=== PATIENT | female | born 1970 | race Caucasian/White ===

== ENCOUNTER 2022-08-22 08:54 | Observation (INO) ==
[2022-08-22] MEDS ORDERED: SODIUM CHLORIDE 0.9% 1000ML 500 ML IV ONE (09:06)
[2022-08-22] MEDS ORDERED: LORazepam 1 MG TAB SL STA (09:08)
[2022-08-22] MEDS ORDERED: ONDANSETRON INJ 2 MG/ML 2 ML VIAL IV STA (09:11)
--- NOTE | 2022-08-22 09:11 | Emergency Department Note ---
Impression & Plan Dizziness, Arm paresthesia, left, Nystagmus ED Provider Note NAME: ANSELMO HIGGINS AGE: 51 SEX: F : 1970 ARRIVES VIA: Ambulance INFORMANT: Patient ED PROVIDER(S): Miguel Vega DO CHIEF COMPLAINT: dizzy HPI: Patient is a 51-year-old female with a past medical history of tendinitis who presents to the ER for dizziness. This started while she was at [employer]. She was working. Start about 20 minutes prior to arrival. She notes she feels like she cannot stand. She had a little bit of a headache last night but nothing today. She has trouble focusing on anything. She admits to numbness on her left arm which started late last night. Denies any chest pain or shortness of breath. Has nausea but no vomiting. No dysuria, urgency, or frequency. No f ocal weakness of the arms or legs. No other exacerbating or remitting factors. ROS: See above HPI for pertinent positives & negatives. A total of 10 systems reviewed and were otherwise negative. PAST MEDICAL HISTORY:See Below PAST SURGICAL HISTORY:See Below FAMILY HISTORY:See Below SOCIAL HISTORY:See Below HOME MEDICATIONS:See Below ALLERGIES:See Below VITALS:See Below PHYSICAL EXAMINATION: GENERAL: Sitting up in bed, alert, well appearing, well nourished, no distress, non-toxic EYE EXAM: normal conjunctiva. PERRL and EOM's intact but a rotatory nystagmus present OROPHARYNX: mucous membranes are dry NECK: supple, no nuchal rigidity, no adenopathy, non-tender LUNGS: Clear to auscultation. Normal chest wall mechanics HEART: no murmurs, S1 normal and S2 normal ABDOMEN: abdomen soft, non-tender, normo-active bowel sounds, no masses, no rebound or guarding. UPPER EXTREMITIES: upper extremities are grossly normal. LOWER EXTREMITIES: No pitting edema. NEURO EXAM: Normal sensorium, cranial nerves II-XII intact, normal speech, no weakness of arms, no weakness of legs. No drift. Finger to nose intact. Gross sensation intact. + drift. [id number] with finger past MEDICAL DECISION MAKING: Patient is a 51-year-old female who presents the ER for dizziness. Upon presentation she has a rotatory nystagmus in combination with a drift of the left upper extremity and left arm paresthesias. IV was established blood work obtained. Labs show no significant leukocytosis or anemia. BMP with LFTs bilirubin was unremarkable. Mag was slightly low at 1.6. Troponin was negative. UA was clean. COVID was negative. CT of the head as well as angios of the head and neck were negative. She was given Ativan and Zofran. She was updated bedside. She was discussed with the hospitalist for further evaluation. Triage Nursing notes reviewed. Limited review of prior medical records performed Vital Signs: reviewed and remarkable for no significant abnormalities Differential diagnosis: Differential diagnosis includes etiologies such as benign positional vertigo, dehydration, hypovolemia, anemia, tumor, infection, hypoglycemia, electrolyte abnormalities, cardiac sources, intracerebral event, toxicologic, neurological, as well as others were entertained. ER treatment provided: See below Diagnostics interpreted by me: ECG: Sinus rhythm rate of 78 Normal axis No PVCs QTC 465 Cardiac Monitoring: An order was placed for continuous cardiac monitoring. The monitor shows a rate of 80 with sinus rhythm. Laboratory studies: As stated above and show below. Imaging studies: CT angio of the head and neck was negative Consultation(s): Discussed with Darlene from [facility] hospitalist service for further evaluation Procedures: none Critical Care: None Past Med/Surg History Medical History (Updated 08/22/22 @ 12:30 by Luzmaria Pelayo PA-C) CAD (coronary artery disease) Depression Diabetes HLD (hyperlipidemia) Hypertension Surgical History S/P repair of patent ductus arteriosus "age 7" S/P tubal ligation Social History Smoking Status: Former smoker Hx Alcohol Use: No Hx Substance Use: No Preferred Language: Bruneian Communication Ability: Effective 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 Beliefs That Will Affect Care: None Current Living Situation: Alone Other Information That Helps Us Care for You: No Feels Safe at Home: Yes Safety Concerns: Feels Safe At This Time Assistive Devices: Cane Assistive Devices Comment: cane prn at home per pt Allergies Allergies Allergy/AdvReac Type Severity Reaction Status Date / Time No Known Allergies Allergy Unverified 07/11/15 12:32 Home Meds Home Medications Medication Instructions Recorded Confirmed CITALOPRAM HYDROBROMIDE 10 mg PO DAILY 90 days #90 tabs 07/11/15 LORATADINE (LORATADINE ALLERGY 10 mg PO DAILY ##0 07/11/15 RELIEF) Trazodone Hcl (Trazodone) 50 mg PO HS #0 tabs 07/11/15 DEXAMETHASONE SODIUM PHOSPHATE 1.5 ml topical UD PRN foot pain ##0 07/12/15 (DEXAMETHASONE SODIUM PHOS) DICLOFENAC SOD (VOLTAREN) 50 mg PO BID #0 tabs 07/12/15 Fluticasone Propionate (Nasal) 2 spry KIRTI DAILY ##0 07/12/15 (Flonase Allergy Relief) Previous Rx's Medication Instructions Recorded Baclofen 10 mg PO BID 7 days ##0 07/19/15 Lisinopril 10 mg PO QAM 7 days #0 tabs 07/19/15 MAGNESIUM OXIDE (MG SUPPLEMENT 250 mg PO DAILY 7 days ##0 07/19/15 (MAGNESIUM OXIDE) Results & Data (ED) Vital Signs Vital Signs - 24 hr 08/22/22 09:01 08/22/22 09:01 08/22/22 09:30 Pulse Rate 79 Pulse Rate [Finger] Pulse Rate from SpO2 Sensor Respiratory Rate 20 Respiratory Effort / Characteristics Respiratory Depth Blood Pressure 126/76 123/78 Blood Pressure [Right Arm] Blood Pressure Mean 92 93 Blood Pressure Mean [Right Arm] Pulse Oximetry 96 96 Oxygen Delivery Method Room Air Room Air Sepsis Recent Fever Within 48 Hours No Sepsis New/Unexplained Change in Mental Status No Sepsis Action Taken by Nursing No Action Required 08/22/22 09:30 08/22/22 10:30 08/22/22 10:30 Pulse Rate 78 75 Pulse Rate [Finger] Pulse Rate from SpO2 Sensor 73 Respiratory Rate 13 18 Respiratory Effort / Characteristics Respiratory Depth Blood Pressure 108/77 Blood Pressure [Right Arm] Blood Pressure Mean 87 Blood Pressure Mean [Right Arm] Pulse Oximetry 95 Oxygen Delivery Method Sepsis Recent Fever Within 48 Hours Sepsis New/Unexplained Change in Mental Status Sepsis Action Taken by Nursing 08/22/22 11:00 Pulse Rate Pulse Rate [Finger] 75 Pulse Rate from SpO2 Sensor Respiratory Rate 20 Respiratory Effort / Characteristics Non-Labored Respiratory Depth Normal Blood Pressure Blood Pressure [Right Arm] 110/71 Blood Pressure Mean Blood Pressure Mean [Right Arm] 84 Pulse Oximetry 96 Oxygen Delivery Method Room Air Sepsis Recent Fever Within 48 Hours Sepsis New/Unexplained Change in Mental Status Sepsis Action Taken by Nursing Laboratory Data Result diagrams: 08/22/22 09:05 08/22/22 09:05 Lab Results 08/22/22 08/22/22 08/22/22 Range/Units 09:05 09:05 09:05 WBC 7.03 (4.8-10.8) K/ul RBC 4.55 (3.93-5.22) M/uL Hgb 13.3 (12.0-16.0) g/dl Hct 40.4 (34.1-44.9) % MCV 88.8 (80.0-100.0) fL MCH 29.2 (25.0-34.0) pg MCHC 32.9 (32.0-36.0) g/dL RDW Std Deviation 43.0 (36.4-46.3) fL RDW Coeff of [place] 13.1 (11.5-14.5) % Plt Count 281 (130-400) K/uL MPV 10.8 (9.4-12.3) fL Immature Gran % (Auto) 0.7 % Neut % (Auto) 59.6 % Lymph % (Auto) 26.9 % [place] % (Auto) 8.4 % Eos % (Auto) 3.7 % Baso % (Auto) 0.7 % Neut # (Auto) 4.19 (1.4-6.5) K/uL Lymph # (Auto) 1.89 (1.2-3.4) K/uL [place] # (Auto) 0.59 (0.24-0.82) K/uL Eos # (Auto) 0.26 (0-0.50) K/uL Baso # (Auto) 0.05 (0-0.2) K/uL Immature Gran # (Auto) 0.05 H (0.00-0.02) K/uL PT Cancelled INR Cancelled APTT Cancelled PTT Ratio Cancelled Sodium 139 (136-145) mmol/L Potassium 4.0 (3.5-5.1) mmol/L Chloride 104 (98-107) mmol/L Carbon Dioxide 28 (21-32) mmol/L Anion Gap 7 (3-11) BUN 13 (6-23) mg/dl Creatinine 0.54 L (0.6-1.2) mg/dl Est Cr Clr Drug Dosing 135.5 ml/min Est GFR ( Amer) 126.6 ml/min Est GFR (Non-Af Amer) 109.3 ml/min BUN/Creatinine Ratio 24.1 H (10-20) Glucose 112 H (70-99(Fasting)) mg/dl POC Glucose (70-99) mg/dl Calcium 9.2 (8.5-10.1) mg/dl Magnesium 1.6 L (1.7-2.4) mg/dl Total Bilirubin 0.8 (0.2-1.0) mg/dl AST 12 L (13-39) U/L ALT 6 L (7-52) U/L Alkaline Phosphatase 100 (34-104) U/L Troponin I High Sens 4.0 (0-14) pg/ml Total Protein 7.4 (6.0-8.3) gm/dl Albumin 4.0 (3.4-5.0) gm/dl Globulin 3.4 (2.5-4.0) gm/dl Albumin/Globulin Ratio 1.2 (0.9-2) Urine Color Urine Appearance (Clear) Urine pH (4.5-7.5) Ur Specific [place] (1.000-1.030) Urine Protein (Negative) Urine Glucose (UA) (Negative) Urine Ketones (Negative) Urine Blood (Negative) Urine Nitrite (Negative) Urine Bilirubin (Negative) Urine Urobilinogen (Negative) Ur Leukocyte Esterase (Negative) SARS-CoV-2, RNA, NAAT (NEGATIVE) 08/22/22 08/22/22 08/22/22 Range/Units 09:05 09:14 10:20 WBC (4.8-10.8) K/ul RBC (3.93-5.22) M/uL Hgb (12.0-16.0) g/dl Hct (34.1-44.9) % MCV (80.0-100.0) fL MCH (25.0-34.0) pg MCHC (32.0-36.0) g/dL RDW Std Deviation (36.4-46.3) fL RDW Coeff of [place] (11.5-14.5) % Plt Count (130-400) K/uL MPV (9.4-12.3) fL Immature Gran % (Auto) % Neut % (Auto) % Lymph % (Auto) % [place] % (Auto) % Eos % (Auto) % Baso % (Auto) % Neut # (Auto) (1.4-6.5) K/uL Lymph # (Auto) (1.2-3.4) K/uL [place] # (Auto) (0.24-0.82) K/uL Eos # (Auto) (0-0.50) K/uL Baso # (Auto) (0-0.2) K/uL Immature Gran # (Auto) (0.00-0.02) K/uL PT INR APTT PTT Ratio Sodium (136-145) mmol/L Potassium (3.5-5.1) mmol/L Chloride (98-107) mmol/L Carbon Dioxide (21-32) mmol/L Anion Gap (3-11) BUN (6-23) mg/dl Creatinine (0.6-1.2) mg/dl Est Cr Clr Drug Dosing ml/min Est GFR ( Amer) ml/min Est GFR (Non-Af Amer) ml/min BUN/Creatinine Ratio (10-20) Glucose (70-99(Fasting)) mg/dl POC Glucose 112 H (70-99) mg/dl Calcium (8.5-10.1) mg/dl Magnesium (1.7-2.4) mg/dl Total Bilirubin (0.2-1.0) mg/dl AST (13-39) U/L ALT (7-52) U/L Alkaline Phosphatase (34-104) U/L Troponin I High Sens (0-14) pg/ml Total Protein (6.0-8.3) gm/dl Albumin (3.4-5.0) gm/dl Globulin (2.5-4.0) gm/dl Albumin/Globulin Ratio (0.9-2) Urine Color Yellow Urine Appearance Clear (Clear) Urine pH 5.0 (4.5-7.5) Ur Specific [place] 1.008 (1.000-1.030) Urine Protein Negative (Negative) Urine Glucose (UA) Negative (Negative) Urine Ketones Negative (Negative) Urine Blood Negative (Negative) Urine Nitrite Negative (Negative) Urine Bilirubin Negative (Negative) Urine Urobilinogen Negative (Negative) Ur Leukocyte Esterase Negative (Negative) SARS-CoV-2, RNA, NAAT NEGATIVE (NEGATIVE) 08/22/22 Range/Units 11:34 WBC (4.8-10.8) K/ul RBC (3.93-5.22) M/uL Hgb (12.0-16.0) g/dl Hct (34.1-44.9) % MCV (80.0-100.0) fL MCH (25.0-34.0) pg MCHC (32.0-36.0) g/dL RDW Std Deviation (36.4-46.3) fL RDW Coeff of [place] (11.5-14.5) % Plt Count (130-400) K/uL MPV (9.4-12.3) fL Immature Gran % (Auto) % Neut % (Auto) % Lymph % (Auto) % [place] % (Auto) % Eos % (Auto) % Baso % (Auto) % Neut # (Auto) (1.4-6.5) K/uL Lymph # (Auto) (1.2-3.4) K/uL [place] # (Auto) (0.24-0.82) K/uL Eos # (Auto) (0-0.50) K/uL Baso # (Auto) (0-0.2) K/uL Immature Gran # (Auto) (0.00-0.02) K/uL PT 10.6 INR 1.0 APTT 26.2 PTT Ratio 1.0 Sodium (136-145) mmol/L Potassium (3.5-5.1) mmol/L Chloride (98-107) mmol/L Carbon Dioxide (21-32) mmol/L Anion Gap (3-11) BUN (6-23) mg/dl Creatinine (0.6-1.2) mg/dl Est Cr Clr Drug Dosing ml/min Est GFR ( Amer) ml/min Est GFR (Non-Af Amer) ml/min BUN/Creatinine Ratio (10-20) Glucose (70-99(Fasting)) mg/dl POC Glucose (70-99) mg/dl Calcium (8.5-10.1) mg/dl Magnesium (1.7-2.4) mg/dl Total Bilirubin (0.2-1.0) mg/dl AST (13-39) U/L ALT (7-52) U/L Alkaline Phosphatase (34-104) U/L Troponin I High Sens (0-14) pg/ml Total Protein (6.0-8.3) gm/dl Albumin (3.4-5.0) gm/dl Globulin (2.5-4.0) gm/dl Albumin/Globulin Ratio (0.9-2) Urine Color Urine Appearance (Clear) Urine pH (4.5-7.5) Ur Specific [place] (1.000-1.030) Urine Protein (Negative) Urine Glucose (UA) (Negative) Urine Ketones (Negative) Urine Blood (Negative) Urine Nitrite (Negative) Urine Bilirubin (Negative) Urine Urobilinogen (Negative) Ur Leukocyte Esterase (Negative) SARS-CoV-2, RNA, NAAT (NEGATIVE) Administered Medications Discontinued Medications Sodium Chloride (Nss 1000ml) 500 mls @ 999 mls/hr IV .Q31M ONE Stop: 08/22/22 09:36 Last Infusion: 08/22/22 10:05 Dose: 0 mls/hr Documented By: Admin: 08/22/22 09:34 Dose: 999 mls/hr Documented By: KIRTI Ioversol (Optiray 320 500ml) 112 ml IV ONCE ONE Stop: 08/22/22 10:45 Last Admin: 08/22/22 10:44 Dose: 112 ml Documented By: EVELIA Lorazepam (Lorazepam 1 Mg Tab) 1 mg SL NOW STA Stop: 08/22/22 09:09 Last Admin: 08/22/22 09:28 Dose: 1 mg Documented By: KIRTI Ondansetron HCl (Ondansetron Inj 2 Mg/Ml 2 Ml Vial) 4 mg IV NOW STA Stop: 08/22/22 09:12 Last Admin: 08/22/22 09:28 Dose: 4 mg Documented By: KIRTI Imaging Data Radiologist's Impression: Chest X-Ray 08/22/22 09:06 XR chest 1V portable CLINICAL HISTORY: Stroke Like Symptoms TECHNIQUE: Single frontal radiograph of the chest was obtained. Comparison: Comparison is made to chest radiograph 06/29/2022 FINDINGS: No lines and tubes are seen. The cardiomediastinal silhouette is stable. Numerous nodular densities compatible with calcified granulomata. Interstitial thickening is seen. No pleural effusion or pneumothorax. Anterior cervical fixation hardware is noted. IMPRESSION: No acute chest disease. ACT 112: Negative or not required by law. Electronically signed by: Murtaza Lancaster M.D. 08/22/2022 10:[address] 08/22/22 09:06 CT head/brain wo con CLINICAL HISTORY: 51 years-old Female with Stroke Like Symptoms. Acute strokelike symptoms TECHNIQUE: Multiple axial CT images of the head were obtained without contrast. A dose lowering technique was utilized adhering to the principles of ALARA. COMPARISON: CTA head and neck of same day FINDINGS: No acute intracranial hemorrhage, midline shift, intracranial mass, hydrocephalus, territorial ischemia or abnormal extra-axial collection. Cerebral vascular calcifications. The calvarium is intact. Cervical spinal fusion hardware. The paranasal sinuses, mastoid air cells, and middle ear cavities are clear. IMPRESSION: No acute intracranial abnormality. ACT 112: Negative or not required by law. The above report was generated using voice recognition software. It may contain grammatical, syntax or spelling errors. Electronically signed by: Elvis Guerrero M.D. 08/22/2022 10:53 AM Head CTA 08/22/22 09:06 CT angio head w con CLINICAL HISTORY: Stroke Like Symptoms TECHNIQUE: Contiguous axial CT images of the head were acquired from the base of the skull to the vertex without intravenous contrast administration. CT angiography of the head and neck was performed following intravenous administration of iodinated contrast. Coronal and sagittal MIPS were obtained from the axial data set and were submitted for review. Automated dose lowering techniques and/or adjustment according to patient size were utilized for this examination. All measurements were calculated based on NASCET criteria. CT DOSE: 1130.13 mGy.cm Comparison: Comparison is made to CT head 08/22/2022 FINDINGS: CTA Head: The anterior and posterior cerebral circulations are patent. No hemodynamically significant stenosis, aneurysm, dissection, or arteriovenous malformation is shown. Atherosclerotic disease is noted. IMPRESSION: No occlusion, hemodynamically significant stenosis, aneurysm, dissection, or arteriovenous malformation in the major intracranial arteries. Assessment of stenosis of the internal carotid arteries is based on NASCET criteria. ACT 112: Negative or not required by law. Electronically signed by: Murtaza Lancaster M.D. 08/22/2022 11:15 AM Neck CTA 08/22/22 09:06 NECK CTA HISTORY: Stroke Like Symptoms TECHNIQUE: Multiaxial CT images of the neck were performed following the intravenous administration of contrast to evaluate the major cervical vessels. Maximum intensity projection images were also obtained. All measurements were calculated based on NASCET criteria. A dose lowering technique was utilized adhering to the principles of ALARA. COMPARISON STUDY: None. FINDINGS: The aortic arch and proximal great vessels are widely patent. There is no significant stenosis, occlusion, or dissection identified within the bilateral common carotid, internal carotid, or right vertebral artery. C3-C6 ACDF is noted. Mild mass effect along the left vertebral artery due to the adjacent cervical spine osteophytes. However, no significant stenosis, occlusion, or dissection. Mild calcified plaque within the bilateral carotid bifurcations. IMPRESSION: No significant stenosis, occlusion, or dissection identified within the carotid or vertebral arteries. ACT 112: Negative or not required by law. Electronically signed by: Elier Conner M.D. 08/22/2022 11:00 AM Discharge Plan Visit Data Chief Complaint: Dizziness Stated Complaint: DIZZINESS, NAUSEA ED Provider: Miguel Vega Discharge Problem: Dizziness, Arm paresthesia, left, Nystagmus Patient Disposition: Admitted As Inpatient Discharge Instructions Interventions: ED Discharge Assessment Last Done: 08/22/22 12:46
[2022-08-22 09:43] LABS: Basophils # (auto) 0.05 K/uL (0-0.2); Basophils % (auto) 0.7 %; Eosinophils # (auto) 0.26 K/uL (0-0.50); Eosinophils % (auto) 3.7 %; Hematocrit (blood only) 40.4 % (34.1-44.9); Hemoglobin 13.3 g/dl (12.0-16.0); Immature Granulocytes # (auto) 0.05 K/uL (0.00-0.02); Immature Granulocytes % (auto) 0.7 %; Lymphocytes # (auto) 1.89 K/uL (1.2-3.4); Lymphocytes % (auto) 26.9 %; Mean Corpuscular Hemoglobin 29.2 pg (25.0-34.0); Mean Corpuscular Hgb Conc 32.9 g/dL (32.0-36.0); Mean Corpuscular Volume 88.8 fL (80.0-100.0); Mean Platelet Volume 10.8 fL (9.4-12.3); Monocytes # (auto) 0.59 K/uL (0.24-0.82); Monocytes % (auto) 8.4 %; Neutrophils # (auto) 4.19 K/uL (1.4-6.5); Neutrophils % (auto) 59.6 %; Platelet Count 281 K/uL (130-400); RDW Coefficient of Variation 13.1 % (11.5-14.5); Red Blood Count 4.55 M/uL (3.93-5.22); White Blood Count 7.03 K/ul (4.8-10.8)
[2022-08-22 10:18] LABS: Albumin Globulin Ratio 1.2 (0.9-2); BUN Creatinine Ratio 24.1 (10-20); Bilirubin,Total 0.8 mg/dl (0.2-1.0); Calcium 9.2 mg/dl (8.5-10.1); Creatinine Clr Calc Pharmacy 135.5 ml/min; Est GFR (African American) 126.6 ml/min; Est GFR (Non-African American) 109.3 ml/min; Globulin 3.4 gm/dl (2.5-4.0); Magnesium 1.6 mg/dl (1.7-2.4); Total Protein 7.4 gm/dl (6.0-8.3)
--- NOTE | 2022-08-22 10:35 | XRay Report ---
XR chest 1V portable CLINICAL HISTORY: Stroke Like Symptoms TECHNIQUE: Single frontal radiograph of the chest was obtained. Comparison: Comparison is made to chest radiograph 06/29/2022 FINDINGS: No lines and tubes are seen. The cardiomediastinal silhouette is stable. Numerous nodular densities c ompatible with calcified granulomata. Interstitial thickening is seen. No pleural effusion or pneumot horax. Anterior cervical fixation hardware is noted. IMPRESSION: No acute chest disease. ACT 112: Negative or not required by law. Electronically signed by: Murtaza Lancaster M.D. 08/22/2022 10:34 AM
[2022-08-22] MEDS ORDERED: OPTIRAY 320 500ml IV ONE (10:44)
--- NOTE | 2022-08-22 10:55 | CT Scan Report ---
CT head/brain wo con CLINICAL HISTORY: 51 years-old Female with Stroke Like Symptoms. Acute strokelike symptoms TECHNIQUE: Multiple axial CT images of the head were obtained without contrast. A dose lowering tech nique was utilized adhering to the principles of ALARA. COMPARISON: CTA head and neck of same day FINDINGS: No acute intracranial hemorrhage, midline shift, intracranial mass, hydrocephalus, territorial ischem ia or abnormal extra-axial collection. Cerebral vascular calcifications. The calvarium is intact. Cervical spinal fusion hardware. The paranasal sinuses, mastoid air cells, a nd middle ear cavities are clear. IMPRESSION: No acute intracranial abnormality. ACT 112: Negative or not required by law. The above report was generated using voice recognition software. It may contain grammatical, syntax o r spelling errors. Electronically signed by: Elvis Guerrero M.D. 08/22/2022 10:53 AM
[2022-08-22 10:57] LABS: Appearance Urine Clear (Clear); Bilirubin Urine Negative (Negative); Blood Urine Negative (Negative); Color Urine Yellow; Glucose Urine UA Negative (Negative); Ketones Urine Negative (Negative); Leukocyte Esterase Urine Negative (Negative); Nitrite Urine Negative (Negative); Protein Urine Negative (Negative); Specific Gravity Urine 1.008 (1.000-1.030); Urobilinogen Urine Negative (Negative)
--- NOTE | 2022-08-22 11:02 | CT Scan Report ---
NECK CTA HISTORY: Stroke Like Symptoms TECHNIQUE: Multiaxial CT images of the neck were performed following the intravenous administration o f contrast to evaluate the major cervical vessels. Maximum intensity projection images were also obta ined. All measurements were calculated based on NASCET criteria. A dose lowering technique was utili zed adhering to the principles of ALARA. COMPARISON STUDY: None. FINDINGS: The aortic arch and proximal great vessels are widely patent. There is no significant sten osis, occlusion, or dissection identified within the bilateral common carotid, internal carotid, or r ight vertebral artery. C3-C6 ACDF is noted. Mild mass effect along the left vertebral artery due to t he adjacent cervical spine osteophytes. However, no significant stenosis, occlusion, or dissection. M ild calcified plaque within the bilateral carotid bifurcations. IMPRESSION: No significant stenosis, occlusion, or dissection identified within the carotid or vertebral arteries . ACT 112: Negative or not required by law. Electronically signed by: Elier Conner M.D. 08/22/2022 11:00 AM
--- NOTE | 2022-08-22 11:16 | CT Scan Report ---
CT angio head w con CLINICAL HISTORY: Stroke Like Symptoms TECHNIQUE: Contiguous axial CT images of the head were acquired from the base of the skull to the rubina ezekiel without intravenous contrast administration. CT angiography of the head and neck was performed f ollowing intravenous administration of iodinated contrast. Coronal and sagittal MIPS were obtained fr om the axial data set and were submitted for review. Automated dose lowering techniques and/or adjus tment according to patient size were utilized for this examination. All measurements were calculated based on NASCET criteria. CT DOSE: 1130.13 mGy.cm Comparison: Comparison is made to CT head 08/22/2022 FINDINGS: CTA Head: The anterior and posterior cerebral circulations are patent. No hemodynamically significan t stenosis, aneurysm, dissection, or arteriovenous malformation is shown. Atherosclerotic disease is noted. IMPRESSION: No occlusion, hemodynamically significant stenosis, aneurysm, dissection, or arteriovenous malformati on in the major intracranial arteries. Assessment of stenosis of the internal carotid arteries is based on NASCET criteria. ACT 112: Negative or not required by law. Electronically signed by: Murtaza Lancaster M.D. 08/22/2022 11:15 AM
--- NOTE | 2022-08-22 11:50 | History & Physical Report ---
Date of Service August 22, 2022 Assessment & Plan (1) Encephalopathy: (2) Dizziness: Plan: - Pt reports onset of acute dizziness, difficulty walking around 9:30 am, EMS was called and brought her to the hospital from work. - CTAs of the head and neck are negative - Check MRI brain for concern for cerebellar stroke - hx of claustrophobia but is still lethargic from the ativan already given in the ER. - Ativan possibly playing a part in her encephalopathy, will have to continue to evaluate to see if improves once it wears off - ABG ordered: pH is 7.42, PCO2 is 50, bicarb 32. - Check urine drug screen from toxicology causes, possibility that the patient took extra trazodone or gabapentin? - Consult neuro - stoke order set completed - Already on plavix and aspirin, atorvastatin 40 mg daily - Will hold HS trazodone for now with lethargy, if improves may resume this - Cont NPO for now (3) Diabetes: Plan: - Last A1C was 6.4 on 06/05/22 - Not on medication for such, continue diet control (4) HLD (hyperlipidemia): Plan: - Continue atorvastatin 40 mg daily (5) CAD (coronary artery disease): Plan: -Continue on baby aspirin, Plavix, statin, beta-abel, KASI (6) Hypertension: Plan: -Lisinopril 2.5 mg, metoprolol succinate 12.5 mg twice daily DVT ppx: - teds, scds CODE: Full code Dispo: From home, likely to remain in the hospital x 1-2 days (7) Vertigo: (8) S/P cervical spinal fusion: History of Present Illness Chief Complaint: Dizziness Primary Care Provider: Patrizia Lazo MD This is a 51-year-old female with PMHx of HTN, DM type II, TRINIDAD, HLD, anxiety, depression who presents with acute onset of dizziness. 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 She felt some numbness of the left arm which is slightly there at present. Denies slurring words, word finding, cardiac complaints, or issues with breathing. Pt took her normally scheduled medications today including gabapentin 800 mg TID, and last evening took Trazodone 150 mg HS. Neither of these medications are new or recently increased per her knowledge. She does not think she took different medications on accident. Denies drug use or other new medication. She is very drowsy throughout our visit and at times has difficulty keeping her eyes open - she was given Ativan 1 mg PO in the ER however. Pt has difficulty following commands with neuro testing today including left vs right hand and leg use to start tests, finger to nose testing, rapid alternating movements. Allergies Allergy/AdvReac Type Severity Reaction Status Date / Time No Known Allergies Allergy Unverified 07/11/15 12:32 Home Medications Medication Instructions Recorded Confirmed Type amlodipine 2.5 mg tablet 2.5 mg PO DAILY 08/22/22 08/22/22 History aspirin 81 mg chewable tablet 81 mg PO DAILY 08/22/22 08/22/22 History atorvastatin 40 mg tablet 40 mg PO QAM 08/22/22 08/22/22 History citalopram 40 mg tablet 40 mg PO QAM 08/22/22 08/22/22 History clopidogrel 75 mg tablet 75 mg PO QAM 08/22/22 08/22/22 History cyclobenzaprine 5 mg tablet 10 mg PO QID PRN Muscle Spasm 08/22/22 08/22/22 History dicyclomine 10 mg capsule 10 mg PO DAILY PRN Abdominal Pain 08/22/22 08/22/22 History gabapentin 800 mg tablet 800 mg PO TID 08/22/22 08/22/22 History lisinopril 2.5 mg tablet 2.5 mg PO DAILY 08/22/22 08/22/22 History metformin 500 mg tablet,extended 500 mg PO BID 08/22/22 08/22/22 History release 24 hr metoprolol succinate 25 mg 12.5 mg PO BID 08/22/22 08/22/22 History tablet,extended release 24 hr trazodone 150 mg tablet 150 mg PO DAILY 08/22/22 08/22/22 History Past Med/Surg History Medical History (Updated 08/22/22 @ 21:26 by Soumya Mora DO) CAD (coronary artery disease) Depression Diabetes HLD (hyperlipidemia) Hypertension Surgical History (Updated 08/22/22 @ 21:28 by Soumya Mora DO) S/P repair of patent ductus arteriosus "age 7" S/P tubal ligation Family History (Updated 08/22/22 @ 15:00 by Luzmaria Pelayo PA-C) Mother Cancer Diabetes Grandmother (Maternal) Stroke Aunt Cancer Aunt Cancer Stroke Social History Smoking Status: Former smoker Hx Alcohol Use: No Hx Substance Use: No Preferred Language: Yakut Communication Ability: Effective Hardware Installer Required: No Beliefs That Will Affect Care: None Current Living Situation: Alone Other Information That Helps Us Care for You: No Feels Safe at Home: Yes Safety Concerns: Feels Safe At This Time Assistive Devices: Cane Assistive Devices Comment: cane prn at home per pt Review of Systems Review of Systems: Constitutional: No fever, sweats or chills, + dizziness, imbalance Eyes: No diplopia, no worsening or blurred vision, no tunnel vision ENT: normal hearing, no trouble swallowing Respiratory: No cough, sputum, dyspnea at rest or on exertion Cardiovascular: No chest pain, tightness or palpitations Abdomen: No pain, + slight nausea earlier, none presently, no vomiting, diarrhea or constipation Musculoskeletal: No joint pain, calf pain, swelling Neurologic: No weakness, numbness/tingling, + balance problems with ambulation today Psychiatric: No anxiety or depression Skin: No rash or itch Physical Exam Physical Exam: General: awake, alert, no apparent distress, + lethargic, + obese with BMI of 42.1 Head: Normocephalic, atraumatic ENT: PERRL, EOMI, no pharyngeal exudate, mucous membranes moist Chest: Clear to auscultation, on room air, no adventitious breath sounds Cardiac: Regular rate and rhythm, no murmur, no JVD, normal peripheral pulses, good capillary refill Abdominal: NABS x 4 quadrants, soft, nondistended, nontender to palpation, no rebound or guarding Extremities: Normal inspection, no peripheral edema or erythema, calfs nontender to palpation Psych: Normal mood and affect Neuro: AAO x 3, strength intact bilaterally and rated 4/5,unable to perform rapid alternating movements, significant difficulty with [id number]-sa-[id number] testing, + rotational nystagmus, pupils are equal and reactive to light, unable to tilt right from left with following instructions able to perform facv-bf-aadj testing, no motor deficits, speech is clear, no peripheral sensory deficits Results & Data Results & Data ([facility]) Vital Signs (Past 12 Hours) Vital Signs Pulse Pulse Resp BP BP Pulse Ox O2 Del Method 08/22/22 11:00 75 20 110/71 96 Room Air 08/22/22 10:30 75 18 95 08/22/22 10:30 108/77 08/22/22 09:30 78 13 08/22/22 09:30 123/78 08/22/22 09:01 96 Room Air 08/22/22 09:01 79 20 126/76 96 Room Air Laboratory Results 08/22/22 08/22/22 08/22/22 11:34 10:20 09:14 WBC RBC Hgb Hct MCV MCH MCHC RDW Std Deviation RDW Coeff of [place] Plt Count MPV Immature Gran % (Auto) Neut % (Auto) Lymph % (Auto) [place] % (Auto) Eos % (Auto) Baso % (Auto) Neut # (Auto) Lymph # (Auto) [place] # (Auto) Eos # (Auto) Baso # (Auto) Immature Gran # (Auto) PT 10.6 INR 1.0 APTT 26.2 PTT Ratio 1.0 Sodium Potassium Chloride Carbon Dioxide Anion Gap BUN Creatinine Est Cr Clr Drug Dosing Est GFR ( Amer) Est GFR (Non-Af Amer) BUN/Creatinine Ratio Glucose POC Glucose 112 H Calcium Magnesium Total Bilirubin AST ALT Alkaline Phosphatase Troponin I High Sens Total Protein Albumin Globulin Albumin/Globulin Ratio Urine Color Yellow Urine Appearance Clear Urine pH 5.0 Ur Specific [place] 1.008 Urine Protein Negative Urine Glucose (UA) Negative Urine Ketones Negative Urine Blood Negative Urine Nitrite Negative Urine Bilirubin Negative Urine Urobilinogen Negative Ur Leukocyte Esterase Negative SARS-CoV-2, RNA, NAAT 08/22/22 08/22/22 08/22/22 09:05 09:05 09:05 WBC RBC Hgb Hct MCV MCH MCHC RDW Std Deviation RDW Coeff of [place] Plt Count MPV Immature Gran % (Auto) Neut % (Auto) Lymph % (Auto) [place] % (Auto) Eos % (Auto) Baso % (Auto) Neut # (Auto) Lymph # (Auto) [place] # (Auto) Eos # (Auto) Baso # (Auto) Immature Gran # (Auto) PT Cancelled INR Cancelled APTT Cancelled PTT Ratio Cancelled Sodium 139 Potassium 4.0 Chloride 104 Carbon Dioxide 28 Anion Gap 7 BUN 13 Creatinine 0.54 L Est Cr Clr Drug Dosing 135.5 Est GFR ( Amer) 126.6 Est GFR (Non-Af Amer) 109.3 BUN/Creatinine Ratio 24.1 H Glucose 112 H POC Glucose Calcium 9.2 Magnesium 1.6 L Total Bilirubin 0.8 AST 12 L ALT 6 L Alkaline Phosphatase 100 Troponin I High Sens 4.0 Total Protein 7.4 Albumin 4.0 Globulin 3.4 Albumin/Globulin Ratio 1.2 Urine Color Urine Appearance Urine pH Ur Specific [place] Urine Protein Urine Glucose (UA) Urine Ketones Urine Blood Urine Nitrite Urine Bilirubin Urine Urobilinogen Ur Leukocyte Esterase SARS-CoV-2, RNA, NAAT NEGATIVE 08/22/22 09:05 WBC 7.03 RBC 4.55 Hgb 13.3 Hct 40.4 MCV 88.8 MCH 29.2 MCHC 32.9 RDW Std Deviation 43.0 RDW Coeff of [place] 13.1 Plt Count 281 MPV 10.8 Immature Gran % (Auto) 0.7 Neut % (Auto) 59.6 Lymph % (Auto) 26.9 [place] % (Auto) 8.4 Eos % (Auto) 3.7 Baso % (Auto) 0.7 Neut # (Auto) 4.19 Lymph # (Auto) 1.89 [place] # (Auto) 0.59 Eos # (Auto) 0.26 Baso # (Auto) 0.05 Immature Gran # (Auto) 0.05 H PT INR APTT PTT Ratio Sodium Potassium Chloride Carbon Dioxide Anion Gap BUN Creatinine Est Cr Clr Drug Dosing Est GFR ( Amer) Est GFR (Non-Af Amer) BUN/Creatinine Ratio Glucose POC Glucose Calcium Magnesium Total Bilirubin AST ALT Alkaline Phosphatase Troponin I High Sens Total Protein Albumin Globulin Albumin/Globulin Ratio Urine Color Urine Appearance Urine pH Ur Specific [place] Urine Protein Urine Glucose (UA) Urine Ketones Urine Blood Urine Nitrite Urine Bilirubin Urine Urobilinogen Ur Leukocyte Esterase SARS-CoV-2, RNA, NAAT Diagnostic Findings Chest X-Ray 08/22/22 09:06 XR chest 1V portable CLINICAL HISTORY: Stroke Like Symptoms TECHNIQUE: Single frontal radiograph of the chest was obtained. Comparison: Comparison is made to chest radiograph 06/29/2022 FINDINGS: No lines and tubes are seen. The cardiomediastinal silhouette is stable. Numerous nodular densities compatible with calcified granulomata. Interstitial thickening is seen. No pleural effusion or pneumothorax. Anterior cervical fixation hardware is noted. IMPRESSION: No acute chest disease. ACT 112: Negative or not required by law. Electronically signed by: Murtaza Lancaster M.D. 08/22/2022 10:[address] 08/22/22 09:06 CT head/brain wo con CLINICAL HISTORY: 51 years-old Female with Stroke Like Symptoms. Acute strokelike symptoms TECHNIQUE: Multiple axial CT images of the head were obtained without contrast. A dose lowering technique was utilized adhering to the principles of ALARA. COMPARISON: CTA head and neck of same day FINDINGS: No acute intracranial hemorrhage, midline shift, intracranial mass, hydrocephalus, territorial ischemia or abnormal extra-axial collection. Cerebral vascular calcifications. The calvarium is intact. Cervical spinal fusion hardware. The paranasal sinuses, mastoid air cells, and middle ear cavities are clear. IMPRESSION: No acute intracranial abnormality. ACT 112: Negative or not required by law. The above report was generated using voice recognition software. It may contain grammatical, syntax or spelling errors. Electronically signed by: Elvis Guerrero M.D. 08/22/2022 10:53 AM Head CTA 08/22/22 09:06 CT angio head w con CLINICAL HISTORY: Stroke Like Symptoms TECHNIQUE: Contiguous axial CT images of the head were acquired from the base of the skull to the vertex without intravenous contrast administration. CT angiography of the head and neck was performed following intravenous administration of iodinated contrast. Coronal and sagittal MIPS were obtained from the axial data set and were submitted for review. Automated dose lowering techniques and/or adjustment according to patient size were utilized for this examination. All measurements were calculated based on NASCET criteria. CT DOSE: 1130.13 mGy.cm Comparison: Comparison is made to CT head 08/22/2022 FINDINGS: CTA Head: The anterior and posterior cerebral circulations are patent. No hemodynamically significant stenosis, aneurysm, dissection, or arteriovenous malformation is shown. Atherosclerotic disease is noted. IMPRESSION: No occlusion, hemodynamically significant stenosis, aneurysm, dissection, or arteriovenous malformation in the major intracranial arteries. Assessment of stenosis of the internal carotid arteries is based on NASCET criteria. ACT 112: Negative or not required by law. Electronically signed by: Murtaza Lancaster M.D. 08/22/2022 11:15 AM Neck CTA 08/22/22 09:06 NECK CTA HISTORY: Stroke Like Symptoms TECHNIQUE: Multiaxial CT images of the neck were performed following the intravenous administration of contrast to evaluate the major cervical vessels. Maximum intensity projection images were also obtained. All measurements were calculated based on NASCET criteria. A dose lowering technique was utilized adhering to the principles of ALARA. COMPARISON STUDY: None. FINDINGS: The aortic arch and proximal great vessels are widely patent. There is no significant stenosis, occlusion, or dissection identified within the bilateral common carotid, internal carotid, or right vertebral artery. C3-C6 ACDF is noted. Mild mass effect along the left vertebral artery due to the adjacent cervical spine osteophytes. However, no significant stenosis, occlusion, or dissection. Mild calcified plaque within the bilateral carotid bifurcations. IMPRESSION: No significant stenosis, occlusion, or dissection identified within the carotid or vertebral arteries. ACT 112: Negative or not required by law. Electronically signed by: Elier Conner M.D. 08/22/2022 11:00 AM ECG Additional Comments: 64 22-AUG-2022 10:23:03 [facility]-EDSTAT ROUTINE RETRIEVAL Poor data quality, interpretation may be adversely affected Normal sinus rhythm Normal ECG When compared with ECG of 06-NOV-2015 15:02, No significant change was found Confirmed by Claus Flower ([id number]) on 08/22/2022 12:22:28 PM 25mm/s10mm/[id number] 241CID: 3Referred by: Danielle Jones Confirmed By: Claus Flower Vent. rate 87 BPM WI interval 144 ms QRS duration 100 ms QT/QTc 352/423 ms Code Status & VTE Plan Code Status Full code Supervising Physician Co-Signing Physician Notes I have seen and examined the patient and have discussed the case with the provider above. I agree with the assessment and plan as stated with the following exceptions. 51-year-old female presents with acute onset vertigo when she was at work this morning. She reports waking up and feeling normal. 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 She became dizzy with the room spinning and was not able to walk around or function. EMS was called to bring her to the hospital. Upon arrival to the ER she received 1 mg of IV Ativan at this time she is very lethargic and sleepy. She is oriented and able to give a history. She denies feeling ill in the past few days. She has well-controlled diabetes and a history of coronary artery disease and hypertension. She still is feeling very dizzy and having to lay on her right side and close her eyes for comfort. She received 500 cc of normal saline and 4 mg IV of Zofran in the ER. She denies any respiratory symptoms. Physical exam reveals an ill-appearing morbidly obese female in mild distress when she tries to move around. She reports significant dizziness initially is lethargic. She is oriented and following instructions. Lungs are clear to auscultation. Cardiac exam is normal with no evidence of edema. She examines as euvolemic. Abdomen is soft nontender nondistended. Lab work reveals a normal CBC, INR of 1.0, ABG with a normal pH and a slightly elevated CO2 likely reflective of her lethargic state after Ativan. She is oxygenating 93% on room air. Comprehensive metabolic panel was normal aside from a slightly low magnesium at 1.6. Urinalysis is clear and her COVID swab is negative. Imaging performed in the ER including CT of the head and CTA of the head and neck revealed no acute intracranial abnormalities. Chest x-ray reveals no acute disease. EKG reveals normal sinus rhythm with no evidence of acute ischemia. Vertigo with acute onset concerning for acute cerebellar stroke. She has claustrophobia and is reluctant to enter the MRI but is willing to try. Agree with plan to perform PT and OT consultation, keep n.p.o. until she is more alert and oriented with a speech consult. Neuro consult. DO Morgan ADDENDUM: She was reassessed this evening and was more alert. She was asking for her gabapentin to be adjusted to her home dose 1600mg HS and 800mg qaM. She also takes flexeril 20mg qHS and Trazodone, both of which we are holding in case of polypharmacy contributing to new symptoms today. She reports that turning her head to the left causes numbness in her left hand and tingling in her left shoulder. This is a known post-operative complication from her previous cervical spine surgery. She has a similar issue in her left leg that is chronic and is the reason she takes gabapentin and flexeril. Her TM is normal on the left side but there is cerumen blocking the canal on the right with some possible irritation to the right TM. Debox otic drops were ordered. The MRI results were disclosed to her. Vertigo likely from benign source. Again confirmed no recent illnesses in the past 3 months. Possible BPPV? Appreciate neuro thoughts and requested PT to perform Rishabh maneuver in am. Morgan, DO
--- NOTE | 2022-08-22 12:17 | Electrocardiogram Report ---
Test Reason : Blood Pressure : / mmHG Vent. Rate : 078 BPM Atrial Rate : 078 BPM P-R Int : 146 ms QRS Dur : 096 ms QT Int : 408 ms P-R-T Axes : 076 001 066 degrees QTc Int : 465 ms Normal sinus rhythm Old Inferior infarct (cited on or before 29-JUN-2022) Abnormal ECG When compared with ECG of 29-JUN-2022 14:48, No significant change Confirmed by Claus Flower ([id number]) on 08/22/2022 12:17:07 PM Referred By: Confirmed By:Claus Flower
[2022-08-22 12:23] LABS: Partial Thromboplastin Time 26.2 Seconds (21.0-31.0); Prothrombin Time 10.6 Seconds (9.0-12.0)
[2022-08-22] MEDS ORDERED: ONDANSETRON INJ 2 MG/ML 2 ML VIAL IV PRN (13:30)
[2022-08-22] MEDS ORDERED: MAGNESIUM SULFATE / D5W 1 GM/100 ML BAG IV ONE (13:43)
[2022-08-22] MEDS ORDERED: FLUARIX QUADRIVALENT 0.5 ML SYR IM ONE (14:01)
[2022-08-22 14:47] LABS: Base Excess ABG 6.6 mEq/L (-9-1.8); HCO3 ABG 32 mmol/L (19-24); Oxygen Saturation ABG 97.8 % (90-95); PCO2 ABG 50 mmHg (35-46); PO2 ABG 79 mmHg (80-95); pH ABG 7.42 (7.35-7.45)
[2022-08-22 14:48] LABS: Allen Test POS (Pos)
[2022-08-22] MEDS ORDERED: DICYCLOMINE HCL 10 MG CAP PO PRN (15:25)
--- NOTE | 2022-08-22 15:25 | Communication Note ---
Date of Service: August 22, 2022 ATTENDING ADDENDUM: 51-year-old female presents with acute onset vertigo when she was at work this morning. She reports waking up and feeling normal. 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 She became dizzy with the room spinning and was not able to walk around or function. EMS was called to bring her to the hospital. Upon arrival to the ER she received 1 mg of IV Ativan at this time she is very lethargic and sleepy. She is oriented and able to give a history. She denies feeling ill in the past few days. She has well-controlled diabetes and a history of coronary artery disease and hypertension. She still is feeling very dizzy and having to lay on her right side and close her eyes for comfort. She received 500 cc of normal saline and 4 mg IV of Zofran in the ER. She denies any respiratory symptoms. Physical exam reveals an ill-appearing morbidly obese female in mild distress when she tries to move around. She reports significant dizziness initially is lethargic. She is oriented and following instructions. Lungs are clear to auscultation. Cardiac exam is normal with no evidence of edema. She examines as euvolemic. Abdomen is soft nontender nondistended. Lab work reveals a normal CBC, INR of 1.0, ABG with a normal pH and a slightly elevated CO2 likely reflective of her lethargic state after Ativan. She is oxygenating 93% on room air. Comprehensive metabolic panel was normal aside from a slightly low magnesium at 1.6. Urinalysis is clear and her COVID swab is negative. Imaging performed in the ER including CT of the head and CTA of the head and neck revealed no acute intracranial abnormalities. Chest x-ray reveals no acute disease. EKG reveals normal sinus rhythm with no evidence of acute ischemia. Vertigo with acute onset concerning for acute cerebellar stroke. She has claustrophobia and is reluctant to enter the MRI but is willing to try. Agree with plan to perform PT and OT consultation, keep n.p.o. until she is more alert and oriented with a speech consult. Neuro consult. DO Morgan
[2022-08-22] MEDS ORDERED: PHARMACIST DISCHARGE MED REC CONSULT PRN (15:27)
--- NOTE | 2022-08-22 16:12 | Magnetic Resonance Report ---
MR brain wo con CLINICAL HISTORY: dizziness, confusion, r/o stroke, encephalopathy TECHNIQUE: Multiplanar and multisequence MR images of the brain were obtained without intravenous con trast. Comparison: None available at the time of this dictation. FINDINGS: No abnormal restricted diffusion is identified. Foci of T2 and FLAIR hyperintensity are noted in the paraventricular areas consistent with chronic small vessel ischemic disease. The ventricular system i s normal in appearance. No mass is seen. There is no mass effect or midline shift. There is no eviden ce of acute intraparenchymal hemorrhage. No extra axial fluid collections are seen. The corpus callos um, pituitary gland, and cerebellar tonsils appear grossly unremarkable. Flow voids of the major intracranial arterial vessels are identified. The imaged portions of the para nasal sinuses, mastoid air cells, and orbits are unremarkable. IMPRESSION: No acute abnormality and in particular no evidence of acute infarct. ACT 112: Negative or not required by law. Electronically signed by: Murtaza Lancaster M.D. 08/22/2022 4:11 PM
[2022-08-22] MEDS: CYCLOBENZAPRINE HCL 10 MG TAB PO PRN (18:14)
[2022-08-22] MEDS: ACETAMINOPHEN 325 MG TAB PO PRN (19:37)
[2022-08-22] MEDS: METOPROLOL SUCC 25MG EXT REL TAB PO SCH (19:38)
[2022-08-22] MEDS ORDERED: GABAPENTIN 800 MG TAB PO SCH (21:00)
[2022-08-22] MEDS ORDERED: GABAPENTIN 800 MG TAB PO ONE (21:00)
[2022-08-22 21:24] LABS: Amphetamines+Metham, Urine Neg (Neg); Barbiturates, Urine Neg (Neg); Benzodiazepine, Urine Neg (Neg); Cocaine, Urine Neg (Neg); MDMA (Ecstacy), Urine Pos (Neg); Methadone, Urine Neg (Neg); Opiate, Urine Neg (Neg); Phencyclidine, Urine Neg (Neg)
[2022-08-22] MEDS: CARBAMIDE PEROXIDE 6.5% 15 ML BTL OTB SCH (21:56)
[2022-08-23] MEDS: CYCLOBENZAPRINE HCL 10 MG TAB PO PRN ×4 (02:15→22:11)
[2022-08-23 07:51] LABS: Albumin Globulin Ratio 1.3 (0.9-2); Albumin Level 3.9 gm/dl (3.4-5.0); BUN Creatinine Ratio 23.3 (10-20); Bilirubin,Total 0.7 mg/dl (0.2-1.0); Calcium 8.8 mg/dl (8.5-10.1); Chol HDL Ratio 3.1 (0-5); Creatinine Clr Calc Pharmacy 119.8 ml/min; Est GFR (African American) 122.3 ml/min; Est GFR (Non-African American) 105.5 ml/min; Magnesium 1.9 mg/dl (1.7-2.4); Potassium 4.2 mmol/L (3.5-5.1); Total Protein 6.9 gm/dl (6.0-8.3)
[2022-08-23] MEDS: ASPIRIN 81 MG CHEW PO SCH (08:10)
[2022-08-23] MEDS: ATORVASTATIN 40 MG TAB PO SCH (08:10)
[2022-08-23] MEDS: CLOPIDOGREL BISULFATE 75 MG TAB PO SCH (08:10)
[2022-08-23] MEDS: METOPROLOL SUCC 25MG EXT REL TAB PO SCH ×2 (08:10→21:02)
[2022-08-23] MEDS: CITALOPRAM 40 MG TAB PO SCH (08:10)
[2022-08-23] MEDS: CARBAMIDE PEROXIDE 6.5% 15 ML BTL OTB SCH ×2 (08:11→21:03)
[2022-08-23 08:26] LABS: Hematocrit (blood only) 38.1 % (34.1-44.9); Hemoglobin 12.3 g/dl (12.0-16.0); Mean Corpuscular Hemoglobin 29.4 pg (25.0-34.0); Mean Corpuscular Hgb Conc 32.3 g/dL (32.0-36.0); Mean Corpuscular Volume 90.9 fL (80.0-100.0); Platelet Count 288 K/uL (130-400); RDW Coefficient of Variation 13.1 % (11.5-14.5); RDW Standard Deviation 43.1 fL (36.4-46.3); Red Blood Count 4.19 M/uL (3.93-5.22); White Blood Count 6.81 K/ul (4.8-10.8)
[2022-08-23] MEDS ORDERED: amLODIPine BESYLATE 5 MG TAB PO SCH (09:00)
[2022-08-23] MEDS ORDERED: lisinopril 2.5 MG TAB PO SCH (09:00)
[2022-08-23] MEDS ORDERED: GABAPENTIN 800 MG TAB PO SCH ×2 (09:00→21:00)
[2022-08-23 09:21] LABS: Estimated Average Glucose 148 mg/dl; Hemoglobin A1C 6.8 % (4.5-5.6)
[2022-08-23] MEDS: ACETAMINOPHEN 325 MG TAB PO PRN (10:26)
--- NOTE | 2022-08-23 15:19 | Hospitalist Progress Note ---
Date of Service August 23, 2022 Assessment & Plan (1) Encephalopathy: (2) Dizziness: Plan: Stroke Like symptoms Dizziness ? Related to chronic limitation of Neck movement from prior surgery Metabolic Encephalopathy Reports chronic dizziness since after having neck surgery for many months --MRI Brain:No acute abnormality and in particular no evidence of acute infarct. --Neck CTA:No significant stenosis, occlusion, or dissection identified within the carotid or vertebral arteries --Head CTA:No occlusion, hemodynamically significant stenosis, aneurysm, dissection, or arteriovenous malformation in the major intracranial arteries. Continue aspirin, Plavix, Lipitor On gabapentin for neuropathy PT OT, fall precautions Neurology consulted Monitor on telemetry (3) Diabetes: Plan: -Hb A1C 6.8 Not on medications Diet controlled (4) HLD (hyperlipidemia): Plan: - Continue atorvastatin 40 mg daily (5) CAD (coronary artery disease): Plan: -Continue aspirin, Plavix, statin, Metoprolol (6) Hypertension: Plan: Continue lisinopril, metoprolol DVT Px: Teds, scds for now CODE STATUS: Full code (7) Vertigo: (8) S/P cervical spinal fusion: Admission and Anticipated Discharge Date Admission Date: August 22, 2022 Subjective Patient is seen and examined at bedside States having dizziness, bilateral numbness and tingling in fingers Also reports headache Reports chronic dizziness secondary to prior neck surgery, limited range of movement Denies chest pain, dyspnea, abdominal pain Offers no other complaints Review of Systems Review of Systems: All systems reviewed & are unremarkable except as noted in Subjective Physical Exam Physical Exam: Physical Exam: Vitals signs as noted above General Appearance:Morbidly obese, no apparent distress Head: normocephalic, Atraumatic Eyes: normal inspection, EOMI Neck: supple, Trachea midline, + healed surgical scar, limited ROM to left Respiratory/Chest: Normal breath sounds, CTA, No accessory muscle use Cardiovascular: S1, S2, No murmur Abdomen/GI:Soft, Non tender, Bowel sounds present Extremities/Musculoskeletal:normal inspection, no edema Neurologic/Psych:AAOX3, Left sided minmal weakness Skin: normal color, warm Results & Data Results & Data ([facility]) Vital Signs (Past 12 Hours) Vital Signs Temp Pulse Pulse Resp BP Pulse Ox O2 Del Method 08/23/22 11:47 36.6 C 75 16 107/71 92 Room Air 08/23/22 08:08 89 121/78 08/23/22 07:00 85 08/23/22 07:30 36.6 C 78 16 102/70 94 Room Air 08/23/22 04:14 36.7 C 89 16 109/74 94 Room Air Laboratory Results Short CBC 08/23/22 Range/Units 07:01 WBC 6.81 (4.8-10.8) K/ul Hgb 12.3 (12.0-16.0) g/dl Hct 38.1 (34.1-44.9) % Plt Count 288 (130-400) K/uL BMP 08/23/22 07:01 Sodium 139 Potassium 4.2 Chloride 103 Carbon Dioxide 31 BUN 14 Creatinine 0.60 Glucose 158 H Calcium 8.8 Liver Function 08/23/22 Range/Units 07:01 Total Bilirubin 0.7 (0.2-1.0) mg/dl AST 11 L (13-39) U/L ALT 7 (7-52) U/L Alkaline Phosphatase 98 (34-104) U/L Albumin 3.9 (3.4-5.0) gm/dl
--- NOTE | 2022-08-23 16:54 | Neurology Consultation ---
Date of Consultation August 23, 2022 Assessment & Plan (1) Dizziness: Impression: The patient presented to emergency department with worsening dizziness, and some vertiginous episode yesterday. She also reported some disorientation then. She has been having intermittent dizziness, for last several months, mostly after having cervical spine surgery. She has no real vertigo today. Certain neck movements can induce paresthesia but also dizzy feeling. She has history of cervical spinal fusion surgery a year ago. Based on history and negative An-Hallpike maneuver, peripheral vertigo is unlikely. Plan/recommendations: Cervical spine MRI with and without contrast to investigate for cord compressi on, and neuroforaminal narrowings. If cervical spine MRI does not show significant pathology or interval worsening, then the patient can be discharged home. Outpatient EMG nerve conduction study to investigate for cervical radiculopathy. Follow-up with neurology clinic. I will inform [facility] neurology clinic, to set up a follow-up appointment. (2) S/P cervical spinal fusion: Impression: The patient reports having cervical spine fusion surgery a year ago, and state [facility]. Since then, she has been having some neck discomfort, neck movement induced paresthesia mostly in left upper extremity, and bilateral hand and feet paresthesias, which comes and goes. Plan/recommendations: Cervical spine MRI with and without contrast. (3) Arm paresthesia, left: Impression: The patient has been having left arm paresthesia, mostly neck rotation towards the left, which comes and goes for last several months, mostly after cervical spine surgery. This is suggestive of cervical radiculopathy. However, because of bilateral symptoms affecting upper and lower extremities, we need to rule out cord compression and myelopathy. Plan/recommendations: As seen above. (4) Encephalopathy: Impression: When the patient presented emergency department, she was complaining of concentration difficulty and some disorientation. She reported no overdosing old prescription medication or using any other sedative medications. After receiving Ativan, she became more encephalopathic. Her mental status has been improved and she is back to her baseline currently. The cause of initial confusion is not clear at this time. Plan Thank you for the consultation. History of Present Illness Reason for Consultation: Dizziness, numbness and tingly sensation of hands, feet and left arm. Requesting Physician: Luzmaria Pelayo PA-C Attending Physician: Zain Hardy MD History of Present Illness The patient is a 51-year-old female, who presented emergency department with dizziness, some spinning sensation, unsteadiness, left arm numbness, as well as bilateral hand and feet tingling sensation. In emergency department, the patient received a dose of Ativan, which made her very somnolent. Head CT, CT angiography of head and neck were unremarkable. The patient was admitted to hospital because of altered mental status and due to vertiginous symptoms. Apparently, the patient had cervical spine surgery a year ago. For last several months, she has been experiencing bilateral hand and feet intermittent tingling sensation, and neck movement induced left arm paresthesia and numbness, comes and goes, which was worse yesterday. The patient reports mild headache but denies any throbbing headache or typical migraine attack. Since this morning, her mental status has been improved back to her baseline. She has been on high- dose gabapentin because of paresthesia symptoms and neck pain. She also takes a trazodone 150 mg at bedtime. She denies any recent change of medications or dosages. She denies taking extra dose of her medications. 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 She was somewhat confused and disoriented as she reports with additional left hand paresthesia, and decided to present to emergency department. Following brain MRI did not show acute intracranial pathology. The patient is close to her baseline at this time, but reported having 2 short lasting episodes of left arm paresthesia with certain neck rotation. She has history of myocardial infarction on Plavix, aspirin and Lipitor. She also has a diabetes mellitus, obstructive sleep apnea, hyperlipidemia, anxiety with depression, and hypertension. She denies worsening symptoms of depression and anxiety. She does not think that she has been hyperventilating. I have reviewed the patient's chart including imaging studies and visualized them personally. I have discussed the case with the patient and answer her questions in detail. Allergies Allergy/AdvReac Type Severity Reaction Status Date / Time No Known Allergies Allergy Unverified 07/11/15 12:32 Home Medications Medication Instructions Recorded Confirmed Type amlodipine 2.5 mg tablet 2.5 mg PO DAILY 08/22/22 08/22/22 History aspirin 81 mg chewable tablet 81 mg PO DAILY 08/22/22 08/22/22 History atorvastatin 40 mg tablet 40 mg PO QAM 08/22/22 08/22/22 History citalopram 40 mg tablet 40 mg PO QAM 08/22/22 08/22/22 History clopidogrel 75 mg tablet 75 mg PO QAM 08/22/22 08/22/22 History cyclobenzaprine 5 mg tablet 10 mg PO QID PRN Muscle Spasm 08/22/22 08/22/22 History dicyclomine 10 mg capsule 10 mg PO DAILY PRN Abdominal Pain 08/22/22 08/22/22 History gabapentin 800 mg tablet 800 mg PO TID 08/22/22 08/22/22 History lisinopril 2.5 mg tablet 2.5 mg PO DAILY 08/22/22 08/22/22 History metformin 500 mg tablet,extended 500 mg PO BID 08/22/22 08/22/22 History release 24 hr metoprolol succinate 25 mg 12.5 mg PO BID 08/22/22 08/22/22 History tablet,extended release 24 hr trazodone 150 mg tablet 150 mg PO DAILY 08/22/22 08/22/22 History Patient History Medical History CAD (coronary artery disease) Depression Diabetes HLD (hyperlipidemia) Hypertension Surgical History S/P repair of patent ductus arteriosus "age 7" S/P tubal ligation Family History Mother Cancer Diabetes Grandmother (Maternal) Stroke Aunt Cancer Aunt Cancer Stroke Social History Smoking Status: Former smoker Hx Alcohol Use: No Hx Substance Use: No Preferred Language: Greenlandic Communication Ability: Effective 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 HEENT: Normal exam with inspection. Some strabismus is noticed which is chronic. CV: Hearth rhythm is regular. Neck: Supple, no carotid bruits. Lungs: Non-labored and comfortable breathing. Abdomen: Soft, non-tender, non-distended. Skin: No rash or ecchymosis. Extremities: No edema or cyanosis NEUROLOGICAL EXAMINATION: Mental Status: Alert and oriented to place, person and time. Cranial Nerves: II-XII are intact. No nystagmus. Funduscopy: Normal looking optic discs. Motor: 5/5 in all extremities without asymmetry. Tone: Normal without spasticity or rigidity. DTRs: 2+ all. No Babinski Sensory: Intact to all sensory modalities other than subjective bilateral hand fingertip paresthesia Coordination: No dysmetria with FTN testing. Speech: Fluent. Comprehension is intact. Gait: She is able to walk independently. No ataxia or abnormal walking pattern. Musculoskeletal: Normal muscle bulk, no atrophy. An Hallpike: Negative bilaterally. However neck rotation to left induced temporary left arm paresthesia and dizziness without nystagmus. Results & Data ([facility]) Vital Signs (Past 12 Hours) Vital Signs Temp Pulse Pulse Resp BP Pulse Ox O2 Del Method 08/23/22 15:40 36.8 C 77 16 97/67 L 95 Room Air 08/23/22 11:47 36.6 C 75 16 107/71 92 Room Air 08/23/22 08:08 89 121/78 08/23/22 07:00 85 08/23/22 07:30 36.6 C 78 16 102/70 94 Room Air Laboratory Results Laboratory Results - last 24 hr 08/22/22 08/22/22 08/23/22 10:20 10:20 07:01 WBC RBC Hgb Hct MCV MCH MCHC RDW Std Deviation RDW Coeff of [place] Plt Count MPV Sodium Potassium Chloride Carbon Dioxide Anion Gap BUN Creatinine Est Cr Clr Drug Dosing Est GFR ( Amer) Est GFR (Non-Af Amer) BUN/Creatinine Ratio Glucose Estimat Average Glucose 148 Hemoglobin A1c 6.8 H Calcium Magnesium Total Bilirubin AST ALT Alkaline Phosphatase Total Protein Albumin Globulin Albumin/Globulin Ratio Triglycerides Cholesterol LDL Cholesterol, Calc VLDL Cholesterol, Calc HDL Cholesterol Cholesterol/HDL Ratio Urine Opiates Screen Neg Ur Methadone, Qual Neg Urine Barbiturates Neg Ur Phencyclidine (PCP) Neg U Amphetamin/Meth Scrn Neg Urine MDEA Pending MDMA (Ecstasy) Screen Pos H MDMA Pending Urine MDMA Pending U Benzodiazepines Scrn Neg Ur Cocaine Metabolite Neg U Marijuana (THC) Screen Neg 08/23/22 08/23/22 07:01 07:01 WBC 6.81 RBC 4.19 Hgb 12.3 Hct 38.1 MCV 90.9 MCH 29.4 MCHC 32.3 RDW Std Deviation 43.1 RDW Coeff of [place] 13.1 Plt Count 288 MPV 11.0 Sodium 139 Potassium 4.2 Chloride 103 Carbon Dioxide 31 Anion Gap 5 BUN 14 Creatinine 0.60 Est Cr Clr Drug Dosing 119.8 Est GFR ( Amer) 122.3 Est GFR (Non-Af Amer) 105.5 BUN/Creatinine Ratio 23.3 H Glucose 158 H Estimat Average Glucose Hemoglobin A1c Calcium 8.8 Magnesium 1.9 Total Bilirubin 0.7 AST 11 L ALT 7 Alkaline Phosphatase 98 Total Protein 6.9 Albumin 3.9 Globulin 3.0 Albumin/Globulin Ratio 1.3 Triglycerides 85 Cholesterol 101 LDL Cholesterol, Calc 51 VLDL Cholesterol, Calc 17 HDL Cholesterol 33 Cholesterol/HDL Ratio 3.1 Urine Opiates Screen Ur Methadone, Qual Urine Barbiturates Ur Phencyclidine (PCP) U Amphetamin/Meth Scrn Urine MDEA MDMA (Ecstasy) Screen MDMA Urine MDMA U Benzodiazepines Scrn Ur Cocaine Metabolite U Marijuana (THC) Screen Diagnostic Findings Chest X-Ray 08/22/22 09:06 XR chest 1V portable CLINICAL HISTORY: Stroke Like Symptoms TECHNIQUE: Single frontal radiograph of the chest was obtained. Comparison: Comparison is made to chest radiograph 06/29/2022 FINDINGS: No lines and tubes are seen. The cardiomediastinal silhouette is stable. Numerous nodular densities compatible with calcified granulomata. Interstitial thickening is seen. No pleural effusion or pneumothorax. Anterior cervical fix ation hardware is noted. IMPRESSION: No acute chest disease. ACT 112: Negative or not required by law. Electronically signed by: Murtaza Lancaster M.D. 08/22/2022 10:[address] 08/22/22 09:06 CT head/brain wo con CLINICAL HISTORY: 51 years-old Female with Stroke Like Symptoms. Acute strokelike symptoms TECHNIQUE: Multiple axial CT images of the head were obtained without contrast. A dose lowering technique was utilized adhering to the principles of ALARA. COMPARISON: CTA head and neck of same day FINDINGS: No acute intracranial hemorrhage, midline shift, intracranial mass, hydrocephalus, territorial ischemia or abnormal extra-axial collection. Cerebral vascular calcifications. The calvarium is intact. Cervical spinal fusion hardware. The paranasal sinuses, mastoid air cells, and middle ear cavities are clear. IMPRESSION: No acute intracranial abnormality. ACT 112: Negative or not required by law. The above report was generated using voice recognition software. It may contain grammatical, syntax or spelling errors. Electronically signed by: Elvis Guerrero M.D. 08/22/2022 10:53 AM Head CTA 08/22/22 09:06 CT angio head w con CLINICAL HISTORY: Stroke Like Symptoms TECHNIQUE: Contiguous axial CT images of the head were acquired from the base of the skull to the vertex without intravenous contrast administration. CT angiography of the head and neck was performed following intravenous administration of iodinated contrast. Coronal and sagittal MIPS were obtained from the axial data set and were submitted for review. Automated dose lowering techniques and/or adjustment according to patient size were utilized for this examination. All measurements were calculated based on NASCET criteria. CT DOSE: 1130.13 mGy.cm Comparison: Comparison is made to CT head 08/22/2022 FINDINGS: CTA Head: The anterior and posterior cerebral circulations are patent. No hem odynamically significant stenosis, aneurysm, dissection, or arteriovenous malformation is shown. Atherosclerotic disease is noted. IMPRESSION: No occlusion, hemodynamically significant stenosis, aneurysm, dissection, or arteriovenous malformation in the major intracranial arteries. Assessment of stenosis of the internal carotid arteries is based on NASCET criteria. ACT 112: Negative or not required by law. Electronically signed by: Murtaza Lancaster M.D. 08/22/2022 11:15 AM Neck CTA 08/22/22 09:06 NECK CTA HISTORY: Stroke Like Symptoms TECHNIQUE: Multiaxial CT images of the neck were performed following the intravenous administration of contrast to evaluate the major cervical vessels. Maximum intensity projection images were also obtained. All measurements were calculated based on NASCET criteria. A dose lowering technique was utilized adhering to the principles of ALARA. COMPARISON STUDY: None. FINDINGS: The aortic arch and proximal great vessels are widely patent. There is no significant stenosis, occlusion, or dissection identified within the bilateral common carotid, internal carotid, or right vertebral artery. C3-C6 ACDF is noted. Mild mass effect along the left vertebral artery due to the adjacent cervical spine osteophytes. However, no significant stenosis, occlusion, or dissection. Mild calcified plaque within the bilateral carotid bifurcations. IMPRESSION: No significant stenosis, occlusion, or dissection identified within the carotid or vertebral arteries. ACT 112: Negative or not required by law. Electronically signed by: Elier Conner M.D. 08/22/2022 11:00 AM Brain MRI 08/22/22 12:36 MR brain wo con CLINICAL HISTORY: dizziness, confusion, r/o stroke, encephalopathy TECHNIQUE: Multiplanar and multisequence MR images of the brain were obtained without intravenous contrast. Comparison: None available at the time of this dictation. FINDINGS: No abnormal restricted diffusion is identified. Foci of T2 and FLAIR hyperintensity are noted in the paraventricular areas consistent with chronic small vessel ischemic disease. The ventricular system is normal in appearance. No mass is seen. There is no mass effect or midline shift. There is no evidence of acute intraparenchymal hemorrhage. No extra axial fluid collections are seen. The corpus callosum, pituitary gland, and cerebellar tonsils appear grossly unremarkable. Flow voids of the major intracranial arterial vessels are identified. The imaged portions of the paranasal sinuses, mastoid air cells, and orbits are unremarkable. IMPRESSION: No acute abnormality and in particular no evidence of acute infarct. ACT 112: Negative or not required by law. Electronically signed by: Murtaza Lancaster M.D. 08/22/2022 4:11 PM
[2022-08-23] MEDS: GABAPENTIN 800 MG TAB PO SCH ×2 (17:50→21:00)
[2022-08-23] MEDS: traZODone HCL 50 MG TAB PO SCH (23:24)
[2022-08-24 07:48] LABS: BUN Creatinine Ratio 27.8 (10-20); Calcium 9.2 mg/dl (8.5-10.1); Creatinine Clr Calc Pharmacy 132.6 ml/min; Est GFR (African American) 126.6 ml/min; Est GFR (Non-African American) 109.3 ml/min; Magnesium 1.9 mg/dl (1.7-2.4); Potassium 4.4 mmol/L (3.5-5.1)
[2022-08-24] MEDS: ATORVASTATIN 40 MG TAB PO SCH (08:21)
[2022-08-24] MEDS: CITALOPRAM 40 MG TAB PO SCH (08:21)
[2022-08-24] MEDS: ASPIRIN 81 MG CHEW PO SCH (08:21)
[2022-08-24] MEDS: CLOPIDOGREL BISULFATE 75 MG TAB PO SCH (08:21)
[2022-08-24] MEDS: CYCLOBENZAPRINE HCL 10 MG TAB PO PRN ×2 (08:21→20:22)
[2022-08-24] MEDS: GABAPENTIN 800 MG TAB PO SCH ×3 (08:21→20:18)
[2022-08-24] MEDS: METOPROLOL SUCC 25MG EXT REL TAB PO SCH ×2 (08:57→20:19)
[2022-08-24] MEDS: CARBAMIDE PEROXIDE 6.5% 15 ML BTL OTB SCH ×2 (09:00→20:18)
[2022-08-24] MEDS: ACETAMINOPHEN 325 MG TAB PO PRN ×2 (09:21→21:34)
[2022-08-24] MEDS ORDERED: LORazepam 0.5 MG TAB PO ONE (09:24)
[2022-08-24] MEDS ORDERED: NITROGLYCERIN SL 0.4 MG/TAB TAB SL PRN (09:28)
[2022-08-24] MEDS ORDERED: GADOBUTROL 10ML VIAL IV ONE (10:50)
--- NOTE | 2022-08-24 11:41 | Cardiology Consultation ---
Date of Consultation August 24, 2022 Assessment & Plan (1) Atypical chest pain: (2) CAD (coronary artery disease): (3) Dizziness: (4) Diabetes: (5) Arm paresthesia, left: Plan 51-year-old female admitted with dizziness and possible encephalopathy. Episode of atypical chest discomfort earlier today without ischemic ECG changes. Initial cardiac enzyme within normal limits. Recommend repeat cardiac enzymes x3 sets. 2D echocardiogram pending at this time. She is chronically treated with dual antiplatelet therapy. Recommend continuing aspirin, Plavix, statin,and beta-abel. Amlodipine and lisinopril currently on hold due to borderline resting hypotension. Continue telemetry monitoring. Supplement electrolytes as needed. History of Present Illness Reason for Consultation: Chest pain, dizziness Requesting Physician: Dr. Hardy Attending Physician: Zain Hardy MD History of Present Illness 51-year-old female admitted with dizziness and suspected vertigo. Evaluated by neurology. MRI pending at this time. Today she developed an episode of chest discomfort and heaviness rating to her left shoulder and down her left leg. Discomfort was short-lived, lasting less than 5 minutes. No associated shortness of breath. In general, denies any exertional chest pain or unusual shortness of breath. Cardiac history noted below. Currently resting comfortably and pain-free. Telemetry reveals sinus rhythm. Stat ECG performed at time of chest discomfort demonstrates no ischemic changes. There is evidence of an age-indeterminate inferior infarct which is chronic. Cardiac enzymes within normal limits today. Denies orthopnea, PND, or lower extremity edema. No syncope or near syncope. Denies palpitations. No recent weight changes, fever, chills, or sick contacts. Denies abdominal discomfort, nausea, vomiting, or diarrhea. Short, 6 beat denis of nonsustained ventricular tachycardia recorded 08/22/2022 AM in setting of hypomagnesemia, without associated symptoms. Cardiac [facility]: 1. Coronary artery disease Non ST elevation myocardial infarctionstatus post drug-eluting stent circumflex obtuse marginal in 2016, single-vessel disease 2. Repeat diagnostic cardiac catheterization May 2021, patent stent without obstruction, normal LV systolic function [facility] 3. Hypertension 4. Type 2 diabetes mellitus 5. Hyperlipidemia 6. Chronic myofascial pain status post anterior cervical diskectomy 7. Obstructive sleep apnea 8. Repair patent ductus arteriosus age 7 Allergies Allergy/AdvReac Type Severity Reaction Status Date / Time No Known Allergies Allergy Unverified 07/11/15 12:32 Home Medications Medication Instructions Recorded Confirmed Type amlodipine 2.5 mg tablet 2.5 mg PO DAILY 08/22/22 08/22/22 History aspirin 81 mg chewable tablet 81 mg PO DAILY 08/22/22 08/22/22 History atorvastatin 40 mg tablet 40 mg PO QAM 08/22/22 08/22/22 History citalopram 40 mg tablet 40 mg PO QAM 08/22/22 08/22/22 History clopidogrel 75 mg tablet 75 mg PO QAM 08/22/22 08/22/22 History cyclobenzaprine 5 mg tablet 10 mg PO QID PRN Muscle Spasm 08/22/22 08/22/22 History dicyclomine 10 mg capsule 10 mg PO DAILY PRN Abdominal Pain 08/22/22 08/22/22 History gabapentin 800 mg tablet 800 mg PO TID 08/22/22 08/22/22 History lisinopril 2.5 mg tablet 2.5 mg PO DAILY 08/22/22 08/22/22 History metformin 500 mg tablet,extended 500 mg PO BID 08/22/22 08/22/22 History release 24 hr metoprolol succinate 25 mg 12.5 mg PO BID 08/22/22 08/22/22 History tablet,extended release 24 hr trazodone 150 mg tablet 150 mg PO DAILY 08/22/22 08/22/22 History Patient History Medical History CAD (coronary artery disease) Depression Diabetes HLD (hyperlipidemia) Hypertension Surgical History S/P repair of patent ductus arteriosus "age 7" S/P tubal ligation Family History Mother Cancer Diabetes Grandmother (Maternal) Stroke Aunt Cancer Aunt Cancer Stroke Social History Smoking Status: Former smoker Hx Alcohol Use: No Hx Substance Use: No Preferred Language: Panamanian Communication Ability: Effective Licensed Occupational Therapist Required: No Beliefs That Will Affect Care: None Current Living Situation: Alone Other Information That Helps Us Care for You: No Feels Safe at Home: Yes Safety Concerns: Feels Safe At This Time Assistive Devices: Cane Assistive Devices Comment: cane prn at home per pt Review of Systems Review of Systems: All systems reviewed & are unremarkable except as noted in Subjective Physical Exam Constitutional: well nourished; no acute distress Respiratory: normal respiratory effort; no respiratory distress, no labored breathing and no retractions Auscultation: lungs clear to auscultation bilaterally; no crackles, no rales, no rhonchi and no wheezes Cardiovascular: Rate/Rhythm: regular rate and regular rhythm Heart Sounds: normal S1 and normal S2; no murmur Palpation: normal PMI Vessels: radial pulses present; no JVD and no carotid bruit Extremities: no edema Gastrointestinal (Abdomen): Inspection/Auscultation: abdomen normal to inspection and normal bowel sounds; abdomen not distended Percussion/Palpation: abdomen soft; abdomen nontender, no guarding and abdomen not rigid Neurologic: CN's II-XI intact bilaterally and moves all extremities; no focal motor deficits Motor/Sensory: no tremor Psychiatric: A+Ox3, euthymic affect Results & Data ([facility]) Vital Signs (Past 12 Hours) Vital Signs Temp Pulse Pulse Resp BP Pulse Ox O2 Del Method 08/24/22 09:11 80 116/74 98 Room Air 08/24/22 08:19 76 98/63 L 08/24/22 07:31 36.7 C 79 18 127/80 96 Room Air 08/24/22 07:00 73 08/24/22 03:23 36.7 C 69 18 102/66 94 Room Air 08/24/22 01:26 85
--- NOTE | 2022-08-24 13:56 | Hospitalist Progress Note ---
Date of Service August 24, 2022 Assessment & Plan (1) Encephalopathy: (2) Dizziness: Plan: Stroke Like symptoms Dizziness ? Related to chronic limitation of Neck movement from prior surgery Cervical Radiculopathy Metabolic Encephalopathy Reports chronic dizziness since after having neck surgery for many months --MRI Brain:No acute abnormality and in particular no evidence of acute infarct. --Neck CTA:No significant stenosis, occlusion, or dissection identified within the carotid or vertebral arteries --Head CTA:No occlusion, hemodynamically significant stenosis, aneurysm, dissection, or arteriovenous malformation in the major intracranial arteries. Continue aspirin, Plavix, Lipitor On gabapentin for neuropathy PT OT, fall precautions Appreciate Neurology Input Encephalopathy resolved Atypical Chest Pain H/O CAD S/P Stent Initial troponin:Negative EKG: No acute changes CXR: No acute chest disease. ECHO: pending Trend serial cardiac enzymes, fasting lipid panel in AM Continue Aspirin, Plavix, statin Appreciate Cardiology Input Hypertension Relatively low BP Hold Amlodipine, Lisinopril Monitor BP (3) Diabetes: Plan: -Hb A1C 6.8 Not on medications Diet controlled (4) HLD (hyperlipidemia): Plan: - Continue atorvastatin 40 mg daily (5) CAD (coronary artery disease): Plan: -Continue aspirin, Plavix, statin, Metoprolol (6) Hypertension: Plan: Continue lisinopril, metoprolol DVT Px: Heparin SQ CODE STATUS: Full code (7) Vertigo: (8) S/P cervical spinal fusion: Admission and Anticipated Discharge Date Admission Date: August 24, 2022 Subjective Patient is seen and examined at bedside States having left sided chest heaviness, associated with dizziness Also reports Left sided tingling, heaviness Feels anxious No other complaints Review of Systems Review of Systems: All systems reviewed & are unremarkable except as noted in Subjective Physical Exam Physical Exam: Physical Exam: Vitals signs as noted above General Appearance:Morbidly obese, no apparent distress Head: normocephalic, Atraumatic Eyes: normal inspection, EOMI Neck: supple, Trachea midline, + healed surgical scar, limited ROM to left Respiratory/Chest: Normal breath sounds, CTA, No accessory muscle use Cardiovascular: S1, S2, No murmur Abdomen/GI:Soft, Non tender, Bowel sounds present Extremities/Musculoskeletal:normal inspection, no edema Neurologic/Psych:AAOX3, Left sided minmal weakness Skin: normal color, warm Results & Data Results & Data ([place]) Vital Signs (Past 12 Hours) Vital Signs Temp Pulse Pulse Resp BP Pulse Ox O2 Del Method 08/24/22 12:13 36.6 C 72 19 108/73 96 Room Air 08/24/22 09:11 80 116/74 98 Room Air 08/24/22 08:19 76 98/63 L 08/24/22 07:31 36.7 C 79 18 127/80 96 Room Air 08/24/22 07:00 73 08/24/22 03:23 36.7 C 69 18 102/66 94 Room Air Laboratory Results [facility] 08/24/22 06:24 Sodium 139 Potassium 4.4 Chloride 104 Carbon Dioxide 32 BUN 15 Creatinine 0.54 L Glucose 164 H Calcium 9.2
--- NOTE | 2022-08-24 14:02 | Neurology Progress Note ---
Date of Service August 24, 2022 Assessment & Plan (1) Dizziness: Plan: Impression: The patient presented to emergency department with worsening dizziness, and some vertiginous episode yesterday. She also reported some disorientation then. She has been having intermittent dizziness, for last several months, mostly after having cervical spine surgery. She has no real vertigo today. Certain neck movements can induce paresthesia but also dizzy feeling. She has history of cervical spinal fusion surgery a year ago. Based on history and negative Erskine-Hallpike maneuver, peripheral vertigo is unlikely. She reported chest pain today with dizziness before MRI. Cardiology is on board. Plan/recommendations: Cardiology is on board with pending Echo. Outpatient EMG nerve conduction study to investigate for cervical radiculopathy. Follow-up with neurology clinic. I will inform [facility] neurology clinic, to set up a follow-up appointment. (2) S/P cervical spinal fusion: Plan: Impression: The patient reports having cervical spine fusion surgery a year ago, and state [facility]. Since then, she has been having some neck discomfort, neck movement induced paresthesia mostly in left upper extremity, and bilateral hand and feet paresthesias, which comes and goes. Cervical spine MRI today showed spinal stenosis significant at C3 level with some cord indentation from degenerative complex. Plan/recommendations: Consult with ortho. (3) Arm paresthesia, left: Plan: Impression: The patient has been having left arm paresthesia, mostly neck rotation towards the left, which comes and goes for last several months, mostly after cervical spine surgery. This is suggestive of cervical radiculopathy. C- spine MRI is suggestive of spinal stenosis, severe at C3 level with cord indentation and multiple neuroforaminal narrowings. Plan/recommendations: As seen above. (4) Encephalopathy: Plan: Impression: When the patient presented emergency department, she was complaining of concentration difficulty and some disorientation. She reported no overdosing old prescription medication or using any other sedative medications. After receiving Ativan, she became more encephalopathic. Her mental status has been improved and she is back to her baseline currently. The cause of initial confusion is not clear at this time. Admission and Anticipated Discharge Date Admission Date: August 24, 2022 Subjective The patient is comfortable and resting today. She denies any left arm, hand or feet numbness/paresthesia at this time. Just before cervical spine MRI, the patient experienced some dizziness with chest pain. Patient has been followed by cardiology. Cervical spine MRI showed spinal stenosis, with some cord compr ession at C3 level without myelopathy. Official report is pending. Review of Systems Review of Systems: All systems reviewed & are unremarkable except as noted in Subjective Physical Exam Physical Exam: General Examination: Constitutional: Well developed overweight person in no acute distress. HEENT: Normal exam with inspection. Some strabismus is noticed which is chronic. CV: Hearth rhythm is regular. Neck: Supple, no carotid bruits. Lungs: Non-labored and comfortable breathing. Abdomen: Soft, non-tender, non-distended. Skin: No rash or ecchymosis. Extremities: No edema or cyanosis NEUROLOGICAL EXAMINATION: Mental Status: Alert and oriented to place, person and time. Cranial Nerves: II-XII are intact. No nystagmus. Funduscopy: Normal looking optic discs. Motor: 5/5 in all extremities without asymmetry. Tone: Normal without spasticity or rigidity. DTRs: 2+ all. No Babinski Sensory: Intact to all sensory modalities other than subjective intermittent bilateral hand fingertip paresthesia Coordination: No dysmetria with FTN testing. Speech: Fluent. Comprehension is intact. Gait: She is able to walk independently. No ataxia or abnormal walking pattern. Musculoskeletal: Normal muscle bulk, no atrophy. An Hallpike: Negative bilaterally. However neck rotation to left induced temporary left arm paresthesia and dizziness without nystagmus. Results & Data ([facility]) Vital Signs (Past 12 Hours) Vital Signs Temp Pulse Pulse Resp BP Pulse Ox O2 Del Method 08/24/22 12:13 36.6 C 72 19 108/73 96 Room Air 08/24/22 09:11 80 116/74 98 Room Air 08/24/22 08:19 76 98/63 L 08/24/22 07:31 36.7 C 79 18 127/80 96 Room Air 08/24/22 07:00 73 08/24/22 03:23 36.7 C 69 18 102/66 94 Room Air Laboratory Results Laboratory Results - last 24 hr 08/24/22 08/24/22 06:24 09:35 Sodium 139 Potassium 4.4 Chloride 104 Carbon Dioxide 32 Anion Gap 3 BUN 15 Creatinine 0.54 L Est Cr Clr Drug Dosing 132.6 Est GFR ( Amer) 126.6 Est GFR (Non-Af Amer) 109.3 BUN/Creatinine Ratio 27.8 H Glucose 164 H Calcium 9.2 Magnesium 1.9 Troponin I High Sens 4.6 Diagnostic Findings Brain MRI 08/22/22 12:36 MR brain wo con CLINICAL HISTORY: dizziness, confusion, r/o stroke, encephalopathy TECHNIQUE: Multiplanar and multisequence MR images of the brain were obtained without intravenous contrast. Comparison: None available at the time of this dictation. FINDINGS: No abnormal restricted diffusion is identified. Foci of T2 and FLAIR hyperintensity are noted in the paraventricular areas consistent with chronic small vessel ischemic disease. The ventricular system is normal in appearance. No mass is seen. There is no mass effect or midline shift. There is no evidence of acute intraparenchymal hemorrhage. No extra axial fluid collections are seen. The corpus callosum, pituitary gland, and cerebellar tonsils appear grossly unremarkable. Flow voids of the major intracranial arterial vessels are identified. The imaged portions of the paranasal sinuses, mastoid air cells, and orbits are unremarkable. IMPRESSION: No acute abnormality and in particular no evidence of acute infarct. ACT 112: Negative or not required by law. Electronically signed by: Murtaza Lancaster M.D. 08/22/2022 4:11 PM C-spine MRI report is pending.
[2022-08-24] MEDS: HEPARIN SOD 5,000 UNIT/0.5 ML VIAL SQ SCH ×2 (15:21→21:35)
--- NOTE | 2022-08-24 19:13 | Magnetic Resonance Report ---
MRI OF THE LUMBAR SPINE COMBO CLINICAL HISTORY: Bilateral upper extremity paresthesias. Dizziness. COMPARISON STUDY: CT urogram of the neck dated 08/22/2022. TECHNIQUE: MRI of the lumbar spine was performed utilizing various T1 and T2-weighted sequences in th e axial and sagittal planes. Contrast enhanced sequences are acquired following the IV administration 9.5 cc of Gadavist. There is susceptibility artifact from metallic spinal hardware. FINDINGS: Cervical spine: Vertebral body height and alignment are maintained throughout the cervical spine. The re is straightening of the cervical lordosis. There is postoperative change from anterior spinal fusi on seen from C3-C6. The atlantodental articulation is maintained. The spinous processes appear intact . A hemangioma is incidentally noted in the body of T2. No destructive bony lesion is seen. Degenerat kosta endplate changes noted in the mid cervical region. Intervertebral discs: There has been discectomy at C3-C4, C4-C5, and C5-C6. Disc desiccation and loss of height is seen at the remaining cervical levels. Spinal cord: The cervical cord is normal in morphology and signal intensity. No abnormal postcontrast enhancement is identified. C2-C3: Unremarkable. C3-C4: A posterior disc osteophyte complex eccentric to the right effaces the ventral cord. Uncoverte bral and facet arthropathy contribute to severe left and mild right neural foraminal stenosis. C4-C5: A posterior disc osteophyte complex eccentric to the right minimally effaces the ventral cord. Uncovertebral and facet arthropathy contribute to severe left and mild right neural foraminal stenos is. C5-C6: A posterior disc osteophyte complex abuts the ventral cord. Uncovertebral and facet arthropath y contribute to severe left and mild right neural foraminal stenosis. C6-C7: A posterior disc osteophyte complex effaces the ventral subarachnoid space. Uncovertebral and facet arthropathy contribute to moderate left neural foraminal stenosis. The right neural foramen is patent. C7-T1: Unremarkable. T1-T2: Unremarkable. Soft tissues: The prevertebral and paraspinous soft tissues are normal as visualized. Brain parenchyma: The imaged brain parenchyma at the skull base is within normal limits. IMPRESSION: 1. Postoperative change and cervical spondylosis as above. See discussion for detailed level by level analysis. 2. The cervical cord is normal in morphology and signal intensity. No abnormal postcontrast enhanceme nt is identified. 3. No destructive bony process is seen. Dictated: 08/24/2022 11:05 AM Transcribed: 08/24/2022 11:18 AM Alina [id number] [email or web address] Electronically signed by: Theron Miguel M.D. 08/24/2022 7:12 PM
[2022-08-24] MEDS: traZODone HCL 50 MG TAB PO SCH (20:19)
[2022-08-25] MEDS: HEPARIN SOD 5,000 UNIT/0.5 ML VIAL SQ SCH ×2 (06:23→14:30)
[2022-08-25] MEDS ORDERED: LORazepam 0.5 MG TAB PO PRN ×2 (08:09→08:11)
[2022-08-25] MEDS: GABAPENTIN 800 MG TAB PO SCH ×2 (08:35→14:30)
[2022-08-25] MEDS: CYCLOBENZAPRINE HCL 10 MG TAB PO PRN (08:35)
[2022-08-25] MEDS: ASPIRIN 81 MG CHEW PO SCH (08:36)
[2022-08-25] MEDS: METOPROLOL SUCC 25MG EXT REL TAB PO SCH (08:36)
[2022-08-25] MEDS: ATORVASTATIN 40 MG TAB PO SCH (08:36)
[2022-08-25] MEDS: CITALOPRAM 40 MG TAB PO SCH (08:36)
[2022-08-25] MEDS: CLOPIDOGREL BISULFATE 75 MG TAB PO SCH (08:36)
[2022-08-25] MEDS: CARBAMIDE PEROXIDE 6.5% 15 ML BTL OTB SCH (08:37)
[2022-08-25] MEDS: ACETAMINOPHEN 325 MG TAB PO PRN (08:41)
[2022-08-25] MEDS ORDERED: busPIRone 5 MG TAB PO SCH (09:00)
--- NOTE | 2022-08-25 10:17 | XRay Report ---
XR cervical [id number] routine CLINICAL HISTORY: neck pain TECHNIQUE: AP, lateral, bilateral oblique, and open-jaw images of the cervical spine were obtained. COMPARISON: None available at the time of this dictation. FINDINGS: No fractures or subluxations are identified. Anterior cervical fixation hardware is seen. The alignme nt is anatomic. Prevertebral soft tissues are within normal limits. IMPRESSION: No evidence for acute fracture or subluxation. ACT 112: Negative or not required by law. Electronically signed by: Murtaza Lancaster M.D. 08/25/2022 10:15 AM
[2022-08-25] MEDS ORDERED: oxyCODONE/ACETAMINOPHEN 5mg/325mg TAB PO PRN (10:42)
--- NOTE | 2022-08-25 11:28 | Cardiology Progress Note ---
Date of Service August 25, 2022 Assessment & Plan (1) Atypical chest pain: (2) CAD (coronary artery disease): (3) Dizziness: (4) Diabetes: (5) Arm paresthesia, left: Plan 51-year-old female admitted with dizziness and possible encephalopathy. Episode of atypical chest discomfort. Cardiac enzymes within normal limits. No ischemic ECG changes. Pain appears to be noncardiac and likely musculoskeletal. Continue current cardiovascular medications including dual antiplatelet therapy, statin, and beta-abel. Amlodipine and lisinopril on hold due to borderline hypotension. Continue telemetry monitoring. Supplement electrolytes as indicated. Admission and Anticipated Discharge Date Admission Date: August 24, 2022 Subjective Patient seen examined the bedside. Notes left axillary pain today. Denies chest discomfort or shortness of breath. Cardiac enzymes are negative. ECG without ischemic changes. Bedside 2D transthoracic echo reviewed demonstrating a posterior wall motion abnormality consistent with history of prior myocardial infarction. Denies orthopnea or PND. No palpitations. Telemetry reveals sinus rhythm in the 70s. Review of Systems Review of Systems: All systems reviewed & are unremarkable except as noted in Subjective Physical Exam Constitutional: well nourished; no acute distress Respiratory: normal respiratory effort; no respiratory distress, no labored breathing and no retractions Auscultation: lungs clear to auscultation bilaterally; no crackles, no rales, no rhonchi and no wheezes Cardiovascular: Rate/Rhythm: regular rate and regular rhythm Heart Sounds: normal S1 and normal S2; no murmur Palpation: normal PMI Vessels: radial pulses present; no JVD and no carotid bruit Extremities: no edema Gastrointestinal (Abdomen): Inspection/Auscultation: abdomen normal to inspection and normal bowel sounds; abdomen not distended Percussion/Palpation: abdomen soft; abdomen nontender, no guarding and abdomen not rigid Neurologic: CN's II-XI intact bilaterally and moves all extremities; no focal motor deficits Motor/Sensory: no tremor Psychiatric: A+Ox3, euthymic affect Results & Data ([facility]) Vital Signs (Past 12 Hours) Vital Signs Temp Pulse Pulse Resp BP BP Pulse Ox 08/25/22 10:57 37.1 C 72 16 101/61 95 08/25/22 07:54 36.6 C 74 18 130/85 94 08/25/22 07:50 36.7 C 75 18 109/76 96 08/25/22 02:55 36.8 C 75 18 116/76 96 08/25/22 00:55 88 O2 Del Method 08/25/22 10:57 Room Air 08/25/22 07:54 Room Air 08/25/22 07:50 Room Air 08/25/22 02:55 Room Air 08/25/22 00:55
--- NOTE | 2022-08-25 14:19 | Hospitalist Progress Note ---
Date of Service August 25, 2022 Assessment & Plan (1) Encephalopathy: (2) Dizziness: Plan: Stroke Like symptoms Dizziness ? Related to chronic limitation of Neck movement from prior surgery Cervical Radiculopathy Metabolic Encephalopathy Reports chronic dizziness since after having neck surgery for many months --MRI Brain:No acute abnormality and in particular no evidence of acute infarct. --Neck CTA:No significant stenosis, occlusion, or dissection identified within the carotid or vertebral arteries --Head CTA:No occlusion, hemodynamically significant stenosis, aneurysm, dissection, or arteriovenous malformation in the major intracranial arteries. --Cervical X ray:No evidence for acute fracture or subluxation. Continue aspirin, Plavix, Lipitor On gabapentin for neuropathy PT OT, fall precautions Appreciate Neurology Input Encephalopathy resolved Needs Outpatient EMG nerve conduction study to assess cervical radiculopathy. Atypical Chest Pain H/O CAD S/P Stent Initial troponin:Negative EKG: No acute changes CXR: No acute chest disease. ECHO: Left ventricle systolic function is normal. EF 55 to 60%. Small sized posterior wall motion abnormality with hypokinesis of the segments. No significant valvular pathology. Troponin negative Lipid Panel wnl Continue Aspirin, Plavix, statin Appreciate Cardiology Input (3) Diabetes: Plan: -Hb A1C 6.8 Not on medications Diet controlled (4) HLD (hyperlipidemia): Plan: - Continue atorvastatin 40 mg daily (5) CAD (coronary artery disease): Plan: -Continue aspirin, Plavix, statin, Metoprolol (6) Hypertension: Plan: Hypertension Relatively low BP Hold Amlodipine, Lisinopril Monitor BP Likely discontinue antihypertensives upon discharge DVT Px: Heparin SQ CODE STATUS: Full code Disposition Home as able (7) Vertigo: (8) S/P cervical spinal fusion: Admission and Anticipated Discharge Date Admission Date: August 24, 2022 Subjective Patient is seen and examined at bedside States having left axillary pain with movement Denies dizziness, numbness and tingling today Discussed with patient's family at bedside Offers no other complaints Review of Systems Review of Systems: All systems reviewed & are unremarkable except as noted in Subjective Physical Exam Physical Exam: Physical Exam: Vitals signs as noted above General Appearance:Morbidly obese, no apparent distress Head: normocephalic, Atraumatic Eyes: normal inspection, EOMI Neck: supple, Trachea midline, + healed surgical scar, limited ROM to left Respiratory/Chest: Normal breath sounds, CTA, No accessory muscle use Cardiovascular: S1, S2, No murmur Abdomen/GI:Soft, Non tender, Bowel sounds present Extremities/Musculoskeletal:normal inspection, no edema Neurologic/Psych:AAOX3, Left sided minmal weakness Skin: normal color, warm Results & Data Results & Data ([facility]) Vital Signs (Past 12 Hours) Vital Signs Temp Pulse Resp BP BP Pulse Ox O2 Del Method 08/25/22 10:57 37.1 C 72 16 101/61 95 Room Air 08/25/22 07:54 36.6 C 74 18 130/85 94 Room Air 08/25/22 07:50 36.7 C 75 18 109/76 96 Room Air 08/25/22 02:55 36.8 C 75 18 116/76 96 Room Air
--- NOTE | 2022-08-25 14:59 | Orthopedic Consultation ---
Date of Consultation August 25, 2022 Assessment & Plan (1) S/P cervical spinal fusion: Assessment status post cervical spinal fusion C3-C6. Plan at this time postop imaging including a CAT scan and MRI of the cervical spine continue to demonstrate significant stenosis. I have emphasized to the patient that any revision procedure would best be done at a tertiary care center. The outcome in her case would be of concern. She is at risk for further complication. History of Present Illness Reason for Consultation: Neck pain with left arm symptoms Attending Physician: Zain Hardy MD History of Present Illness This is a 51-year-old female that presents to the emergency room with dizziness and headaches. She also has a history of undergoing a multilevel anterior cervical decompression fusion approximately a year ago in [facility]. She states she had a surgery for mostly neck pain but afterwards began experiencing limited cervical range of motion with left arm numbness and tingling. This time she denies any significant weakness affecting upper extremities. She does describe balance disturbances. She has inability to walk for prolonged periods of time secondary to neck and back pain. She struggles with significant headaches. Allergies Allergy/AdvReac Type Severity Reaction Status Date / Time No Known Allergies Allergy Unverified 07/11/15 12:32 Home Medications Medication Instructions Recorded Confirmed Type amlodipine 2.5 mg tablet 2.5 mg PO DAILY 08/22/22 08/22/22 History aspirin 81 mg chewable tablet 81 mg PO DAILY 08/22/22 08/22/22 History atorvastatin 40 mg tablet 40 mg PO QAM 08/22/22 08/22/22 History citalopram 40 mg tablet 40 mg PO QAM 08/22/22 08/22/22 History clopidogrel 75 mg tablet 75 mg PO QAM 08/22/22 08/22/22 History cyclobenzaprine 5 mg tablet 10 mg PO QID PRN Muscle Spasm 08/22/22 08/22/22 History dicyclomine 10 mg capsule 10 mg PO DAILY PRN Abdominal Pain 08/22/22 08/22/22 History gabapentin 800 mg tablet 800 mg PO TID 08/22/22 08/22/22 History lisinopril 2.5 mg tablet 2.5 mg PO DAILY 08/22/22 08/22/22 History metformin 500 mg tablet,extended 500 mg PO BID 08/22/22 08/22/22 History release 24 hr metoprolol succinate 25 mg 12.5 mg PO BID 08/22/22 08/22/22 History tablet,extended release 24 hr trazodone 150 mg tablet 150 mg PO DAILY 08/22/22 08/22/22 History Patient History Medical History CAD (coronary artery disease) Depression Diabetes HLD (hyperlipidemia) Hypertension Surgical History S/P repair of patent ductus arteriosus "age 7" S/P tubal ligation Family History Mother Cancer Diabetes Grandmother (Maternal) Stroke Aunt Cancer Aunt Cancer Stroke Social History Smoking Status: Former smoker Hx Alcohol Use: No Hx Substance Use: No Preferred Language: [place] Communication Ability: Effective Rn Peritoneal Dialysis Required: No Beliefs That Will Affect Care: None Current Living Situation: Alone Other Information That Helps Us Care for You: No Feels Safe at Home: Yes Safety Concerns: Feels Safe At This Time Assistive Devices: Cane Assistive Devices Comment: cane prn at home per pt Physical Exam Physical Exam: On exam she does demonstrate difficulty with cervical rotation to the left. Reasonable range of motion to the right. Anterior flexion extension within normal limits. Sensation appears to be intact to the upper and lower extremities. She is a positive Arnie sign bilaterally. She has reasonable strength detailed testing the upper and lower extremities. Results & Data ([facility]) Vital Signs (Past 12 Hours) Vital Signs Temp Pulse Resp BP BP Pulse Ox O2 Del Method 08/25/22 10:57 37.1 C 72 16 101/61 95 Room Air 08/25/22 07:54 36.6 C 74 18 130/85 94 Room Air 08/25/22 07:50 36.7 C 75 18 109/76 96 Room Air
--- NOTE | 2022-08-25 15:38 | Discharge Summary ---
Date of Service August 25, 2022 Admission HPI Per Admitting Provider This is a 51-year-old female with PMHx of HTN, DM type II, TRINIDAD, HLD, anxiety, depression who presents with acute onset of dizziness. 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 She felt some numbness of the left arm which is slightly there at present. Denies slurring words, word finding, cardiac complaints, or issues with breathing. Pt took her normally scheduled medications today including gabapentin 800 mg TID, and last evening took Trazodone 150 mg HS. Neither of these medications are new or recently increased per her knowledge. She does not think she took different medications on accident. Denies drug use or other new medication. She is very drowsy throughout our visit and at times has difficulty keeping her eyes open - she was given Ativan 1 mg PO in the ER however. Pt has difficulty following commands with neuro testing today including left vs right hand and leg use to start tests, finger to nose testing, rapid alternating movements. Admission Exam Per Admitting Provider Physical Exam Physical Exam: General: awake, alert, no apparent distress, + lethargic, + obese with BMI of 42.1 Head: Normocephalic, atraumatic ENT: PERRL, EOMI, no pharyngeal exudate, mucous membranes moist Chest: Clear to auscultation, on room air, no adventitious breath sounds Cardiac: Regular rate and rhythm, no murmur, no JVD, normal peripheral pulses, good capillary refill Abdominal: NABS x 4 quadrants, soft, nondistended, nontender to palpation, no rebound or guarding Extremities: Normal inspection, no peripheral edema or erythema, calfs nontender to palpation Psych: Normal mood and affect Neuro: AAO x 3, strength intact bilaterally and rated 4/5,unable to perform rapid alternating movements, significant difficulty with [id number] testing, + rotational nystagmus, pupils are equal and reactive to light, unable to tilt right from left with following instructions able to perform [id number] testing, no motor deficits, speech is clear, no peripheral sensory deficits Principal Diagnosis Persistent cervical stenosis post revision Dizziness Atypical Chest Pain Discharge Data Allergies Allergy/AdvReac Type Severity Reaction Status Date / Time No Known Allergies Allergy Unverified 07/11/15 12:32 Consultations 08/22/22 11:41 ED Decision to Admit Stat 08/22/22 15:29 Consult Neurology Routine 08/24/22 09:26 Consult Cardiology Routine 08/24/22 17:22 Consult Orthopedic Surgery Routine Procedures Performed Laboratory Results WBC 6.81 K/ul (4.8-10.8) 08/23/22 07:01 RBC 4.19 M/uL (3.93-5.22) 08/23/22 07:01 Hgb 12.3 g/dl (12.0-16.0) 08/23/22 07:01 Hct 38.1 % (34.1-44.9) 08/23/22 07:01 MCV 90.9 fL (80.0-100.0) 08/23/22 07:01 MCH 29.4 pg (25.0-34.0) 08/23/22 07:01 MCHC 32.3 g/dL (32.0-36.0) 08/23/22 07:01 RDW Std Deviation 43.1 fL (36.4-46.3) 08/23/22 07:01 RDW Coeff of [place] 13.1 % (11.5-14.5) 08/23/22 07:01 Plt Count 288 K/uL (130-400) 08/23/22 07:01 MPV 11.0 fL (9.4-12.3) 08/23/22 07:01 Immature Gran % (Auto) 0.7 % 08/22/22 09:05 Neut % (Auto) 59.6 % 08/22/22 09:05 Lymph % (Auto) 26.9 % 08/22/22 09:05 Coleman % (Auto) 8.4 % 08/22/22 09:05 Eos % (Auto) 3.7 % 08/22/22 09:05 Baso % (Auto) 0.7 % 08/22/22 09:05 Neut # (Auto) 4.19 K/uL (1.4-6.5) 08/22/22 09:05 Lymph # (Auto) 1.89 K/uL (1.2-3.4) 08/22/22 09:05 Coleman # (Auto) 0.59 K/uL (0.24-0.82) 08/22/22 09:05 Eos # (Auto) 0.26 K/uL (0-0.50) 08/22/22 09:05 Baso # (Auto) 0.05 K/uL (0-0.2) 08/22/22 09:05 Immature Gran # (Auto) 0.05 K/uL (0.00-0.02) H 08/22/22 09:05 PT 10.6 Seconds (9.0-12.0) 08/22/22 11:34 INR 1.0 (0.9-1.1) 08/22/22 11:34 APTT 26.2 Seconds (21.0-31.0) 08/22/22 11:34 PTT Ratio 1.0 08/22/22 11:34 ABG pH 7.42 (7.35-7.45) 08/22/22 14:30 ABG pCO2 50 mmHg (35-46) H 08/22/22 14:30 ABG pO2 79 mmHg (80-95) L 08/22/22 14:30 ABG HCO3 32 mmol/L (19-24) H 08/22/22 14:30 ABG O2 Saturation 97.8 % (90-95) H 08/22/22 14:30 ABG Base Excess 6.6 mEq/L (-9-1.8) H 08/22/22 14:30 Rajiv Test POS (Pos) 08/22/22 14:30 Oxygen Given ROOM AIR 08/22/22 14:30 Sodium 139 mmol/L (136-145) 08/24/22 06:24 Potassium 4.4 mmol/L (3.5-5.1) 08/24/22 06:24 Chloride 104 mmol/L (98-107) 08/24/22 06:24 Carbon Dioxide 32 mmol/L (21-32) 08/24/22 06:24 Anion Gap 3 (3-11) 08/24/22 06:24 BUN 15 mg/dl (6-23) 08/24/22 06:24 Creatinine 0.54 mg/dl (0.6-1.2) L 08/24/22 06:24 Est Cr Clr Drug Dosing 132.6 ml/min 08/24/22 06:24 Est GFR ( Amer) 126.6 ml/min 08/24/22 06:24 Est GFR (Non-Af Amer) 109.3 ml/min 08/24/22 06:24 BUN/Creatinine Ratio 27.8 (10-20) H 08/24/22 06:24 Glucose 164 mg/dl (70-99(Fasting)) H 08/24/22 06:24 POC Glucose 79 mg/dl (70-99) 08/22/22 16:23 Estimat Average Glucose 148 mg/dl 08/23/22 07:01 Hemoglobin A1c 6.8 % (4.5-5.6) H 08/23/22 07:01 Calcium 9.2 mg/dl (8.5-10.1) 08/24/22 06:24 Magnesium 1.9 mg/dl (1.7-2.4) 08/24/22 06:24 Total Bilirubin 0.7 mg/dl (0.2-1.0) 08/23/22 07:01 AST 11 U/L (13-39) L 08/23/22 07:01 ALT 7 U/L (7-52) 08/23/22 07:01 Alkaline Phosphatase 98 U/L (34-104) 08/23/22 07:01 Troponin I High Sens 5.0 pg/ml (0-14) 08/24/22 20:58 Total Protein 6.9 gm/dl (6.0-8.3) 08/23/22 07:01 Albumin 3.9 gm/dl (3.4-5.0) 08/23/22 07:01 Globulin 3.0 gm/dl (2.5-4.0) 08/23/22 07:01 Albumin/Globulin Ratio 1.3 (0.9-2) 08/23/22 07:01 Triglycerides 85 mg/dl (0-150) 08/23/22 07:01 Cholesterol 101 mg/dl (0-200) 08/23/22 07:01 LDL Cholesterol, Calc 51 mg/dl 08/23/22 07:01 VLDL Cholesterol, Calc 17 mg/dl (0-30) 08/23/22 07:01 HDL Cholesterol 33 mg/dl 08/23/22 07:01 Cholesterol/HDL Ratio 3.1 (0-5) 08/23/22 07:01 Urine Color Yellow 08/22/22 10:20 Urine Appearance Clear (Clear) 08/22/22 10:20 Urine pH 5.0 (4.5-7.5) 08/22/22 10:20 Ur Specific [place] 1.008 (1.000-1.030) 08/22/22 10:20 Urine Protein Negative (Negative) 08/22/22 10:20 Urine Glucose (UA) Negative (Negative) 08/22/22 10:20 Urine Ketones Negative (Negative) 08/22/22 10:20 Urine Blood Negative (Negative) 08/22/22 10:20 Urine Nitrite Negative (Negative) 08/22/22 10:20 Urine Bilirubin Negative (Negative) 08/22/22 10:20 Urine Urobilinogen Negative (Negative) 08/22/22 10:20 Ur Leukocyte Esterase Negative (Negative) 08/22/22 10:20 Urine Opiates Screen Neg (Neg) 08/22/22 10:20 Ur Methadone, Qual Neg (Neg) 08/22/22 10:20 Urine Barbiturates Neg (Neg) 08/22/22 10:20 Ur Phencyclidine (PCP) Neg (Neg) 08/22/22 10:20 U Amphetamin/Meth Scrn Neg (Neg) 08/22/22 10:20 MDMA (Ecstasy) Screen Pos (Neg) H 08/22/22 10:20 U Benzodiazepines Scrn Neg (Neg) 08/22/22 10:20 Ur Cocaine Metabolite Neg (Neg) 08/22/22 10:20 U Marijuana (THC) Screen Neg (Neg) 08/22/22 10:20 SARS-CoV-2, RNA, NAAT NEGATIVE (NEGATIVE) 08/22/22 09:05 Impressions Chest X-Ray 08/22/22 09:06 XR chest 1V portable CLINICAL HISTORY: Stroke Like Symptoms TECHNIQUE: Single frontal radiograph of the chest was obtained. Comparison: Comparison is made to chest radiograph 06/29/2022 FINDINGS: No lines and tubes are seen. The cardiomediastinal silhouette is stable. Numerous nodular densities compatible with calcified granulomata. Interstitial thickening is seen. No pleural effusion or pneumothorax. Anterior cervical fixation hardware is noted. IMPRESSION: No acute chest disease. ACT 112: Negative or not required by law. Electronically signed by: Murtaza Lancaster M.D. 08/22/2022 10:[address] 08/22/22 09:06 CT head/brain wo con CLINICAL HISTORY: 51 years-old Female with Stroke Like Symptoms. Acute strokelike symptoms TECHNIQUE: Multiple axial CT images of the head were obtained without contrast. A dose lowering technique was utilized adhering to the principles of ALARA. COMPARISON: CTA head and neck of same day FINDINGS: No acute intracranial hemorrhage, midline shift, intracranial mass, hydrocephalus, territorial ischemia or abnormal extra-axial collection. Cerebral vascular calcifications. The calvarium is intact. Cervical spinal fusion hardware. The paranasal sinuses, mastoid air cells, and middle ear cavities are clear. IMPRESSION: No acute intracranial abnormality. ACT 112: Negative or not required by law. The above report was generated using voice recognition software. It may contain grammatical, syntax or spelling errors. Electronically signed by: Elvis Guerrero M.D. 08/22/2022 10:53 AM Head CTA 08/22/22 09:06 CT angio head w con CLINICAL HISTORY: Stroke Like Symptoms TECHNIQUE: Contiguous axial CT images of the head were acquired from the base of the skull to the vertex without intravenous contrast administration. CT angiography of the head and neck was performed following intravenous administration of iodinated contrast. Coronal and sagittal MIPS were obtained f rom the axial data set and were submitted for review. Automated dose lowering techniques and/or adjustment according to patient size were utilized for this examination. All measurements were calculated based on NASCET criteria. CT DOSE: 1130.13 mGy.cm Comparison: Comparison is made to CT head 08/22/2022 FINDINGS: CTA Head: The anterior and posterior cerebral circulations are patent. No hemodynamically significant stenosis, aneurysm, dissection, or arteriovenous malformation is shown. Atherosclerotic disease is noted. IMPRESSION: No occlusion, hemodynamically significant stenosis, aneurysm, dissection, or arteriovenous malformation in the major intracranial arteries. Assessment of stenosis of the internal carotid arteries is based on NASCET criteria. ACT 112: Negative or not required by law. Electronically signed by: Murtaza Lancaster M.D. 08/22/2022 11:15 AM Neck CTA 08/22/22 09:06 NECK CTA HISTORY: Stroke Like Symptoms TECHNIQUE: Multiaxial CT images of the neck were performed following the intravenous administration of contrast to evaluate the major cervical vessels. Maximum intensity projection images were also obtained. All measurements were calculated based on NASCET criteria. A dose lowering technique was utilized adhering to the principles of ALARA. COMPARISON STUDY: None. FINDINGS: The aortic arch and proximal great vessels are widely patent. There is no significant stenosis, occlusion, or dissection identified within the bilateral common carotid, internal carotid, or right vertebral artery. C3-C6 ACDF is noted. Mild mass effect along the left vertebral artery due to the adjacent cervical spine osteophytes. However, no significant stenosis, occlusion, or dissection. Mild calcified plaque within the bilateral carotid bifurcations. IMPRESSION: No significant stenosis, occlusion, or dissection identified within the carotid or vertebral arteries. ACT 112: Negative or not required by law. Electronically signed by: Elier Conner M.D. 08/22/2022 11:00 AM Brain MRI 08/22/22 12:36 MR brain wo con CLINICAL HISTORY: dizziness, confusion, r/o stroke, encephalopathy TECHNIQUE: Multiplanar and multisequence MR images of the brain were obtained without intravenous contrast. Comparison: None available at the time of this dictation. FINDINGS: No abnormal restricted diffusion is identified. Foci of T2 and FLAIR hyperintensity are noted in the paraventricular areas consistent with chronic small vessel ischemic disease. The ventricular system is normal in appearance. No mass is seen. There is no mass effect or midline shift. There is no evidence of acute intraparenchymal hemorrhage. No extra axial fluid collections are seen. The corpus callosum, pituitary gland, and cerebellar tonsils appear grossly unremarkable. Flow voids of the major intracranial arterial vessels are identified. The imaged portions of the paranasal sinuses, mastoid air cells, and orbits are unremarkable. IMPRESSION: No acute abnormality and in particular no evidence of acute infarct. ACT 112: Negative or not required by law. Electronically signed by: Murtaza Lancaster M.D. 08/22/2022 4:11 PM Cervical Spine MRI 08/24/22 08:58 MRI OF THE LUMBAR SPINE COMBO CLINICAL HISTORY: Bilateral upper extremity paresthesias. Dizziness. COMPARISON STUDY: CT urogram of the neck dated 08/22/2022. TECHNIQUE: MRI of the lumbar spine was performed utilizing various T1 and T2- weighted sequences in the axial and sagittal planes. Contrast enhanced sequences are acquired following the IV administration 9.5 cc of Gadavist. There is susceptibility artifact from metallic spinal hardware. FINDINGS: Cervical spine: Vertebral body height and alignment are maintained throughout the cervical spine. There is straightening of the cervical lordosis. There is postoperative change from anterior spinal fusion seen from C3-C6. The atla ntodental articulation is maintained. The spinous processes appear intact. A hemangioma is incidentally noted in the body of T2. No destructive bony lesion is seen. Degenerative endplate changes noted in the mid cervical region. Intervertebral discs: There has been discectomy at C3-C4, C4-C5, and C5-C6. Disc desiccation and loss of height is seen at the remaining cervical levels. Spinal cord: The cervical cord is normal in morphology and signal intensity. No abnormal postcontrast enhancement is identified. C2-C3: Unremarkable. C3-C4: A posterior disc osteophyte complex eccentric to the right effaces the ventral cord. Uncovertebral and facet arthropathy contribute to severe left and mild right neural foraminal stenosis. C4-C5: A posterior disc osteophyte complex eccentric to the right minimally effaces the ventral cord. Uncovertebral and facet arthropathy contribute to severe left and mild right neural foraminal stenosis. C5-C6: A posterior disc osteophyte complex abuts the ventral cord. Uncovertebral and facet arthropathy contribute to severe left and mild right neural foraminal stenosis. C6-C7: A posterior disc osteophyte complex effaces the ventral subarachnoid spac e. Uncovertebral and facet arthropathy contribute to moderate left neural foraminal stenosis. The right neural foramen is patent. C7-T1: Unremarkable. T1-T2: Unremarkable. Soft tissues: The prevertebral and paraspinous soft tissues are normal as visualized. Brain parenchyma: The imaged brain parenchyma at the skull base is within normal limits. IMPRESSION: 1. Postoperative change and cervical spondylosis as above. See discussion for detailed level by level analysis. 2. The cervical cord is normal in morphology and signal intensity. No abnormal postcontrast enhancement is identified. 3. No destructive bony process is seen. Dictated: 08/24/2022 11:05 AM Transcribed: 08/24/2022 11:18 AM Alina [id number] [email or web address] Electronically signed by: Theron Miguel M.D. 08/24/2022 7:12 PM Cervical Spine X-Ray 08/25/22 07:40 XR cervical [id number] routine CLINICAL HISTORY: neck pain TECHNIQUE: AP, lateral, bilateral oblique, and open-jaw images of the cervical spine were obtained. COMPARISON: None available at the time of this dictation. FINDINGS: No fractures or subluxations are identified. Anterior cervical fixation hardware is seen. The alignment is anatomic. Prevertebral soft tissues are within normal limits. IMPRESSION: No evidence for acute fracture or subluxation. ACT 112: Negative or not required by law. Electronically signed by: Murtaza Lancaster M.D. 08/25/2022 10:15 AM Ordered Studies 08/22/22 09:06 CT angio head w con Stat CT angio neck with con Stat CT head/brain wo con Stat 08/22/22 12:36 MRI Brain [MR brain wo con] Stat 08/24/22 08:58 MRI Cervical [MR cervical spine wo/w con] Urgent Hospital Course (1) Encephalopathy: (2) Dizziness: Stroke Like symptoms Persistent cervical stenosis post revision Dizziness due to above Cervical Radiculopathy Metabolic Encephalopathy Reports chronic dizziness since after having neck surgery for many months --MRI Brain:No acute abnormality and in particular no evidence of acute infarct. --Neck CTA:No significant stenosis, occlusion, or dissection identified within the carotid or vertebral arteries --Head CTA:No occlusion, hemodynamically significant stenosis, aneurysm, dissection, or arteriovenous malformation in the major intracranial arteries. --Cervical X ray:No evidence for acute fracture or subluxation. Continue aspirin, Plavix, Lipitor On gabapentin for neuropathy PT OT, fall precautions Appreciate Neurology, Orthopedics Input Encephalopathy resolved Needs Outpatient EMG nerve conduction study to assess cervical radiculopathy. Needs outpatient cervical spine surgery evaluation for possible revision of cervical spinal stenosis. Atypical Chest Pain H/O CAD S/P Stent Initial troponin:Negative EKG: No acute changes CXR: No acute chest disease. ECHO: Left ventricle systolic function is normal. EF 55 to 60%. Small sized posterior wall motion abnormality with hypokinesis of the segments. No significant valvular pathology. Troponin negative Lipid Panel wnl Continue Aspirin, Plavix, statin Appreciate Cardiology Input (3) Diabetes: -Hb A1C 6.8 Not on medications Diet controlled (4) HLD (hyperlipidemia): - Continue atorvastatin 40 mg daily (5) CAD (coronary artery disease): -Continue aspirin, Plavix, statin, Metoprolol (6) Hypertension: Hypertension Relatively low BP Hold Amlodipine, Lisinopril Monitor BP Likely discontinue antihypertensives upon discharge DVT Px: Heparin SQ CODE STATUS: Full code Disposition Home as able (7) Vertigo: (8) S/P cervical spinal fusion: Total Time Total Time Spent Total Time Spent (In Minutes): 45 minutes Discharge Plan Discharge Items Patient Disposition: Home - Self-Care Reason For Visit: DIZZINESS Discharge Diagnosis: Persistent cervical stenosis post revision Dizziness Atypical Chest Pain Activity: Per Instructions section Sexual Activity: Wait until after follow-up appointment Non-emergency contact: Primary Care Provider and Neurologist Call non-emergency contact if: you have any medication questions, your symptoms worsen, your pain is concerning for you and you have a fever Follow-up/Referrals: Vanessa Hobson MD [Primary Care Provider] - (Date & Time 09/01/2022 11:20 AM Provider Vanessa Hobson MD Department Family [facility] ) Diet: Heart Healthy Addtl Attending Provider Instructions: Follow-up with your primary care physician Dr. Hobson in 1 week Follow-up with orthopedics spine surgeon for further evaluation and management of Persistent cervical stenosis post revision as advised. Follow-up with your neurologist at [facility] neurology clinic in 4 weeks as advised --Get Outpatient EMG nerve conduction study to investigate for cervical radiculopathy as advised by your Neurologist ---Your amlodipine and lisinopril were discontinued due to low blood pressure while hospitalization. Monitor your blood pressure regularly and discuss with your physician for further adjustment of medications as needed. Seek immediate medical attention if your symptoms reoccur or worsen Please take all medications as instructed on discharge list below. Please call if you have any questions or problems. You can reach a [facility] hospitalist on duty at [facility] 24 hours a day by calling [phone] Pending Studies at Discharge: No Stand-Alone Forms: My [facility], Smoking Cessation Medications and DC Order Prescriptions: Continued atorvastatin 40 mg tablet 40 mg PO QAM citalopram 40 mg tablet 40 mg PO QAM clopidogrel 75 mg tablet 75 mg PO QAM gabapentin 800 mg tablet 800 mg PO TID trazodone 150 mg tablet 150 mg PO DAILY metoprolol succinate 25 mg tablet extended release 24 hr 12.5 mg PO BID metformin 500 mg tablet extended release 24 hr 500 mg PO BID dicyclomine 10 mg capsule 10 mg PO DAILY PRN (Reason: Abdominal Pain) cyclobenzaprine 5 mg tablet 10 mg PO QID PRN (Reason: Muscle Spasm) aspirin 81 mg Tablet,Chewable 81 mg PO DAILY Discontinued amlodipine 2.5 mg tablet 2.5 mg PO DAILY lisinopril 2.5 mg tablet 2.5 mg PO DAILY Discharge Orders: Discharge Order (Routine); Ordered 08/25/22 Ordered By: Zain Hardy Admission Data Admit Date/Time: 08/24/22 12:21 Attending Provider: Zain Hardy Admit Provider: Soumya Mora Primary Care Provider: Vanessa Hobson Other Providers: Soumya Mora ; Dallas Duong ; Stalin Guevara ; Frank Noe
--- NOTE | 2022-08-25 21:46 | Electrocardiogram Report ---
Test Reason : Blood Pressure : / mmHG Vent. Rate : 079 BPM Atrial Rate : 079 BPM P-R Int : 140 ms QRS Dur : 096 ms QT Int : 390 ms P-R-T Axes : 073 -05 054 degrees QTc Int : 447 ms Normal sinus rhythm Inferior infarct (cited on or before 29-JUN-2022) Cannot rule out Anterolateral infarct , age undetermined Abnormal ECG When compared with ECG of 22-AUG-2022 08:59, No significant change Confirmed by Yazan No ([id number]) on 08/25/2022 9:45:38 PM Referred By: REFERRED SELF Confirmed By:Yazan No
[2022-08-28 11:09] LABS: MDA negative; MDEA negative; MDMA (Ecstasy) Urine, Confirm negative
== END 2022-08-25 18:33 | disposition home or self-care (01) ==
LOC: ED 08:54 → 2S 08:54 → SUATTDRO 12:01 → 2S 12:46

== ENCOUNTER 2024-07-27 08:07 | Observation (INO) ==
--- NOTE | 2024-07-27 08:18 | Emergency Department Note ---
Impression & Plan Chest pain, Hypertension, PVCs (premature ventricular contractions) ED Provider Note NAME: ANSELMO HIGGINS AGE: 53 SEX: F : 1970 ARRIVES VIA: Ambulance INFORMANT: Patient ED PROVIDER(S): Nishant Raymundo MD CHIEF COMPLAINT: Ches pain, referred. PLAN: Disposition: Admit MEDICAL DECISION MAKING: The patient is a pleasant 53-year-old woman with a past medical history of hypertension, hyperlipidemia, CAD with history of HI remotely, vertigo, IBS who presents to the emergency department via EMS for evaluation of constant chest pain since last night which she localizes in her central left upper chest. She reports associated shortness of breath. She denies nausea or vomiting. She reports her symptoms have been ongoing for the past week or so and correlates them with having a heart monitor placed which she reports she is unsure of why this was done. She reports she had a single episode of chest pain at rest couple of days before the heart monitor but is certain that this is not why it was ordered. She has a log which she has been using for the monitor and has had several episodes of either palpitations, chest pain, shortness of breath which last around 10 minutes and largely occur at rest when sitting on the couch or laying down to sleep. There is a single episode which occurred when she was cutting vegetables at work. She denies any pattern of exertional chest pain. She reports she is short of breath on a chronic basis with exertion however. She denies a history of acid reflux but does have a history of IBS. Patient did receive 325mg ASA by EMS as well as 2 sprays of nitroglycerin. Reportedly pain had reduced from a 10 to an 8/10. On evaluation the patient is in no acute distress, afebrile with blood pressure 130/100s and heart rate in the 90s and vital signs otherwise stable. She appears clinically dry. Exam is otherwise unremarkable. EKG without overt acute ischemia. Occasional PVCs are noted. CXR negative for acute cardiopulmonary process per my personal preliminary review/interpretation. WBC, H/H and platelets within normal limits. Chemistry without metabolic acidosis. Magnesium 1.4 with IV repletion initiated. Total bilirubin 1.1, nonspecific and LFTs otherwise unremarkable. HS troponin to 0.5, within normal limits. Lipase is normal. UA without evidence of infection. Patient was treated with IV famotidine and IV APAP however reported pain was returning. She had reportedly felt improvement with nitroglycerin by EMS from a 08/11 to a 8 and so sublingual nitroglycerin was ordered. Given her history of CAD patient was for to hospital service for further evaluation and management. \\ Case was discussed with Esme Burgess PAC with Dr. Hardy, [facility] hospitalist, who will evaluate the patient for admission. Further management per admitting team. Triage Nursing notes reviewed and agree them. Prior/external medical records reviewed Vital Signs: reviewed Differential diagnosis: Cardiac ischemia, aortic dissection, pulmonary embolism, pneumothorax, pneumonia, pericarditis, myocarditis, esophageal rupture, GERD, cholecystitis, pancreatitis, musculoskeletal, as well as other pathologies. ER treatment provided: See below. Diagnostics interpreted by me: ECG: Sinus rhythm with occasional PVCs, 99 bpm, no overt ST elevation or depression, QTc 477, QRS 96. Cardiac Monitoring: An order for continuous cardiac monitoring was placed and demonstrated Sinus rhythm with occasional PVCs, 99 bpm Laboratory studies: See below Imaging studies: See below Consultation(s): Case was discussed with Esme Burgess PAC with Dr. Hardy, [facility] hospitalist, who will evaluate the patient for admission. HPI: The patient is a pleasant 53-year-old woman with a past medical history of hypertension, hyperlipidemia, CAD with history of HI remotely, vertigo, IBS who presents to the emergency department via EMS for evaluation of constant chest pain since last night which she localizes in her central left upper chest. She reports associated shortness of breath. She denies nausea or vomiting. She reports her symptoms have been ongoing for the past week or so and correlates them with having a heart monitor placed which she reports she is unsure of why this was done. She reports she had a single episode of chest pain at rest couple of days before the heart monitor but is certain that this is not why it was ordered. She has a log which she has been using for the monitor and has had several episodes of either palpitations, chest pain, shortness of breath which last around 10 minutes and largely occur at rest when sitting on the couch or laying down to sleep. There is a single episode which occurred when she was cutting vegetables at work. She denies any pattern of exertional chest pain. She reports she is short of breath on a chronic basis with exertion however. She denies a history of acid reflux but does have a history of IBS. Patient did receive 325mg ASA by EMS as well as 2 sprays of nitroglycerin. Reportedly pain had reduced from a 10 to an 8/10. ROS: See above HPI for pertinent positives & negatives. A total of 10 systems reviewed and were otherwise negative. VITALS:See Below PHYSICAL EXAMINATION: GENERAL: Awake, alert, fatigued-appearing, in no distress HENT: Normocephalic, atraumatic. Oropharynx with dry mucous membranes and otherwise unremarkable. EYES: Normal conjunctiva. Sclera non-icteric. NECK: Supple. No nuchal rigidity. FROM. No JVD. RESPIRATORY: Clear to auscultation. CARDIAC: Regular rate, normal rhythm. Extremities warm and well perfused. Pulses equal. ABDOMEN: Soft, non-distended. No tenderness to palpation. No rebound or guarding. No masses. MUSCULOSKELETAL: Chest examination reveals no tenderness. The back is symmetrical on inspection without obvious abnormality. There is no CVA tenderness to palpation. No joint edema. LOWER EXTREMITIES: Calves are equal size bilaterally and non-tender. No edema. No discoloration. NEURO: Normal sensorium. No sensory or motor deficits noted. SKIN: No rash or jaundice noted. Nishant Raymundo MD Past Med/Surg History Problem List Chest pain (Acute) SOB (shortness of breath) History of repair of patent ductus arteriosus Dyslipidemia, goal LDL below 70 ASCVD (arteriosclerotic cardiovascular disease) PVCs (premature ventricular contractions) (Acute) Morbid obesity Atypical chest pain S/P cervical spinal fusion Vertigo Encephalopathy Hypertension (Acute) CAD (coronary artery disease) HLD (hyperlipidemia) Diabetes Dizziness (Acute) Arm paresthesia, left (Acute) Nystagmus (Acute) Vomiting and diarrhea (Acute) Tendonitis (Chronic) Abdominal pain (Acute) Environmental allergies (Chronic) History of hysterectomy (Chronic) "with bilateral oophorectomy" Medical History Depression Surgical History S/P repair of patent ductus arteriosus "age 7" S/P tubal ligation Family History Mother Cancer Diabetes Grandmother (Maternal) Stroke Aunt Cancer Aunt Cancer Stroke Social History Smoking Status: Never smoker Hx Alcohol Use: Yes Alcohol type: beer Hx Substance Use: No Preferred Language: Yi Communication Ability: Effective Light Oil Operator Required: No Beliefs That Will Affect Care: None Current Living Situation: Alone Other Information That Helps Us Care for You: No Feels Safe at Home: Yes Safety Concerns: Feels Safe At This Time Assistive Devices: Denture - Upper, Denture - Lower and Glasses Allergies Allergies Allergy/AdvReac Type Severity Reaction Status Date / Time No Known Allergies Allergy Unverified 07/11/15 12:32 Home Meds Home Medications Medication Instructions Recorded Confirmed aspirin 81 mg chewable tablet 81 mg PO DAILY 08/22/22 07/27/24 atorvastatin 40 mg tablet 40 mg PO QAM 08/22/22 07/27/24 cyclobenzaprine 5 mg tablet 10 mg PO QID PRN Muscle Spasm 08/22/22 07/27/24 gabapentin 800 mg tablet 800 mg PO TID PRN Pain (Scale 08/22/22 07/27/24 Score 7-10) metformin 500 mg tablet,extended 1,000 mg PO DAILY 08/22/22 07/27/24 release 24 hr metoprolol succinate 25 mg 25 mg PO DAILY 08/22/22 07/27/24 tablet,extended release 24 hr trazodone 150 mg tablet 150 mg PO DAILY 08/22/22 07/27/24 ibuprofen 800 mg tablet 800 mg PO BID PRN Pain (Scale 07/27/24 07/27/24 Score 1-3) meloxicam 15 mg tablet 15 mg PO DAILY 07/27/24 07/27/24 Results & Data (ED) Vital Signs Vital Signs - 24 hr 07/27/24 08:16 07/27/24 08:16 07/27/24 08:21 Temperature 36.4 C L Temperature Source Oral Pulse Rate 98 H Pulse Rate from SpO2 Sensor Respiratory Rate 24 Respiratory Effort / Characteristics Spontaneous Short of Breath Non-Labored Spontaneous Respiratory Depth Normal Normal Blood Pressure 139/104 H Blood Pressure Mean 115 Pulse Oximetry 98 97 Oxygen Delivery Method Room Air Room Air Room Air Sepsis Recent Fever Within 48 Hours No Sepsis New/Unexplained Change in Mental Status No Sepsis Action Taken by Nursing No Action Required 07/27/24 09:00 07/27/24 09:00 07/27/24 09:03 Temperature Temperature Source Pulse Rate 92 H Pulse Rate from SpO2 Sensor 92 H Respiratory Rate 19 Respiratory Effort / Characteristics Respiratory Depth Blood Pressure 135/85 135/85 Blood Pressure Mean 99 99 Pulse Oximetry 94 Oxygen Delivery Method Sepsis Recent Fever Within 48 Hours Sepsis New/Unexplained Change in Mental Status Sepsis Action Taken by Nursing 07/27/24 09:12 07/27/24 09:15 07/27/24 09:29 Temperature Temperature Source Pulse Rate 89 90 Pulse Rate from SpO2 Sensor 90 Respiratory Rate 18 Respiratory Effort / Characteristics Respiratory Depth Blood Pressure 123/85 Blood Pressure Mean 91 Pulse Oximetry 96 Oxygen Delivery Method Sepsis Recent Fever Within 48 Hours Sepsis New/Unexplained Change in Mental Status Sepsis Action Taken by Nursing 07/27/24 09:30 07/27/24 09:30 07/27/24 09:30 Temperature Temperature Source Pulse Rate 91 H Pulse Rate from SpO2 Sensor 91 H Respiratory Rate 15 Respiratory Effort / Characteristics Respiratory Depth Blood Pressure 144/91 H 144/91 H Blood Pressure Mean 104 104 Pulse Oximetry 94 Oxygen Delivery Method Sepsis Recent Fever Within 48 Hours Sepsis New/Unexplained Change in Mental Status Sepsis Action Taken by Nursing 07/27/24 09:42 07/27/24 09:45 07/27/24 10:00 Temperature Temperature Source Pulse Rate 90 Pulse Rate from SpO2 Sensor 90 Respiratory Rate 14 Respiratory Effort / Characteristics Respiratory Depth Blood Pressure 142/97 H 136/86 Blood Pressure Mean 110 98 Pulse Oximetry 96 Oxygen Delivery Method Sepsis Recent Fever Within 48 Hours Sepsis New/Unexplained Change in Mental Status Sepsis Action Taken by Nursing 07/27/24 10:03 07/27/24 10:09 07/27/24 10:15 Temperature Temperature Source Pulse Rate 87 86 Pulse Rate from SpO2 Sensor 88 85 Respiratory Rate 15 13 Respiratory Effort / Characteristics Respiratory Depth Blood Pressure 128/82 Blood Pressure Mean 102 Pulse Oximetry 96 95 Oxygen Delivery Method Sepsis Recent Fever Within 48 Hours Sepsis New/Unexplained Change in Mental Status Sepsis Action Taken by Nursing 07/27/24 10:15 Temperature Temperature Source Pulse Rate Pulse Rate from SpO2 Sensor Respiratory Rate Respiratory Effort / Characteristics Respiratory Depth Blood Pressure 128/82 Blood Pressure Mean 102 Pulse Oximetry 95 Oxygen Delivery Method Sepsis Recent Fever Within 48 Hours Sepsis New/Unexplained Change in Mental Status Sepsis Action Taken by Nursing Laboratory Data Attestation: I reviewed the patient's lab results. 07/27/24 08:15 07/27/24 09:20 Lab Results 07/27/24 07/27/24 07/27/24 Range/Units 08:15 09:01 09:20 WBC 9.25 (4.8-10.8) K/ul RBC 4.92 (4.20-5.40) M/uL Hgb 13.9 (12.0-16.0) g/dl Hct 42.7 (37.0-47.0) % MCV 86.8 (80.0-100.0) fL MCH 28.3 (25.0-34.0) pg MCHC 32.6 (32.0-36.0) g/dL RDW Std Deviation 41.2 (36.4-46.3) fL RDW Coeff of Mariana 13.2 (11.5-14.5) % Plt Count 301 (130-400) K/uL MPV 11.0 (9.4-12.4) fL Immature Gran % (Auto) 0.5 % Neut % (Auto) 67.6 % Lymph % (Auto) 22.2 % Wayne % (Auto) 5.5 % Eos % (Auto) 3.6 % Baso % (Auto) 0.6 % Neut # (Auto) 6.25 (1.40-6.50) K/uL Lymph # (Auto) 2.05 (1.20-3.40) K/uL Wayne # (Auto) 0.51 (0.11-0.59) K/uL Eos # (Auto) 0.33 (0.00-0.50) K/uL Baso # (Auto) 0.06 (0.00-0.20) K/uL Immature Gran # (Auto) 0.05 (0.01-0.20) K/uL PT 10.2 (9.0-12.0) Seconds INR 0.9 (0.9-1.1) Sodium 137 (136-145) mmol/L Potassium TNP 3.6 Chloride 101 (98-107) mmol/L Carbon Dioxide 27 (21-32) mmol/L Anion Gap 9 (3-11) BUN 14 (6-23) mg/dl Creatinine 0.55 L (0.6-1.2) mg/dl Est Cr Clr Drug Dosing 129.5 ml/min Est GFR ( Amer) 124.1 ml/min Est GFR (Non-Af Amer) 107.1 ml/min BUN/Creatinine Ratio 25.5 H (10-20) Glucose 201 H (70-99(Fasting)) mg/dl Calcium 9.2 (8.6-10.3) mg/dl Magnesium 1.4 L (1.7-2.4) mg/dl Total Bilirubin 1.1 H (0.2-1.0) mg/dl Direct Bilirubin 0.1 (0-0.2) mg/dl AST TNP 12 L ALT 10 (7-52) U/L Alkaline Phosphatase 120 H (34-104) U/L Troponin I High Sens 10.5 13.2 (0-14) pg/ml Total Protein 7.3 (6.0-8.3) gm/dl Albumin 4.3 (3.4-5.0) gm/dl Globulin 3.0 (2.5-4.0) gm/dl Albumin/Globulin Ratio 1.4 (0.9-2) Lipase 61 (11-82) U/L Urine Color Yellow Urine Appearance Clear (Clear) Urine pH 6.5 (4.5-7.5) Ur Specific Jean 1.008 (1.000-1.030) Urine Protein Negative (Negative) Urine Glucose (UA) Negative (Negative) Urine Ketones Negative (Negative) Urine Blood Negative (Negative) Urine Nitrite Negative (Negative) Urine Bilirubin Negative (Negative) Urine Urobilinogen Negative (Negative) Ur Leukocyte Esterase Negative (Negative) Administered Medications Amlodipine Besylate (Amlodipine Besylate 5 Mg Tab) 5 mg PO QAM LIBBY Stop: 08/26/24 15:59 Last Admin: 07/27/24 16:23 Dose: 5 mg Documented By: OO Heparin Sodium (Porcine) (Heparin Sod 5,000 Unit/0.5 Ml Vial) 5,000 units SQ Q8 LIBBY Stop: 08/26/24 15:00 Last Admin: 07/27/24 16:22 Dose: 5,000 units Documented By: OO Insulin Aspart (Insulin Aspart Per Unit Charge) 0 units SC ACHS LIBBY Stop: 08/26/24 15:00 Last Admin: 07/27/24 17:34 Dose: Not Given Documented By: Admin: 07/27/24 15:52 Dose: Not Given Documented By: OO Morphine Sulfate (Morphine Sulfate 2 Mg/Ml Carp) 2 mg IV Q4H PRN PRN Reason: Severe Pain (Scale 7, 8, 9,10) Stop: 08/10/24 10:54 Last Admin: 07/27/24 17:47 Dose: 2 mg Documented By: OO Nitroglycerin (Nitroglycerin Sl 0.4 Mg/Tab Tab) 0.4 mg SL Q5M PRN PRN Reason: Chest Pain Stop: 08/26/24 10:04 Last Admin: 07/27/24 10:10 Dose: 0.4 mg Documented By: HS Discontinued Medications Aspirin (Aspirin 81 Mg Ectab) 162 mg PO NOW STA Stop: 07/27/24 11:22 Last Admin: 07/27/24 12:32 Dose: Not Given Documented By: NH Aspirin (Aspirin 81 Mg Chew) Confirm Administered Dose 81 mg .ROUTE .STK-MED ONE Stop: 07/27/24 12:26 Last Admin: 07/27/24 12:31 Dose: Not Given Documented By: NH Famotidine (Pepcid 20mg Iv Push) 20 mg in 5 mls @ 2.5 mls/min IV NOW STA Stop: 07/27/24 08:51 Last Admin: 07/27/24 09:04 Dose: 2.5 mls/min Documented By: HS Acetaminophen (Ofirmev) 1,000 mg in 100 mls @ 400 mls/hr IV NOW STA Stop: 07/27/24 09:59 Last Infusion: 07/27/24 10:43 Dose: Infused Documented By: Admin: 07/27/24 09:50 Dose: 400 mls/hr Documented By: HS Magnesium Sulfate/Dextrose (Magnesium Sulfate / D5w) 1 gm in 100 mls @ 100 mls/hr IV Q1H [facility] Stop: 07/27/24 11:49 Last Infusion: 07/27/24 15:52 Dose: Infused Documented By: Admin: 07/27/24 11:45 Dose: 100 mls/hr Documented By: Infusion: 07/27/24 11:10 Dose: Infused Documented By: Admin: 07/27/24 10:10 Dose: 100 mls/hr Documented By: HS Ioversol (Optiray 320 125ml) 116 ml IV ONCE ONE Stop: 07/27/24 17:06 Last Admin: 07/27/24 17:06 Dose: 116 ml Documented By: JENA Metoprolol Succinate (Metoprolol Succ 25mg Ext Rel Tab) 25 mg PO ONE ONE Stop: 07/27/24 15:46 Last Admin: 07/27/24 16:22 Dose: 25 mg Documented By: MACY Nitroglycerin (Nitroglycerin 2% Ointment 30gm Tube) 0.5 inch EXT NOW STA Stop: 07/27/24 10:56 Last Admin: 07/27/24 11:45 Dose: 0.5 inch Documented By: BARRON Potassium Chloride (Potassium Chloride Crtab 20 Meq Tabcr) 40 meq PO NOW STA Stop: 07/27/24 10:51 Last Admin: 07/27/24 11:45 Dose: 40 meq Documented By: BARRON Imaging Data Radiologist's Impression: Chest X-Ray 07/27/24 08:16 SINGLE VIEW CHEST CLINICAL HISTORY: Atypical chest pain. FINDINGS: An AP, portable, upright chest radiograph is compared to study dated 08/22/2022. The examination is degraded by portable technique and patient rotation. An electronic device projects over the left lower chest. The cardiomediastinal silhouette is top normal for projection. Chronic intimal thickening is unchanged. There is bibasilar scarring/atelectasis. No airspace consolidation or large pleural effusion is identified. No pneumothorax is seen. There are large calcified granulomas comment a similar previous. The bony thorax is grossly intact. Fusion hardware is noted in the lower cervical spine. Degenerative change is seen in the thoracic spine. IMPRESSION: No acute cardiopulmonary abnormality. ACT 112: Negative or not required by law. Electronically signed by: Theron Miguel M.D. 07/27/2024 8:36 AM Discharge Plan Visit Data Chief Complaint: Chest Pain ED Provider: Nishant Raymundo Discharge Problem: Chest pain, Hypertension, PVCs (premature ventricular contractions) Patient Disposition: Admitted As Inpatient Discharge Instructions Interventions: ED Discharge Assessment Last Done: 07/27/24 14:22 Discharge Problem: Chest pain Qualifiers: Chest pain type: unspecified Qualified Code(s): R07.9 - Chest pain, unspecified Hypertension Qualifiers: Hypertension type: unspecified Qualified Code(s): I10 - Essential (primary) hypertension
--- NOTE | 2024-07-27 08:37 | XRay Report ---
SINGLE VIEW CHEST CLINICAL HISTORY: Atypical chest pain. FINDINGS: An AP, portable, upright chest radiograph is compared to study dated 08/22/2022. The examin ation is degraded by portable technique and patient rotation. An electronic device projects over the left lower chest. The cardiomediastinal silhouette is top normal for projection. Chronic intimal thi ckening is unchanged. There is bibasilar scarring/atelectasis. No airspace consolidation or large ple ural effusion is identified. No pneumothorax is seen. There are large calcified granulomas comment a similar previous. The bony thorax is grossly intact. Fusion hardware is noted in the lower cervical s pine. Degenerative change is seen in the thoracic spine. IMPRESSION: No acute cardiopulmonary abnormality. ACT 112: Negative or not required by law. Electronically signed by: Theron Miguel M.D. 07/27/2024 8:36 AM
[2024-07-27 08:40] LABS: Basophils # (auto) 0.06 K/uL (0.00-0.20); Basophils % (auto) 0.6 %; Eosinophils # (auto) 0.33 K/uL (0.00-0.50); Eosinophils % (auto) 3.6 %; Hematocrit (blood only) 42.7 % (37.0-47.0); Hemoglobin 13.9 g/dl (12.0-16.0); Immature Granulocytes # (auto) 0.05 K/uL (0.01-0.20); Immature Granulocytes % (auto) 0.5 %; Lymphocytes # (auto) 2.05 K/uL (1.20-3.40); Lymphocytes % (auto) 22.2 %; Mean Corpuscular Hemoglobin 28.3 pg (25.0-34.0); Mean Corpuscular Hgb Conc 32.6 g/dL (32.0-36.0); Mean Corpuscular Volume 86.8 fL (80.0-100.0); Monocytes # (auto) 0.51 K/uL (0.11-0.59); Monocytes % (auto) 5.5 %; Neutrophils # (auto) 6.25 K/uL (1.40-6.50); Neutrophils % (auto) 67.6 %; Platelet Count 301 K/uL (130-400); RDW Coefficient of Variation 13.2 % (11.5-14.5); RDW Standard Deviation 41.2 fL (36.4-46.3); Red Blood Count 4.92 M/uL (4.20-5.40); White Blood Count 9.25 K/ul (4.8-10.8)
[2024-07-27 08:59] LABS: Alanine Aminotransferase 10 U/L (7-52); Albumin Globulin Ratio 1.4 (0.9-2); Albumin Level 4.3 gm/dl (3.4-5.0); Alkaline Phosphatase 120 U/L (34-104); Anion Gap 9 (3-11); BUN Creatinine Ratio 25.5 (10-20); Bilirubin,Total 1.1 mg/dl (0.2-1.0); Blood Urea Nitrogen 14 mg/dl (6-23); Calcium 9.2 mg/dl (8.6-10.3); Carbon Dioxide 27 mmol/L (21-32); Chloride 101 mmol/L (98-107); Creatinine Clr Calc Pharmacy 129.5 ml/min; Est GFR (African American) 124.1 ml/min; Est GFR (Non-African American) 107.1 ml/min; Glucose 201 mg/dl (70-99(Fasting)); Lipase 61 U/L (11-82); Magnesium 1.4 mg/dl (1.7-2.4); Sodium 137 mmol/L (136-145); Total Protein 7.3 gm/dl (6.0-8.3)
[2024-07-27 09:02] LABS: Troponin I High Sensitivity 10.5 pg/ml (0-14)
[2024-07-27] MEDS: FAMOTIDINE 20MG IV PUSH 20 MG/5 ML SYR IV STA (09:04)
[2024-07-27 09:05] LABS: INR 0.9 (0.9-1.1); Prothrombin Time 10.2 Seconds (9.0-12.0)
[2024-07-27 09:46] LABS: Appearance Urine Clear (Clear); Bilirubin Urine Negative (Negative); Blood Urine Negative (Negative); Color Urine Yellow; Glucose Urine UA Negative (Negative); Ketones Urine Negative (Negative); Leukocyte Esterase Urine Negative (Negative); Nitrite Urine Negative (Negative); Protein Urine Negative (Negative); Specific Gravity Urine 1.008 (1.000-1.030); Urobilinogen Urine Negative (Negative); pH Urine 6.5 (4.5-7.5)
[2024-07-27] MEDS: ACETAMINOPHEN 1,000 MG/100 ML VIAL IV STA (09:50)
[2024-07-27] MEDS ORDERED: NITROGLYCERIN 0.3 MG/1 TAB 100 TAB BTL SL PRN (09:52)
[2024-07-27 10:02] LABS: Potassium 3.6 mmol/L (3.5-5.1)
[2024-07-27] MEDS: MAGNESIUM SULFATE / D5W 1 GM/100 ML BAG IV SCH (10:10)
[2024-07-27] MEDS: NITROGLYCERIN SL 0.4 MG/TAB TAB SL PRN (10:10)
--- NOTE | 2024-07-27 10:13 | History & Physical Report ---
Date of Service July 27, 2024 Assessment & Plan (1) Atypical chest pain: (2) Hypertension: (3) CAD (coronary artery disease): (4) HLD (hyperlipidemia): (5) Diabetes: (6) Morbid obesity: Plan This is a 53-year-old female who has a significant past medical history of CAD, HTN, HLD, T2DM, vitamin D deficiency, vitamin B12 deficiency morbid obesity who presents to ED in setting of chest pain. Pt currently with zio patch in place for 7 days. To be removed today. She reports 3 independent episodes of chest pain all occurring at rest, lasting several hours, associated with chest pain, sob and dizziness. Sx are similar to previous NSTEMI requiring stent placement. Atypical Chest Pain CAD with hx of 1 aundrea and single vessel disease to circumflex obtuse marginal in 2016, repeat cath in 2020 revealed patent stent admit to PCU cycle trops, obtain resting echo place nitro paste 0.5in consult cardiology, will keep NPO for now a1c, lipid panel in a.m. T2DM a1c 8.1 in May, repeat in a.m. hold metformin, lantus/novlog per protocol Hypomagnesemia: replace HLD: chronic, stable on atorvastatin - last chol panel 06/01 trig 405, chol 223, LDL 152, will repeat in a.m. HTN: chronic on metoprolol - BP elevated in ED, will monitor, prn Labetalol Morbid obesity: encourage weight loss, diet/lifestyle measures DVT ppx: Sq Heparin for now FULL CODE PCP: Vanessa Hobson Dispo: admit to PCU for ACS r/o Pt was seen and examined in collaboration with Dr. Hardy, please see addendum A total of 60 minutes was spent coordinating, documenting, and providing care for this patient excluding time spent in the performance of separately billed services. This included personally viewing all current laboratories and imaging studies, medication reconciliation, outpatient chart review, and discussion with specialists. History of Present Illness Chief Complaint: Chest pain x 1 day. Primary Care Provider: Vanessa Hobson MD This is a 53-year-old female who has a significant past medical history of CAD, HTN, HLD, T2DM ED deficiency, vitamin B12 deficiency morbid obesity who presents to ED in setting of chest pain. She currently has a ZIO patch in place. It is to be removed today. She has had it in place for 1 week. She had 3 episodes of chest pain since having this placed. She is unsure why she has the patch on. She thinks its due to her upcoming knee surgery. On Thursday and Thursday night she experienced chest pain, dizziness and SOB. She described the chest pain as an, "elephant on her chest." She felt dizzy and she felt SOB going up her steps which never occurs. Thursday night her sx started when she laid in bed. She also had numbness/tingling in Left arm and leg. Sx lasted 10p-8a. She had sx that started last night before she went to bed and she was just sitting watching tv. She had associated numbness/tingling to L hand. She again had the substernal chest heaviness and SOB. Her sx were relieved when she took a nitro, but this resulted in a headache. She denies and f/c/s, lightheaded, cough, hemoptysis, n/v or abd pain. She does have IBS with intermittent constipation/diarrhea. She denies any recent change in meds. She reports last September she decided she wasn't taking anymore medications so she stopped them all. Since then she has returned to taking some. She denies hx of GERD/refux. Her sx reciprocate the sx when she required a stent. She denies prior hx of HTN and states she only had it when she was . "I'm not a doctor, but I know I have another blockage." During our evaluation her sx have improved but she still reports some chest heaviness and headache. The headache came after the nitroglycerin. She follows with [facility]. She has underlying hx of CAD with NSTEMI in 2017 s/p AUNDREA to circumflex obtuse marginal in 2017, single vessel disease. She had a repeat cardiac cath at [facility] in [place], [place] which revealed a patent stent w/o obstruction. Her last echo was 08/24/22 which revealed EF 55-60%, small sized posterior wall motion abnormality with hypokinesis of segments. She is former smoker and quite 20 years ago. She rarely uses alcohol and denies any drug use. Allergies Allergy/AdvReac Type Severity Reaction Status Date / Time No Known Allergies Allergy Unverified 09/09/15 12:32 Home Medications Medication Instructions Recorded Confirmed Type aspirin 81 mg chewable tablet 81 mg PO DAILY 08/22/22 07/27/24 History atorvastatin 40 mg tablet 40 mg PO QAM 08/22/22 07/27/24 History cyclobenzaprine 5 mg tablet 10 mg PO QID PRN Muscle Spasm 08/22/22 07/27/24 History gabapentin 800 mg tablet 800 mg PO TID PRN Pain (Scale 08/22/22 07/27/24 History Score 7-10) metformin 500 mg tablet,extended 1,000 mg PO DAILY 08/22/22 07/27/24 History release 24 hr metoprolol succinate 25 mg 25 mg PO DAILY 08/22/22 07/27/24 History tablet,extended release 24 hr trazodone 150 mg tablet 150 mg PO DAILY 08/22/22 07/27/24 History ibuprofen 800 mg tablet 800 mg PO BID PRN Pain (Scale 07/27/24 07/27/24 History Score 1-3) meloxicam 15 mg tablet 15 mg PO DAILY 07/27/24 07/27/24 History Past Med/Surg History Problem List Morbid obesity Atypical chest pain S/P cervical spinal fusion Vertigo Encephalopathy Hypertension CAD (coronary artery disease) HLD (hyperlipidemia) Diabetes Dizziness (Acute) Arm paresthesia, left (Acute) Nystagmus (Acute) Vomiting and diarrhea (Acute) Tendonitis (Chronic) Abdominal pain (Acute) Environmental allergies (Chronic) History of hysterectomy (Chronic) "with bilateral oophorectomy" Medical History Depression Surgical History S/P repair of patent ductus arteriosus "age 7" S/P tubal ligation Family History Mother Cancer Diabetes Grandmother (Maternal) Stroke Aunt Cancer Aunt Cancer Stroke Social History Smoking Status: Never smoker Hx Alcohol Use: No Hx Substance Use: No Preferred Language: Wolof Communication Ability: Effective Tube Inspector Required: No Beliefs That Will Affect Care: None Current Living Situation: Alone Feels Safe at Home: Yes Assistive Devices: Cane Review of Systems Review of Systems: All systems reviewed & are unremarkable except as noted in HPI & below Physical Exam Physical Exam: please refer to Dr. Hardy addendum for physical exam findings. Results & Data Results & Data Vital Signs (Past 12 Hours) Vital Signs Temp Pulse Resp BP Pulse Ox O2 Del Method 07/27/24 09:30 91 H 15 94 07/27/24 09:29 90 07/27/24 09:15 123/85 07/27/24 09:12 89 18 96 07/27/24 09:03 92 H 19 94 07/27/24 09:00 135/85 07/27/24 09:00 135/85 07/27/24 08:21 97 Room Air 07/27/24 08:16 36.4 C L 98 H 24 139/104 H 98 Room Air 07/27/24 08:16 Room Air Laboratory Results I have independently reviewed and interpreted patient's admitting labs including CBC, CMP,lipase, and troponin. Diagnostic Findings Chest X-Ray 07/27/24 08:16 SINGLE VIEW CHEST CLINICAL HISTORY: Atypical chest pain. FINDINGS: An AP, portable, upright chest radiograph is compared to study dated 08/22/2022. The examination is degraded by portable technique and patient rotation. An electronic device projects over the left lower chest. The cardiomediastinal silhouette is top normal for projection. Chronic intimal thickening is unchanged. There is bibasilar scarring/atelectasis. No airspace consolidation or large pleural effusion is identified. No pneumothorax is seen. There are large calcified granulomas comment a similar previous. The bony thorax is grossly intact. Fusion hardware is noted in the lower cervical spine. Degenerative change is seen in the thoracic spine. IMPRESSION: No acute cardiopulmonary abnormality. ACT 112: Negative or not required by law. Electronically signed by: Theron Miguel M.D. 07/27/2024 8:36 AM Medications Administered Medication List Discontinued Medications Famotidine (Pepcid 20mg Iv Push) 20 mg in 5 mls @ 2.5 mls/min IV NOW STA Stop: 07/27/24 08:51 Last Admin: 07/27/24 09:04 Dose: 2.5 mls/min Documented By: HS Acetaminophen (Ofirmev) 1,000 mg in 100 mls @ 400 mls/hr IV NOW STA Stop: 07/27/24 09:59 Last Admin: 07/27/24 09:50 Dose: 400 mls/hr Documented By: HS ECG Additional Comments: I have independently reviewed and interpreted patient's admitting EKG which revealed: SR with PVC qtc 477ms COVID-19 Results Results COVID-19 Adm Lab Results: RBC 4.92 M/uL (4.20-5.40) 07/27/24 WBC 9.25 K/ul (4.8-10.8) 07/27/24 Hgb 13.9 g/dl (12.0-16.0) 07/27/24 Hct 42.7 % (37.0-47.0) 07/27/24 Plt Count 301 K/uL (130-400) 07/27/24 Neutrophils (%) (Auto) 67.6 % 07/27/24 Lymphocytes (%) (Auto) 22.2 % 07/27/24 Monocytes # (Auto) 0.51 K/uL (0.11-0.59) 07/27/24 Eosinophils # (Auto) 0.33 K/uL (0.00-0.50) 07/27/24 Immature Granulocyte % (Auto) 0.5 % 07/27/24 Neutrophils # (Auto) 6.25 K/uL (1.40-6.50) 07/27/24 Lymphocytes # (Auto) 2.05 K/uL (1.20-3.40) 07/27/24 Monocytes # (Auto) 0.51 K/uL (0.11-0.59) 07/27/24 Eosinophils # (Auto) 0.33 K/uL (0.00-0.50) 07/27/24 Basophils # (Auto) 0.06 K/uL (0.00-0.20) 07/27/24 Immature Granulocyte # (Auto) 0.05 K/uL (0.01-0.20) 4 Na 137 mmol/L (136-145) 07/27/24 K 3.6 mmol/L (3.5-5.1) 07/27/24 Cl 101 mmol/L (98-107) 07/27/24 CO2 27 mmol/L (21-32) 07/27/24 Anion Gap 9 (3-11) 07/27/24 BUN 14 mg/dl (6-23) 07/27/24 Creatinine 0.55 mg/dl (0.6-1.2) L 07/27/24 BUN/Creatinine Ratio 25.5 (10-20) H 07/27/24 Glucose Level 201 mg/dl (70-99(Fasting)) H 07/27/24 Ca 9.2 mg/dl (8.6-10.3) 07/27/24 Total Bilirubin 1.1 mg/dl (0.2-1.0) H 07/27/24 Direct Bilirubin Pending 07/27/24 AST/SGOT 12 U/L (13-39) L 07/27/24 ALT/SGPT 10 U/L (7-52) 07/27/24 Alkaline Phosphatase 120 U/L (34-104) H 07/27/24 Total Protein 7.3 gm/dl (6.0-8.3) 07/27/24 Albumin 4.3 gm/dl (3.4-5.0) 07/27/24 Globulin 3.0 gm/dl (2.5-4.0) 07/27/24 Albumin/Globulin Ratio 1.4 (0.9-2) 07/27/24 INR 0.9 (0.9-1.1) 07/27/24 Chest X-Ray 07/27/24 Code Status & VTE Plan Code Status FULL CODE Supervising Physician Co-Signing Physician Notes Patient is a 53-year-old female with history of coronary artery disease, hypertension, hyperlipidemia, diabetes mellitus, TRINIDAD, mood disorder and other medical problems presents with history of chest pain associated nausea, dizziness, palpitations and shortness of breath. Patient has been having similar episodes twice in 1 week which resolved spontaneously. She was placed on ZIO monitor by her PCP 1 week ago and reports that she was due to be removed today. Currently states chest pain is pressure-like sensation associated with some numbness and tingling in left upper extremity. Reports chest pain started at rest overnight and is slightly better after nitroglycerin given in ED. Reports some headache after administering nitroglycerin. Please review HPI for complete details of presentation. Initial troponin negative. Blood pressure elevated in ED likely situational. I personally reviewed blood work and imaging studies and EKG. Initial EKG showed PVCs, ST changes in anterior leads. Blood work showed hypomagnesemia 1.4. Physical Exam: Vitals signs as noted above General Appearance:Obese, no apparent distress Head: normocephalic, Atraumatic Eyes: normal inspection, EOMI Neck: supple, Trachea midline Respiratory/Chest: Normal breath sounds, CTA, Zio monitor, No accessory muscle use Cardiovascular: S1, S2, No murmur Abdomen/GI:Soft, Non tender, Bowel sounds present Extremities/Musculoskeletal:normal inspection, no edema Neurologic/Psych:AAOX3, grossly no focal neurological deficits Skin: normal color, warm Chest Pain: R/O ACS Symptomatic PVCs Hypertension ? Situational (previously on amlodipine, lisinopril) Risk factors: H/O CAD, HTN, HLP, past tobacco use disorder, DM II, Obesity Initial troponin:Negative EKG shows: PVCs, ST changes in anterior leads, repeat EKG showed no PVCs, nonspecific ST changes CXR: Unremarkable Last ECHO: EF: EF 55 to 60%. Small sized posterior wall motion abnormality with hypokinesis of the segments. No significant valvular pathology. Trend serial cardiac enzymes, repeat EKG AM and with chest pain Check resting echo Check lipid panel Patient received aspirin en route to the hospital Nitropaste to help with blood pressure Continue aspirin, Lipitor Update HbA1c Cardiology consult N.p.o. for now until cardiology evaluation Low threshold to start IV heparin Hypomagnesemia Replete electrolytes as needed Monitor I personally interviewed and examined at bedside. Patient's care is coordinated with Esme Pedraza PA-C. I have reviewed the advanced practitioner's documentation, and I agree with plan of care. Please refer to the documentation above for details of patient's presentation and for discussion of other issues. I spent a total [id number] coordinating, documenting, and providing care for this patient excluding time spent in the performance of separately billed services.
[2024-07-27] MEDS ORDERED: LABETALOL HCL IV 5 MG/ML 20ML IV PRN (10:55)
[2024-07-27] MEDS: NITROGLYCERIN 2% OINTMENT 30GM TUBE EXT STA (11:45)
[2024-07-27] MEDS: POTASSIUM CHLORIDE CRTAB 20 MEQ TABCR PO STA (11:45)
[2024-07-27 11:50] LABS: Bilirubin Direct 0.1 mg/dl (0-0.2)
[2024-07-27 11:56] LABS: Troponin I High Sensitivity 13.2 pg/ml (0-14)
[2024-07-27] MEDS: ASPIRIN 81 MG CHEW ONE (12:31)
[2024-07-27] MEDS: ASPIRIN 81 MG ECTAB PO STA (12:32)
--- NOTE | 2024-07-27 14:48 | Electrocardiogram Report ---
Test Reason : Blood Pressure : */* mmHG Vent. Rate : 89 BPM Atrial Rate : 89 BPM P-R Int : 138 ms QRS Dur : 98 ms QT Int : 406 ms P-R-T Axes : 76 -13 68 degrees QTcB Int : 493 ms Normal sinus rhythm Possible Inferior infarct (cited on or before 29-Jun-2022) Prolonged QT Abnormal ECG When compared with ECG of 27-Jul-2024 08:13, Premature ventricular complexes are no longer Present Confirmed by Yazan No ([id number]) on 07/27/2024 2:48:31 PM Referred By: REFERRED SELF Confirmed By: Yazan No
--- NOTE | 2024-07-27 14:48 | Electrocardiogram Report ---
Test Reason : Blood Pressure : */* mmHG Vent. Rate : 99 BPM Atrial Rate : 99 BPM P-R Int : 128 ms QRS Dur : 96 ms QT Int : 372 ms P-R-T Axes : 75 -10 100 degrees QTcB Int : 477 ms Sinus rhythm with occasional Premature ventricular complexes Inferior infarct (cited on or before 29-Jun-2022) Cannot rule out Anterior infarct (cited on or before 24-Aug-2022) Abnormal ECG When compared with ECG of 24-Aug-2022 09:14, Premature ventricular complexes are now Present Confirmed by Yazan No ([id number]) on 07/27/2024 2:47:47 PM Referred By: Confirmed By: Yazan No
[2024-07-27] MEDS ORDERED: GLUCAGON FOR INJ 1 MG VIAL SQ PRN (15:01)
[2024-07-27] MEDS ORDERED: POLYETHYLENE (MIRALAX) 17 GM PACK PO PRN (15:01)
[2024-07-27] MEDS ORDERED: GLUCOSE 40% GEL 15 GM TUBE PO PRN (15:01)
[2024-07-27] MEDS ORDERED: CARBOHYDRATES FOR HYPOGLYCEMIA PO PRN (15:01)
[2024-07-27] MEDS ORDERED: ONDANSETRON INJ 2 MG/ML 2 ML VIAL IV PRN (15:01)
[2024-07-27] MEDS ORDERED: GLUCOSE 10 TAB/TUBE PO PRN (15:01)
[2024-07-27] MEDS ORDERED: DEXTROSE 50% 50 ML SYRINGE IV PRN (15:01)
--- OUTSIDE RECORDS SUMMARY | 2024-07-27 15:11 | External Medical Summary | Summary of Care ---
Author Name Unknown Organization [facility] Address [address] [place] [address] Phone [phone] Care Team Providers Care Shank Boner Name Role Phone Vanessa Hobson MD Primary Care Provider Encounter Details Date Type Department Care Team (Late st Contact Info) Description 06/27/2024 Telephone Family Practice [facility] [address] [address] Jose Vega PA-C [address] [place] [address] Allergies Active Allergy Reactions Criticality Noted Date Comments Codeine 07/31/2016 Other reaction(s): Itching documented as of this encounter (statuses as of 06/27/2024) Medications Medication Sig Dispensed Refills Start Date End Date Status Aspirin 81 MG Oral Tablet Delayed Release Take by mouth daily . Active Nitroglycerin 0.4 MG Sublingual Tablet Sublingual (Nitrostat)Indication s:Coronary artery disease involving platinum coronary artery of platinum heart without angina pectoris Place under the tongue 1 Tablet every 5 minutes as needed for Pain, Chest. 25 Tablet 5 07/03/2022 Active Cyclobenzaprine HCl 10 MG Oral Tablet (Flexeril)Indications :Lumbar spondylolysis Take 1 Tablet by mouth in the morning and 1 Tablet at noon and 1 Tablet before bedtime. 90 Tablet 4 04/05/2024 Active Gabapentin 800 MG Oral Tablet (Neurontin)Indication s:Chronic bilateral low back pain with sciatica, sciatica laterality unspecified TAKE ONE TABLET BY MOUTH EVERY MORNING, AT NOON, AND BEFORE BEDTIME 270 Tablet 1 04/05/2024 Active metFORMIN HCl ER 500 MG Oral Tablet Extended Release 24 Hour (Glucophage XR)Indications:Type 2 diabetes mellitus with hemoglobin A1c goal of less than 7.0% (HCC) Take 2 Tablets by mouth in the morning. 180 Tablet 3 06/05/2024 Active Atorvastatin Calcium 40 MG Oral Tablet (Lipitor)Indications: Atherosclerosis of coronary artery of platinum heart without angina pectoris, unspecified vessel or lesion type Take 1 Tablet by mouth daily. 90 Tablet 3 06/05/2024 Active Metoprolol Succinate ER 25 MG Oral Tablet Extended Release 24 Hour (toPROL XL)Indications:Athero sclerosis of coronary artery of platinum heart without angina pectoris, unspecified vessel or lesion type Take 1 Tablet by mouth daily. 90 Tablet 3 06/05/2024 Active Etodolac 500 MG Oral TabletIndications:Angie bandar osteoarthritis of both knees Take 1 Tablet by mouth in the morning and 1 Tablet before bedtime. 60 Tablet 06/07/2024 Active Meloxicam 15 MG Oral Tablet (Mobic)Indications:Pr imary osteoarthritis of left knee Take 1 Tablet by mouth in the morning. 30 Tablet 06/08/2024 Active Erythromycin 5 MG/GM Ophthalmic OintmentIndications:B acterial conjunctivitis of both eyes Instill into eye 4 times a day for 10 days. Apply to affected eye(s) until redness and discharge resolved. 3.5 g 1 06/27/2024 07/07/2024 Active documented as of this encounter (statuses as of 06/27/2024) Active Problems Problem Noted Date Diagnosed Date Primary osteoarthritis of left knee 03/17/2024 Pulmonary nodules 12/02/2023 Overview: CT 11/2023 suggests benign process, repeat 6-12 months. Saw Pulmonary. 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 11/21/2023 KASI inhibitor intolerance 08/26/2023 Overview: Dizziness, not dry cough B12 deficiency 08/26/2023 High ankle sprain of right lower extremity 06/19 Back pain 08/13/2022 Knee pain 08/13/2022 Arthritis 08/13/2022 Toenail avulsion, initial encounter 06/04/2022 Hypovitaminosis D 03/11/2022 Cervicalgia 11/30/2020 Overview: Planned cervical fusion C3 - C6 Dr Tia Bradshaw Date undetermined Referral to cardiology for clearance Last Assessment & Plan: rx muscle relaxants Continue physical therapy Try heating pad Left anterior knee pain 09/20/2020 Overview: Last Assessment & Plan: Supportive care reviwe Referral to PT Ibuprofen or tylenol PRN Ice and rest If not improved refer to ortho No acute injurious or inflammatory symptoms Lumbar spondylolysis 11/15/2018 Overview: Last Assessment & Plan: Has been seen and evaluated but ortho racieluo Dr Rai and pain management No surgery Low back pain 10/11/2018 Type 2 diabetes mellitus wit h hemoglobin A1c goal of less than 7.0% 06/21/2018 Overview: Currently stable and controlled with current treatment plan. Reviewed recent labs and testing. Current treatment plan of metformin and jardiance and trulicity added today will be adjusted and patient will need to follow up to assess the progress. Last Assessment & Plan: Adding trulicity today Education on Side effects Follow up PRN for support followup in 3 mo with new lab Essential hypertension 06/21/2018 Overview: Last Assessment & Plan: On lisinopril for renal protection CREATININE 0.53 03/10/2022 Mixed hyperlipidemia 06/21/2018 Overview: Last Assessment & Plan: Lipid reading pending Continue statin therapy Atherosclerosis of coronary artery 06/21/2018 Overview: Last Assessment & Plan: Continue statin therapy New lab orders issued today followup in 2 weeks TRINIDAD (obstructive sleep apnea) 06/21/2018 documented as of this encounter (statuses as of 06/27/2024) Resolved Problems Problem Noted Date Diagnosed Date Resolved Date Body mass index (BMI) of 40. 0 to 44.9 in adult 01/12/2023 12/17/2023 Overview: Per Obesity protocol documented as of this encounter (statuses as of 06/27/2024) Immunizations Name Administration Dates Next Due Hepatitis B Vaccine, Recombi nant, Adjuvanted, 20 mcg/mL (Heplisav-B) 04/15/2023,02/18/2023 Pneumococcal Conjugate Vaccine, 20-valent (Prevn ar20) 11/21/2022 Pneumococcal Polysaccharide PPV23 (Pneumovax) Seasonal Influenza, PF, 6 M & above, IM , (FluLaval or Fluzone) 11/21/2023,11/21/2022 Seasonal Influenza, Split, IIV3, With Preserve, Inj 08/07/2016 TDAP (age 10 and older)(Boostrix) 03/11/2022 Zoster Vaccine Recombinant (Shingrix) 02/18/2023 ,11/21/2022 documented as of this encounter Social History Tobacco Use Types Packs/Day Years Used Date Smoking Tobacco: Former Smokeless Tobacco: Never Comments:Quit 2013 Alcohol Use Standard Drinks/Week Comments No 0 (1 standard drink = 0.6 oz pur e alcohol) PHQ-2 Answer Date Recorded PHQ Adult Total Score 16 02/23/2024 Hunger Vital Sign Answer Date Recorded Within the past 12 months, y ou worried that your food would run out before you got the money to buy more. Never true 08/26/20 Within the past 12 months, t he food you bought just didn't last and you didn't have money to get more. Never true 08/26/2023 Childcare Answer Date Recorded Do you feel overwhelmed with taking care of a child, family member or friend? No 08/26/2023 Does your family need help f inding childcare? (Household - for ages 0-17 years) Not on file 08/26/2023 Clothing Answer Date Recorded Have you been unable to get clothing when it was really needed? No 08/26/2023 Is your family able to get c lothes or diapers when needed? (Household - for ages 0-17 years) Not on file 08/26/2023 Personal Safety Answer Date Recorded Do you feel unsafe or have concerns for your saf ety? No 08/26/2023 Do you have concerns for you r family's safety? (Household - for ages 0-17 years) Not on file 08/26/2023 Utilities Answer Date Recorded Do you have trouble paying y our heating, water, or electric bill? No 08/26/2023 Is your family able to pay t he heat, water, or electric bill? (Household - for ages 0-17 years) Not on file 08/26/2023 Does your family have access to good internet? (Household - for ages 0-17 years) Not on file 08/26/2023 Employment Status Answer Date Recorded Are you unemployed or without regular income? No 08/26/2023 Does the household have a [facility] source [facility] income? (Household - for ages 0-17 years) Not on file 08/26/2023 Social Connections Answer Date Recorded How often do you feel lonely or isolated from th ose around you? Never 08/26/2023 Financial Resource Strain Answer Date R ecorded Do you have any trouble payi ng for your medications, or do you think you might in the future? No 08/26/2023 Does your family have troubl e paying for medicine? (Household - for ages 0-17 years) Not on file 08/26/2023 Transportation Needs Answer Date Record ed READ ONLY Do you have troubl e getting a ride to medical visits or work? Never True 08/26/2023 Does your family have a hard time getting a ride to doctors visits? (Household - for ages 0-17 years) Not on file 08/26/2023 Has lack of transportation k ept you from medical appointments, meetings, work, or from getting things needed for daily living? Check all that apply. (Adult - for ages 18 years and over) Not on file 08/26/2023 Do you (or your family) have trouble finding or paying for a ride (transportation)? (Household - for ages 0-17 years) Not on file 08/26/2023 Housing Stability Answer Date Recorded Do you currently live in a s helter or have no steady place to sleep at night? No 08/26/2023 READ ONLY Do you think you a re at risk of becoming homeless? No 08/26/2023 Does your family worry about paying for your home or becoming homeless? (Household - for ages 0-17 years) Not on file 1 Are you homeless or worried that you might be in the future? (Adult - for ages 18 years and over) Not on file Are you (or your family) darby eless or worried that you might be in the future? (Household - for ages 0-17 years) Not on file Food Insecurity Answer Date Recorded Do you need food for this week? No 08/26/2023 Are you able to get enough f ood for your family? (Household - for ages 0-17 years) Not on file 08/26/2023 Does your family need food t his week? (Household - for ages 0-17 years) Not on file 08/26/2023 Do you always have enough fo od for your family? (Household - for ages 0-17 years) Not on file 08/26/2023 Sex and Gender Information Value Date Recorded Sex Assigned at Not on file Gender Identity Not on file Sexual Orientation Not on file Job Start Date Occupation Industry Not on file Not on file Not on file documented as of this encounter Miscellaneous Notes * Telephone Encounter - Jose Vega PA-C - 06/27/2024 11:13 AM EDT Patient required work excuse today which I signed. She is inquiring how she would be able to pick this up, or if it could be faxed her work? Would she be able to pull off of [employer]? She works at [employer] in [place]. Thank you! documented in this encounter Plan of Treatment Upcoming Encounters Date Type Department Care Team (Latest Contact Info) Description 07/12/2024 3:00 PM EDT Office Visit Cardiology, [facility] [address] [place] [address] Christiano Braksdale, [address] [place] [id number] 09/09/2024 11:45 AM EST Hospital Encounter ENDO [facility], Endoscopy Room [facility] [address] [place] [phone] Amena Cruz MD [address] [place] [id number] 09/09/2024 11:45 AM EST - 09/09/2024 12:15 PM EST Surgery ENDO [facility], Endoscopy Room [facility] [address] [place] [phone] Amena Cruz MD [address] [place] [address] COLONOSCOPY FLEXIBLE PROXIMAL DIAGNOSTIC 12/05/2024 3:20 PM EST Office Visit Family Practice [facility] [address] [place] [address] Vanessa Hobson MD [address] [place] [address] Scheduled Procedures Name Priority Associated Diagnoses Date/Ti me COLONOSCOPY FLEXIBLE PROXIMAL DIAGNOSTIC Screening for colon cancer 09/09/2024 11:45 AM EST ROBOTIC ARTHROPLASTY KNEE TOTAL Primary osteoarthritis of left knee Health Maintenance Due Date Last Done Comments Cologuard 2015 Fecal Occult Blood Test 2015 Sigmoidoscopy 2015 Colonoscopy 08/06/2022 08/06/2012 Colorectal Cancer Screening 08/06/2022 Mammogram 12/03/2023 12/03/2022 Albumin/Creatinine Ratio 05/20/2024 05/20/2023, 08/0 01/2022 Influenza Vaccine (FLU shot) (#1) 2024 11/21/2023, 11/21/2022, 08/07/2016 Diabetic Eye Exam 08/26/2024 08/26/2023, 06/05/2022 Diabetic Foot Exam 08/26/2024 08/26/2023, 06/05/2022 HbA1c 12/02/2024 06/01/2024, 11/03, 08/26/2023, Additional history exists Depression Monitoring 02/22/2025 02/23/2024 GFR 06/01/2025 06/01/2024, 11/03, 11/09/2023, Additional history exists DTaP,Tdap,and Td Vaccines (2 - Td or Tdap) 03/11/2032 03/11/2022 Pneumococcal Vaccine: Pediatrics (0 to 5 Years) and At-Risk Patients (6 to 64 Years) Completed 11/21/2022, 01/15/2019 Zoster Vaccines Completed 02/18/2023, 11/21/2022 Hepatitis B Vaccine Completed 04/15/2023, COVID-19 Vaccine Discontinued HPV (Gardasil) Vaccine Aged Out No lo nger eligible based on patient's age to complete this topic MENINGOCOCCAL (MENACTRA/MENVEO) Aged Out No longer eligible based on patient's age to complete this topic documented as of this encounter Medical Devices Not on filedocumented as of this encounter Care Teams Shank Boner Relationship Specialty Start Date End Date Vanessa Hobson MD [address] [place] [id number] PCP - General Internal Medicine 04/17/22 documented as of this encounter
--- OUTSIDE RECORDS SUMMARY | 2024-07-27 15:11 | External Medical Summary | Summary of Care ---
Author Name Unknown Organization [facility] Address [address] [place] [address] Phone [phone] Care Team Providers Care Health Editor Name Role Phone Vanessa Hobson MD Primary Care Provider Encounter Details Date Type Department Care Team (Late st Contact Info) Description 06/01/2024 Telephone Family Practice [facility] [address] [facility] [address] Vanessa Hobson MD [address] [facility] [place] [address] Allergies Active Allergy Reactions Criticality Noted Date Comments Codeine 07/31/2016 Other reaction(s): Itching documented as of this encounter (statuses as of 06/21/2024) Medications Medication Sig Dispensed Refills Start Date End Date Status Aspirin 81 MG Oral Tablet Delayed Release Take by mouth daily . Active Nitroglycerin 0.4 MG Sublingual Tablet Sublingual (Nitrostat)Indications :Coronary artery disease involving [place] coronary artery of [place] heart without angina pectoris Place under the tongue 1 Tablet every 5 minutes as needed for Pain, Chest. 25 Tablet 5 07/03/2022 Active Cyclobenzaprine HCl 10 MG Oral Tablet (Flexeril)Indications: Lumbar spondylolysis Take 1 Tablet by mouth in the morning and 1 Tablet at noon and 1 Tablet before bedtime. 90 Tablet 4 04/05/2024 Active Gabapentin 800 MG Oral Tablet (Neurontin)Indications :Chronic bilateral low back pain with sciatica, sciatica [...] Active Atorvastatin Calcium 40 MG Oral Tablet (Lipitor)Indications:A therosclerosis of coronary artery of [place] heart without angina pectoris, unspecified vessel or lesion type Take 1 Tablet by mouth daily. 90 Tablet 3 06/05/2024 Active Metoprolol Succinate ER 25 MG Oral Tablet Extended Release 24 Hour (toPROL XL)Indications:Atheros clerosis of coronary artery of [place] heart without angina pectoris, unspecified vessel or lesion type Take 1 Tablet by mouth daily. 90 Tablet 3 06/05/2024 Active documented as of this encounter (statuses as of 06/21/2024) Active Problems Problem Noted Date Diagnosed Date [...] as of this encounter (statuses as of 06/21/2024) Resolved Problems Problem Noted Date Diagnosed Date Resolved Date Body mass index (BMI) of 40. 0 to 44.9 in adult 01/12/2023 12/17/2023 Overview: Per Obesity protocol documented as of this encounter (statuses as of 06/21/2024) Immunizations Name Administration Dates Next Due Hepatitis [...] No 08/26/2023 Does the household have a re gular source of income? (Household - for ages [...] 18 years and over) Not on file 10/25/202 3 Are you (or your family) darby eless [...] encounter Miscellaneous Notes * Telephone Encounter - Alejandra Grier OSA - 06/06/2024 11:23 AM EDT Called pt and verified appt * Telephone Encounter - Elier Elizabeth OSA - 06/06/2024 11:19 AM EDT Patient has been scheduled with Dr. Barksdale for the Preop, this is the soonest, at this time for an appt. RETURN CARDIOLOGY at 3:00 PM (30 min)Arrive by 2:45 PM Friday July 12, 2024 Appointment Provider:Christiano Barksdale DO in CARDIOLOGY [facility] * Telephone Encounter - Vanessa Hobson MD - 06/05/2024 2:35 PM EDT Apologies - Ortho note reviewed. Appreciate Cardiology input. * Telephone Encounter - Arturo Tripp PA-C - 06/05/2024 2:28 PM EDT Chart reviewed. Last evaluated by Cardiology in December 2022. Patient evaluated by Orthopedics on June 02, 2024. Surgery postponed until patient meets BMI and HgA1c criteria. Etodolac prescribed at that time which is associated with cardiovascular events Recommend routine cardiology follow-up and preoperative evaluation prior to elective surgery Arturo Tripp PA-C Department of Cardiology * Telephone Encounter - Vanessa Hobson MD - 06/01/2024 4:17 PM EDT Cardiology: Planned TKR. Went off all her meds except ASA. Having exertional palpitations. Agreeable to re-starting BB, statin. EKG stable. Any additional pre-operative workup or med adjustments you would recommend? Orthopedics: Do you have a threshhold for A1c for proceeding with TKR? Recent value is 8.1% off of all meds. Agreeable to restarting metformin. documented in this encounter Plan of Treatment Upcoming Encounters Date Type Department Care Team (Latest Contact Info) Description 06/23/2024 5:00 PM EDT Imaging Radiology [facility] [address] [place] [address] 06/30/2024 3:15 PM EDT Office Visit Orthopaedics [facility] [address] [place] [phone] Horacio Corona, DO [address] [place] [address] 07/12/2024 3:00 PM EDT Office Visit Cardiology, [facility] [address] [place] [address] Christiano Barksdale, DO [address] [place] [address] 09/09/2024 11:45 AM EST Hospital Encounter ENDO [facility], Endoscopy Room [facility] [address] [place] [phone] Amena Cruz MD [address] [place] [address] 09/09/2024 11:45 AM EST - 09/09/2024 12:15 PM EST Surgery ENDO [facility], Endoscopy Room [facility] [address] [place] [phone] Amena Cruz MD [address] [place] [address] COLONOSCOPY FLEXIBLE PROXIMAL DIAGNOSTIC 12/05/2024 3:20 PM EST Office Visit [facility] [address] [place] [address] Vanessa Hobson MD [address] [place] [address] Scheduled Procedures Name Priority Associated Diagnoses Date/Ti me COLONOSCOPY FLEXIBLE PROXIMAL DIAGNOSTIC Screening for colon cancer 09/09/2024 11:45 AM EST ROBOTIC ARTHROPLASTY KNEE TOTAL Primary osteoarthritis of left knee Health Maintenance Due Date Last Done Comments Cologuard 2015 Fecal Occult Blood Test 2015 Sigmoidoscopy 2015 Colonoscopy 08/06/2022 08/06/2012 Colorectal Cancer Screening 08/06/2022 Mammogram 12/03/2023 12/03/2022 Albumin/Creatinine Ratio 05/20/2024 05/20/2023, 08/01/2022 Influenza Vaccine (FLU shot) (#1) 2024 11/21/2023, [...] 02/18/2023, 11/21/2022 Hepatitis B Vaccine Completed 04/15/2023, 3 COVID-19 Vaccine Discontinued HPV (Gardasil) Vaccine Aged Out No lo nger eligible based on patient's age to complete this topic MENINGOCOCCAL (MENACTRA/MENVEO) Aged Out No longer eligible based on patient's age to complete this topic documented as of this encounter Medical Devices Not on filedocumented as of this encounter Visit Diagnoses Diagnosis Type 2 diabetes mellitus with hemoglobin A1c goal of less than 7.0% (HCC)- Primary Atherosclerosis of coronary artery of [place] heart without angina pectoris, unspecified vessel or lesion type Screening for colon cancer Special screening for malignant neoplasms, colon documented in this encounter Care Teams Health Editor Relationship Specialty Start Date End Date Vanessa Hobson MD [address] [place] [address] PCP - General Internal Medicine 04/17/22 documented as of this encounter
--- OUTSIDE RECORDS SUMMARY | 2024-07-27 15:11 | External Medical Summary | Summary of Care ---
Author Name Unknown Organization [facility] Address [address] [place] [address] Phone [phone] Care Team Providers Care Longwall Foreman Name Role Phone Vanessa Hobson MD Primary Care Provider Reason for Visit * Reason Comments H&P Surgery Left knee Encounter Details Date Type Department Care Team (Latest Contact Info) Description 06/02/2024 3:15 PM EDT Office Visit Orthopaedics [facility] [address] [facility] [place] [address] Horacio Corona DO [address] [facility] [facility] [address] Primary osteoarthritis of left knee*; Preop testing; Type 2 diabetes mellitus with hemoglobin A1c goal of less than 7.0% ([facility]) Allergies Active Allergy Reactions Criticality Noted Date Comments Codeine 07/31/2016 Other reaction(s): Itching documented as of this encounter (statuses as of 06/02/2024) Medications Medication Sig Dispensed Refills Start Date End Date Status Aspirin 81 MG Oral Tablet Delayed Release Take by mouth daily . Active Nitroglycerin 0.4 MG Sublingual Tablet Sublingual (Nitrostat)Indicati ons:Coronary artery disease involving [place] coronary artery of [place] heart without angina pectoris Place under the tongue 1 Tablet every 5 minutes as needed for Pain, Chest. 25 Tablet 5 07/03/2022 Active Cyclobenzaprine HCl 10 MG Oral Tablet (Flexeril)Indicatio ns:Lumbar spondylolysis Take 1 Tablet by mouth in the morning and 1 Tablet at noon and 1 Tablet before bedtime. 90 Tablet 4 04/05/2024 Active Gabapentin 800 MG Oral Tablet (Neurontin)Indicati ons:Chronic bilateral low back pain with sciatica, sciatica laterality unspecified TAKE ONE TABLET BY MOUTH EVERY MORNING, AT NOON, AND BEFORE BEDTIME 270 Tablet 1 04/05/2024 Active Etodolac 500 MG Oral Tablet Take 1 Tablet by mouth in the morning and 1 Tablet before bedtime. 60 Tablet 06/02/2024 Active Ibuprofen 800 MG Oral Tablet (Motrin) Take 1 Tablet by mouth in the morning and 1 Tablet at noon and 1 Tablet before bedtime. with food for pain. 90 Tablet 1 04/11/2024 06/02/2024 Discontinue d(Medicatio n/Dose Changed) documented as of this encounter (statuses as of 06/02/2024) Active Problems Problem Noted Date Diagnosed Date [...] as of this encounter (statuses as of 06/02/2024) Resolved Problems Problem Noted Date Diagnosed Date Resolved Date Body mass index (BMI) of 40. 0 to 44.9 in adult 01/12/2023 12/17/2023 Overview: Per Obesity protocol documented as of this encounter (statuses as of 06/02/2024) Immunizations Name Administration Dates Next Due Hepatitis [...] on file documented as of this encounter Progress Notes * Horacio Corona, DO - 06/02/2024 3:44 PM EDT ORTHOPAEDIC SURGERY - Clinic Note SUBJECTIVE: Jamila Esteban is a 53 year old female. Chief Complaint Patient presents with H&P Surgery Left knee HPI: She presented today for preoperative H&P and surgical scheduling. Unfortunately her preoperative labs to include hemoglobin A1c was 8.1 and her BMI increased to nearly 42. She has reported to increased stress as of recently. She is accompanied today. Review of Systems: Constitutional ROS: No fevers, sweats, or chills Cardiovascular ROS: No chest pain Gastrointestinal ROS: No abdominal pain Musculoskeletal/Extremities ROS: Pain Neurologic ROS: No numbness or tingling Review of patient's allergies indicates: Allergen Reactions Codeine Other reaction(s): Itching Current Outpatient Medications Medication Sig Dispense Refill Etodolac 500 MG Oral Tablet Take 1 Tablet by mouth in the morning and 1 Tablet before bedtime. 60 Tablet 0 Aspirin 81 MG Oral Tablet Delayed Release Take by mouth daily . Nitroglycerin 0.4 MG Sublingual Tablet Sublingual (Nitrostat) Place under the tongue 1 Tablet every5 minutes as needed for Pain, Chest. 25 Tablet 5 Cyclobenzaprine HCl 10 MG Oral Tablet (Flexeril) Take 1 Tablet by mouth in the morning and 1 Tabletat noon and 1 Tablet before bedtime. 90 Tablet 4 Gabapentin 800 MG Oral Tablet (Neurontin) TAKE ONE TABLET BY MOUTH EVERY MORNING, AT NOON, AND BEFORE BEDTIME 270 Tablet 1 No current facility-administered medications for this visit. Patient Active Problem List Diagnosis Type 2 diabetes mellitus with hemoglobin A1c goal of less than 7.0% ([facility]) Essential hypertension Hypovitaminosis D Left anterior knee pain Low back pain Lumbar spondylolysis Mixed hyperlipidemia Cervicalgia Atherosclerosis of coronary artery [place] (obstructive sleep apnea) Toenail avulsion, initial encounter Back pain Knee pain Arthritis High ankle sprain of right lower extremity KASI inhibitor intolerance B12 deficiency Obesity, morbid (more than 100 lbs over ideal weight or BMI > 40) ([facility]) Type 2 diabetes mellitus with diabetic polyneuropathy ([facility]) Pulmonary nodules Primary osteoarthritis of left knee Past Medical History: Diagnosis Date Arthritis Back pain Depression Environmental allergies Foot pain Chronic Hypertension, goal below 140/90 Knee pain Past Surgical History: Procedure Laterality Date CERVICAL LAMINOPLASTY W/DECOMPRESS 2021 [place], C3-7 LIGATE/CUT OVIDUCT(S) REPAIR PATENT DUCTUS ARTERIOSUS age 7 TOTAL ABD HYSTERECTOMY W/WO REMOVAL OF TUBE(S) ovaries removed Social History Tobacco Use Smoking status: Former Smokeless tobacco: Never Tobacco comments: Quit 2013 Vaping Use Vaping status: Never Used Substance Use Topics Alcohol use: No Drug use: No Family history: Noncontributory OBJECTIVE: Diagnostic Testing: Updated standing AP bilateral knee demonstrated severe degenerative change involving the left knee.No significant progression as compared to previous films. Vital Signs: There were no vitals taken for this visit. Physical Exam: Examination of the left knee is unchanged as compared to previous evaluation. Gait Assessment is antalgic. She is distally neurovascularly intact. ASSESSMENT: Primary osteoarthritis of left knee (Primary) - XR KNEES, BOTH, STANDING, 1 VIEW (AP OR PA) Preop testing - [facility] PCR Type 2 diabetes mellitus with hemoglobin A1c goal of less than 7.0% ([facility]) - HEMOGLOBIN A1C; Future; Expected date: 09/02/2024 Other orders - Etodolac 500 MG Oral Tablet; Take 1 Tablet by mouth in the morning and 1 Tablet before bedtime. Follow Up: Return if symptoms worsen or fail to improve. PLAN: We discussed concerns related to her recent weight gain as well as poor glucose management. At thistime she does not meet criteria to pursue/schedule knee replacement. We will plan on rescheduling when she meets criteria with respect to BMI and hemoglobin A1c. I would like her to focus on weight loss and better control of her diabetes through good eating habits. We discussed this in the office today. In the interim she was provided a new anti-inflammatory medication. She is not to utilize ibuprofen. Prescription was sent to her pharmacy. In addition she was provided a letter for work to onlywork 3-4 days per week due to her knee arthritis. This chart was completed in part utilizing [employer] Speech Voice Recognition Software. Grammatical errors, random word insertions, pronoun errors, and incomplete sentences are an occasional consequence of this system due to software limitations, ambient noise, and hardware issues. Any formal questions or concerns about the content, text, or information contained within the body of this dictation should be directly addressed to the provider for clarification. Horacio Corona DO 06/02/2024 3:44 PM documented in this encounter Nursing Notes * Veronica Garcia MED ASSIST - 06/02/2024 3:14 PM EDT Patient presents today for H&P left TKA. DOS 06/20/24. documented in this encounter Plan of Treatment Upcoming Encounters Date Type Department Care Team (Latest Contact Info) Description 06/20/2024 7:30 AM EDT Hospital Encounter OR [facility], Operating Room, [facility] - 4th Floor [address] [address] Horacio Corona DO [address] [place] [address] 06/20/2024 7:30 AM EDT - 06/20/2024 10:53 AM EDT Surgery OR [facility], Operating Room, [facility] - 4th Floor [address] [place] [address] Horacio Corona, [address] [place] [address] ROBOTIC ARTHROPLASTY KNEE TOTAL 06/30/2024 3:15 PM EDT Office Visit Orthopaedics [facility] [address] [place] [address] Horacio Corona DO [address] [place] [address] 09/09/2024 11:45 AM EST Hospital Encounter [facility], Endoscopy Room [facility] [address] [place] [phone] Amena Cruz MD [address] [place] [address] 09/09/2024 11:45 AM EST - 09/09/2024 12:15 PM EST Surgery ENDO [facility], Endoscopy Room [facility] [address] [place] [phone] Amena Cruz MD [address] [place] [id number] COLONOSCOPY FLEXIBLE PROXIMAL DIAGNOSTIC 12/05/2024 3:20 PM EST Office Visit Family Practice [facility] [address] [place] [address] Vanessa Hobson MD [address] [place] [address] Pending Results Name Type Priority Associated Diagnoses Date /Time XR KNEES, BOTH, STANDING, 1 VIEW (AP OR PA) Medical Imaging Routine Primary osteoarthritis of left knee 06/02/2024 3:31 PM EDT [facility] PCR Lab Routine Preop testing 06/02/2024 3:22 PM EDT Scheduled Orders Name Type Priority Associated Diagnoses Orde r Schedule HEMOGLOBIN A1C Lab Routine Type 2 diabetes mellitus with hemoglobin A1c goal of less than 7.0% ([facility]) Expected: 09/02/2024, Expires: 06/02/2025 Scheduled Procedures Name Priority Associated Diagnoses Date/Ti me ROBOTIC ARTHROPLASTY KNEE TOTAL Primary osteoarthritis of left knee 06/20/2024 7:30 AM EDT COLONOSCOPY FLEXIBLE PROXIMAL DIAGNOSTIC Screening for colon cancer 09/09/2024 11:45 AM EST Health Maintenance Due Date Last Done Comments [...] as of this encounter Visit Diagnoses Diagnosis Primary osteoarthritis of left knee- Primary Primary localized osteoarthrosis, lower leg Primary osteoarthritis of left knee- Primary Primary localized osteoarthrosis, lower leg Preop testing Preoperative examination, unspecified Type 2 diabetes mellitus with hemoglobin A1c goal of less than 7.0% ([facility]) Primary osteoarthritis of left knee Primary localized osteoarthrosis, lower leg Screening for colon cancer Special screening for malignant neoplasms, colon documented in this encounter Care Teams Longwall Foreman Relationship Specialty Start Date End Date Vanessa Hobson MD [address] [place] [address] PCP - General Internal Medicine 04/17/22 documented as of this encounter"
--- OUTSIDE RECORDS SUMMARY | 2024-07-27 15:11 | External Medical Summary | Summary of Care ---
Author Name Unknown Organization [facility] Address [address] [facility] [place] [place] [address] Phone [phone] Care Team Providers Care Repair Order Clerk Name Role Phone Vanessa Hobson MD Primary Care Provider Encounter Details Date Type Department Care Team (Late st Contact Info) Description 06/07/2024 Orders Only Orthopaedics, [facility] [address] [place] [address] Klaus Howard PA-C [address] [place], [place] [phone] Primary osteoarthritis of both knees* Allergies Active Allergy Reactions Criticality Noted Date Comments Codeine 07/31/2016 Other reaction(s): Itching documented as of this encounter (statuses as of 06/07/2024) Medications Medication Sig Dispensed Refills Start Date End Date Status Aspirin 81 MG Oral Tablet Delayed Release Take by mouth daily . Active Nitroglycerin 0.4 MG Sublingual Tablet Sublingual (Nitrostat)Indicatio ns:Coronary artery disease involving [place] coronary artery of [place] heart without angina pectoris Place under the tongue 1 Tablet every 5 minutes as needed for Pain, Chest. 25 Tablet 5 07/03/2022 Active Cyclobenzaprine HCl 10 MG Oral Tablet (Flexeril)Indication s:Lumbar spondylolysis Take 1 Tablet by mouth in the morning and 1 Tablet at noon and 1 Tablet before bedtime. 90 Tablet 4 04/05/2024 Active Gabapentin 800 MG Oral Tablet (Neurontin)Indicatio ns:Chronic bilateral low back pain with sciatica, sciatica [...] Active Atorvastatin Calcium 40 MG Oral Tablet (Lipitor)Indications :Atherosclerosis of coronary artery of [place] heart without angina pectoris, unspecified vessel or lesion type Take 1 Tablet by mouth daily. 90 Tablet 3 06/05/2024 Active Metoprolol Succinate ER 25 MG Oral Tablet Extended Release 24 Hour (toPROL XL)Indications:Ather osclerosis of coronary artery of [place] heart without angina pectoris, unspecified vessel or lesion type Take 1 Tablet by mouth daily. 90 Tablet 3 06/05/2024 Active Etodolac 500 MG Oral TabletIndications:Pr imary osteoarthritis of both knees Take 1 Tablet by mouth in the morning and 1 Tablet before bedtime. 60 Tablet 06/07/2024 Active Etodolac 500 MG Oral Tablet Take 1 Tablet by mouth in the morning and 1 Tablet before bedtime. 60 Tablet 06/02/2024 Discontinue d(Refill) documented as of this encounter (statuses as of 06/07/2024) Active Problems Problem Noted Date Diagnosed Date [...] Has been seen and evaluated but ortho neruo Dr Rai and pain management No surgery [...] as of this encounter (statuses as of 06/07/2024) Resolved Problems Problem Noted Date Diagnosed Date Resolved Date Body mass index (BMI) of 40. 0 to 44.9 in adult 01/12/2023 12/17/2023 Overview: Per Obesity protocol documented as of this encounter (statuses as of 06/07/2024) Immunizations Name Administration Dates Next Due Hepatitis [...] 08/26/2023 Does the household have a re lar source of income? (Household - for ages [...] as of this encounter Progress Notes * Klaus Howard PA-C - 06/07/2024 10:30 AM EDT Updated prescription for anti-inflammatory pain medications sent to patient's preferred pharmacy per request. documented in this encounter Plan of Treatment Upcoming Encounters Date Type Department Care Team (Latest Contact Info) Description 06/20/2024 7:30 AM EDT Hospital Encounter OR [facility], Operating Room, [facility] - 4th Floor [address] [place] [address] Horacio Corona, DO [address] [place] [address] 06/20/2024 7:30 AM EDT - 06/20/2024 10:53 AM EDT Surgery OR [facility], Operating Room, [facility] - 4th Floor [address] [place] [address] Horacio Corona, DO [address] [place] [address] ROBOTIC ARTHROPLASTY KNEE TOTAL 06/30/2024 3:15 PM EDT Office Visit Orthopaedics [facility] [address] [place] [address] Horacio Corona, DO [address] [place] [address] 07/12/2024 3:00 PM EDT Office Visit Cardiology, [facility] [address] [place] [address] Chrsitiano Barksdale, DO [address] [place], [place] [address] 09/09/2024 11:45 AM EST Hospital Encounter ENDO [facility], Endoscopy Room [facility] [address] [place] [phone] Amena Cruz MD [address] [place] [address] 09/09/2024 11:45 AM EST - 09/09/2024 12:15 PM EST Surgery ENDO [facility], Endoscopy Room [facility] [address] [place] [phone] Amena Cruz MD [address] [place] [address] COLONOSCOPY FLEXIBLE PROXIMAL DIAGNOSTIC 12/05/2024 3:20 PM EST Office Visit Family Practice [facility] [address] [place] [address] Vanessa Hobson MD [address] [place] [address] Scheduled Procedures Name Priority Associated Diagnoses Date/Ti me ROBOTIC ARTHROPLASTY KNEE TOTAL Primary osteoarthritis of left knee 06/20/2024 7:30 AM EDT COLONOSCOPY FLEXIBLE PROXIMAL DIAGNOSTIC Screening for colon cancer 09/09/2024 11:45 AM EST Health Maintenance Due Date Last Done Comments Cologuard 2015 Fecal Occult Blood Test 2015 Sigmoidoscopy 2015 Colonoscopy 08/06/2022 08/06/2012 Colorectal Cancer Screening 08/06/2022 Mammogram 12/03/2023 12/03/2022 Albumin/Creatinine Ratio 05/20/2024 05/20/2023, 01/2022 Influenza Vaccine (FLU shot) (#1) 2024 [...] localized osteoarthrosis, lower leg Primary osteoarthritis of both knees- Primary Primary localized osteoarthrosis, lower leg Primary osteoarthritis of left knee Primary localized osteoarthrosis, lower leg Screening for colon cancer Special screening for malignant neoplasms, colon documented in this encounter Care Teams Repair Order Clerk Relationship Specialty Start Date End Date Vanessa Hobson MD [address] [place] [address] PCP - General Internal Medicine 04/17/22 documented as of this encounter
--- OUTSIDE RECORDS SUMMARY | 2024-07-27 15:11 | External Medical Summary ---
Author Name Unknown Address Unknown Organization K01:[facility] - [facility] [address] [place] [id number] Laboratory Report Ordering Provider Test Date Status KORI PRICE 06/02/2024 15:22:18 Final Observation Date Value Abnormality Reference (Units ) Status Staphylococcus aureus methicillin resistance SCCmec [Presence] in Nose by CARLOS with probe detection 06/02/2024 15:22:18 Negative Negative Final No Methicillin resistant Sta phylococcus aureus detected by PCR (amplified probe). Methicillin susceptible Stap hylococcus aureus DNA [Presence] in Specimen by CARLOS with probe detection 06/02/2024 15:22:18 Negative Negative Final No Staphylococcus aureus det ected by PCR (amplified probe). Performing Location [facility] - [address] [place] [address]
--- OUTSIDE RECORDS SUMMARY | 2024-07-27 15:11 | External Medical Summary | Summary of Care ---
Author Name Unknown Organization [facility] Address [address] [place] [address] Phone [phone] Care Team Providers Care Jet Mechanic Name Role Phone Vanessa Hobson MD Primary Care Provider Reason for Visit * Reason Comments Acute Video visit. Boon ey e symptoms started in bilateral eyes yesterday morning, very sticky drainage, burning, blurry vision at times d/t drainage, redness and swelling. Has bee using warm compresses. Encounter Details Date Type Department Care Team (Latest Contact Info) Description 06/27/2024 11:20 AM EDT Telemedicine Family Practice [facility] [place] [address] [place] [address] Jose Vega PA-C [address] [place] [address] Bacterial conjunctivitis of both eyes*; Allergic rhinitis, unspecified seasonality, unspecified trigger Allergies Active Allergy Reactions Criticality Noted Date Comments Codeine 07/31/2016 Other reaction(s): Itching documented as of this encounter (statuses as of 06/27/2024) Medications Medication Sig Dispensed Refills Start Date End Date Status Aspirin 81 MG Oral Tablet Delayed Release Take by mouth daily . Active Nitroglycerin 0.4 MG Sublingual Tablet Sublingual (Nitrostat)Indication s:Coronary artery disease involving [place] coronary artery of [place] heart without angina pectoris Place under the [...] Tablet (Lipitor)Indications: Atherosclerosis of coronary artery of [place] heart without angina pectoris, unspecified vessel or lesion type Take 1 Tablet by mouth daily. 90 Tablet 3 06/05/2024 Active Metoprolol Succinate ER 25 MG Oral Tablet Extended Release 24 Hour (toPROL XL)Indications:Athero sclerosis of coronary artery of [place] heart without angina pectoris, unspecified vessel or [...] money to buy more. Never true 08/26/20 23 Within the past 12 months, t he [...] as of this encounter Progress Notes * Jose Vega PA-C - 06/27/2024 11:04 AM EDT Images from the original note were not included. History of Present Illness Telemedicine: Patient location: HOME. I was in a hospital or clinic location. After connecting through televideo,patient was verified with two unique identifiers. Patient (or authorized legal call center support representative) was then informed that this was a Telemedicine visit and being conducted confidentially over secure lines. Methods to assure confidentiality were taken. Patient acknowledged consent and understanding of pr ivacy and security of the Telemedicine visit. The patient agreed to participate. Jamila Esteban is a 53 year old female that presents for acute visit. Video visit. Boon eye symptoms started in bilateral eyes yesterday morning. She reports very stickydrainage, burning, excessive watering, blurry vision at times d/t drainage, redness and swelling. Denies any sick contacts (lives alone). Has been using cold compresses. Eyes are very pruritic. Reports rhinorrhea/PND the day prior. - denies fevers, chills, ear pain/pressure, sinus pain/pressure, sore throat, or cough. - does report seasonal allergies. Uses antihistamine daily. - denies recent animal/dander exposure, work outside, or other allergen exposure. 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 Advised she take off tomorrow too and return on Thursday. Patient Active Problem List Diagnosis Type 2 diabetes mellitus with hemoglobin A1c goal of less than 7.0% ([facility]) Essential hypertension Hypovitaminosis D Left anterior knee pain Low back pain Lumbar spondylolysis Mixed hyperlipidemia Cervicalgia Atherosclerosis of coronary artery [place] (obstructive sleep apnea) Toenail avulsion, initial encounter Back pain Knee pain Arthritis High ankle sprain of right lower extremity KASI inhibitor intolerance B12 deficiency Obesity, morbid (more than 100 lbs over ideal weight or BMI > 40) ([facility]) Type 2 diabetes mellitus with diabetic polyneuropathy ([facility]) Pulmonary nodules Primary osteoarthritis of left knee Review of patient's allergies indicates: Allergen Reactions Codeine Other reaction(s): Itching Current Outpatient Medications Medication Sig Dispense Refill Aspirin 81 MG Oral Tablet Delayed Release [...] NOON, AND BEFORE BEDTIME 270 Tablet 1 metFORMIN HCl ER 500 MG Oral Tablet Extended Release 24 Hour (Glucophage XR) Take 2 Tablets by mouth in the morning. 180 Tablet 3 Atorvastatin Calcium 40 MG Oral Tablet (Lipitor) Take 1 Tablet by mouth daily. 90 Tablet 3 Metoprolol Succinate ER 25 MG Oral Tablet Extended Release 24 Hour (toPROL XL) Take 1 Tablet by mouth daily. 90 Tablet 3 Etodolac 500 MG Oral Tablet Take 1 Tablet by mouth in the morning and 1 Tablet before bedtime. 60 Tablet 0 Meloxicam 15 MG Oral Tablet (Mobic) Take 1 Tablet by mouth in the morning. 30 Tablet 0 Erythromycin 5 MG/GM Ophthalmic Ointment Instill into eye 4 times a day for 10 days. Apply to affected eye(s) until redness and discharge resolved. 3.5 g 1 No current facility-administered medications for this visit. Past Medical History: Diagnosis Date Arthritis Back pain Depression Environmental allergies Foot pain Chronic Hypertension, goal below 140/90 Knee pain Past Surgical History: Procedure Laterality Date CERVICAL LAMINOPLASTY W/DECOMPRESS 2021 , C3-7 LIGATE/CUT OVIDUCT(S) REPAIR PATENT DUCTUS ARTERIOSUS age 7 TOTAL ABD HYSTERECTOMY W/WO REMOVAL OF TUBE(S) ovaries removed Family History Problem Relation Name Age of Onset Cancer Mother Liver/Uterine Diabetes Mother Alcohol and Other Disorders Associated Father Heart attack Sister 48 Stroke Grandmother (Maternal) Cancer Aunt (Maternal) Brain Cancer Aunt (Maternal) Renal Stroke Aunt (Maternal) Breast Cancer No significant family history Colon cancer No significant family history Family Status Relation Status Mo Fa Sis Alive Bro Alive MGMA (Not Specified) MAUNT Other MAUNT Other MAUNT Other No history (Not Specified) Social History Socioeconomic History Marital status: Tobacco Use Smoking status: Former Smokeless tobacco: Never Tobacco comments: Quit 2013 Vaping Use Vaping status: Never Used Substance and Sexual Activity Alcohol use: No Drug use: No Social Determinants of Health Financial Resource Strain: Low Risk (08/26/2023) Financial Resource Strain Do you have any trouble paying for your medications, or do you think you might in the future? (Adult - for ages 18 years and over): No Food Insecurity: No Food Insecurity (08/26/2023) Food Insecurity Do you need food for this week? (Adult - for ages 18 years and over): No Transportation Needs: No Transportation Needs (08/26/2023) Transportation Needs Do you have trouble getting a ride to medical visits or work? (Adult - for ages 18 years and over):Never True Social Connections: Socially Integrated (08/26/2023) Social Connections How often do you feel lonely or isolated from those around you? (Adult - for ages 18 years and over): Never Housing Stability: Low Risk (08/26/2023) Housing Stability Do you currently live in a long-term or have no steady place to sleep at night? (Adult - for ages 18 years and over): No Do you think you are at risk of becoming homeless? (Adult - for ages 18 years and over): No Review of Systems Constitutional: Negative. Negative for chills and fever. HENT: Positive for postnasal drip and rhinorrhea. Negative for congestion, ear discharge, ear pain,sinus pressure, sinus pain and sore throat. Eyes: Positive for pain, discharge, redness, itching and visual disturbance. Negative for photophobia. Respiratory: Negative. Negative for cough and shortness of breath. Cardiovascular: Negative. Negative for chest pain. Skin: Negative. Negative for rash. Allergic/Immunologic: Positive for environmental allergies. Hematological: Negative. Psychiatric/Behavioral: Negative. Physical Exam There were no vitals taken for this visit. Physical exam limited secondary to the restrictions of audio/video telemedicine. Assessment and Plan Bacterial conjunctivitis of both eyes Start erythromycin paste. 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 Advised she take off tomorrow and return on Thursday. Work excuse provided. Knows to call with worsening symptoms. - RETURN TO WORK OR SCHOOL - Erythromycin 5 MG/GM Ophthalmic Ointment; Instill into eye 4 times a day for 10 days. Apply to affected eye(s) until redness and discharge resolved. Allergic rhinitis, unspecified seasonality, unspecified trigger - RETURN TO WORK OR SCHOOL Wrap-Up Follow Up: Return if symptoms worsen or fail to improve, for As scheduled with PCP. | For: As scheduled with PCP Time: I spent a total of 10-19 minutes (exact time 15 mins) on the date of service in preparation, delivery, and documentation of the care provided to Jamila Esteban excluding any time spent in the performance of separately billed services. Telemedicine: Patient location: HOME. I was in a hospital or clinic location. After connecting through televideo,patient was verified with two unique identifiers. Patient (or authorized legal call center support representative) was then informed that this was a Telemedicine visit and being conducted confidentially over secure lines. Methods to assure confidentiality were taken. Patient acknowledged consent and understanding of pr ivacy and security of the Telemedicine visit. The patient agreed to participate. documented in this encounter Nursing Notes * Erin Brown LPN - 06/27/2024 10:57 AM EDT Chief Complaint Patient presents with Acute Video visit. Boon eye symptoms started in bilateral eyes yesterday morning, very sticky drainage, burning, blurry vision at times d/t drainage, redness and swelling. Has bee using warm compresses. documented in this encounter Plan of Treatment Upcoming Encounters Date Type Department Care Team (Latest Contact Info) Description 07/12/2024 3:00 PM EDT Office Visit Cardiology, [facility] [address] [place] [address] Christiano Barksdale DO [address] [place] [address] 09/09/2024 11:45 AM EST Hospital Encounter ENDO [facility], Endoscopy Room [facility] [address] [place] [phone] Amena Cruz MD [address] [place] [address] 09/09/2024 11:45 AM EST - 09/09/2024 12:15 PM EST Surgery ENDO [facility], Endoscopy Room [facility] [address] [place] [phone] Amena Cruz MD [address] [place] [address] COLONOSCOPY FLEXIBLE PROXIMAL DIAGNOSTIC 12/05/2024 3:20 PM EST Office Visit Family Practice [facility] [address] [place] [address] Vanessa Hobson MD [address] [place] [address] Scheduled Procedures Name Priority Associated Diagnoses Date/Ti me COLONOSCOPY FLEXIBLE PROXIMAL DIAGNOSTIC Screening for colon cancer 09/09/2024 11:45 AM EST ROBOTIC ARTHROPLASTY KNEE TOTAL Primary osteoarthritis of left knee Health Maintenance Due Date Last Done Comments Cologuard 2015 Fecal Occult Blood Test 2015 Sigmoidoscopy 2015 Colonoscopy 08/06/2022 08/06/2012 Colorectal Cancer Screening 08/06/2022 Mammogram 12/03/2023 12/03/2022 Albumin/Creatinine Ratio 05/20/2024 05/20/2023, 0801/2022 Influenza Vaccine (FLU shot) (#1) 2024 11/21/2023, [...] as of this encounter Visit Diagnoses Diagnosis Bacterial conjunctivitis of both eyes- Primary Allergic rhinitis, unspecified seasonality, unspecified trigger Screening for colon cancer Special screening for malignant neoplasms, colon documented in this encounter Care Teams Jet Mechanic Relationship Specialty Start Date End Date Vanessa Hobson MD [address] [place] [address] PCP - General Internal Medicine 04/17/22 documented as of this encounter"
--- OUTSIDE RECORDS SUMMARY | 2024-07-27 15:11 | External Medical Summary | Summary of Care ---
Author Name Unknown Organization [facility] Address [address] [place] [address] Phone [phone] Care Team Providers Care Sole Rounding Machine Operator Name Role Phone Vanessa Hobson MD Primary Care Provider Encounter Details Date Type Department Care Team (Late st Contact Info) Description 06/27/2024 [facility] [address] [facility] [address] [address] Jose Vega PA-C [address] [place] [address] Allergies Active Allergy Reactions Criticality Noted Date Comments Codeine 07/31/2016 Other reaction(s): Itching documented as of this encounter (statuses as of 06/27/2024) Medications Medication Sig Dispensed Refills Start Date End Date Status Aspirin 81 MG Oral Tablet Delayed Release Take by mouth daily . Active Nitroglycerin 0.4 MG Sublingual Tablet Sublingual (Nitrostat)Indication s:Coronary artery disease involving [place] coronary artery of [place] heart without angina pectoris Place under the [...] Tablet (Lipitor)Indications: Atherosclerosis of coronary artery of [place] heart without angina pectoris, unspecified vessel or lesion type Take 1 Tablet by mouth daily. 90 Tablet 3 06/05/2024 Active Metoprolol Succinate ER 25 MG Oral Tablet Extended Release 24 Hour (toPROL XL)Indications:Athero sclerosis of coronary artery of [place] heart without angina pectoris, unspecified vessel or [...] No 08/26/2023 Does the household have a [facility] source of income? (Household - for ages [...] she be able to pull off of [employer]? She works at [employer] in [place]. Thank you! documented in this encounter Plan of Treatment Upcoming Encounters Date Type Department Care Team (Latest Contact Info) Description 07/12/2024 3:00 PM EDT Office Visit Cardiology, [facility] [address] [place] [address] Christiano Barksdale, [address] [place] [address] 09/09/2024 11:45 AM EST Hospital Encounter ENDO [facility], Endoscopy Room [facility] [address] [place] [phone] Amena Cruz MD [address] [place] [id number] 09/09/2024 11:45 AM EST - 09/09/2024 12:15 PM EST Surgery ENDO [facility], Endoscopy Room [facility] [address] [place] [phone] Amena Cruz MD [address] [place] [address] COLONOSCOPY FLEXIBLE PROXIMAL DIAGNOSTIC 12/05/2024 3:20 PM EST Office Visit Family Practice [facility] [address] [place] [address] Vanessa Hobson MD [address] [place] [address] Scheduled Procedures Name Priority Associated Diagnoses Date/Ti [...] filedocumented as of this encounter Care Teams Sole Rounding Machine Operator Relationship Specialty Start Date End Date Vanessa Hobson MD [address] [place] [address] PCP - General Internal Medicine 04/17/22 documented as of this encounter
--- OUTSIDE RECORDS SUMMARY | 2024-07-27 15:11 | External Medical Summary | Summary of Care ---
Author Name Unknown Organization [facility] Address [address] [place] [address] Phone [phone] Care Team Providers Care Flow Worker Name Role Phone Vanessa Hobson MD Primary Care Provider Reason for Visit * Reason Comments eRx-Medication Refill Encounter Details Date Type Department Care Team (Late st Contact Info) Description 07/05/2024 Refill Orthopaedics, [facility] [address] [place] [address] [place] [address] Klaus Howard PA-C [address] [place] [phone] Primary osteoarthritis of left knee Allergies Active Allergy Reactions Criticality Noted Date Comments Codeine 07/31/2016 Other reaction(s): Itching documented as of this encounter (statuses as of 07/05/2024) Medications Medication Sig Dispensed Refills Start Date End Date Status Aspirin 81 MG Oral Tablet Delayed Release Take by mouth daily . Active Nitroglycerin 0.4 MG Sublingual Tablet Sublingual (Nitrostat)Indicati ons:Coronary artery disease involving [place] coronary artery of [place] heart without angina pectoris Place under the [...] Active Atorvastatin Calcium 40 MG Oral Tablet (Lipitor)Indication s:Atherosclerosis of coronary artery of [place] heart without angina pectoris, unspecified vessel or lesion type Take 1 Tablet by mouth daily. 90 Tablet 3 06/05/2024 Active Metoprolol Succinate ER 25 MG Oral Tablet Extended Release 24 Hour (toPROL XL)Indications:Athe rosclerosis of coronary artery of [place] heart without angina pectoris, unspecified vessel or lesion type Take 1 Tablet by mouth daily. 90 Tablet 3 06/05/2024 Active Etodolac 500 MG Oral TabletIndications:P rimary osteoarthritis of both knees Take 1 Tablet by mouth in the morning and 1 Tablet before bedtime. 60 Tablet 06/07/2024 Active Erythromycin 5 MG/GM Ophthalmic OintmentIndications :Bacterial conjunctivitis of both eyes Instill into eye 4 times a day for 10 days. Apply to affected eye(s) until redness and discharge resolved. 3.5 g 1 06/27/2024 07/07/20 24 Active Meloxicam 15 MG Oral Tablet (Mobic)Indications: Primary osteoarthritis of left knee TAKE 1 TABLET BY MOUTH EVERY MORNING 30 Tablet 07/05/2024 Active Meloxicam 15 MG Oral Tablet (Mobic)Indications: Primary osteoarthritis of left knee Take 1 Tablet by mouth in the morning. 30 Tablet 06/08/2024 07/05/20 24 Discontinued documented as of this encounter (statuses as of 07/05/2024) Active Problems Problem Noted Date Diagnosed Date [...] as of this encounter (statuses as of 07/05/2024) Resolved Problems Problem Noted Date Diagnosed Date Resolved Date Body mass index (BMI) of 40. 0 to 44.9 in adult 01/12/2023 12/17/2023 Overview: Per Obesity protocol documented as of this encounter (statuses as of 07/05/2024) Immunizations Name Administration Dates Next Due HEPATITIS B VACCINE, RECOMB, 20 MCG/ML, ADULT (HEPLISAV-B) 04/15/2023,02/18/2023 Pneumococcal Conjugate Vaccine, 20-valent (Prevn ar20) 11/21/2022 Pneumococcal Polysaccharide PPV23 (Pneumovax) Seasonal Influenza, PF, 6 M & above, IM , (FluLaval or Fluzone) 11/21/2023,11/21/2022 Seasonal Influenza, Trivalen t, (IIV3), with Preserv, (Fluzone) 08/07/2016 TDAP (age 10 and older)(Boostrix) 03/11/2022 [...] encounter Miscellaneous Notes * Telephone Encounter - Dannielle Orellana LPN - 07/05/2024 10:29 AM EDTPending Prescriptions: Disp Refills Meloxicam 15 MG Oral Tablet [Pharmacy Med *30 Tab*0 Sig: TAKE 1TABLET BY MOUTH EVERY MORNING documented in this encounter Plan of Treatment Upcoming Encounters Date Type Department Care Team (Latest Contact Info) Description 07/12/2024 3:00 PM EDT Office Visit Cardiology, [facility] [address] [place] [address] Christiano Barksdale DO [address] [place] [address] 09/09/2024 11:45 AM EST Hospital Encounter ENDO [facility], Endoscopy Room [facility] [address] [place] [phone] Amena Cruz MD [address] [place] [address] 09/09/2024 11:45 AM EST - 09/09/2024 12:15 PM EST Surgery ENDO [facility], Endoscopy Room [facility] [address] [place] [phone] Amena Cruz MD [address] [place] [address] COLONOSCOPY FLEXIBLE PROXIMAL DIAGNOSTIC 12/05/2024 3:20 PM EST Office Visit Family Practice [facility] [address] [place] [address] Vanessa Hobson MD [address] [place] [address] Scheduled Procedures Name Priority Associated Diagnoses Date/Ti [...] 06/01/2025 06/01/2024, 11/03, 11/09/2023, Additional history exists DTap/Tdap Vaccines (2 - Td or Tdap) 03/11/2032 [...] Visit Diagnoses Diagnosis Primary osteoarthritis of left knee Primary localized osteoarthrosis, lower leg Screening for colon cancer Special screening for malignant neoplasms, colon documented in this encounter Care Teams Flow Worker Relationship Specialty Start Date End Date Vanessa Hobson MD [address] [facility] [place] [address] PCP - General Internal Medicine 04/17/22 documented as of this encounter
--- OUTSIDE RECORDS SUMMARY | 2024-07-27 15:11 | External Medical Summary | Summary of Care ---
Author Name Unknown Organization [facility] Address [address] [place] [address] Phone [phone] Care Team Providers Care Marker Machine Name Role Phone Vanessa Hobson MD Primary Care Provider Encounter Details Date Type Department Care Team (Late st Contact Info) Description 06/08/2024 Orders Only Orthopaedics, [facility] [address] [place] [address] Klaus Howard PA-C [address] [place] [address] Primary osteoarthritis of left knee* Allergies Active Allergy Reactions Criticality Noted Date Comments Codeine 07/31/2016 Other reaction(s): Itching documented as of this encounter (statuses as of 06/08/2024) Medications Medication Sig Dispensed Refills Start Date End Date Status Aspirin 81 MG Oral Tablet Delayed Release Take by mouth daily . Active Nitroglycerin 0.4 MG Sublingual Tablet Sublingual (Nitrostat)Indications :Coronary artery disease involving [place] coronary artery of [place] heart without angina pectoris Place under the [...] Tablet (Lipitor)Indications:A therosclerosis of coronary artery of [place] heart without angina pectoris, unspecified vessel or lesion type Take 1 Tablet by mouth daily. 90 Tablet 3 06/05/2024 Active Metoprolol Succinate ER 25 MG Oral Tablet Extended Release 24 Hour (toPROL XL)Indications:Atheros clerosis of coronary artery of [place] heart without angina pectoris, unspecified vessel or lesion type Take 1 Tablet by mouth daily. 90 Tablet 3 06/05/2024 Active Etodolac 500 MG Oral TabletIndications:Prim tyson osteoarthritis of both knees Take 1 Tablet by mouth in the morning and 1 Tablet before bedtime. 60 Tablet 06/07/2024 Active Meloxicam 15 MG Oral Tablet (Mobic)Indications:Angie bandar osteoarthritis of left knee Take 1 Tablet by mouth in the morning. 30 Tablet 06/08/2024 Active documented as of this encounter (statuses as of 06/08/2024) Active Problems Problem Noted Date Diagnosed Date [...] as of this encounter (statuses as of 06/08/2024) Resolved Problems Problem Noted Date Diagnosed Date Resolved Date Body mass index (BMI) of 40. 0 to 44.9 in adult 01/12/2023 12/17/2023 Overview: Per Obesity protocol documented as of this encounter (statuses as of 06/08/2024) Immunizations Name Administration Dates Next Due Hepatitis [...] Progress Notes * Klaus Howard PA-C - 06/08/2024 9:46 AM EDT Prescription for placed for meloxicam in place of Etodolac per patient request due to insurance coverage. Patient should not utilize Etodolac and meloxicam in conjunction. documented in this encounter Plan of Treatment Upcoming Encounters Date Type Department Care Team (Latest Contact Info) Description 06/20/2024 7:30 AM EDT Hospital Encounter OR [facility], Operating Room, [facility] - 4th Floor [address] [place] [address] Horacio Corona, DO [address] [place] [address] 06/20/2024 7:30 AM EDT - 06/20/2024 10:53 AM EDT Surgery OR [facility], Operating Room, [facility] - 4th Floor [address] [place] [address] Horacio Corona, DO [address] [place] [address] ROBOTIC ARTHROPLASTY KNEE TOTAL 06/30/2024 3:15 PM EDT Office Visit Orthopaedics [facility] [address] [place] [address] Horacio Corona, DO [address] [place] [address] 07/12/2024 3:00 PM EDT Office Visit Cardiology, [facility] [address] [place] [address] Christiano Barksdale, DO [address] [place] [address] 09/09/2024 11:45 AM EST Hospital Encounter ENDO [facility], Endoscopy Room [facility] [address] [place] [phone] Amena Cruz MD [address] [place] [address] 09/09/2024 11:45 AM EST - 09/09/2024 12:15 PM EST Surgery ENDO [facility], Endoscopy Room [facility] [address] [place] [phone] Amena Cruz MD [address] [place] [address] COLONOSCOPY FLEXIBLE PROXIMAL DIAGNOSTIC 12/05/2024 3:20 PM EST Office Visit Family Practice [facility] [address] [place] [address] Vanessa Diaz MD [address] [place] [address] Scheduled Procedures Name Priority Associated Diagnoses Date/Ti [...] colon documented in this encounter Care Teams Marker Machine Relationship Specialty Start Date End Date Vanessa Hobson MD [address] [facility] [place] [address] PCP - General Internal Medicine 04/17/22 documented as of this encounter
--- OUTSIDE RECORDS SUMMARY | 2024-07-27 15:11 | External Medical Summary | Summary of Care ---
Author Name Unknown Organization [facility] Address [address] [place] [address] Phone [phone] Care Team Providers Care Patient Financial Services Coordinator Name Role Phone Vanessa Hobson MD Primary Care Provider Reason for Visit * Reason Onset Date Comments Appointment 03/17/2024 Encounter Details Date Type Department Care Team (Late st Contact Info) Description 03/17/2024 Telephone Orthopaedics [facility] [address] [place] [address] Horacio Corona DO [address] [facility] [place] [id number] Appointment Allergies Active Allergy Reactions Criticality Noted Date Comments Codeine 07/31/2016 Other reaction(s): Itching documented as of this encounter (statuses as of 06/16/2024) Medications Medication Sig Dispensed Refills Start Date End Date Status Aspirin 81 MG Oral Tablet Delayed Release Take by mouth daily . Active Nitroglycerin 0.4 MG Sublingual Tablet Sublingual (Nitrostat)Indicat ions:Coronary artery disease involving [place] coronary artery of [place] heart without angina pectoris Place under the tongue 1 Tablet every 5 minutes as needed for Pain, Chest. 25 Tablet 5 2 Active Meclizine HCl 12.5 MG Oral Tablet (Antivert)Indicati ons:Benign paroxysmal vertigo, unspecified laterality Take by mouth 1 Tablet as needed in the morning AND 1 Tablet as needed at noon AND 1 Tablet as needed in the evening for Dizziness. 30 Tablet 1 2 06/01/20 24 Discontinued Ondansetron HCl 4 MG Oral TabletIndications: Nausea without vomiting Take 1 Tablet by mouth every 6 hours as needed for Nausea. 30 Tablet 3 06/01/20 24 Discontinued traZODone HCl 150 MG Oral Tablet (Desyrel) Take 1 Tablet by mouth at bedtime. 06/01/20 24 Discontinued Metoprolol Succinate ER 25 MG Oral Tablet Extended Release 24 Hour (toPROL XL)Indications:Ess ential hypertension Take 0.5 Tablets by mouth in the morning and 0.5 Tablets before bedtime. 90 Tablet 3 4 06/01/20 24 Discontinued metFORMIN HCl ER 500 MG Oral Tablet Extended Release 24 Hour (Glucophage XR)Indications:Typ e 2 diabetes mellitus with hemoglobin A1c goal of less than 7.0% (HCC) Take 4 tablets by mouth daily 360 Tablet 1 4 06/01/20 24 Discontinued Empagliflozin 10 MG Oral Tablet (Jardiance)Indicat ions:Type 2 diabetes mellitus with hemoglobin A1c goal of less than 7.0% (HCC) Take 1 Tablet by mouth in the morning. 30 Tablet 5 4 06/01/20 24 Discontinued Ibuprofen 800 MG Oral Tablet (Motrin) Take 1 Tablet by mouth in the morning and 1 Tablet at noon and 1 Tablet before bedtime. with food for pain. 90 Tablet 1 4 04/11/20 24 Discontinued(Ref ill) Cyclobenzaprine HCl 10 MG Oral Tablet (Flexeril)Indicati ons:Lumbar spondylolysis Take 1 Tablet by mouth in the morning and 1 Tablet at noon and 1 Tablet before bedtime. 90 Tablet 4 4 04/04/20 24 Discontinued(Ref ill) Doxepin HCl 10 MG/ML Oral ConcentrateIndicat ions:Insomnia, unspecified type Take 0.5 mL by mouth at bedtime as needed for Insomnia. 118 mL 3 4 06/01/20 24 Discontinued Gabapentin 800 MG Oral Tablet (Neurontin)Indicat ions:Chronic bilateral low back pain with sciatica, sciatica laterality unspecified TAKE ONE TABLET BY MOUTH EVERY MORNING, AT NOON, AND BEFORE BEDTIME 270 Tablet 1 4 04/04/20 24 Discontinued(Ref ill) Atorvastatin Calcium 40 MG Oral Tablet (Lipitor)Indicatio ns:Elevated cholesterol Take 1 Tablet by mouth in the morning. In the morning.. 90 Tablet 2 4 06/01/20 24 Discontinued Citalopram Hydrobromide 40 MG Oral Tablet (CeleXA)Indication s:Depression with anxiety Take 1 Tablet by mouth in the morning. In the morning.. 90 Tablet 2 4 06/01/20 24 Discontinued Cholecalciferol 25 MCG (1000 UT) Oral Capsule Take 1 Capsule by mouth in the morning. 90 Capsule 2 4 06/01/20 24 Discontinued Dicyclomine HCl 10 MG Oral Capsule (Bentyl) Take 1 Capsule by mouth 4 times a day before meals and at bedtime. 360 Capsule 1 4 06/01/20 24 Discontinued Hospital, Clinic, or Other Facility Administered Medication Ordered Dose Route Frequency Start Date End Date Status vitamin b-12 (Cyanocobalamin) inj 1,000 mcgIndications:B12 deficiency 1000 mcg IM [id number] 10/13/2024 06/01/2024 Discontinued documented as of this encounter (statuses as of 06/16/2024) Active Problems Problem Noted Date Diagnosed Date [...] as of this encounter (statuses as of 06/16/2024) Resolved Problems Problem Noted Date Diagnosed Date Resolved Date Body mass index (BMI) of 40. 0 to 44.9 in adult 01/12/2023 12/17/2023 Overview: Per Obesity protocol documented as of this encounter (statuses as of 06/16/2024) Immunizations Name Administration Dates Next Due Hepatitis [...] encounter Miscellaneous Notes * Telephone Encounter - Eliana Levy OSA - 03/17/2024 3:24 PM EDT Pt said best times to call her are after 2 pm Thursday through Thursday when calling to set up surgery,thank you! documented in this encounter Plan of Treatment Upcoming Encounters Date Type Department Care Team (Latest Contact Info) Description 06/21/2024 10:30 AM EDT Imaging Radiology [address] [place] [address] 06/23/2024 5:00 PM EDT Imaging Radiology [address] [place] [address] 06/30/2024 3:15 PM EDT Office Visit Orthopaedics [facility] [place] [address] Horacio Corona, DO [address] [place] [address] 07/12/2024 3:00 PM EDT Office Visit Cardiology, [facility] [address] [place] [address] Christiano Barksdale DO [address] [place] [address] 09/09/2024 11:45 AM EST Hospital En[facility] [place] [phone] Amena Cruz MD [address] [place] [address] 09/09/2024 11:45 AM EST - 09/09/2024 12:15 PM EST Surgery ENDO [facility], Endoscopy Room [facility] [address] [place] [phone] Amena Cruz MD [address] [place] [address] COLONOSCOPY FLEXIBLE PROXIMAL DIAGNOSTIC 12/05/2024 3:20 PM EST Office Visit Family Practice [facility] [address] [place] [address] Vanessa Hobson MD [address] [facility] [place] [id number] Scheduled Procedures Name Priority Associated Diagnoses Date/Ti nv COLONOSCOPY FLEXIBLE PROXIMAL DIAGNOSTIC Screening for colon [...] filedocumented as of this encounter Care Teams Patient Financial Services Coordinator Relationship Specialty Start Date End Date Vanessa Hobson MD [address] [place] [address] [place] [id number] PCP - General Internal Medicine 04/17/22 documented as of this encounter
--- OUTSIDE RECORDS SUMMARY | 2024-07-27 15:12 | External Medical Summary ---
Author Name Unknown Address Unknown Organization [id number]:[facility] [place] [address] [place] [address] Laboratory Report Ordering Provider Test Date Status JAMES SHI 06/01/2024 16:18:36 Final Observation Date Value Abnormality Reference (Units ) Status BUN 06/01/2024 16:18:36 14 6-20 (mg/dL) Final Creatinine 06/01/2024 16:18:36 0.8 0.5-1.0 (mg/dL) Final Glomerular filtration rate/1.73 sq M.predicted [Volume Rate/Area] in Serum, Plasma or Blood by Creatinine-based formula (CKD-EPI) 06/01/2024 16:18:36 >90 >=60 (mL/min) Final eGFR is calculated based on the CKD-EPI 2020 equation. Sodium 06/01/2024 16:18:36 141 135-146 (m mol/L) Final Potassium 06/01/2024 16:18:36 4.2 3.5-5.1 (m mol/L) Final Cl 06/01/2024 16:18:36 99 98-107 (mm ol/L) Final CO2 06/01/2024 16:18:36 29 22-32 (mmo l/L) Final Anion gap 06/01/2024 16:18:36 13 7-15 (mmol /L) Final Glucose 06/01/2024 16:18:36 143 Above high normal 70 -120 (mg/dL) Final Albumin 06/01/2024 16:18:36 4.5 3.8-5.0 (g /dL) Final AST (Aspartate aminotransferase) 06/01/2024 16:18:36 17 10-35 (U/L) Fin al Alk Phos 06/01/2024 16:18:36 140 Above high normal 35 -130 (U/L) Final Bilirubin, Total 06/01/2024 16:18:36 0.5 <=1 .2 (mg/dL) Final Calcium 06/01/2024 16:18:36 9.8 8.4-10.2 ( mg/dL) Final Protein 06/01/2024 16:18:36 7.2 6.0-8.3 (g /dL) Final ALT (Alanine aminotransferase) 06/01/2024 16:18:36 11 10-35 (U/L) Steven muñiz Performing Location [facility] [place] [facility] [address] [facility] [place] [address]
--- OUTSIDE RECORDS SUMMARY | 2024-07-27 15:12 | External Medical Summary ---
Author Name Unknown Address Unknown Organization [id number]:[facility]ORY [facility] [place] - [address] [place] [address] Laboratory Report Ordering Provider Test Date Status JAMES SHI 06/01/2024 16:18:36 Final Observation Date Value Abnormality Reference (Units ) Status WBC, Total 06/01/2024 16:18:36 8.80 4.00-10.8 0 (K/uL) Final RBC 06/01/2024 16:18:36 4.86 3.85-5.15 (M/uL) Final Hemoglobin 06/01/2024 16:18:36 14.2 12.0-15.3 (g/dL) Final Anemia reflex testing trigge rs on a HGB < 12.0 for Females and HGB < 13.0 for Males in accordance with the WHO Anemia Guidelines
Anemia reflex testing triggers on a HGB < 12.0 for Females and HGB < 13.0 for Males in accordance with the WHO Anemia Guidelines HCT 06/01/2024 16:18:36 46.0 Above hi gh normal 36.0-45.2 (%) Final MCV 06/01/2024 16:18:36 94.7 81.5-97.5 (fL) Final MCH 06/01/2024 16:18:36 29.2 27.0-34.0 (pg) Final MCHC 06/01/2024 16:18:36 30.9 32.0-36.0 (g/dL) Final RDW 06/01/2024 16:18:36 12.7 11.5-15.5 (%) Final Platelets 06/01/2024 16:18:36 304 140-400 (K /uL) Final MPV 06/01/2024 16:18:36 12.0 6.6-11.1 ( fL) Final Nucleated erythrocytes/100 leukocytes [Ratio] in Blood by Automated count 06/01/2024 16:18:36 0 <=0 (/100 WBCs) Final Performing Location [facility]ORY [facility] [place] - [address] [facility] [address]
--- OUTSIDE RECORDS SUMMARY | 2024-07-27 15:12 | External Medical Summary ---
Author Name Unknown Address Unknown Organization [id number]:[facility] [place] [address] [place] [address] Laboratory Report Ordering Provider Test Date Status JAMES SHI 06/01/2024 16:18:36 Final Observation Date Value Abnormality Reference (Units ) Status Triglyceride 06/01/2024 16:18:36 405 Above high normal <=174 (mg/dL) Final Triglyceride Reference Range s (mg/dL):
<150 Acceptable
150-174 Borderline high
175-499 High
>=500 Very high Cholesterol 06/01/2024 16:18:36 223 Above high normal <200 (mg/dL) Final Total Cholesterol Reference Ranges (mg/dL):
<200 Desirable
200-239 Borderline high
>=240 High HDL 06/01/2024 16:18:36 40 Below low normal >49 (mg/dL) Final HDL Cholesterol Reference Ra nges (mg/dL):
>=60 High (Desirable)
<50 Low (Undesirable) For Females
<40 Low (Undesirable) For Males NON-HDL CHOLESTEROL 06/01/2024 16:18:36 183 Above high normal <=159 (mg/dL) Final Non-HDL Cholesterol Referenc e Range (mg/dL):
<100 Target level for high risk ASCVD patient
<130 Optimal for general population
130-159 Near optimal for general population
160-189 Borderline High
190-219 High
>=220 Very High Performing Location LABORATORY [facility] - [address] [place] [address]
--- OUTSIDE RECORDS SUMMARY | 2024-07-27 15:12 | External Medical Summary ---
Author Name Unknown Address Unknown Organization K01:LAB[facility] [place] - [address] [place] [address] Laboratory Report Ordering Provider Test Date Status JAMES SHI 06/01/2024 16:18:36 Final Observation Date Value Abnormality Reference (Units ) Status Vitamin B12 06/01/2024 16:18:36 >2000 Above high normal 232-1245 (pg/mL) Final Performing Location [facility] - [address] [place] [address]
--- OUTSIDE RECORDS SUMMARY | 2024-07-27 15:12 | External Medical Summary ---
Author Name Unknown Address Unknown Organization K01:[facility] - [address] [place] [address] Laboratory Report Ordering Provider Test Date Status JAMES SHI 06/01/2024 16:18:36 Final Observation Date Value Abnormality Reference (Units ) Status LDL, (direct) 06/01/2024 16:18:36 152 Above high emily l <=129 (mg/dL) Final LDL Cholesterol Reference Ra nges (mg/dL):
<70 Target level for high risk ASCVD patient
<100 Optimal for general population
100-129 Near optimal for general population
130-159 Borderline high
160-189 High
>=190 Very high Performing Location LAB[facility]AT[facility] - [address] [place] [address]
--- OUTSIDE RECORDS SUMMARY | 2024-07-27 15:12 | External Medical Summary | Summary of Care ---
Author Name Unknown Organization [facility] Address [address] [place] [address] Phone [phone] Care Team Providers Care Last Dipper Name Role Phone Vanessa Hobson MD Primary Care Provider Reason for Visit * Reason Comments pre-op exam Left knee replacemen t 06/20 Encounter Details Date Type Department Care Team (Latest Contact Info) Description 06/01/2024 3:20 PM EDT Office Visit Family Practice [facility] [address] [facility] [address] Vanessa Hobson MD [address] [place] [address] Primary osteoarthritis of left knee*; Preop testing; Type 2 diabetes mellitus with hemoglobin A1c goal of less than 7.0% ([facility]); B12 deficiency; Atherosclerosis of coronary artery of [place] heart without angina pectoris, unspecified vessel or lesion type Allergies Active Allergy Reactions Criticality Noted Date Comments Codeine 07/31/2016 Other reaction(s): Itching documented as of this encounter (statuses as of 06/01/2024) Medications Medication Sig Dispensed Refills Start Date End Date Status Aspirin 81 MG Oral Tablet Delayed Release Take by mouth daily . Active Nitroglycerin 0.4 MG Sublingual Tablet Sublingual (Nitrostat)Indicati ons:Coronary artery disease involving [place] coronary artery of [place] heart without angina pectoris Place under the [...] BEFORE BEDTIME 270 Tablet 1 04/05/2024 Active Ibuprofen 800 MG Oral Tablet (Motrin) Take 1 Tablet by mouth in the morning and 1 Tablet at noon and 1 Tablet before bedtime. with food for pain. 90 Tablet 1 04/11/2024 Active Meclizine HCl 12.5 MG Oral Tablet (Antivert)Indicatio ns:Benign paroxysmal vertigo, unspecified laterality Take by mouth 1 Tablet as needed in the morning AND 1 Tablet as needed at noon AND 1 Tablet as needed in the evening for Dizziness. 30 Tablet 1 08/27/2022 4 Discontinued Ondansetron HCl 4 MG Oral TabletIndications:N ausea without vomiting Take 1 Tablet by mouth every 6 hours as needed for Nausea. 30 Tablet 01/06/2023 4 Discontinued traZODone HCl 150 MG Oral Tablet (Desyrel) Take 1 Tablet by mouth at bedtime. 4 Discontinued Metoprolol Succinate ER 25 MG Oral Tablet Extended Release 24 Hour (toPROL XL)Indications:Esse ntial hypertension Take 0.5 Tablets by mouth in the morning and 0.5 Tablets before bedtime. 90 Tablet 3 11/10/2023 4 Discontinued metFORMIN HCl ER 500 MG Oral Tablet Extended Release 24 Hour (Glucophage XR)Indications:Type 2 diabetes mellitus with hemoglobin A1c goal of less than 7.0% (HCC) Take 4 tablets by mouth daily 360 Tablet 1 11/11/2023 4 Discontinued Empagliflozin 10 MG Oral Tablet (Jardiance)Indicati ons:Type 2 diabetes mellitus with hemoglobin A1c goal of less than 7.0% (HCC) Take 1 Tablet by mouth in the morning. 30 Tablet 5 11/11/2023 4 Discontinued Doxepin HCl 10 MG/ML Oral ConcentrateIndicati ons:Insomnia, unspecified type Take 0.5 mL by mouth at bedtime as needed for Insomnia. 118 mL 3 11/11/2023 4 Discontinued Atorvastatin Calcium 40 MG Oral Tablet (Lipitor)Indication s:Elevated cholesterol Take 1 Tablet by mouth in the morning. In the morning.. 90 Tablet 2 11/11/2023 4 Discontinued Citalopram Hydrobromide 40 MG Oral Tablet (CeleXA)Indications :Depression with anxiety Take 1 Tablet by mouth in the morning. In the morning.. 90 Tablet 2 11/11/2023 4 Discontinued Cholecalciferol 25 MCG (1000 UT) Oral Capsule Take 1 Capsule by mouth in the morning. 90 Capsule 2 11/12/2023 4 Discontinued Dicyclomine HCl 10 MG Oral Capsule (Bentyl) Take 1 Capsule by mouth 4 times a day before meals and at bedtime. 360 Capsule 1 11/12/2023 4 Discontinued Hospital, Clinic, or Other Facility Administered Medication Ordered Dose Route Frequency Start Date End Date Status vitamin b-12 (Cyanocobalamin) inj 1,000 mcgIndications:B12 deficiency 1000 mcg IM [id number] 10/13/2024 06/01/2024 Discontinued documented as of this encounter (statuses as of 06/01/2024) Active Problems Problem Noted Date Diagnosed Date [...] as of this encounter (statuses as of 06/01/2024) Resolved Problems Problem Noted Date Diagnosed Date Resolved Date Body mass index (BMI) of 40. 0 to 44.9 in adult 01/12/2023 12/17/2023 Overview: Per Obesity protocol documented as of this encounter (statuses as of 06/01/2024) Immunizations Name Administration Dates Next Due Hepatitis [...] Date Smoking Tobacco: Former Smokeless Tobacco: Never Tobacco Cessation:Counseling Given: Not Answered Comments:Quit 2013 Alcohol Use Standard Drinks/Week Comments [...] on file documented as of this encounter Last Filed Vital Signs Vital Sign Reading Time Taken Comments Blood Pressure 110/68 06/01/2024 3:21 PM EDT Pulse 97 06/01/2024 3:21 PM EDT Temperature - - Respiratory Rate - - Oxygen Saturation 99% 06/01/2024 3:21 PM EDT Inhaled Oxygen Concentration - - Weight 100.6 kg (221 lb 12.8 oz) 06/01/2024 3:21 PM EDT Height - - Body Mass Index 41.91 03/17/2024 2:50 PM EDT documented in this encounter Progress Notes * Vanessa Hobson MD - 06/01/2024 3:44 PM EDT Images from the original note were not included. Pre-Operative Medical Evaluation Procedure Information Type of Surgery: L TKR Referring Physician / Surgeon: Dr Corona Date of procedure: 06/20/24 Brief History of Present Illness: Last saw patient in January she had stopped all of her medications, was not wearing her CPAP. Housingsituation was unstable. Now has own apartment, working at [employer], transportation still an issue. Known coronary artery disease, last saw Cardiology January 19, 2023. Single-vessel stent in 2017 following NSTEMI, repeat catheterization 2020 showed patent stent. Review of Systems Constitutional: Positive for fatigue. HENT: Positive for trouble swallowing (if hold neck in certain way and takes another swallow, food goes down). Eyes: Positive for visual disturbance (overdue for eye doctor). Respiratory: Positive for shortness of breath (occasional, mild). Negative for chest tightness. Cardiovascular: Positive for palpitations (fast HR, can feel pounding in neck. Mult times/day in past week.). Negative for chest pain and leg swelling. Gastrointestinal: Positive for diarrhea. Negative for blood in stool, constipation and vomiting. Can have belching or gasiness. Endocrine: Positive for polydipsia, polyphagia and polyuria. Not checking blood sugar Genitourinary: Negative for dysuria and vaginal bleeding. Musculoskeletal: Positive for arthralgias. If walks without shoes, has pain on top of both feet. Neurological: Negative for numbness. Psychiatric/Behavioral: Positive for sleep disturbance (wakes up all night. getting 4hrs/night.). Medical History Problem List: Primary osteoarthritis of left knee (03/17/2024) Pulmonary nodules (12/02/2023) Obesity, morbid (more than 100 lbs over ideal weight or BMI > 40) ([facility]) (11/21/2023) Type 2 diabetes mellitus with diabetic polyneuropathy ([facility]) (2023) KASI inhibitor intolerance (08/26/2023) B12 deficiency (08/26/2023) High ankle sprain of right lower extremity (06/19/2023) Body mass index (BMI) of 40.0 to 44.9 in adult ([facility]) (01/12/2023) Back pain (08/13/2022) Knee pain (08/13/2022) Arthritis (08/13/2022) Toenail avulsion, initial encounter (06/04/2022) Hypovitaminosis D (03/11/2022) Cervicalgia (11/30/2020) Left anterior knee pain (09/20/2020) Lumbar spondylolysis (11/15/2018) Low back pain (10/11/2018) Type 2 diabetes mellitus with hemoglobin A1c goal of less than 7.0% (HCC) (06/21/2018) Essential hypertension (06/21/2018) Mixed hyperlipidemia (06/21/2018) Atherosclerosis of coronary artery (06/21/2018) TRINIDAD (obstructive sleep apnea) (06/21/2018) Current Medications Ibuprofen 800 MG Oral Tablet (Motrin), 800 mg, Oral, TID(AM/NOON/HS) Cyclobenzaprine HCl 10 MG Oral Tablet (Flexeril), 10 mg, Oral, TID(AM/NOON/HS) Gabapentin 800 MG Oral Tablet (Neurontin), TAKE ONE TABLET BY MOUTH EVERY MORNING, AT NOON, AND BEFORE BEDTIME Aspirin 81 MG Oral Tablet Delayed Release, Take by mouth daily . Nitroglycerin 0.4 MG Sublingual Tablet Sublingual (Nitrostat), 0.4 mg, Sublingual, Q5 Min PRN Allergies: Codeine Past Medical History: has a past medical history of Arthritis, Back pain, Depression, Environmental allergies, Foot pain,Hypertension, goal below 140/90, and Knee pain. Past Surgical History: has a past surgical history that includes Total Abd Hysterectomy w/wo Removal of Tube(s); ligate/cut oviduct(s); repair patent ductus arteriosus (age 7); and cervical laminoplasty w/decompress (2021). Social History: reports that she has quit smoking. She has never used smokeless tobacco. She reports that she does not drink alcohol and does not use drugs. Family History: family history includes Alcohol and Other Disorders Associated in her father; Cancer in her aunt (maternal), aunt (maternal), and mother; Diabetes in her mother; Heart attack (age of onset: 48) in her sister; Stroke in her aunt (maternal) and grandmother (maternal). Anesthesia History Type of Anesthesia: General Endotracheal Anesthesia reaction: No History of surgical complications: no Personal history of venous thromboembolic disease: no Physical Exam Vitals: 06/01/24 1521 Pulse: 97 SpO2: 99% BP: 110/68 Physical Exam Vitals and nursing note reviewed. Constitutional: General: She is not in acute distress. Appearance: Normal appearance. She is not ill-appearing. HENT: Head: Normocephalic and atraumatic. Right Ear: Tympanic membrane, ear canal and external ear normal. There is no impacted cerumen. Left Ear: Tympanic membrane, ear canal and external ear normal. There is no impacted cerumen. Nose: Nose normal. Mouth/Throat: Mouth: Mucous membranes are moist. Pharynx: Oropharynx is clear. Eyes: General: No scleral icterus. Conjunctiva/sclera: Conjunctivae normal. Pupils: Pupils are equal, round, and reactive to light. Neck: Thyroid: No thyroid mass, thyromegaly or thyroid tenderness. Cardiovascular: Rate and Rhythm: Normal rate and regular rhythm. Heart sounds: No murmur heard. Pulmonary: Effort: Pulmonary effort is normal. Breath sounds: Normal breath sounds. Musculoskeletal: Right lower leg: No edema. Left lower leg: No edema. Lymphadenopathy: Cervical: No cervical adenopathy. Skin: General: Skin is warm and dry. Neurological: Mental Status: She is alert. Psychiatric: Mood and Affect: Mood normal. Behavior: Behavior normal. Labs reviewed and are significant for: Labs Nov showed normal renal function, A1c 6.9, normal TSH, vitamin-D 35, normal CBC, vitamin B12 357. EKG by my review is significant for: Q-waves in inferior distribution, unchanged Surgical Risk Scoring Revised Cardiac Risk Index (RCRI) High-risk type of surgery (examples include vascular and any open intraperitoneal or intrathoracic procedures): 0=No History of ischemic heart disease (history of myocardial infarction or positive exercise test, current compliant of chest pain considered to be secondary to myocardia ischemia, use of nitrate therapy, or ECG with pathological Q waves; do not count prior coronary revascularization procedure unless one of the other criteria for ischemic heart disease is present): 1=Yes History of heart failure: 0=No History of cerebrovascular disease: 0=No Diabetes mellitus requiring treatment with insulin: 0=No Preoperative serum creatinine >2.0 mg/dL (177 micromol/L): 0=No Pt has revised cardiac index score of: One Risk Factor- 1.0% (95% CI: 0.5-1.4) Screening for Obstructive Sleep Apnea (STOP-BANG) Patient with known TRINIDAD, not currently treated Assessment and Plan Primary osteoarthritis of left knee Preop testing - EKG COMPLETE (TRACING AND INTERP) Type 2 diabetes mellitus with hemoglobin A1c goal of less than 7.0% ([facility]) - CBC WITH WBC DIFFERENTIAL AND ANEMIA REFLEX WORKUP; Future - COMPREHENSIVE METABOLIC PANEL; Future - HEMOGLOBIN A1C; Future B12 deficiency - VITAMIN B12; Future Atherosclerosis of coronary artery of [place] heart without angina pectoris, unspecified vessel or lesion type - EKG COMPLETE (TRACING AND INTERP) - LIPID PANEL WITH DIRECT LDL IF TG IS HIGH; Future Functional Assessment They are able to walk two blocks at a moderate pace. The patient's functional status is good (greater than 4 METS). 1 MET: 4 METs: 4-10 METs: Can take care of self, such as eat, dress or use the toilet. Can walk to block or go up a flight of steps. Can do heavy house work. Surgical Risk Assessment Patient is indeterminate medical risk for the listed procedure. Medication adjustments: Amenable to restarted medications for diabetes and CAD pending lab results. Anticipate starting metformin and/or jardiance, statin and BB Additional consults or testing: Will ask Cardiology for input as well. Patient aware we may need to have her see Cardiology in person and/or postpone surgery if diabetes is not well controlled. I have advised the patient to call our office in case of any worsening or new symptoms. The above was discussed and understanding was expressed. I spent a total of 33 minutes on the date of service in preparation, delivery and documentation of the care provided to Jamila Esteban excluding any time spent in the performance of any procedure or separately billable services. Vanessa Hobson MD [facility] Family Medicine documented in this encounter Plan of Treatment Upcoming Encounters Date Type Department Care Team (Latest Contact Info) Description 06/02/2024 3:15 PM EDT Office Visit Orthopaedics [facility] [address] [place] [address] Horacio Corona, [address] [place] [address] 06/20/2024 7:30 AM EDT Hospital Encounter OR GL, Operating Room, [facility] - 4th Floor [address] [place] [address] Horacio Corona, DO [address] [place] [address] 06/20/2024 7:30 AM EDT - 06/20/2024 10:53 AM EDT Surgery OR GL, Operating Room, [facility] - 4th Floor [address] [place] [address] Horacio Corona, DO [address] [place] [address] ROBOTIC ARTHROPLASTY KNEE TOTAL 06/30/2024 3:15 PM EDT Office Visit Orthopaedics [facility] [address] [place] [address] Horacio Corona, DO [address] [place] [address] 09/09/2024 11:45 AM EST Hospital Encounter ENDO [facility], Endoscopy Room [facility] [address] [place] [phone] Amena Cruz MD [address] [place] [address] 09/09/2024 11:45 AM EST - 09/09/2024 12:15 PM EST Surgery ENDO [facility], Endoscopy Room [facility] [address] [place] [phone] Amena Cruz MD [address] [place] [address] COLONOSCOPY FLEXIBLE PROXIMAL DIAGNOSTIC 12/05/2024 3:20 PM EST Office Visit Family Practice [facility] [address] [place] [address] Vanessa Hobson MD [address] [place] [address] Pending Results Name Type Priority Associated Diagnoses Date /Time CBC WITH WBC DIFFERENTIAL AND ANEMIA REFLEX WORKUP Lab Routine Type 2 diabetes mellitus with hemoglobin A1c goal of less than 7.0% (HCC) 06/01/2024 4:18 PM EDT COMPREHENSIVE METABOLIC PANEL Lab Routine Type 2 diabetes mellitus with hemoglobin A1c goal of less than 7.0% (HCC) 06/01/2024 4:18 PM EDT LIPID PANEL WITH DIRECT LDL IF TG IS HIGH Lab Routine Atherosclerosis of coronary artery of [place] heart without angina pectoris, unspecified vessel or lesion type 06/01/2024 4:18 PM EDT HEMOGLOBIN A1C Lab Routine Type 2 diabetes mellitus with hemoglobin A1c goal of less than 7.0% (HCC) 06/01/2024 4:18 PM EDT VITAMIN B12 Lab Routine B12 deficiency 06/01/2024 4:18 PM EDT Scheduled Orders Name Type Priority Associated Diagnoses Orde r Schedule CBC WITH WBC DIFFERENTIAL AND ANEMIA REFLEX WORKUP Lab Routine Type 2 diabetes mellitus with hemoglobin A1c goal of less than 7.0% (HCC) Expected: 06/01/2024, Expires: 06/01/2025 COMPREHENSIVE METABOLIC PANEL Lab Routine Type 2 diabetes mellitus with hemoglobin A1c goal of less than 7.0% (HCC) Expected: 06/01/2024, Expires: 06/01/2025 LIPID PANEL WITH DIRECT LDL IF TG IS HIGH Lab Routine Atherosclerosis of coronary artery of [place] heart without angina pectoris, unspecified vessel or lesion type Expected: 06/01/2024, Expires: 06/01/2025 HEMOGLOBIN A1C Lab Routine Type 2 diabetes mellitus with hemoglobin A1c goal of less than 7.0% (HCC) Expected: 06/01/2024, Expires: 07/02/2025 VITAMIN B12 Lab Routine B12 deficiency Expected: 06/01/2024, Expires: 06/01/2025 Scheduled Procedures Name Priority Associated Diagnoses Date/Ti [...] 12/03/2022 Albumin/Creatinine Ratio 05/20/2024 05/20/2023, 08/0 01/2022 HbA1c 05/25/2024 11/25/2023, 08/03, 05/20/2023, Additional history exists Influenza Vaccine (FLU shot) (#1) 2024 11/21/2023, 11/21/2022, 08/07/2016 Diabetic Eye Exam 08/26/2024 08/26/2023, 06/05/2022 Diabetic Foot Exam 08/26/2024 08/26/2023, 06/05/2022 GFR 11/25/2024 11/25/2023, 06/2024, 11/09/2023, Additional history exists Depression Monitoring 02/22/2025 02/23/2024 DTaP,Tdap,and Td Vaccines (2 - Td or Tdap) 03/11/2032 03/11/2022 Pneumococcal Vaccine: Pediatrics (0 to 5 Years) and At-Risk Patients (6 to 64 Years) Completed 11/21/2022, 01/15/2019 Zoster Vaccines Completed 02/18/2023, 11/21/2022 Hepatitis B Vaccine Completed 04/15/2023, HIV Screening Completed 11/25/2023 Hepatitis C Screening Completed 11/25/2023 , 11/25/2023, 11/25/2023 COVID-19 Vaccine Discontinued HPV (Gardasil) Vaccine Aged [...] hemoglobin A1c goal of less than 7.0% ([facility]) B12 deficiency Other B-complex deficiencies Atherosclerosis of coronary artery of [place] heart without angina pectoris, unspecified vessel or lesion type Primary osteoarthritis of left knee- Primary Primary localized osteoarthrosis, lower leg Primary osteoarthritis of left knee Primary localized osteoarthrosis, lower leg Screening for colon cancer Special screening for malignant neoplasms, colon documented in this encounter Care Teams Last Dipper Relationship Specialty Start Date End Date Vanessa Hobson MD [address] [place] [address] PCP - General Internal Medicine 04/17/22 documented as of this encounter
--- OUTSIDE RECORDS SUMMARY | 2024-07-27 15:12 | External Medical Summary ---
Author Name Unknown Address Unknown Organization [id number]:[facility] [place] - [address] [place] [address] Laboratory Report Ordering Provider Test Date Status JAMES SHI 06/01/2024 16:18:36 Final Observation Date Value Abnormality Reference (Units ) Status HbA1C 06/01/2024 16:18:36 8.1 Above high normal 4. 0-5.6 (%) Final The use of HbA1c to monitor glycemic status is based on normal hemoglobin and HbA composition. This test should not be used in patients with abnormal hemoglobin that affects the half life of the red blood cell or the in vivo glycation rates. Glucose, estimated average 06/01/2024 16:18:36 186 Above high normal <126 (mg/dL) Steven muñiz Performing Location [facility] [place] - [address] [place] [address]
--- OUTSIDE RECORDS SUMMARY | 2024-07-27 15:12 | External Medical Summary ---
Author Name Unknown Address Unknown Organization [id number]:[facility] [place] - [address] [place] [address] [address] [place] [id number] Laboratory Report Ordering Provider Test Date Status JAMES SHI 06/01/2024 16:18:36 Final Observation Date Value Abnormality Reference (Units ) Status SYNC LEUKOCYTES IN BLOOD BY AUTOMATED COUNT 06/01/2024 16:18:36 8.80 4.00-10.80 (K/uL) Final Segs 06/01/2024 16:18:36 59.5 40.0-75.0 (%) Final Lymphs % 06/01/2024 16:18:36 28.4 18.0-42.0 (%) Final Monos 06/01/2024 16:18:36 7.2 1.0-11.0 (%) Final Eosinophils 06/01/2024 16:18:36 3.6 0.0-6.0 (%) Final Basos 06/01/2024 16:18:36 0.7 0.0-2.0 (%) Final Immature Granulocyte, Percent 06/01/2024 16:18:36 0.6 0.0-2.0 (%) Final Absolute Segs 06/01/2024 16:18:36 5.24 1.80-7.70 (K/uL) Final Lymphs, absolute 06/01/2024 16:18:36 2.50 1.00-4.80 (K/ul) Final Monos, Abs 06/01/2024 16:18:36 0.63 0.00-1.10 (K/uL) Final Eos, Abs 06/01/2024 16:18:36 0.32 0.00-0.70 (K/uL) Final Basos, Abs 06/01/2024 16:18:36 0.06 0.00-0.20 (K/uL) Final Immature Granulocytes, Number 06/01/2024 16:18:36 0.05 0.00-0.20 (K/uL) Final Performing Location [facility] [place] - [address] [facility] [address]
--- OUTSIDE RECORDS SUMMARY | 2024-07-27 15:12 | External Medical Summary | Summary of Care ---
Author Name Unknown Organization [facility] Address [address] [place] [address] Phone [phone] Care Team Providers Care Electroplater Helper Name Role Phone Vanessa Hobson MD Primary Care Provider Reason for Visit * Reason Comments Outpatient Testing Encounter Details Date Type Department Care Team (Late st Contact Info) Description 06/01/2024 4:20 PM EDT Laboratory Laboratory, [facility] [address] [place] [address] [facility] [address] [place] [address] Type 2 diabetes mellitus with hemoglobin A1c goal of less than 7.0% ([facility]); Atherosclerosis of coronary artery of craig heart without angina pectoris, unspecified vessel or lesion type; B12 deficiency Allergies Active Allergy Reactions Criticality Noted Date Comments Codeine 07/31/2016 Other reaction(s): Itching documented as of this encounter (statuses as of 06/01/2024) Medications Medication Sig Dispensed Refills Start Date End Date Status Aspirin 81 MG Oral Tablet Delayed Release Take by mouth daily . Active Nitroglycerin 0.4 MG Sublingual Tablet Sublingual (Nitrostat)Indications :Coronary artery disease involving craig coronary artery of craig heart without angina pectoris Place under the [...] for pain. 90 Tablet 1 04/11/2024 Active documented as of this encounter (statuses [...] on file documented as of this encounter Plan of Treatment Upcoming Encounters Date Type Department Care Team (Latest Contact Info) Description 06/02/2024 3:15 PM EDT Office Visit Orthopaedics [facility] [address] [place] [address] Horacio Corona, DO [address] [place] [address] 06/20/2024 7:30 AM EDT Hospital Encounter OR [facility], Operating Room, [facility] - 4th Floor [address] [place] [address] Horacio Corona, DO [address] [place] [address] 06/20/2024 7:30 AM EDT - 06/20/2024 10:53 AM EDT Surgery OR [facility], Operating Room, [facility] - 4th Floor [address] [place] [address] Horacio Corona, DO [address] [place] [address] ROBOTIC ARTHROPLASTY KNEE TOTAL 06/30/2024 3:15 PM EDT Office Visit [facility] [address] [place] [address] Horacio Corona, DO [address] [place] [address] 09/09/2024 11:45 AM EST Hospital Encounter [facility], Endoscopy Room [facility] [address] [place] [phone] Amena Cruz MD [address] [place] [id number] 09/09/2024 11:45 AM EST - 09/09/2024 12:15 PM EST Surgery [facility]O [facility], Endoscopy Room [facility] [address] [place] [phone] Amena Cruz MD [address] [place] [address] COLONOSCOPY FLEXIBLE PROXIMAL DIAGNOSTIC 12/05/2024 3:20 PM EST Office Visit [facility] [address] [place] [address] Vanessa Hobson MD [address] [place] [address] Pending Results Name Type Priority Associated Diagnoses Date /Time CBC WITH WBC DIFFERENTIAL AND ANEMIA REFLEX WORKUP Lab Routine Type 2 diabetes mellitus with hemoglobin A1c goal of less than 7.0% ([facility]) 06/01/2024 4:18 PM EDT COMPREHENSIVE METABOLIC PANEL Lab Routine Type 2 diabetes mellitus with hemoglobin A1c goal of less than 7.0% ([facility]) 06/01/2024 4:18 PM EDT LIPID PANEL WITH DIRECT LDL IF TG IS HIGH Lab Routine Atherosclerosis of coronary artery of craig heart without angina pectoris, unspecified vessel or lesion type 06/01/2024 4:18 PM EDT HEMOGLOBIN A1C Lab Routine Type 2 diabetes mellitus with hemoglobin A1c goal of less than 7.0% ([facility]) 06/01/2024 4:18 PM EDT VITAMIN B12 Lab Routine B12 deficiency 06/01/2024 4:18 PM EDT ANEMIA CBC Lab Routine Type 2 diabetes mellitus with hemoglobin A1c goal of less than 7.0% ([facility]) 06/01/2024 4:18 PM EDT DIFFERENTIAL, AUTOMATED Lab Routine Type 2 diabetes mellitus with hemoglobin A1c goal of less than 7.0% ([facility]) 06/01/2024 4:18 PM EDT ANEMIA REFLEX CHEMISTRY HOLD Lab Routine Type 2 diabetes mellitus with hemoglobin A1c goal of less than 7.0% ([facility]) 06/01/2024 4:18 PM EDT Scheduled Procedures Name Priority Associated Diagnoses Date/Ti me ROBOTIC ARTHROPLASTY KNEE TOTAL Primary osteoarthritis of left knee 06/20/2024 7:30 AM EDT COLONOSCOPY FLEXIBLE PROXIMAL DIAGNOSTIC Screening for colon cancer 09/09/2024 11:45 AM EST Health Maintenance Due Date Last Done Comments Cologuard 2015 Fecal Occult Blood Test 2015 Sigmoidoscopy 2015 Colonoscopy 08/06/2022 08/06/2012 Colorectal Cancer Screening 08/06/2022 Mammogram 12/03/2023 12/03/2022 Albumin/Creatinine Ratio 05/20/2024 05/20/2023, 080 01/2022 HbA1c 05/25/2024 11/25/2023, 08/03, 05/20/2023, Additional [...] knee- Primary Primary localized osteoarthrosis, lower leg Type 2 diabetes mellitus with hemoglobin A1c goal of less than 7.0% (HCC) Atherosclerosis of coronary artery of craig heart without angina pectoris, unspecified vessel or lesion type B12 deficiency Other B-complex deficiencies Primary osteoarthritis of left knee- Primary Primary localized osteoarthrosis, lower leg Primary osteoarthritis of left knee Primary localized osteoarthrosis, lower leg Screening for colon cancer Special screening for malignant neoplasms, colon documented in this encounter Care Teams Electroplater Helper Relationship Specialty Start Date End Date Vanessa Hobson MD [address] [place] [address] PCP - General Internal Medicine 04/17/22 documented as of this encounter
--- NOTE | 2024-07-27 15:13 | Cardiology Consultation ---
Date of Consultation July 27, 2024 Assessment & Plan (1) Atypical chest pain: (2) Hypertension: (3) PVCs (premature ventricular contractions): (4) ASCVD (arteriosclerotic cardiovascular disease): (5) Dyslipidemia, goal LDL below 70: (6) History of repair of patent ductus arteriosus: (7) SOB (shortness of breath): Plan Chest pain Atypical symptoms - EKG without acute change. - High-sensitivity troponin negative x 2 - Chest x-ray without acute process - Resting echocardiography pending Patient with known ASCVD. Status post NSTEMI, PCI of the left circumflex obtuse marginal branch in 2016 for single-vessel disease Catheterization in May 2021 with patent stent, without obstruction disease, preserved LV systolic function Hypertension, uncontrolled Symptomatic premature ventricular complexes Recommendations: Refer for chest CTA Await resting echocardiography Increase metoprolol succinate dosing for heart rate and blood pressure control Continue aspirin and moderate intensity statin therapy Replace magnesium NPO after midnight Supervising Physician Co-Signing Physician Notes I have personally performed a history and physical examination on the patient. I have reviewed the advance practitioner's documentation, and I agree with, and take responsibility for the plan of care. 52-year-old female presents with palpitations and chest discomfort with atypical features. Third set of high-sensitivity troponin minimally elevated, 15. Review of bedside echocardiogram demonstrates inferior posterior wall motion abnormality similar to prior echocardiogram. ECG without ischemic changes. Recommend repeat cardiac enzymes in 4-6 hours and ECG in AM. CTA pending at this time. N.p.o. except medications after midnight for possible further ischemic evaluation in AM. Titrate Toprol-XL to 25 mg twice daily. Continue aspirin, statin, and topical nitrates as ordered. Stalin Guevara DO, [facility] History of Present Illness Reason for Consultation: Chest pain, hx of CAD with aundrea to circumflex Requesting Physician: Esme Pedraza Attending Physician: Zain Hardy MD History of Present Illness Sent a MyChart message to Dr. Castro on July 18, 2024 with complaints of palpitations, massive heart beating in her neck. 7-day ZIO monitor ordered, to be returned today. Experiencing chest pressure and pain off-and-on for the last week or two. The first episode occurred while lying in bed. The most recent episode started last night while watching television, persisting into today, waxing and waning, not aggravated with activity, without associated symptoms. Notes taking one nitroglycerin on 3 different occasions. The first time it seemed to help. She notes no improvement the second and third time she took sublingual nitroglycerin. Shortness of breath occurs when ambulating 1 flight of stairs. She notes feeling short of breath at rest starting today. Lightheadedness/dizziness occurs with quick positional change. Has has some numbness and tingling in left upper extremity. Notes receiving aspirin, nitroglycerin, and Tylenol in the ER without significant relief though with resultant headache following administration of s ublingual nitroglycerin and Nitropaste to the right chest wall Initial EKG revealed sinus rhythm at 99 bpm with occasional premature ventricular complexes, possible old inferior infarct. Possible old anterior infarct. Overall, no significant STT wave abnormalities or significant changes compared to prior EKGs. Second EKG in the ER revealed normal sinus rhythm at 89 bpm with possible old inferior infarct, QTc prolonged at 493 ms. High-sensitivity troponin negative x 2 at 10.5 and 13.2 Chest x-ray without acute cardiopulmonary abnormality. Resting echocardiography completed per patient, pending interpretation. Patient reports compliance with medications Chest discomfort is not aggravated by activity. Patient feels the shortness of breath with 1 flight is new compared to 2 weeks ago. She also feels short of breath at rest starting today. Palpitations have been intermittent, as described above. No cough. No chest congestion. No PND. No lower extremity peripheral edema. No recent injury. No recent trauma. No recent immobility. No recent travel. No recent surgery. No syncope. No fevers or chills. No melena or hematochezia. Problem List: Coronary artery disease Non ST elevation myocardial infarction status post drug-eluting stent circumflex obtuse marginal in 2016, single-vessel disease Repeat diagnostic cardiac catheterization May 2021, patent stent without obstruction, normal LV systolic function [facility] Hypertension Hyperlipidemia Repair patent ductus arteriosus age 7 Type 2 diabetes mellitus Chronic myofascial pain status post anterior cervical diskectomy Obstructive sleep apnea, untreated. Mood disorder Tubal ligation Total hysterectomy Family History: Sister had an GA at 48. Father was an alcoholic. Mother with u terine cancer. Social History: Former smoker having quit in 2013. No smokeless tobacco use. No significant alcohol use. Allergies Allergy/AdvReac Type Severity Reaction Status Date / Time No Known Allergies Allergy Unverified 07/11/15 12:32 Home Medications Medication Instructions Recorded Confirmed Type aspirin 81 mg chewable tablet 81 mg PO DAILY 08/22/22 07/27/24 History atorvastatin 40 mg tablet 40 mg PO QAM 08/22/22 07/27/24 History cyclobenzaprine 5 mg tablet 10 mg PO QID PRN Muscle Spasm 08/22/22 07/27/24 History gabapentin 800 mg tablet 800 mg PO TID PRN Pain (Scale 08/22/22 07/27/24 History Score 7-10) metformin 500 mg tablet,extended 1,000 mg PO DAILY 08/22/22 07/27/24 History release 24 hr metoprolol succinate 25 mg 25 mg PO DAILY 08/22/22 07/27/24 History tablet,extended release 24 hr trazodone 150 mg tablet 150 mg PO DAILY 08/22/22 07/27/24 History ibuprofen 800 mg tablet 800 mg PO BID PRN Pain (Scale 07/27/24 07/27/24 History Score 1-3) meloxicam 15 mg tablet 15 mg PO DAILY 07/27/24 07/27/24 History Patient History Medical History Depression Surgical History S/P repair of patent ductus arteriosus "age 7" S/P tubal ligation Family History Mother Cancer Diabetes Grandmother (Maternal) Stroke Aunt Cancer Aunt Cancer Stroke Social History Smoking Status: Never smoker Hx Alcohol Use: Yes Alcohol type: beer Hx Substance Use: No Preferred Language: Azeri Communication Ability: Effective Lithograph Operator Required: No Beliefs That Will Affect Care: None Current Living Situation: Alone Other Information That Helps Us Care for You: No Feels Safe at Home: Yes Safety Concerns: Feels Safe At This Time Assistive Devices: Denture - Upper, Denture - Lower and Glasses Review of Systems Review of Systems: Complete Review of Systems: Constitutional: No fevers, chills, or night sweats. HEENT: Headaches. No amaurosis fugax. Pulmonary: No history of PE. Cardiac: See above. GI/Abd: Colitis Vascular: No history of carotid artery disease, AAA, or lower extremity claudication/PAD. Hematologic: No coagulation disorder, anemia, or abnormal bleeding. Musculoskeletal: Knee pain Neurologic: No history of TIA/CVA. No history of seizure disorder. Female : See above. Endocrine: Diabetes mellitus. Complete Review of Systems is as stated above, negative, or noncontributory Physical Exam Physical Exam: General: Alert. Cooperative Skin: No rash. Mild neck erythema. Eyes: PER. Conjunctiva pink, sclera clear. HENT: Normocephalic. Atraumatic. Neck: + Scar. No JVD. No carotid bruits. Heart: RRR, 90 bpm. Lungs: Clear. Abdomen: +BS. Soft. Nontender. No masses. No organomegaly. Extremities: No clubbing, cyanosis, or edema. Pulses: Posterior tibial=2/4. Limited neurological examination: No focal deficit. Results & Data Vital Signs (Past 12 Hours) Vital Signs Temp Pulse Resp BP Pulse Ox O2 Del Method 07/27/24 14:09 90 19 146/85 H 97 Room Air 07/27/24 13:51 92 H 18 137/86 95 Room Air 07/27/24 13:15 89 20 166/102 H 98 Room Air 07/27/24 12:45 140/89 07/27/24 12:30 87 20 135/88 98 Room Air 07/27/24 12:18 90 16 130/85 95 Room Air 07/27/24 11:33 86 16 134/79 07/27/24 11:12 88 21 124/72 07/27/24 11:09 86 20 147/89 H 07/27/24 10:45 173/106 H 07/27/24 10:33 89 14 156/99 H 95 07/27/24 10:15 128/82 95 07/27/24 10:15 128/82 07/27/24 10:09 86 13 95 07/27/24 10:03 87 15 96 07/27/24 10:00 136/86 07/27/24 09:45 142/97 H 07/27/24 09:42 90 14 96 07/27/24 09:30 144/91 H 07/27/24 09:30 144/91 H 07/27/24 09:30 91 H 15 94 09/25/24 09:29 90 07/27/24 09:15 123/85 07/27/24 09:12 89 18 96 07/27/24 09:03 92 H 19 94 07/27/24 09:00 135/85 07/27/24 09:00 135/85 07/27/24 08:21 97 Room Air 07/27/24 08:16 36.4 C L 98 H 24 139/104 H 98 Room Air 07/27/24 08:16 Room Air Laboratory Results Cardiac Enzymes 07/27/24 07/27/24 Range/Units 08:15 09:20 AST TNP 12 L Troponin I High Sens 10.5 13.2 (0-14) pg/ml Coagulation 07/27/24 Range/Units 08:15 PT 10.2 (9.0-12.0) Seconds CBC 07/27/24 Range/Units 08:15 WBC 9.25 (4.8-10.8) K/ul RBC 4.92 (4.20-5.40) M/uL Hgb 13.9 (12.0-16.0) g/dl Hct 42.7 (37.0-47.0) % Plt Count 301 (130-400) K/uL Neut # (Auto) 6.25 (1.40-6.50) K/uL Lymph # (Auto) 2.05 (1.20-3.40) K/uL [place] # (Auto) 0.51 (0.11-0.59) K/uL Eos # (Auto) 0.33 (0.00-0.50) K/uL Baso # (Auto) 0.06 (0.00-0.20) K/uL Comprehensive Metabolic Panel 07/27/24 07/27/24 Range/Units 08:15 09:20 Sodium 137 (136-145) mmol/L Potassium TNP 3.6 Chloride 101 (98-107) mmol/L Carbon Dioxide 27 (21-32) mmol/L BUN 14 (6-23) mg/dl Creatinine 0.55 L (0.6-1.2) mg/dl Glucose 201 H (70-99(Fasting)) mg/dl Calcium 9.2 (8.6-10.3) mg/dl Direct Bilirubin 0.1 (0-0.2) mg/dl AST TNP 12 L ALT 10 (7-52) U/L Alkaline Phosphatase 120 H (34-104) U/L Total Protein 7.3 (6.0-8.3) gm/dl Albumin 4.3 (3.4-5.0) gm/dl Intake and Output 07/27/24 07/27/24 07/27/24 06:59 14:59 22:59 Intake Total 200 / 200 Balance 200 / 200 Intake: IV 200 / 200 Acetaminophen 1,000 mg In 100 100 / 100 ml @ 400 mls/hr IV NOW STA Rx#: [id number] Magnesium Sulfate / D5w 1 gm In 100 / 100 100 ml @ 100 mls/hr IV Q1H [facility] Rx#:[id number] Other: Weight 101.7 kg Weight Measurement Method Built in [facility] Patient Weight 07/28/24 06:59 Weight 101.7 kg Diagnostic Findings August 24, 2022 TTE Interpretation Summary ([facility], Dr. Guevara): Left ventricular systolic function is normal. Ejection fraction 55 to 60%. There is a small-sized posterior wall motion abnormality with hypokinesis of the segments. No significant valvular pathology. Telemetry: Sinus. Occasional ectopy.
--- OUTSIDE RECORDS SUMMARY | 2024-07-27 15:13 | External Medical Summary | Summary of Care ---
Author Name Unknown Organization [facility] Address [address] [place] [address] Phone [phone] Care Team Providers Care Entry Level Financial Analyst Name Role Phone Jose Guadalupe Hobson MD Primary Care Provider Reason for Visit * Reason Onset Date Comments Medication Refill 04/04/2024 Encounter Details Date Type Department Care Team (Late st Contact Info) Description 04/04/2024 Refill Family Practice [facility] [address] [place] [address] Jose Guadalupe Hobson MD [address] [facility] [place] [address] Lumbar spondylolysis Allergies Active Allergy Reactions Criticality Noted Date Comments Codeine 07/31/2016 Other reaction(s): Itching documented as of this encounter (statuses as of 04/05/2024) Medications Medication Sig Dispensed Refills Start Date End Date Status Aspirin 81 MG Oral Tablet Delayed Release Take by mouth daily . Active Nitroglycerin 0.4 MG Sublingual Tablet Sublingual (Nitrostat)Indicat ions:Coronary artery disease involving poarch coronary artery of poarch heart without angina pectoris Place under the tongue 1 Tablet every 5 minutes as needed for Pain, Chest. 25 Tablet 5 07/03/2022 Active Meclizine HCl 12.5 MG Oral Tablet (Antivert)Indicati ons:Benign paroxysmal vertigo, unspecified laterality Take by mouth 1 Tablet as needed in the morning AND 1 Tablet as needed at noon AND 1 Tablet as needed in the evening for Dizziness. 30 Tablet 1 08/27/2022 Active Ondansetron HCl 4 MG Oral TabletIndications: Nausea without vomiting Take 1 Tablet by mouth every 6 hours as needed for Nausea. 30 Tablet 01/06/2023 Active Additional Information Patient not taking.Reported on 02/18/2024 traZODone HCl 150 MG Oral Tablet (Desyrel) Take 1 Tablet by mouth at bedtime. Active Metoprolol Succinate ER 25 MG Oral Tablet Extended Release 24 Hour (toPROL XL)Indications:Ess ential hypertension Take 0.5 Tablets by mouth in the morning and 0.5 Tablets before bedtime. 90 Tablet 3 11/10/2023 Active Additional Information Patient not taking.Reported on 11/20/2023 metFORMIN HCl ER 500 MG Oral Tablet Extended Release 24 Hour (Glucophage XR)Indications:Typ e 2 diabetes mellitus with hemoglobin A1c goal of less than 7.0% (HCC) Take 4 tablets by mouth daily 360 Tablet 1 11/11/2023 Active Additional Information Patient not taking.Reported on 11/20/2023 Empagliflozin 10 MG Oral Tablet (Jardiance)Indicat ions:Type 2 diabetes mellitus with hemoglobin A1c goal of less than 7.0% (HCC) Take 1 Tablet by mouth in the morning. 30 Tablet 5 11/11/2023 Active Additional Information Patient not taking.Reported on 11/20/2023 Ibuprofen 800 MG Oral Tablet (Motrin) Take 1 Tablet by mouth in the morning and 1 Tablet at noon and 1 Tablet before bedtime. with food for pain. 90 Tablet 1 11/11/2023 Active Doxepin HCl 10 MG/ML Oral ConcentrateIndicat ions:Insomnia, unspecified type Take 0.5 mL by mouth at bedtime as needed for Insomnia. 118 mL 3 11/11/2023 Active Additional Information Patient not taking.Reported on 11/20/2023 Atorvastatin Calcium 40 MG Oral Tablet (Lipitor)Indicatio ns:Elevated cholesterol Take 1 Tablet by mouth in the morning. In the morning.. 90 Tablet 2 11/11/2023 Active Additional Information Patient not taking.Reported on 11/20/2023 Citalopram Hydrobromide 40 MG Oral Tablet (CeleXA)Indication s:Depression with anxiety Take 1 Tablet by mouth in the morning. In the morning.. 90 Tablet 2 11/11/2023 Active Additional Information Patient not taking.Reported on 11/20/2023 Cholecalciferol 25 MCG (1000 UT) Oral Capsule Take 1 Capsule by mouth in the morning. 90 Capsule 2 11/12/2023 Active Additional Information Patient not taking.Reported on 11/20/2023 Dicyclomine HCl 10 MG Oral Capsule (Bentyl) Take 1 Capsule by mouth 4 times a day before meals and at bedtime. 360 Capsule 1 11/12/2023 Active Additional Information Patient not taking.Reported on 11/20/2023 Cyclobenzaprine HCl 10 MG Oral Tablet (Flexeril)Indicati ons:Lumbar spondylolysis Take 1 Tablet by mouth in the morning and 1 Tablet at noon and 1 Tablet before bedtime. 90 Tablet 4 04/05/2024 Active Cyclobenzaprine HCl 10 MG Oral Tablet (Flexeril)Indicati ons:Lumbar spondylolysis Take 1 Tablet by mouth in the morning and 1 Tablet at noon and 1 Tablet before bedtime. 90 Tablet 4 11/11/2023 4 Discontinu ed(Refill) Gabapentin 800 MG Oral Tablet (Neurontin)Indicat ions:Chronic bilateral low back pain with sciatica, sciatica laterality unspecified TAKE ONE TABLET BY MOUTH EVERY MORNING, AT NOON, AND BEFORE BEDTIME 270 Tablet 1 11/11/2023 4 Discontinu ed(Refill) Hospital, Clinic, or Other Facility Administered Medication Ordered Dose Route Frequency Start Date End Date Status vitamin b-12 (Cyanocobalamin) inj 1,000 mcgIndications:B12 deficiency 1000 mcg IM [id number] 10/13/2024 01/04/2025 Active documented as of this encounter (statuses as of 04/05/2024) Active Problems Problem Noted Date Diagnosed Date [...] as of this encounter (statuses as of 04/05/2024) Resolved Problems Problem Noted Date Diagnosed Date Resolved Date Body mass index (BMI) of 40. 0 to 44.9 in adult 01/12/2023 12/17/2023 Overview: Per Obesity protocol documented as of this encounter (statuses as of 04/05/2024) Immunizations Name Administration Dates Next Due Hepatitis [...] money to get more. Never true 08/26/2023 Sex and Gender Information Value Date Recorded Sex Assigned at Not on file Gender Identity Not on file Sexual Orientation Not on file Job Start Date Occupation Industry Not on file Not on file Not on file documented as of this encounter Miscellaneous Notes * Telephone Encounter - Jose Guadalupe Hobson MD - 04/05/2024 2:29 PM EDT Signed Prescriptions: Disp Refills Cyclobenzaprine HCl 10 MG Oral Tablet (Fle*90 Tab*4 Sig: Take 1Tablet by mouth in the morning and 1 Tablet at noon and 1 Tablet before bedtime.Authorizing Provider: JOSE GUADALUPE HOBSON * Telephone Encounter - Jose Guadalupe Hobson MD - 04/05/2024 2:29 PM EDT Signed Prescriptions: Disp Refills Cyclobenzaprine HCl 10 MG Oral Tablet (Fle*90 Tab*4 Sig: Take 1 Tablet by mouth in the morning and 1 Tablet at noon and 1 Tablet before bedtime. Authorizing Provider: JOSE GUADALUPE HOBSON * Telephone Encounter - Roxie Bang LPN - 04/05/2024 12:27 PM EDTPending Prescriptions: Disp Refills Cyclobenzaprine HCl 10 MG Oral Tablet (Fle*90 Tab*4 Sig: Take 1 Tablet by mouth in the morning and 1 Tablet at noon and 1 Tablet before bedtime. * Telephone Encounter - Roxie Bang LPN - 04/05/2024 12:26 PM EDT Did you pend patient's preferred pharmacy and medication before forwarding?yes [facility] [address] [place] [address] Pending Prescriptions: Disp Refills Cyclobenzaprine HCl 10 MG Oral Tablet (Fl*90 Tab*4 Sig: Take 1 Tablet by mouth in the morning and 1 Tablet at noon and 1 Tablet before bedtime. Last Visit: 02/18/2024 (in office), Visit date not found (telemedicine) Next Visit: 05/26/2024 If no future appointments scheduled, and last appointment is greater than a year ago, please schedule patient for a follow-up appointment Last date the medication was ordered: 11/11/2023 Is this request for a controlled substance?No Urine Drug Screen:No results found for this or any previous visit. Patient Phone Numbers Labs: Lab Results Component Value Date/Time CREAT 0.6 11/25/2023 03:15 PM CREAT 0.54 (A) 08/22/2022 12:00 AM CREAT 0.44 03/26/2022 05:22 PM POTASSIUM 4.4 11/25/2023 03:15 PM POTASSIUM 4.0 08/22/2022 12:00 AM POTASSIUM 3.4 (L) 03/26/2022 05:22 PM TSH 1.19 11/25/2023 03:15 PM LDLCALC 104 11/25/2023 03:15 PM ALT 15 11/25/2023 03:15 PM HGBA1C 6.9 (H) 11/25/2023 03:15 PM * Telephone Encounter - Kristel Lee - 04/05/2024 11:07 AM EDTPending Prescriptions: Disp Refills Cyclobenzaprine HCl 10 MG Oral Tablet (Fle*90 Tab*4 Sig: Take 1Tablet by mouth in the morning and 1 Tablet at noon and 1 Tablet before bedtime. documented in this encounter Plan of Treatment Upcoming Encounters Date Type Department Care Team (Latest Contact Info) Description 05/23/2024 3:30 PM EDT Imaging Radiology [facility] [address] [place] [address] 05/26/2024 4:20 PM EDT Office Visit Family Practice [facility] [address] [place] [id number] Paula Escamilla CRNP [address] [place] [address] 06/02/2024 3:15 PM EDT Office Visit Orthopaedics [facility] [address] [place] [address] Horacio Corona DO [address] [place] [address] 06/20/2024 7:30 AM EDT Hospital Encounter OR [facility], Operating Room, [facility] - 4th Floor [address] [place], [place] [address] [phone] Horacio Corona DO [address] [place] [address] 06/20/2024 7:30 AM EDT - 06/20/2024 10:53 AM EDT Surgery OR [facility], Operating Room, [facility] - 4th Floor [address] [place] [address] Horacio Corona, DO [address] [place] [address] ROBOTIC ARTHROPLASTY KNEE TOTAL 06/30/2024 3:15 PM EDT Office Visit Orthopaedics [facility] [address] [place] [address] Horacio Corona, DO [address] [place] [address] 09/09/2024 11:45 AM EST Hospital Encounter [facility], Endoscopy Room [facility] [address] [place] [phone] Amena Cruz MD [address] [place] [address] 09/09/2024 11:45 AM EST - 09/09/2024 12:15 PM EST Surgery ENDO [facility], Endoscopy Room [facility] [address] [place] [phone] Amena Cruz MD [address] [place] [address] COLONOSCOPY FLEXIBLE PROXIMAL DIAGNOSTIC Scheduled Procedures Name Priority Associated Diagnoses Date/Ti pr ROBOTIC ARTHROPLASTY KNEE TOTAL Primary osteoarthritis of left knee 06/20/2024 7:30 AM EDT COLONOSCOPY FLEXIBLE PROXIMAL DIAGNOSTIC Screening for colon cancer 09/09/2024 11:45 AM EST Health Maintenance Due Date Last Done Comments Cologuard 2015 Fecal Occult Blood Test 2015 Sigmoidoscopy 2015 Colonoscopy 08/06/2022 08/06/2012 Colorectal Cancer Screening 08/06/2022 Mammogram 12/03/2023 12/03/2022 Depression, Most Recent Score >= 10 (will fire each visit until score < 10) 02/24/2024 02/23/2024 Albumin/Creatinine Ratio 05/20/2024 05/20/2023, 08/0 01/2022 HbA1c 05/25/2024 11/25/2023, 08/03, 05/20/2023, Additional history exists Diabetic Eye Exam 08/26/2024 08/26/2023, 06/05/2022 Diabetic Foot Exam 08/26/2024 08/26/2023, 06/05/2022 GFR 11/25/2024 11/25/2023, 010 06/2024, 11/09/2023, Additional history exists DTaP,Tdap,and Td Vaccines (2 - Td or Tdap) 03/11/2032 03/11/2022 Pneumococcal Vaccine: Pediatrics (0 to 5 Years) and At-Risk Patients (6 to 64 Years) Completed 11/21/2022, 01/15/2019 Zoster Vaccines Completed 02/18/2023, 11/21/2022 Hepatitis B Completed 04/15/2023, 02/18/2023 Influenza Vaccine (FLU shot) Completed 11/21/2023, 11/21/2022, 08/07/2016 COVID-19 Vaccine Discontinued GARDASIL-HPV IMMUNIZATION SERIES Aged Out No longer eligible based on patient's age to complete this topic MENINGOCOCCAL (MENACTRA/MENVEO) Aged Out No longer eligible based on patient's age to complete this topic documented as of this encounter Medical Devices Not on filedocumented as of this encounter Visit Diagnoses Diagnosis Primary osteoarthritis of left knee- Primary Primary localized osteoarthrosis, lower leg Lumbar spondylolysis Acquired spondylolisthesis Primary osteoarthritis of left knee Primary localized osteoarthrosis, lower leg Screening for colon cancer Special screening for malignant neoplasms, colon documented in this encounter Care Teams Entry Level Financial Analyst Relationship Specialty Start Date End Date Jose Guadalupe Hobson MD [address] [place] [address] PCP - General Internal Medicine 04/17/22 documented as of this encounter
--- OUTSIDE RECORDS SUMMARY | 2024-07-27 15:13 | External Medical Summary | Summary of Care ---
Author Name Unknown Organization [facility] Address [address] [place] [address] Phone [phone] Care Team Providers Care Ob Gyn Name Role Phone Vanessa Hobson MD Primary Care Provider Reason for Visit * Reason Onset Date Comments Medication Refill 02/26/2024 Encounter Details Date Type Department Care Team (Late st Contact Info) Description 02/26/2024 Refill [facility] [place] [address] Vanessa Hobson MD [address] [place] [address] Allergies Active Allergy Reactions Criticality Noted Date Comments Codeine 07/31/2016 Other reaction(s): Itching documented as of this encounter (statuses as of 03/03/2024) Medications Medication Sig Dispensed Refills Start Date End Date Status Aspirin 81 MG Oral Tablet Delayed Release Take by mouth daily . 0 Active Nitroglycerin 0.4 MG Sublingual Tablet Sublingual (Nitrostat)Indicati ons:Coronary artery disease involving [place] coronary artery of [place] heart without angina pectoris Place under the [...] 08/27/2022 Active Ondansetron HCl 4 MG Oral TabletIndications:N ausea without vomiting Take 1 Tablet by mouth every 6 hours as needed for Nausea. 30 Tablet 0 01/06/2023 Active Additional Information Patient not taking.Reported on 02/18/2024 traZODone HCl 150 MG Oral Tablet (Desyrel) Take 1 Tablet by mouth at bedtime. 0 Active Metoprolol Succinate ER 25 MG Oral [...] on 11/20/2023 Empagliflozin 10 MG Oral Tablet (Jardiance)Indicati ons:Type [...] for pain. 90 Tablet 1 11/11/2023 Active Cyclobenzaprine HCl 10 MG Oral Tablet (Flexeril)Indicatio ns:Lumbar spondylolysis Take 1 Tablet by mouth in the morning and 1 Tablet at noon and 1 Tablet before bedtime. 90 Tablet 4 11/11/2023 Active Additional Information Patient not taking.Reported on 11/20/2023 Doxepin HCl 10 MG/ML Oral ConcentrateIndicati ons:Insomnia, unspecified type Take 0.5 mL by mouth at bedtime as needed for Insomnia. 118 mL 3 11/11/2023 Active Additional Information Patient not taking.Reported on 11/20/2023 Gabapentin 800 MG Oral Tablet (Neurontin)Indicati ons:Chronic bilateral low back pain with sciatica, sciatica laterality unspecified TAKE ONE TABLET BY MOUTH EVERY MORNING, AT NOON, AND BEFORE BEDTIME 270 Tablet 1 11/11/2023 Active Additional Information Patient not taking.Reported on 11/20/2023 Atorvastatin Calcium 40 MG Oral Tablet (Lipitor)Indication s:Elevated cholesterol Take 1 Tablet by mouth in the morning. In the morning.. 90 Tablet 2 11/11/2023 Active Additional Information Patient not taking.Reported on 11/20/2023 Citalopram Hydrobromide 40 MG Oral Tablet (CeleXA)Indications [...] Additional Information Patient not taking.Reported on 11/20/2023 Hospital, Clinic, or Other Facility Administered Medication Ordered Dose Route Frequency Start Date End Date Status vitamin b-12 (Cyanocobalamin) inj 1,000 mcgIndications:B12 deficiency 1000 mcg IM [id number] 10/13/2024 01/04/2025 Active documented as of this encounter (statuses as of 03/03/2024) Active Problems Problem Noted Date Diagnosed Date Pulmonary nodules 12/02/2023 Overview: CT 11/2023 suggests [...] as of this encounter (statuses as of 03/03/2024) Resolved Problems Problem Noted Date Diagnosed Date Resolved Date Body mass index (BMI) of 40. 0 to 44.9 in adult 01/12/2023 12/17/2023 Overview: Per Obesity protocol documented as of this encounter (statuses as of 03/03/2024) Immunizations Name Administration Dates Next Due Hepatitis [...] encounter Miscellaneous Notes * Telephone Encounter - Roxie Jordan LPN - 03/02/2024 12:00 PM EDTRefused Prescriptions: Disp Refills traZODone HCl 150 MG Oral Tablet (Desyrel) Sig: Take 1 Tablet by mouth at bedtime.Refused By: GERALD JORDANeason for Refusal: Other (comment below) * Telephone Encounter - Roxie Jordan LPN - 03/02/2024 12:00 PM EDT Sent my g * Telephone Encounter - Paola Barrera LPN - 02/29/2024 10:23 AM EDT Called pt and left a vm message to call the nurse line regarding refill request. See Joce note below. * Telephone Encounter - Vaenssa Hobson MD - 02/28/2024 1:05 PM EDT Pending Prescriptions: Disp Refills traZODone HCl 150 MG Oral Tablet (Desyrel) Sig: Take 1 Tablet by mouth at bedtime. * Telephone Encounter - Vanessa Hobson MD - 02/28/2024 1:04 PM EDT Patient had reported stopping all meds at recent visit. Refill request for trazodone. Is she taking any other sleep or mood medications? We also had her on doxepin and citalopram. * Telephone Encounter - Kim Maya MED ASSIST - 02/26/2024 11:36 AM EDT Pending Prescriptions: Disp Refills traZODone HCl 150 MG Oral Tablet (Desyrel) Sig: Take 1 Tablet by mouth at bedtime. Last Visit: 02/18/2024 (in office), Visit date not found (telemedicine) Next Visit: Visit date not found Last date the medication was ordered: Patient Active Problem List Diagnosis Code Type 2 diabetes mellitus with hemoglobin A1c goal of less than 7.0% ([facility]) E11.9 Essential hypertension I10 Hypovitaminosis D E55.9 Left anterior knee pain M25.562 Low back pain M54.50 Lumbar spondylolysis M43.06 Mixed hyperlipidemia E78.2 Cervicalgia M54.2 Atherosclerosis of coronary artery I25.10 [place] (obstructive sleep apnea) G47.33 Toenail avulsion, initial encounter S91.209A Back pain M54.9 Knee pain M25.569 Arthritis M19.90 High ankle sprain of right lower extremity S93.491A KASI inhibitor intolerance Z78.9 B12 deficiency E53.8 Obesity, morbid (more than 100 lbs over ideal weight or BMI > 40) ([facility]) E66.01 Type 2 diabetes mellitus with diabetic polyneuropathy ([facility]) E11.42 Pulmonary nodules R91.8 Labs: Lab Results Component Value Date/Time CREATININE - [facility] 0.6 11/25/2023 03:15 PM CREATININE, RANDOM URINE - [facility] 362 05/20/2023 01:53 PM CREATININE-OUTSIDE LAB 0.54 (A) 08/22/2022 12:00 AM Lab Results Component Value Date/Time POTASSIUM - [facility] 4.4 11/25/2023 03:15 PM POTASSIUM-OUTSIDE LAB 4.0 08/22/2022 12:00 AM Lab Results Component Value Date/Time TSH - [facility] 1.19 11/25/2023 03:15 PM Lab Results Component Value Date/Time LDL CHOLESTEROL (CALCULATED) - [facility] 104 11/25/2023 03:15 PM LDL CHOLESTEROL (CALCULATED) - [facility] 74 08/26/2023 11:32 AM Lab Results Component Value Date/Time ALT - [facility] 15 11/25/2023 03:15 PM Hemoglobin AIC Results: Lab Results Component Value Date/Time HEMOGLOBIN A1C - [facility] 6.9 (H) 11/25/2023 03:15 PM HEMOGLOBIN A1C - [facility] 7.0 (H) 08/26/2023 11:32 AM HEMOGLOBIN A1C - [facility] 8.5 (H) 05/20/2023 01:53 PM documented in this encounter Plan of Treatment Upcoming Encounters Date Type Department Care Team (Latest Contact Info) Description 03/17/2024 3:00 PM EDT Office Visit Orthopaedics [facility] [address] [place] [address] Horacio Corona DO [address] [place] [address] 04/07/2024 9:00 AM EDT Hospital Encounter ENDO [facility], Endoscopy Room [facility] [address] [place] [phone] Amena Cruz MD [address] [place] [address] 04/07/2024 9:00 AM EDT - 04/07/2024 9:30 AM EDT Surgery ENDO [facility], Endoscopy Room [facility] [address] [place] [phone] Amena Cruz MD [address] [place] [address] COLONOSCOPY FLEXIBLE PROXIMAL DIAGNOSTIC Scheduled Procedures Name Priority Associated Diagnoses Date/Ti me COLONOSCOPY FLEXIBLE PROXIMAL DIAGNOSTIC Screening for colon cancer 04/07/2024 9:00 AM EDT Health Maintenance Due Date Last Done Comments Cologuard 2015 Fecal Occult Blood Test 2015 Sigmoidoscopy 2015 Colonoscopy 08/06/2022 08/06/2012 Colorectal Cancer Screening 08/06/2022 Mammogram 12/03/2023 12/03/2022 Depression, Most Recent Score >= 10 (will fire each visit until score < 10) 02/24/2024 02/23/2024 Albumin/Creatinine Ratio 05/20/2024 05/20/2023, 0 01/2022 HbA1c 05/25/2024 11/25/2023, 08/03, 05/20/2023, Additional history exists Diabetic Eye Exam 08/26/2024 08/26/2023, 06/05/2022 Diabetic Foot Exam 08/26/2024 08/26/2023, 06/05/2022 GFR 11/25/2024 11/25/2023, 06/2024, 11/09/2023, Additional history exists DTaP,Tdap,and Td [...] filedocumented as of this encounter Care Teams Ob Gyn Relationship Specialty Start Date End Date Vanessa Hobson MD [address] [place] [address] PCP - General Internal Medicine 04/17/22 documented as of this encounter
--- OUTSIDE RECORDS SUMMARY | 2024-07-27 15:13 | External Medical Summary | Summary of Care ---
Author Name Unknown Organization [facility] Address [address] [place] [address] Phone [phone] Care Team Providers Care C4 Planner Name Role Phone Vanessa Hobson MD Primary Care Provider Reason for Visit * Reason Onset Date Comments Forms Request 05/12/2024 Encounter Details Date Type Department Care Team (Late st Contact Info) Description 05/12/2024 Telephone Orthopaedics [facility] [address] [place] [address] Horacio Corona DO [address] [place] [address] Forms Request Allergies Active Allergy Reactions Criticality Noted Date Comments Codeine 07/31/2016 Other reaction(s): Itching documented as of this encounter (statuses as of 05/13/2024) Medications Medication Sig Dispensed Refills Start Date End Date Status Aspirin 81 MG Oral Tablet Delayed Release Take by mouth daily . Active Nitroglycerin 0.4 MG Sublingual Tablet Sublingual (Nitrostat)Indicati ons:Coronary artery disease involving [place] coronary artery of creek heart without angina pectoris Place under the [...] 11/20/2023 Cyclobenzaprine HCl 10 MG Oral Tablet (Flexeril)Indicatio [...] for pain. 90 Tablet 1 04/11/2024 Active Hospital, Clinic, or Other Facility Administered Medication Ordered Dose Route Frequency Start Date End Date Status vitamin b-12 (Cyanocobalamin) inj 1,000 mcgIndications:B12 deficiency 1000 mcg IM [id number] 10/13/2024 01/04/2025 Active documented as of this encounter (statuses as of 05/13/2024) Active Problems Problem Noted Date Diagnosed Date [...] as of this encounter (statuses as of 05/13/2024) Resolved Problems Problem Noted Date Diagnosed Date Resolved Date Body mass index (BMI) of 40. 0 to 44.9 in adult 01/12/2023 12/17/2023 Overview: Per Obesity protocol documented as of this encounter (statuses as of 05/13/2024) Immunizations Name Administration Dates Next Due Hepatitis [...] No 08/26/2023 Does the household have a [facility] source of income? (Household - for [...] encounter Miscellaneous Notes * Telephone Encounter - Merlyn Navas MED ASSIST - 05/13/2024 11:09 AM EDT Forms completed and placed in Dr. Corona's folder for signature. * Telephone Encounter - Viki Jameson OSA - 05/12/2024 1:52 PM EDT Received forms from [employer]. Patient is requesting to use [employer] for transportation. Placed forms innurses folder. Thank you. documented in this encounter Plan of Treatment Upcoming Encounters Date Type Department Care Team (Latest Contact Info) Description 05/16/2024 11:00 AM EDT Telemedicine Pulmonary Medicine, [place] [address] [place] [address] Bill Freedman MD [address] [place] [facility] [place] [address] Cart, Telemed Pulm Gw [address] [place] [address] 05/23/2024 3:30 PM EDT Imaging Radiology [facility] [place] [address] [facility] [address] [place] [address] 05/26/2024 4:20 PM EDT Office Visit Family Practice [facility] [address] [place] [address] Paula Escamilla CRNP [address] [place] [address] 06/02/2024 3:15 PM EDT Office Visit Orthopaedics [facility] [address] [place] [address] Horacio Corona, DO [address] [place], [place] [address] 06/20/2024 7:30 AM EDT Hospital Encounter OR GL, Operating Room, [facility] - 4th Floor [address] [facility] [place] [address] Horacio Corona, DO [address] [place] [address] 06/20/2024 7:30 AM EDT - 06/20/2024 10:53 AM EDT Surgery OR [facility], Operating Room, [facility] - 4th Floor [address] [facility] [place] [address] Horacio Corona, DO [address] [place] [address] ROBOTIC ARTHROPLASTY KNEE TOTAL 06/30/2024 3:15 PM EDT Office Visit Orthopaedics [facility] [address] [place] [address] Horacio Corona, [address] [place] [address] 09/09/2024 11:45 AM EST Hospital Encounter ENDO [facility], Endoscopy Room [facility] [address] [place] [phone] Amena Cruz MD [address] [place] [address] 09/09/2024 11:45 AM EST - 09/09/2024 12:15 PM EST Surgery ENDO [facility], Endoscopy Room [facility] [address] [place] [phone] Amena Cruz MD [address] [place] [address] COLONOSCOPY FLEXIBLE PROXIMAL DIAGNOSTIC Scheduled Procedures Name [...] filedocumented as of this encounter Care Teams C4 Planner Relationship Specialty Start Date End Date Vanessa Hobson MD [address] [place] [address] PCP - General Internal Medicine 04/17/22 documented as of this encounter
--- OUTSIDE RECORDS SUMMARY | 2024-07-27 15:13 | External Medical Summary | Summary of Care ---
Author Name Unknown Organization [facility] Address [address] [place] [address] Phone [phone] Care Team Providers Care [employer] Name Role Phone Vanessa Hobson MD Primary Care Provider Reason for Visit * Reason Comments Follow Up Discuss L TKA, Xray updated, Encounter Details Date Type Department Care Team (Latest Contact Info) Description 03/17/2024 3:00 PM EDT Office Visit Orthopaedics [facility] [address] [place] [address] Horacio Corona, [address] [place] [address] Primary osteoarthritis of left knee* Allergies Active Allergy Reactions Criticality Noted Date Comments Codeine 07/31/2016 Other reaction(s): Itching documented as of this encounter (statuses as of 03/17/2024) Medications Medication Sig Dispensed Refills Start Date End Date Status Aspirin 81 MG Oral Tablet Delayed Release Take by mouth daily . 0 Active Nitroglycerin 0.4 MG Sublingual Tablet Sublingual (Nitrostat)Indicati ons:Coronary artery disease involving [place] coronary artery of [place] heart without angina pectoris Place under the [...] inj 1,000 mcgIndications:B12 deficiency 1000 mcg IM [id number] 10/13/2024 01/04/2025 Active documented as of this encounter (statuses as of 03/17/2024) Active Problems Problem Noted Date Diagnosed Date [...] as of this encounter (statuses as of 03/17/2024) Resolved Problems Problem Noted Date Diagnosed Date Resolved Date Body mass index (BMI) of 40. 0 to 44.9 in adult 01/12/2023 12/17/2023 Overview: Per Obesity protocol documented as of this encounter (statuses as of 03/17/2024) Immunizations Name Administration Dates Next Due Hepatitis [...] Sign Reading Time Taken Comments Blood Pressure - - Pulse - - Temperature - - Respiratory Rate - - Oxygen Saturation - - Inhaled Oxygen Concentration - - Weight 94.8 kg (209 lb) 03/17/2024 2:50 PM EDT Height 154.9 cm (5' 1") 03/17/2024 2:50 PM EDT Body Mass Index 39.49 03/17/2024 2:50 PM EDT documented in this encounter Progress Notes * Horacio Corona, DO - 03/17/2024 3:29 PM EDT ORTHOPAEDIC SURGERY - Clinic Note SUBJECTIVE: Jamila Esteban is a 53 year old female. Chief Complaint Patient presents with Follow Up Discuss L TKA, Xray updated, HPI: 53-year-old female presents today for re-evaluation of her left knee. She has been working on weight loss as well as improvement in her blood glucose. She has achieved an A1c of less than 7.5 and has now achieved a BMI of less than 40. She is interested in pursuing joint replacement given her failure of conservative treatment. Review of Systems: Constitutional ROS: No fevers, [...] needed for Pain, Chest. 25 Tablet 5 Meclizine HCl 12.5 MG Oral Tablet (Antivert) Take by mouth 1 Tablet as needed in the morning AND 1 Tablet as needed at noon AND 1 Tablet as needed in the evening for Dizziness. 30 Tablet 1 Ondansetron HCl 4 MG Oral Tablet Take 1 Tablet by mouth every 6 hours as needed for Nausea. (Patient not taking: Reported on 02/18/2024) 30 Tablet 0 traZODone HCl 150 MG Oral Tablet (Desyrel) Take 1 Tablet by mouth at bedtime. (Patient not taking: Reported on 11/20/2023) Metoprolol Succinate ER 25 MG Oral Tablet Extended Release 24 Hour (toPROL XL) Take 0.5 Tablets by mouth in the morning and 0.5 Tablets before bedtime. (Patient not taking: Reported on 11/20/2023) 90 Tablet 3 metFORMIN HCl ER 500 MG Oral Tablet Extended Release 24 Hour (Glucophage XR) Take 4 tablets by mouth daily (Patient not taking: Reported on 11/20/2023) 360 Tablet 1 Empagliflozin 10 MG Oral Tablet (Jardiance) Take 1 Tablet by mouth in the morning. (Patient not taking: Reported on 11/20/2023) 30 Tablet 5 Ibuprofen 800 MG Oral Tablet (Motrin) Take 1 Tablet by mouth in the morning and 1 Tablet at noon and 1 Tablet before bedtime. with food for pain. 90 Tablet 1 Cyclobenzaprine HCl 10 MG Oral Tablet (Flexeril) Take 1 Tablet by mouth in the morning and 1 Tabletat noon and 1 Tablet before bedtime. (Patient not taking: Reported on 11/20/2023) 90 Tablet 4 Doxepin HCl 10 MG/ML Oral Concentrate Take 0.5 mL by mouth at bedtime as needed for Insomnia. (Patient not taking: Reported on 11/20/2023) 118 mL 3 Gabapentin 800 MG Oral Tablet (Neurontin) TAKE ONE TABLET BY MOUTH EVERY MORNING, AT NOON, AND BEFORE BEDTIME (Patient not taking: Reported on 11/20/2023) 270 Tablet 1 Atorvastatin Calcium 40 MG Oral Tablet (Lipitor) Take 1 Tablet by mouth in the morning. In the morning.. (Patient not taking: Reported on 11/20/2023) 90 Tablet 2 Citalopram Hydrobromide 40 MG Oral Tablet (CeleXA) Take 1 Tablet by mouth in the morning. In the morning.. (Patient not taking: Reported on 11/20/2023) 90 Tablet 2 Cholecalciferol 25 MCG (1000 UT) Oral Capsule Take 1 Capsule by mouth in the morning. (Patient not taking: Reported on 11/20/2023) 90 Capsule 2 Dicyclomine HCl 10 MG Oral Capsule (Bentyl) Take 1 Capsule by mouth 4 times a day before meals and at bedtime. (Patient not taking: Reported on 11/20/2023) 360 Capsule 1 Current Facility-Administered Medications Medication Dose Route Frequency Provider Last Rate Last Admin [START ON 10/13/2024] vitamin b-12 (Cyanocobalamin) inj 1,000 mcg 1,000 mcg Intramuscular Q4 Weeks Vanessa Hobson MD Patient Active Problem List Diagnosis Code Type 2 diabetes mellitus with hemoglobin A1c goal of less than 7.0% ([facility]) E11.9 Essential hypertension I10 Hypovitaminosis D E55.9 [...] over ideal weight or BMI > 40) ([facility]) E66.01 Type 2 diabetes mellitus with diabetic polyneuropathy ([facility]) E11.42 Pulmonary nodules R91.8 Primary osteoarthritis of left knee M17.12 Past Medical History: Diagnosis Date Arthritis Back pain Depression Environmental allergies Foot pain Chronic Hypertension, goal below 140/90 Knee pain Past Surgical History: Procedure Laterality Date CERVICAL LAMINOPLASTY W/DECOMPRESS 2021 [facility], C3-7 LIGATE/CUT OVIDUCT(S) REPAIR PATENT DUCTUS ARTERIOSUS age 7 TOTAL ABD HYSTERECTOMY W/WO REMOVAL OF TUBE(S) ovaries removed Social History Tobacco Use Smoking status: Former Smokeless tobacco: Never Tobacco comments: Quit 2013 Vaping Use Vaping Use: Never used Substance Use Topics Alcohol use: No Drug use: No Family history: Noncontributory OBJECTIVE: Diagnostic Testing: Updated x-rays of the left knee were obtained, viewed and interpreted in the office today demonstrating evidence of severe tricompartmental degenerative change. Vital Signs: Ht 1.549 m (5' 1") | Wt 94.8 kg (209 lb) | BMI 39.49 kg/m | BSA 2.02 m Physical Exam: Well developed/nourished; no acute distress; alert, awake, oriented x3; normal affect Examination of the left knee reveals no edema, ecchymosis or erythema. There is no palpable effusion. Tenderness along the medial and lateral joint line. Patellofemoral crepitus noted. She has good overall range of motion consistent with previous evaluation. Collateral stability intact. Sensation intact. Pulses palpable. Gait assessment is minimally antalgic without assistive device. ASSESSMENT: Primary osteoarthritis of left knee (Primary) - XR KNEE 3 VIEWS - STANDARD CASE REQUEST Follow Up: Return for Preoperative H&P and surgical scheduling - left knee replacement. | For: Preoperative H&P and surgical scheduling - left knee replacement PLAN: We reviewed her updated x-rays in the office today. She has met criteria to pursue joint replacement. We reviewed joint replacement in brief today. Information was provided. I would like to see her back in the future for preoperative H&P and surgical scheduling. We are considering the June angelica rodas. This chart was completed in part utilizing [employer] Speech Voice Recognition Software. Grammatical errors, random word insertions, pronoun errors, and incomplete sentences are an occasional consequence of this system due to software limitations, ambient noise, and hardware issues. Any formal questions or concerns about the content, text, or information contained within the body of this dictation should be directly addressed to the provider for clarification. Horacio Corona DO 03/17/2024 3:29 PM documented in this encounter Nursing Notes * Dannielle Orellana LPN - 03/17/2024 2:52 PM EDT Chief Complaint Patient presents with Follow Up Discuss L TKA, Xray updated, documented in this encounter Plan of Treatment Upcoming Encounters Date Type Department Care Team (Latest Contact Info) Description 04/07/2024 9:00 AM EDT Hospital Encounter ENDO [facility], Endoscopy Room [facility] [address] [facility] [place] [phone] Amena Cruz MD [address] [place] [address] 04/07/2024 9:00 AM EDT - 04/07/2024 9:30 AM EDT Surgery ENDO [facility], Endoscopy Room [facility] [address] [place] [phone] Amena Cruz MD [address] [place] [address] COLONOSCOPY FLEXIBLE PROXIMAL DIAGNOSTIC Pending Results Name Type Priority Associated Diagnoses Date /Time XR KNEE 3 VIEWS Medical Imaging Routine Primary osteoarthritis of left knee 03/17/2024 3:07 PM EDT Scheduled Procedures Name Priority Associated Diagnoses Date/Ti me COLONOSCOPY FLEXIBLE PROXIMAL DIAGNOSTIC Screening for colon cancer 04/07/2024 9:00 AM EDT ROBOTIC ARTHROPLASTY KNEE TOTAL Primary osteoarthritis of left knee Health Maintenance Due Date Last Done Comments Cologuard 2015 Fecal Occult Blood Test 2015 Sigmoidoscopy 2015 Colonoscopy 08/06/2022 08/06/2012 Colorectal Cancer Screening 08/06/2022 Mammogram 12/03/2023 12/03/2022 Depression, Most Recent Score >= 10 (will fire each visit until score < 10) 02/24/2024 02/23/2024 Albumin/Creatinine Ratio 05/20/2024 05/20/2023, 080 01/2022 HbA1c [...] knee- Primary Primary localized osteoarthrosis, lower leg Screening for colon cancer Special screening for malignant neoplasms, colon documented in this encounter Care Teams [employer] Relationship Specialty Start Date End Date Vanessa Hobson MD [address] [place] [address] PCP - General Internal Medicine 04/17/22 documented as of this encounter
--- OUTSIDE RECORDS SUMMARY | 2024-07-27 15:13 | External Medical Summary | Summary of Care ---
Author Name Unknown Organization [facility] Address [address] [place] [address] Phone [phone] Care Team Providers Care Web Production Artist Name Role Phone Vanessa Hobson MD Primary Care Provider Reason for Visit * Reason Onset Date Comments Medication Refill 02/26/2024 Encounter Details Date Type Department Care Team (Late st Contact Info) Description 02/26/2024 Refill [facility] [place] [address] Vanessa Hobson MD [address] [place] [id number] Allergies Active Allergy Reactions Criticality Noted Date Comments Codeine 07/31/2016 Other reaction(s): Itching documented as of this encounter (statuses as of 03/03/2024) Medications Medication Sig Dispensed Refills Start Date End Date Status Aspirin 81 MG Oral Tablet Delayed Release Take by mouth daily . 0 Active Nitroglycerin 0.4 MG Sublingual Tablet Sublingual (Nitrostat)Indicati ons:Coronary artery disease involving [place] coronary artery of [place] heart without angina pectoris Place under the [...] inj 1,000 mcgIndications:B12 deficiency 1000 mcg IM [id number] 10/13/2024 01/04/2025 Active documented as of this [...] encounter Miscellaneous Notes * Telephone Encounter - Vanessa Hobson MD - 03/03/2024 12:50 PM EDT Myg response noted * Telephone Encounter - Roxie Jordan LPN [...] Joce note below. 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 ([facility]) E11.42 Pulmonary nodules R91.8 Labs: Lab [...] 03/17/2024 3:00 PM EDT Office Visit Orthopaedics [facility] [address] [place] [address] Horacio Corona DO [address] [place] [address] 04/07/2024 9:00 AM EDT Hospital Encounter ENDO [facility], Endoscopy Room [facility] [address] [place] [phone] Amena Cruz MD [address] [place] [address] [place] [address] 04/07/2024 9:00 AM EDT - 04/07/2024 9:30 AM EDT Surgery ENDO [facility], Endoscopy Room [facility] [address] [place] [phone] Amena Cruz MD [address] [id number] COLONOSCOPY FLEXIBLE PROXIMAL DIAGNOSTIC Scheduled Procedures Name [...] 10) 02/24/2024 02/23/2024 Albumin/Creatinine Ratio 05/20/2024 05/20/2023, 01/2022 HbA1c 05/25/2024 11/25/2023, 08/03, 05/20/2023, Additional [...] filedocumented as of this encounter Care Teams Web Production Artist Relationship Specialty Start Date End Date Vanessa Hboson MD [address] [place] [address] PCP - General Internal Medicine 04/17/22 documented as of this encounter
--- OUTSIDE RECORDS SUMMARY | 2024-07-27 15:13 | External Medical Summary | Summary of Care ---
Author Name Unknown Organization [facility] Address [address] [place] [address] Phone [phone] Care Team Providers Care Aerodynamic Consultant Name Role Phone Vanessa Hobson MD Primary Care Provider Reason for Visit * Reason Onset Date Comments Forms Request 05/12/2024 Encounter Details Date Type Department Care Team (Late st Contact Info) Description 05/12/2024 Telephone Orthopaedics [facility] [address] [place] [address] Horacio Corona DO [address] [place] [address] Forms Request Allergies Active Allergy Reactions Criticality Noted Date Comments Codeine 07/31/2016 Other reaction(s): Itching documented as of this encounter (statuses as of 05/19/2024) Medications Medication Sig Dispensed Refills Start Date End Date Status Aspirin 81 MG Oral Tablet Delayed Release Take by mouth daily . Active Nitroglycerin 0.4 MG Sublingual Tablet Sublingual (Nitrostat)Indicati ons:Coronary artery disease involving [place] coronary artery of [place] heart without angina pectoris Place under the [...] inj 1,000 mcgIndications:B12 deficiency 1000 mcg IM [id number] 10/13/2024 01/04/2025 Active documented as of this encounter (statuses as of 05/19/2024) Active Problems Problem Noted Date Diagnosed Date [...] as of this encounter (statuses as of 05/19/2024) Resolved Problems Problem Noted Date Diagnosed Date Resolved Date Body mass index (BMI) of 40. 0 to 44.9 in adult 01/12/2023 12/17/2023 Overview: Per Obesity protocol documented as of this encounter (statuses as of 05/19/2024) Immunizations Name Administration Dates Next Due Hepatitis [...] No 08/26/2023 Does the household have a [facility] [place] source of income? (Household - for ages [...] Encounter - Merlyn Navas MED ASSIST - 05/19/2024 11:39 AM EDT Forms completed and faxed back to [facility] for patient. Originals placed in scans bin. * Telephone Encounter - Merlyn Navas MED [...] Description 05/23/2024 3:30 PM EDT Imaging Radiology [facility]st [facility] [address] [place] [address] 05/26/2024 4:20 PM EDT Office Visit Family Practice [facility] [address] [place] [address] Paula Escamilla CRNP [address] [place] [address] 06/02/2024 3:15 PM EDT Office Visit Orthopaedics [facility] [address] [place] [address] Horacio Corona DO [address] [place] [address] 06/20/2024 7:30 AM EDT Hospital Encounter OR [facility], Operating Room, [facility] - 4th Floor [address] [place] [address] Horacio Corona DO [address] [place] [address] 06/20/2024 7:30 AM EDT - 06/20/2024 10:53 AM EDT Surgery OR [facility], Operating Room, [facility] - 4th Floor [address] [place] [address] Horacio Corona DO [address] [place] [address] ROBOTIC ARTHROPLASTY KNEE TOTAL 06/30/2024 3:15 PM EDT Office Visit Orthopaedics [facility] [address] [place] [address] Horacio Corona DO [address] [place] [address] 09/09/2024 11:45 AM EST Hospital Encounter ENDO [facility], Endoscopy Room [facility] [address] [place] [phone] Amena Cruz MD [address] [place] [address] 09/09/2024 11:45 AM EST - 09/09/2024 12:15 PM EST Surgery ENDO [facility], Endoscopy Room [facility] [address] [place] [phone] Amena Cruz MD [address] [place] [address] COLONOSCOPY FLEXIBLE PROXIMAL DIAGNOSTIC Scheduled Procedures Name [...] filedocumented as of this encounter Care Teams Aerodynamic Consultant Relationship Specialty Start Date End Date Vanessa Hobson MD [address] [place] [address] PCP - General Internal Medicine 04/17/22 documented as of this encounter
--- OUTSIDE RECORDS SUMMARY | 2024-07-27 15:13 | External Medical Summary | Summary of Care ---
Author Name Unknown Organization [facility] Address [address] [place] [address] Phone [phone] Care Team Providers Care Security Guards Dispatcher Name Role Phone Jose Guadalupe Hobson MD Primary Care Provider Reason for Visit * Reason Onset Date Comments Medication Refill 04/04/2024 Encounter Details Date Type Department Care Team (Late st Contact Info) Description 04/04/2024 Refill Family Practice [facility] [address] [facility] [address] Jose Guadalupe Hobson MD [address] [facility] [place] [address] Chronic bilateral low back pain with sciatica, sciatica laterality unspecified Allergies Active Allergy Reactions Criticality Noted Date Comments Codeine 07/31/2016 Other reaction(s): Itching documented as of this encounter (statuses as of 04/05/2024) Medications Medication Sig Dispensed Refills Start Date End Date Status Aspirin 81 MG Oral Tablet Delayed Release Take by mouth daily . Active Nitroglycerin 0.4 MG Sublingual Tablet Sublingual (Nitrostat)Indicat ions:Coronary artery disease involving [place] coronary artery of [place] heart without angina pectoris Place under the [...] on 11/20/2023 Gabapentin 800 MG Oral Tablet (Neurontin)Indicat ions:Chronic bilateral low back pain with sciatica, sciatica laterality unspecified TAKE ONE TABLET BY MOUTH EVERY MORNING, AT NOON, AND BEFORE BEDTIME 270 Tablet 1 04/05/2024 Active Cyclobenzaprine HCl 10 MG Oral [...] inj 1,000 mcgIndications:B12 deficiency 1000 mcg IM [id number] 10/13/2024 01/04/2025 Active documented as of this [...] Has been seen and evaluated but ortho gerry Rai and pain management No surgery Low [...] 2:29 PM EDT Signed Prescriptions: Disp Refills Gabapentin 800 MG Oral Tablet (Neurontin) 270 Ta*1 Sig: TAKE ONE TABLET BY MOUTH EVERY MORNING, AT NOON, AND BEFORE BEDTIME Authorizing Provider: JOSE GUADALUPE HOBSON * Telephone Encounter - Roxie Bang LPN - 04/05/2024 12:30 PM EDTPending Prescriptions: Disp Refills Gabapentin 800 MG Oral Tablet (Neurontin) 270 Ta*1 Sig: TAKE ONE TABLET BY MOUTH EVERY MORNING, AT NOON, AND BEFORE BEDTIME * Telephone Encounter - Roxie Bang LPN - 04/05/2024 12:30 PM EDTPending Prescriptions: Disp Refills Gabapentin 800 MG Oral Tablet (Neurontin) 270 Ta*1 Sig: TAKE ONE TABLET BY MOUTH EVERY MORNING, AT NOON, AND BEFORE BEDTIME * Telephone Encounter - Roxie Bang LPN - 04/05/2024 12:29 PM EDT Did you pend patient's preferred pharmacy and medication before forwarding?yes Pharmacy: [id number] Pending Prescriptions: Disp Refills Gabapentin 800 MG Oral Tablet (Neurontin) 270 Ta*1 Sig: TAKE ONE TABLET BY MOUTH EVERY MORNING, AT NOON, AND BEFORE BEDTIME Last Visit: 02/18/2024 (in office), Visit date [...] Telephone Encounter - Kristel Lee - 04/05/2024 11:04 AM EDTPending Prescriptions: Disp Refills Gabapentin 800 MG Oral Tablet (Neurontin) 270 Ta*1 Sig: TAKE ONE TABLET BY MOUTH EVERY MORNING, AT NOON, AND BEFORE BEDTIME documented in this encounter Plan of Treatment Upcoming Encounters Date Type Department Care Team (Latest Contact Info) Description 05/23/2024 3:30 PM EDT Imaging Radiology [facility]st [facility] [address] [place] [address] 05/26/2024 4:20 PM EDT Office Visit Family Practice [facility] [address] [place] [address] Paula Escamilla CRNP [address] [place] [address] 06/02/2024 3:15 PM EDT Office Visit Orthopaedics [facility] [address] [place] [address] Horacio Corona DO [address] [place] [address] 06/20/2024 7:30 AM EDT Hospital Encounter OR [facility], Operating Room, [facility] Floor [address] [place] [address] Horacio Corona DO [address] [place] [address] 06/20/2024 7:30 AM EDT - 06/20/2024 10:53 AM EDT Surgery OR [facility], Operating Room, [address] [facility] [place] [address] Horacio Corona, DO [address] [place] [address] ROBOTIC ARTHROPLASTY KNEE TOTAL 06/30/2024 3:15 PM EDT Office Visit Orthopaedics [facility] [address] [place] [address] Horacio Corona, DO [address] [place] [address] 09/09/2024 11:45 AM EST Hospital Encounter [facility], Endoscopy Room [facility] [address] [place] [phone] Amena Cruz MD [address] [place] [address] 09/09/2024 11:45 AM EST - 09/09/2024 12:15 PM EST Surgery ENDO [facility], Endoscopy Room [facility] [address] [place] [phone] Amena Cruz MD [address] [place] [id number] COLONOSCOPY FLEXIBLE PROXIMAL DIAGNOSTIC Scheduled Procedures Name [...] knee- Primary Primary localized osteoarthrosis, lower leg Chronic bilateral low back pain with sciatica, sciatica laterality unspecified Primary osteoarthritis of left knee Primary localized osteoarthrosis, lower leg Screening for colon cancer Special screening for malignant neoplasms, colon documented in this encounter Care Teams Security Guards Dispatcher Relationship Specialty Start Date End Date Jose Guadalupe Hobson MD [address] [facility] [place] [address] PCP - General Internal Medicine 04/17/22 documented as of this encounter
--- OUTSIDE RECORDS SUMMARY | 2024-07-27 15:13 | External Medical Summary | Summary of Care ---
Author Name Unknown Organization [facility] Address [address] [place] [address] Phone [phone] Care Team Providers Care Payroll Machine Operator Name Role Phone Jose Guadalupe Hobson MD Primary Care Provider Reason for Visit * Reason Onset Date Comments Medication Refill 04/04/2024 Encounter Details Date Type Department Care Team (Late st Contact Info) Description 04/04/2024 Refill Family Practice [facility] [address] [facility] [place] [address] Jose Guadalupe [facility]son [facility] [address] Allergies Active Allergy Reactions Criticality Noted Date Comments Codeine 07/31/2016 Other reaction(s): Itching documented as of this encounter (statuses as of 04/11/2024) Medications Medication Sig Dispensed Refills Start Date End Date Status Aspirin 81 MG Oral Tablet Delayed Release Take by mouth daily . Active Nitroglycerin 0.4 MG Sublingual Tablet Sublingual (Nitrostat)Indicat ions:Coronary artery disease involving [place] coronary artery of [place] heart without angina pectoris Place under the [...] on 11/20/2023 Doxepin HCl 10 MG/ML Oral ConcentrateIndicat ions:Insomnia, [...] 04/05/2024 Active Gabapentin 800 MG Oral Tablet (Neurontin)Indicat ions:Chronic [...] for pain. 90 Tablet 1 04/11/2024 Active Ibuprofen 800 MG Oral Tablet (Motrin) Take 1 Tablet by mouth in the morning and 1 Tablet at noon and 1 Tablet before bedtime. with food for pain. 90 Tablet 1 11/11/2023 Discontinu ed(Refill) Hospital, Clinic, or Other Facility Administered Medication Ordered Dose Route Frequency Start Date End Date Status vitamin b-12 (Cyanocobalamin) inj 1,000 mcgIndications:B12 deficiency 1000 mcg IM [id number] 10/13/2024 01/04/2025 Active documented as of this encounter (statuses as of 04/11/2024) Active Problems Problem Noted Date Diagnosed Date [...] as of this encounter (statuses as of 04/11/2024) Resolved Problems Problem Noted Date Diagnosed Date Resolved Date Body mass index (BMI) of 40. 0 to 44.9 in adult 01/12/2023 12/17/2023 Overview: Per Obesity protocol documented as of this encounter (statuses as of 04/11/2024) Immunizations Name Administration Dates Next Due Hepatitis [...] encounter Miscellaneous Notes * Telephone Encounter - Kelsey Sanz [facility] - 04/11/2024 4:34 AM EDTSigned Prescriptions: Disp Refills Ibuprofen 800 MG Oral Tablet (Motrin) 90 Tab*1 Sig: Take 1 Tablet by mouth in the morning and 1 Tablet at noon and 1 Tablet before bedtime. with food for pain. Authorizing Provider: JOSE GUADALUPE HOBSON Ordering User: KELSEY SANZ Refused Prescriptions: Disp Refills Ibuprofen 800 MG Oral Tablet (Motrin) 90 Tab*1 Sig: Take 1 Tablet by mouth in the morning and 1 Tablet at noon and 1 Tablet before bedtime. with food for pain. Refused By: KELSEY SANZ Reason for Refusal: Patient Should Contact Provider First * Telephone Encounter - Kelsey Sanz [facility] - 04/11/2024 4:33 AM EDT Pending Prescriptions: Disp Refills Ibuprofen 800 MG Oral Tablet (Motrin) 90 Tab*1 Sig: Take 1 Tablet by mouth in the morning and 1 Tablet at noon and 1 Tablet before bedtime. with food for pain. Refused Prescriptions: Disp Refills Ibuprofen 800 MG Oral Tablet (Motrin) 90 Tab*1 Sig: Take 1 Tablet by mouth in the morning and 1 Tablet at noon and 1 Tablet before bedtime. with food for pain. Refused By: KELSEY SANZ Reason for Refusal: Patient Should Contact Provider First * Telephone Encounter - Kelsey Sanz [facility] - 04/06/2024 8:18 AM EDT Refused Prescriptions: Disp Refills Ibuprofen 800 MG Oral Tablet (Motrin) 90 Tab*1 Sig: Take 1 Tablet by mouth in the morning and 1 Tablet at noon and 1 Tablet before bedtime. with food for pain.Refused By: KELSEY SANZ for Refusal: Patient Should Contact Provider First documented in this encounter Plan of Treatment Upcoming Encounters Date Type Department Care Team (Latest Contact Info) Description 05/23/2024 3:30 PM EDT Imaging Radiology [facility]st [facility] [address] [place] [address] 05/26/2024 4:20 PM EDT Office Visit Family Practice [facility] [address] [place] [address] Paula Escamilla CRNP [address] [place] [address] 06/02/2024 3:15 PM EDT Office Visit Orthopaedics [facility] [address] [place] [address] Horacio Corona DO [address] [place] [address] 06/20/2024 7:30 AM EDT Hospital Encounter OR [facility], Operating Room, [facility] - 4th Floor [address] [place] [address] [place] [address] Horacio Corona, DO [address] [place] [address] 06/20/2024 7:30 AM EDT - 06/20/2024 10:53 AM EDT Surgery OR [facility], Operating Room, [facility] - 4th Floor [address] [place] [address] Horacio Corona, DO [address] [place] [address] ROBOTIC ARTHROPLASTY KNEE TOTAL 06/30/2024 3:15 PM EDT Office Visit Orthopaedics [facility] [address] [place] [address] Horacio Corona, DO [address] [place] [address] 09/09/2024 11:45 AM EST Hospital Encounter ENDO [facility], Endoscopy Room [facility] [address] [place] [phone] Amena Cruz MD [address] [place] [address] 09/09/2024 11:45 AM EST - 09/09/2024 12:15 PM EST Surgery ENDO [facility], Endoscopy Room [facility] [address] [place] [phone] Amena Cruz MD [address] [place] [address] COLONOSCOPY FLEXIBLE PROXIMAL DIAGNOSTIC Scheduled Procedures Name Priority Associated Diagnoses Date/Ti sd ROBOTIC ARTHROPLASTY KNEE TOTAL Primary osteoarthritis of [...] filedocumented as of this encounter Care Teams Payroll Machine Operator Relationship Specialty Start Date End Date Jose Guadalupe Hobson MD [address] [place] [address] PCP - General Internal Medicine 04/17/22 documented as of this encounter
--- OUTSIDE RECORDS SUMMARY | 2024-07-27 15:13 | External Medical Summary | Summary of Care ---
Author Name Unknown Organization [facility] Address [address] [place] [address] Phone [phone] Care Team Providers Care Roll Changer Name Role Phone Vanessa Hobson MD Primary Care Provider Reason for Visit * Reason Comments Follow Up Discuss L TKA, Xray updated, Encounter Details Date Type Department Care Team (Latest Contact Info) Description 03/17/2024 3:00 PM EDT Office Visit Orthopaedics [facility] [address] [place] [address] Horacio Corona, [address] [place] [address] Primary osteoarthritis of left knee* Allergies Active Allergy Reactions Criticality Noted Date Comments Codeine 07/31/2016 Other reaction(s): Itching documented as of this encounter (statuses as of 03/22/2024) Medications Medication Sig Dispensed Refills Start Date End Date Status Aspirin 81 MG Oral Tablet Delayed Release Take by mouth daily . Active Nitroglycerin 0.4 MG Sublingual Tablet Sublingual (Nitrostat)Indicati ons:Coronary artery disease involving [place] coronary artery of [place] heart without angina pectoris Place under the [...] inj 1,000 mcgIndications:B12 deficiency 1000 mcg IM [id number] 10/13/2024 01/04/2025 Active documented as of this encounter (statuses as of 03/22/2024) Active Problems Problem Noted Date Diagnosed Date [...] as of this encounter (statuses as of 03/22/2024) Resolved Problems Problem Noted Date Diagnosed Date Resolved Date Body mass index (BMI) of 40. 0 to 44.9 in adult 01/12/2023 12/17/2023 Overview: Per Obesity protocol documented as of this encounter (statuses as of 03/22/2024) Immunizations Name Administration Dates Next Due Hepatitis [...] hemoglobin A1c goal of less than 7.0% ([facility]) E11.9 Essential hypertension I10 Hypovitaminosis D E55.9 [...] over ideal weight or BMI > 40) ([facility]) E66.01 Type 2 diabetes mellitus with diabetic polyneuropathy ([facility]) E11.42 Pulmonary nodules R91.8 Primary osteoarthritis of left knee M17.12 Past Medical History: Diagnosis Date Arthritis Back pain Depression Environmental allergies Foot pain Chronic Hypertension, goal below 140/90 Knee pain Past Surgical History: Procedure Laterality Date CERVICAL LAMINOPLASTY W/DECOMPRESS 2021 [facility], C3-7 LIGATE/CUT OVIDUCT(S) REPAIR PATENT DUCTUS [...] surgical scheduling. We are considering the June clark. This chart was completed in part utilizing [employer] Speech Voice Recognition Software. Grammatical errors, random [...] Encounter ENDO [facility], Endoscopy Room [facility] 132 [facility] [place] [address] Amena Cruz MD [address] [place] [id number] 04/07/2024 9:00 AM EDT - 04/07/2024 9:30 AM EDT Surgery ENDO [facility], Endoscopy Room [facility] [address] [place] [phone] Amena Cruz MD [address] [place] [address] [place] [address] COLONOSCOPY FLEXIBLE PROXIMAL DIAGNOSTIC 05/23/2024 3:30 PM EDT Imaging Radiology [facility] 1st [facility] [address] [place] [address] 05/26/2024 4:20 PM EDT Office Visit Family Practice [facility] [address] [place] [address] Paula Escamilla CRNP [address] [place], [place] [address] 06/02/2024 3:15 PM EDT Office Visit Orthopaedics [facility] [address] [place], [place] [address] Horacio Corona, DO [address] [place], [place] [address] 06/20/2024 7:30 AM EDT Hospital Encounter OR [facility], Operating Room, [facility] - 4th Floor [address] [place] [address] Horacio Corona DO [address] [place], [place] [address] 06/20/2024 7:30 AM EDT - 06/20/2024 10:53 AM EDT Surgery OR [facility], Operating Room, [facility] - 4th Floor [address] [place] [place] [address] Horacio Corona DO [address] [place], [place] [address] ROBOTIC ARTHROPLASTY KNEE TOTAL 06/30/2024 3:15 PM EDT Office Visit Orthopaedics [facility] [address] [place] [address] Horacio Corona, [address] [place] [address] Scheduled Procedures Name Priority Associated Diagnoses Date/Ti me COLONOSCOPY FLEXIBLE PROXIMAL DIAGNOSTIC Screening for colon cancer 04/07/2024 9:00 AM EDT ROBOTIC ARTHROPLASTY KNEE TOTAL Primary osteoarthritis of left knee 06/20/2024 7:30 AM EDT Health Maintenance Due Date Last [...] Exam 08/26/2024 08/26/2023, 06/05/2022 GFR 11/25/2024 11/25/2023, 0 06/2024, 11/09/2023, Additional history exists DTaP,Tdap,and Td [...] Not on filedocumented as of this encounter Procedures Procedure Name Priority Date/Time Associated Diagnosis Comments XR KNEE 3 VIEWS Routine 03/17/2024 3:07 PM EDT Primary osteoarthritis of left knee documented in this encounter Results * XR KNEE 3 VIEWS (03/17/2024 3:07 PM EDT) Anatomical Region Laterality Modality Knee, Lower Extremity Digital Ra diography 03/22/2024 9:42 AM EDT Impressions 03/22/2024 9:40 AM EDT IMPRESSION Moderate knee arthrosis with bulky tricompartmental osteophytes. No radiographically appreciable fracture or joint effusion. Narrative 03/22/2024 9:40 AM EDT EXAM XR KNEE 3 VIEWS-03/17/2024 3:07 pm HISTORY f/u COMPARISON 01/29/2023 TECHNIQUE Three views of left knee FINDINGS No acute fracture or dislocation about the left knee. Moderate patellofemoral compartment predominant tricompartmental knee arthrosis with bulky tricompartmental osteophytes. Spurring at the intercondylar eminence. Tiny amount of suprapatellar joint fluid. Mild degenerative change of the proximal tibiofibular articulation. Trace vascular calcifications. Procedure Note Everette Hall MD - 03/22/2024 EXAM XR KNEE 3 VIEWS-03/17/2024 3:07 pm HISTORY f/u COMPARISON 01/29/2023 TECHNIQUE Three views of left knee FINDINGS No acute fracture or dislocation about the left knee. Moderatepatellofemoral compartment predominant tricompartmental knee arthrosiswith bulky tricompartmental osteophytes. Spurring at the intercondylareminence. Tiny amount of suprapatellar joint fluid. Mild degenerativechange of the proximal tibiofibular articulation. Trace vascularcalcifications. IMPRESSION IMPRESSION Moderate knee arthrosis with bulky tricompartmental osteophytes. No radiographically appreciable fracture or joint effusion. Horacio Corona DO RADIOLOGY ([facility]) documented in this encounter Visit Diagnoses Diagnosis Primary osteoarthritis of left knee- Primary Primary localized osteoarthrosis, lower leg Primary osteoarthritis of left knee- Primary Primary localized osteoarthrosis, lower leg Screening for colon cancer Special screening for malignant neoplasms, colon Primary osteoarthritis of left knee Primary localized osteoarthrosis, lower leg documented in this encounter Care Teams Roll Changer Relationship Specialty Start Date End Date Vanessa Hobson MD [address] [place] [address] PCP - General Internal Medicine 04/17/22 documented as of this encounter
--- OUTSIDE RECORDS SUMMARY | 2024-07-27 15:13 | External Medical Summary | Summary of Care ---
Author Name Unknown Organization [facility] [address] [facility] [address] Phone [phone] Care Team Providers Care Barrel Endshaker Adjuster Name Role Phone Vanessa Hobson MD Primary Care Provider Encounter Details Date Type Department Care Team (Late st Contact Info) Description 04/19/2024 Orders Only PATIENT PORTAL DO NOT DELETE THIS DEPT USED BY [place] [address] Allergies Active Allergy Reactions Criticality Noted Date Comments Codeine 07/31/2016 Other reaction(s): Itching documented as of this encounter (statuses as of 04/19/2024) Medications Medication Sig Dispensed Refills Start Date End Date Status Aspirin 81 MG Oral Tablet Delayed Release Take by mouth daily . Active Nitroglycerin 0.4 MG Sublingual Tablet Sublingual (Nitrostat)Indicati ons:Coronary artery disease involving hoh coronary artery of hoh heart without angina pectoris Place under the [...] inj 1,000 mcgIndications:B12 deficiency 1000 mcg IM [id number] 10/13/2024 01/04/2025 Active documented as of this encounter (statuses as of 04/19/2024) Active Problems Problem Noted Date Diagnosed Date [...] as of this encounter (statuses as of 04/19/2024) Resolved Problems Problem Noted Date Diagnosed Date Resolved Date Body mass index (BMI) of 40. 0 to 44.9 in adult 01/12/2023 12/17/2023 Overview: Per Obesity protocol documented as of this encounter (statuses as of 04/19/2024) Immunizations Name Administration Dates Next Due Hepatitis [...] Description 05/23/2024 3:30 PM EDT Imaging Radiology [facility] [address] [place] [address] 05/26/2024 4:20 PM EDT Office Visit Family Practice [address] [place] [address] Paula Escamilla CRNP [address] [place] [address] 06/02/2024 3:15 PM EDT [facility] [address] [place] [address] Horacio Corona, DO [address] [place] [address] 06/20/2024 7:30 AM EDT Hospital Encounter OR [facility], Operating Room, [facility] - 4th Floor [address] [place] [address] Horacio Corona, DO [address] [place] [address] 06/20/2024 7:30 AM EDT - 06/20/2024 10:53 AM EDT Surgery OR [facility], Operating Room, [facility] - 4th Floor [address] [place] [address] Horacio Corona, DO [address] [place] [address] ROBOTIC ARTHROPLASTY KNEE TOTAL 06/30/2024 3:15 PM EDT Office Visit Orthopaedics [facility] [address] [place] [address] Horacio Corona, DO [address] [place] [address] 09/09/2024 11:45 AM EST Hospital Encounter [facility]O [facility], Endoscopy Room [facility] [address] [place] [phone] Amena Cruz MD [address] [place] [address] [place] [address] 09/09/2024 11:45 AM EST - 09/09/2024 12:15 PM EST Surgery ENDO [facility], Endoscopy Room [facility] 132 [facility] [place] [phone] Amena Cruz MD [address] [place] [address] COLONOSCOPY FLEXIBLE PROXIMAL DIAGNOSTIC Scheduled Procedures Name [...] 12/03/2023 12/03/2022 Albumin/Creatinine Ratio 05/20/2024 05/20/2023, 0801/2022 HbA1c 05/25/2024 11/25/2023, 08/03, 05/20/2023, Additional history exists Diabetic Eye Exam 08/26/2024 08/26/2023, 06/05/2022 Diabetic Foot Exam 08/26/2024 08/26/2023, 06/05/2022 GFR 11/25/2024 11/25/2023, 0 06/2024, 11/09/2023, Additional history exists Depression Monitoring [...] filedocumented as of this encounter Care Teams Barrel Endshaker Adjuster Relationship Specialty Start Date End Date Vanessa Hobson MD [address] [place] [address] PCP - General Internal Medicine 04/17/22 documented as of this encounter
--- OUTSIDE RECORDS SUMMARY | 2024-07-27 15:14 | External Medical Summary | Summary of Care ---
Author Name Unknown Organization [facility] Address [address] [place] [address] Phone [phone] Care Team Providers Care Cash Applications Clerk Name Role Phone Vanessa Hobson MD Primary Care Provider Reason for Visit * Reason Onset Date Comments Medication Refill 02/26/2024 Encounter Details Date Type Department Care Team (Late st Contact Info) Description 02/26/2024 Refill Family Practice [facility] [place] [address] Vanessa Hobson MD [address] [place] [address] Allergies Active Allergy Reactions Criticality Noted Date Comments Codeine 07/31/2016 Other reaction(s): Itching documented as of this encounter (statuses as of 03/02/2024) Medications Medication Sig Dispensed Refills Start Date End Date Status Aspirin 81 MG Oral Tablet Delayed Release Take by mouth daily . 0 Active Nitroglycerin 0.4 MG Sublingual Tablet Sublingual (Nitrostat)Indicati ons:Coronary artery disease involving [place] coronary artery of [place] heart without angina pectoris Place under the [...] inj 1,000 mcgIndications:B12 deficiency 1000 mcg IM [id number] 10/13/2024 01/04/2025 Active documented as of this encounter (statuses as of 03/02/2024) Active Problems Problem Noted Date Diagnosed Date [...] as of this encounter (statuses as of 03/02/2024) Resolved Problems Problem Noted Date Diagnosed Date Resolved Date Body mass index (BMI) of 40. 0 to 44.9 in adult 01/12/2023 12/17/2023 Overview: Per Obesity protocol documented as of this encounter (statuses as of 03/02/2024) Immunizations Name Administration Dates Next Due Hepatitis [...] hemoglobin A1c goal of less than 7.0% ([facility]) E11.9 Essential hypertension I10 Hypovitaminosis D E55.9 [...] over ideal weight or BMI > 40) ([facility]) E66.01 Type 2 diabetes mellitus with diabetic polyneuropathy ([facility]) E11.42 Pulmonary nodules R91.8 Labs: Lab Results [...] 03/17/2024 3:00 PM EDT Office Visit Orthopaedics [facility] [address] [place] [address] Horacio Corona DO [address] [place] [address] 04/07/2024 9:00 AM EDT Hospital Encounter [facility]O [facility], Endoscopy Room [facility] [address] [place] [phone] Amena Cruz MD [address] [place] [address] 04/07/2024 9:00 AM EDT - 04/07/2024 9:30 AM EDT Surgery ENDO [facility], Endoscopy Room [facility] [address] [place] [phone] Amena Cruz MD [address] [place] [address] COLONOSCOPY FLEXIBLE PROXIMAL DIAGNOSTIC Scheduled Procedures Name [...] filedocumented as of this encounter Care Teams Cash Applications Clerk Relationship Specialty Start Date End Date Vanessa Hobson MD [address] [place] [address] PCP - General Internal Medicine 04/17/22 documented as of this encounter
--- OUTSIDE RECORDS SUMMARY | 2024-07-27 15:14 | External Medical Summary | Summary of Care ---
Author Name Unknown Organization [facility] Address [address] [place] [address] Phone [phone] Care Team Providers Care Senior Materials Analyst Name Role Phone Vanessa Hobson MD Primary Care Provider Reason for Visit * Reason Onset Date Comments MyCode Consent 02/18/2024 Encounter Details Date Type Department Care Team (Late st Contact Info) Description 02/18/2024 Orders Only Outcomes Research Department [address] [place], [place] [id number] Ro Salmeron CHRA MyCode Research Other*[id number]* Allergies Active Allergy Reactions Criticality Noted Date Comments Codeine 07/31/2016 Other reaction(s): Itching documented as of this encounter (statuses as of 02/18/2024) Medications Medication Sig Dispensed Refills Start Date End Date Status Aspirin 81 MG Oral Tablet Delayed Release Take by mouth daily . 0 Active Nitroglycerin 0.4 MG Sublingual Tablet Sublingual (Nitrostat)Indicati ons:Coronary artery disease involving [place] coronary artery of zuni heart without angina pectoris Place under the [...] inj 1,000 mcgIndications:B12 deficiency 1000 mcg IM [id number] 10/13/2024 01/04/2025 Active documented as of this encounter (statuses as of 02/18/2024) Active Problems Problem Noted Date Diagnosed Date [...] as of this encounter (statuses as of 02/18/2024) Resolved Problems Problem Noted Date Diagnosed Date Resolved Date Body mass index (BMI) of 40. 0 to 44.9 in adult 01/12/2023 12/17/2023 Overview: Per Obesity protocol documented as of this encounter (statuses as of 02/18/2024) Immunizations Name Administration Dates Next Due Hepatitis [...] Answer Date Recorded PHQ Adult Total Score 0 08/26/2023 Hunger Vital Sign Answer Date Recorded Within [...] as of this encounter Progress Notes * Ro Salmeron CHRA - 02/18/2024 8:26 AM EDT MyCode Consent Documentation Jamila Birdon provided consent/authorization to participate in the MyCode Project. documented in this encounter Plan of Treatment Upcoming Encounters Date Type Department Care Team (Latest Contact Info) Description 02/19/2024 11:00 AM EDT Telemedicine Pulmonary Medicine, [place] [address] [place] [address] Bill Freedman MD [address] [place] [address] Cart, Telemed Pulm Gw [address] [facility] [place] [address] 03/17/2024 3:00 PM EDT Office Visit Orthopaedics [facility] [address] [facility] [place] [address] Horacio Corona, [address] [place] [address] 04/07/2024 9:00 AM EDT Hospital Encounter [facility]O [facility], Endoscopy Room [facility] [address] [place] [phone] Amena Cruz MD [address] [place] [address] 04/07/2024 9:00 AM EDT - 04/07/2024 9:30 AM EDT Surgery ENDO [facility], Endoscopy Room [facility] [address] [place] [phone] Amena Cruz MD [address] [place] [address] COLONOSCOPY FLEXIBLE PROXIMAL DIAGNOSTIC Scheduled Orders Name Type Priority Associated Diagnoses Orde r Schedule MYCODE INITIAL ADULT Lab Routine MyCode Research Other*[id number] Expected: 02/18/2024 (Approximate), Expires: 03/09/2025 Scheduled Procedures Name Priority Associated Diagnoses Date/Ti me COLONOSCOPY FLEXIBLE PROXIMAL DIAGNOSTIC Screening for colon cancer 04/07/2024 9:00 AM EDT Health Maintenance Due Date Last Done Comments Cologuard 2015 Fecal Occult Blood Test 2015 Sigmoidoscopy 2015 Colonoscopy 08/06/2022 08/06/2012 Colorectal Cancer Screening 08/06/2022 Mammogram 12/03/2023 12/03/2022 Albumin/Creatinine Ratio 05/20/2024 05/20/2023, 01/2022 HbA1c 05/25/2024 11/25/2023, 08/03, 05/20/2023, Additional history exists Depression Screening 08/26/2024 08/26/2023 Diabetic Eye Exam 08/26/2024 08/26/2023, 06/05/2022 Diabetic [...] as of this encounter Visit Diagnoses Diagnosis MyCode Research Other*[id number]- Primary Screening for colon cancer Special screening for malignant neoplasms, colon documented in this encounter Care Teams Senior Materials Analyst Relationship Specialty Start Date End Date Vanessa Hobson MD [address] [place] [address] PCP - General Internal Medicine 04/17/22 documented as of this encounter
--- OUTSIDE RECORDS SUMMARY | 2024-07-27 15:14 | External Medical Summary | Summary of Care ---
Author Name Unknown Organization [facility] Address [address] [place] [address] Phone [phone] Care Team Providers Care Field Mechanic/Site Lead Name Role Phone Vanessa Hobson MD Primary Care Provider Reason for Visit * Reason Comments Consultation Encounter Details Date Type Department Care Team (Late st Contact Info) Description 02/18/2024 9:00 AM EDT Therapy Psychology [facility] [address] [place] [address] Paula Childers, [facility] [address] [place] [address] Observation for suspected mental condition* Allergies Active Allergy Reactions Criticality Noted Date Comments Codeine 07/31/2016 Other reaction(s): Itching documented as of this encounter (statuses as of 02/18/2024) Medications Medication Sig Dispensed Refills Start Date End Date Status Aspirin 81 MG Oral Tablet Delayed Release Take by mouth daily . 0 Active Nitroglycerin 0.4 MG Sublingual Tablet Sublingual (Nitrostat)Indicati ons:Coronary artery disease involving mi'kmaq coronary artery of mi'kmaq heart without angina pectoris Place under the [...] inj 1,000 mcgIndications:B12 deficiency 1000 mcg IM [id number] 10/13/2024 01/04/2025 Active documented as of this [...] as of this encounter Progress Notes * Paula Childers LCSW - 02/18/2024 9:35 AM EDT Primary Care Behavioral Health Brief Consultation/Warm Hand off Jamila Esteban was referred by Vanessa Hobson MD Time spent on this visit was <15 minutes There is no charge for today's visit. Presenting Problem: I met with pt briefly today at the request of pt's PCP. Dr Vanessa Marrero. Psychoeducation was given on the role of behavioral health in patient care. Jamila shared brief update of her situation. She expresses interest in short term counseling. An intake appointment was scheduled for February 23 2024. Jamila denies plan intent or desire to harm self. She reports she receives suppo rt from her Subassembly Assembler and identifies reason to live. Plan and Recommendations: Patient will receive a brief course of behavioral health treatment with [facility] Behavioral [facility]. Paula Childers LCSW Primary Care Behavioral Health Psychology [facility] [address] [facility] [place] [address] documented in this encounter Plan of Treatment Upcoming Encounters Date Type Department Care Team (Late st Contact Info) Description 02/19/2024 11:00 AM EDT Telemedicine Pulmonary Medicine, [place] [address] [place] [address] Bill Freedman MD [address] [place] [address] Cart, Telemed Pulm [address] [facility] [place] [address] 02/23/2024 2:30 PM EDT Therapy Psychology [facility] [address] [facility] [place] [address] Paula Childers LCSW [address] [facility] [place] [address] 03/17/2024 3:00 PM EDT Office Visit Orthopaedics [facility] [address] [place] [address] Horacio Corona DO [address] [place] [address] 04/07/2024 9:00 AM EDT Hospital Encounter ENDO [facility], Endoscopy Room [facility] [address] [place] [phone] Amena Cruz MD [address] [address] 04/07/2024 9:00 AM EDT - 04/07/2024 9:30 AM EDT Surgery ENDO [facility], Endoscopy Room [facility] [address] [place] [phone] Amena Cruz MD [address] [address] COLONOSCOPY FLEXIBLE PROXIMAL DIAGNOSTIC Scheduled Procedures Name [...] as of this encounter Visit Diagnoses Diagnosis Observation for suspected mental condition- Primary Observation of other suspected mental condition Screening for colon cancer Special screening for malignant neoplasms, colon documented in this encounter Care Teams Field Mechanic/Site Lead Relationship Specialty Start Date End Date aVnessa Hobson MD [address] [facility] [place] [address] PCP - General Internal Medicine 04/17/22 documented as of this encounter
--- OUTSIDE RECORDS SUMMARY | 2024-07-27 15:14 | External Medical Summary | Summary of Care ---
Author Name Unknown Organization [facility] Address [address] [place] [address] Phone [phone] Care Team Providers Care Television Servicer Name Role Phone Vanessa Hobson MD Primary Care Provider Reason for Referral * Evaluate & Treat - Unlimited Visits (Within 30 days (routine)) - Pending Review Specialty Diagnoses / Procedures Referred By Mandy rojo Referred To Contact Physical Therapy / Physical Medicine And Rehab Diagnoses Vertigo Vanessa Hobson MD [address] [place] [address] Referral ID Status Reason Start Date Expiration Date Visits Requested Visits Authorized [id number] Pending Review Specialty Services Required 02/18/[phone] Question Answer Referral Priority Within 30 days (routine) Where should this appointment be scheduled? [facility] Comments Intermittent vertigo, suspect BPPV. Reason for Visit * Reason Comments Dizziness Encounter Details Date Type Department Care Team (Late st Contact Info) Description 02/18/2024 8:20 AM EDT Office Visit Family Practice [facility] [address] [address] Vanessa Hobson MD [address] [place] [address] Vertigo*; Type 2 diabetes mellitus with hemoglobin A1c goal of less than 7.0% (HCC); Atherosclerosis of coronary artery of [place] heart without angina pectoris, unspecified vessel or [...] Tablet Sublingual (Nitrostat)Indicati ons:Coronary artery disease involving [place] coronary artery of [place] heart without angina pectoris Place under the [...] inj 1,000 mcgIndications:B12 deficiency 1000 mcg IM [id number] 10/13/2024 01/04/2025 Active documented as of this [...] Sign Reading Time Taken Comments Blood Pressure 132/84 02/18/2024 8:21 AM EDT Pulse 96 02/18/2024 8:21 AM EDT Temperature 36 C (96.8 F) 02/18/2024 8:21 AM EDT Respiratory Rate 16 02/18/2024 8:21 AM EDT Oxygen Saturation - - Inhaled Oxygen Concentration - - Weight 95.3 kg (210 lb) 02/18/2024 8:21 AM EDT Height - - Body Mass Index 39.68 11/21/2023 1:57 PM EST documented in this encounter Progress Notes * Vanessa Hobson MD - 02/18/2024 8:27 AM EDT Images from the original note were not included. History of Present Illness Jamila Esteban is a 53 year old female that presents for Dizziness Quit all medications in late September. It was just too many, couldn't take it. Has continued baby ASA 81mg. Taking vitamin B12 and vitamin D. labs from November were after 2 months of no medications. Last cardiology visit was in December, no follow-up currently scheduled. Never got the sleep study, not wearing CPAP. Sees Pulmonary tomorrow, several nodules on CT chest, rec f/u in May. Living: in a custodial. It's okay. Able to get to work today. Nicotine: none Cannabis; none Alcohol: none Current medications and allergies reviewed. Past medical history and problem list reviewed. Physical Exam Vitals: 02/18/24 0821 Temp: 36 C (96.8 F) Pulse: 96 Resp: 16 BP: 132/84 BP Readings from Last 3 Encounters: 02/18/24 132/84 11/21/23 116/64 11/20/23 118/64 Wt Readings from Last 3 Encounters: 02/18/24 95.3 kg (210 lb) 11/21/23 96.3 kg (212 lb 4.8 oz) 11/20/23 96.2 kg (212 lb) Physical Exam Vitals and nursing note reviewed. Constitutional: Appearance: She is well-developed. She is not ill-appearing. Eyes: Extraocular Movements: Extraocular movements intact. Pupils: Pupils are equal, round, and reactive to light. Cardiovascular: Rate and Rhythm: Normal rate and regular rhythm. Heart sounds: No murmur heard. Pulmonary: Effort: Pulmonary effort is normal. Breath sounds: Normal breath sounds. Neurological: Mental Status: She is alert and oriented to person, place, and time. Cranial Nerves: No cranial nerve deficit. Sensory: No sensory deficit. Motor: No weakness. Coordination: Coordination normal. Gait: Gait normal. Deep Tendon Reflexes: Reflexes normal. Comments: Some difficulty with tandem gait Negative Romberg, can walk on heels and toes I have reviewed the following results: CMP, Lipid Panel, Hemoglobin A1C, TSH, CBC, and B12 Assessment and Plan Vertigo Provided handout from [facility] on [address]. She can take the bus to get to physical therapy. Note provided for work. - PHYSICAL THERAPY REFERRAL OP - RETURN TO WORK OR SCHOOL Type 2 diabetes mellitus with hemoglobin A1c goal of less than 7.0% ([facility]) Recheck in 3 months - HEMOGLOBIN A1C; Future Atherosclerosis of coronary artery of [place] heart without angina pectoris, unspecified vessel or lesion type Recheck in 3 months - LIPID PANEL WITH DIRECT LDL IF TG IS HIGH; Future Warm handoff with Paula Childers. Went in to see patient. Wrap-Up Follow Up: Return in about 3 months (around 05/19/2024) for Return with Joce [facility] 2-5 DaysBefore Next Visit. | For: Return with Joce, [facility] 2-5 Days Before Next Visit Time: I spent a total of 20-29 minutes (exact time 24 mins) on the date of service in preparation, delivery, and documentation of the care provided to Jamila Esteban excluding any time spent in the performance of separately billed services. documented in this encounter Nursing Notes * Ron Espana RN - 02/18/2024 8:23 AM EDT Chief Complaint Patient presents with Dizziness documented in this encounter Plan of Treatment Upcoming Encounters Date Type Department Care Team (Late st Contact Info) Description 02/19/2024 11:00 AM EDT Telemedicine Pulmonary Medicine, [place] [address] [place] [address] Bill Freedman MD [address] [place] [address] Cart, Telemed Pulm [place] [address] [place] [address] 02/23/2024 2:30 PM EDT Therapy Psychology [facility] [address] [place] [address] Paula Childers, SALES REPRESENTATIVE SALES MANAGER [address] [place] [address] 03/17/2024 3:00 PM EDT Office Visit Orthopaedics [facility] [address] [place] [address] Horacio Corona, [address] [place] [address] 04/07/2024 9:00 AM EDT Hospital Encounter ENDO [facility], Endoscopy Room [facility] [address] [place] [phone] Amena Cruz MD [address] [place] [address] 04/07/2024 9:00 AM EDT - 04/07/2024 9:30 AM EDT Surgery ENDO [facility], Endoscopy Room [facility] [address] [place] [phone] Amena Cruz MD [address] [place] [address] COLONOSCOPY FLEXIBLE PROXIMAL DIAGNOSTIC Scheduled Orders Name Type Priority Associated Diagnoses Orde r Schedule HEMOGLOBIN A1C Lab Routine Type 2 diabetes mellitus with hemoglobin A1c goal of less than 7.0% ([facility]) Expected: 05/19/2024, Expires: 03/19/2025 LIPID PANEL WITH DIRECT LDL IF TG IS HIGH Lab Routine Atherosclerosis of coronary artery of [place] heart without angina pectoris, unspecified vessel or lesion type Expected: 05/19/2024, Expires: 02/17/2025 Scheduled Procedures Name Priority Associated Diagnoses Date/Ti me COLONOSCOPY FLEXIBLE PROXIMAL DIAGNOSTIC Screening for colon cancer 04/07/2024 9:00 AM EDT Scheduled Referrals Name Type Priority Associated Diagnoses Orde r Schedule PHYSICAL THERAPY REFERRAL OP Referral Within 30 days (routine) Vertigo Ordered: 02/18/2024 Health Maintenance Due Date Last Done Comments [...] as of this encounter Visit Diagnoses Diagnosis Vertigo- Primary Dizziness and giddiness Type 2 diabetes mellitus with hemoglobin A1c goal of less than 7.0% (HCC) Atherosclerosis of coronary artery of [place] heart without angina pectoris, unspecified vessel or lesion type Screening for colon cancer Special screening for malignant neoplasms, colon documented in this encounter Care Teams Television Servicer Relationship Specialty Start Date End Date Vanessa Hobson MD [address] [place] [address] PCP - General Internal Medicine 04/17/22 documented as of this encounter"
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
[2024-07-27] MEDS: INSULIN ASPART PER UNIT CHARGE SC SCH (15:52)
[2024-07-27] MEDS: METOPROLOL SUCC 25MG EXT REL TAB PO ONE (16:22)
[2024-07-27] MEDS: HEPARIN SOD 5,000 UNIT/0.5 ML VIAL SQ SCH (16:22)
[2024-07-27] MEDS: amLODIPine BESYLATE 5 MG TAB PO SCH (16:23)
[2024-07-27] MEDS: OPTIRAY 320 125ml IV ONE (17:06)
[2024-07-27] MEDS: MoRPHine SULFATE 2 MG/ML CARP IV PRN (17:47)
[2024-07-27] MEDS: ACETAMINOPHEN 325 MG TAB PO PRN (18:37)
[2024-07-27] MEDS ORDERED: MoRPHine SULFATE 4 MG/ML 1 ML CARP\\VIAL IV PRN (20:41)
[2024-07-27] MEDS: MoRPHine SULFATE 4 MG/ML 1 ML CARP\\VIAL IV STA (20:46)
[2024-07-27] MEDS: CYCLOBENZAPRINE HCL 10 MG TAB PO PRN (20:47)
[2024-07-27] MEDS: METOPROLOL SUCC 25MG EXT REL TAB PO SCH (21:20)
[2024-07-27] MEDS: LANTUS PER UNIT CHARGE SQ SCH (21:21)
[2024-07-27] MEDS: HEPARIN SODIUM/DEXTROSE 25,000 UNITS/500 ML BAG IV SCH (21:27)
[2024-07-27] MEDS: Heparin IV Adult Wt-Based Standard *NO* INITIAL Bolus Protocol IV STA (21:30)
[2024-07-27 21:38] LABS: Basophils # (auto) 0.05 K/uL (0.00-0.20); Basophils % (auto) 0.5 %; Eosinophils # (auto) 0.33 K/uL (0.00-0.50); Eosinophils % (auto) 3.5 %; Hematocrit (blood only) 38.9 % (37.0-47.0); Hemoglobin 13.1 g/dl (12.0-16.0); Immature Granulocytes # (auto) 0.04 K/uL (0.01-0.20); Immature Granulocytes % (auto) 0.4 %; Lymphocytes # (auto) 2.57 K/uL (1.20-3.40); Lymphocytes % (auto) 26.9 %; Mean Corpuscular Hemoglobin 28.7 pg (25.0-34.0); Mean Corpuscular Hgb Conc 33.7 g/dL (32.0-36.0); Mean Corpuscular Volume 85.3 fL (80.0-100.0); Monocytes # (auto) 0.63 K/uL (0.11-0.59); Monocytes % (auto) 6.6 %; Neutrophils # (auto) 5.94 K/uL (1.40-6.50); Neutrophils % (auto) 62.1 %; Platelet Count 295 K/uL (130-400); RDW Coefficient of Variation 13.1 % (11.5-14.5); RDW Standard Deviation 40.3 fL (36.4-46.3); Red Blood Count 4.56 M/uL (4.20-5.40); White Blood Count 9.56 K/ul (4.8-10.8)
--- NOTE | 2024-07-27 21:48 | CT Scan Report ---
Exam(s): CTA CHEST IV Amt: 116 ml optitray 320 EXAM: CT Angiography Chest With Intravenous Contrast CLINICAL HISTORY: Reason for exam: sob. cp. TECHNIQUE: Axial computed tomographic angiography images of the chest with intravenous contrast. CTDI is 42.5 mGy and DLP is 932.78 mGy-cm. Automated exposure control was utilized for the study. A dose lowering technique was utilized adhering to the principles of ALARA. COMPARISON: None FINDINGS: Pulmonary arteries: Unremarkable. No pulmonary embolus identified. Aorta: No acute findings. No aortic aneurysm or dissection. Lungs: Unremarkable. No mass. No consolidation. Pleural space: Unremarkable. No significant effusion. No pneumothorax. Heart: Unremarkable. No cardiomegaly. No significant pericardial effusion. No evidence of RV dysfunction. Mediastinum: Calcified mediastinal and bilateral hilar lymph nodes. Bones/joints: Degenerative changes of the spine. No acute fracture. No dislocation. Soft tissues: Unremarkable. Lymph nodes: See above. Spleen: Calcified granulomas in the spleen. Other findings: Calcified granulomas bilaterally. IMPRESSION: 1. No pulmonary embolus identified. 2. No aortic aneurysm or dissection. 3. No acute pulmonary parenchymal abnormality identified. Old granulomatous disease. Electronically signed by: Clive Johnson M.D. 07/27/24 21:47 PM
[2024-07-27 22:03] LABS: INR 0.9 (0.9-1.1); Partial Thromboplastin Time 26 Seconds (21-31); Prothrombin Time 10.3 Seconds (9.0-12.0)
[2024-07-27] MEDS: traZODone HCL 50 MG TAB PO SCH (22:47)
[2024-07-27] MEDS: oxyCODONE HCL IR 5 MG TAB (IMMEDIATE RELEASE) PO PRN (22:49)
--- NOTE | 2024-07-28 04:52 | Communication Note ---
Date of Service: July 27, 2024 Late entry 07/27, 8:40 PM Patient with chest pain improved by nitroglycerin as per RN. SBP 120s. EKG as per my interpretation rate 90, NSR, LAD, LSB, inferior infarct, T wave flattening lateral leads Troponin 15.6 CT chest: 1. No pulmonary embolus identified. 2. No aortic aneurysm or dissection. 3. No acute pulmonary parenchymal abnormality identified. Old granulomatous disease. AP NSTEMI IV heparin in addition to aspirin, beta-abel, and statin Rx N.p.o. for possible diagnostic cardiac catheterization in a.m.
--- NOTE | 2024-07-28 06:40 | Electrocardiogram Report ---
Test Reason : Blood Pressure : */* mmHG Vent. Rate : 91 BPM Atrial Rate : 91 BPM P-R Int : 128 ms QRS Dur : 96 ms QT Int : 392 ms P-R-T Axes : 73 -3 87 degrees QTcB Int : 482 ms Normal sinus rhythm Possible Lateral infarct , age undetermined Inferior infarct (cited on or before 29-Jun-2022) Prolonged QT Abnormal ECG When compared with ECG of 27-Jul-2024 10:12, No significant change was found Confirmed by Yazan No ([id number]) on 07/28/2024 6:40:14 AM Referred By: REFERRED SELF Confirmed By: Yazan No
[2024-07-28 08:39] LABS: Basophils # (auto) 0.04 K/uL (0.00-0.20); Basophils % (auto) 0.5 %; Eosinophils # (auto) 0.39 K/uL (0.00-0.50); Eosinophils % (auto) 4.8 %; Hematocrit (blood only) 41.2 % (37.0-47.0); Hemoglobin 13.8 g/dl (12.0-16.0); Immature Granulocytes # (auto) 0.05 K/uL (0.01-0.20); Immature Granulocytes % (auto) 0.6 %; Lymphocytes # (auto) 1.98 K/uL (1.20-3.40); Lymphocytes % (auto) 24.5 %; Mean Corpuscular Hgb Conc 33.5 g/dL (32.0-36.0); Mean Corpuscular Volume 86.6 fL (80.0-100.0); Mean Platelet Volume 11.1 fL (9.4-12.4); Monocytes # (auto) 0.48 K/uL (0.11-0.59); Monocytes % (auto) 5.9 %; Neutrophils # (auto) 5.13 K/uL (1.40-6.50); Neutrophils % (auto) 63.7 %; Platelet Count 279 K/uL (130-400); RDW Coefficient of Variation 13.1 % (11.5-14.5); RDW Standard Deviation 41.1 fL (36.4-46.3); Red Blood Count 4.76 M/uL (4.20-5.40); White Blood Count 8.07 K/ul (4.8-10.8)
[2024-07-28] MEDS ORDERED: traZODone HCL 50 MG TAB PO SCH (09:00)
[2024-07-28] MEDS ORDERED: METOPROLOL SUCC 25MG EXT REL TAB PO SCH (09:00)
[2024-07-28 09:20] LABS: Estimated Average Glucose 203 mg/dl; Hemoglobin A1C 8.7 % (4.5-5.6)
[2024-07-28] MEDS: MELOXICAM 7.5 MG TAB PO SCH (09:27)
[2024-07-28] MEDS: ASPIRIN 81 MG CHEW PO SCH (09:28)
[2024-07-28] MEDS: ATORVASTATIN 40 MG TAB PO SCH (09:28)
--- NOTE | 2024-07-28 09:36 | Cardiology Progress Note ---
Date of Service July 28, 2024 Assessment & Plan (1) Elevated troponin I level: (2) Chest pain: (3) Ischemic cardiomyopathy: (4) Hypertension: (5) PVCs (premature ventricular contractions): (6) ASCVD (arteriosclerotic cardiovascular disease): (7) Dyslipidemia, goal LDL below 70: (8) History of repair of patent ductus arteriosus: (9) SOB (shortness of breath): Plan Atypical chest pain as noted below. Known ASCVD. Status post NSTEMI, PCI of the left circumflex obtuse marginal branch in 2016 for single-vessel disease Catheterization in May 2021 with patent stent, without obstruction disease, preserved LV systolic function Hypertension Symptomatic premature ventricular complexes Options of management discussed with patient including the risks and benefits of all options. Patient requests referral for diagnostic cardiac catheterization. - Maintain NPO status for catheterization. - Discontinue meloxicam. - Hold amlodipine for borderline blood pressure. - Continue beta-abel, aspirin, and moderate intensity statin therapy. Admission and Anticipated Discharge Date Admission Date: July 27, 2024 Supervising Physician Co-Signing Physician Notes I have personally performed a history and physical examination on the patient. I have reviewed the advance practitioner's documentation, and I agree with, and take responsibility for the plan of care. 53-year-old female presents with chest discomfort. Discomfort reminiscent of prior heart attack symptoms. Concerns regarding unstable angina and progressive symptoms over the past 7 days. Mildly elevated high-sensitivity troponin noted with addition of intravenous heparin overnight by the hospitalist. Echocardiogram with evidence of inferior, posterior, and basal lateral wall motion abnormality similar to prior study. Discussed further ischemic evaluation with Lexiscan nuclear stress test versus diagnostic catheterization. Patient declines stress testing at this time. Risks of cardiac catheterization reviewed at length and patient agreeable to proceed. Stalin Guevara DO, LOCATED [facility]IN [facility] Subjective Patient seen and examined. Chart, medications, telemetry reviewed. Patient with ongoing chest heaviness and pressure throughout the night and into the this morning, dyspnea with activity. IV heparin initiated by Hospitalist. Pressure aggravated by the breasts pulling to the side. No significant improvement following administration of sublingual nitroglycerin. EKG without acute change. High-sensitivity troponin as follows: 10.5 -> 13.2 -> 15.0-> 15.6-> 14.2 -> pending Resting echocardiography on July 27, 2024 with preserved LV systolic function; regional wall motion abnormalities similar to prior study of August 2022. Review of Systems Review of Systems: Complete Review of Systems: Constitutional: No fevers, chills, or night sweats. HEENT: Headaches. Pulmonary: No history of PE. Cardiac: See above. GI/Abd: History of colitis Hematologic: No coagulation disorder, anemia, or abnormal bleeding. Musculoskeletal: Cervical disc disease with left upper extremity numbness and tingling. Knee pain Neurologic: No history of TIA/CVA. No history of seizure disorder. Endocrine: Diabetes mellitus. Complete Review of Systems is as stated above, negative, or noncontributory Physical Exam Physical Exam: General: Alert. Cooperative Skin: No rash. Mild neck erythema. Eyes: PER. Conjunctiva pink, sclera clear. HENT: Normocephalic. Atraumatic. Neck: + Scar. No JVD. No carotid bruits. Heart: RRR, 90 bpm. Lungs: Clear. Abdomen: +BS. Soft. Nontender. No masses. No organomegaly. Extremities: No clubbing, cyanosis, or edema. Pulses: Posterior tibial=2/4. Limited neurological examination: No focal deficit. Results & Data Vital Signs (Past 12 Hours) Vital Signs Temp Pulse Pulse Resp BP BP Pulse Ox 07/28/24 08:40 101/69 07/28/24 07:59 102/71 07/28/24 07:30 92 H 07/28/24 07:14 36.6 C 77 15 140/74 96 07/28/24 03:37 36.4 C L 81 14 139/89 91 07/27/24 23:21 82 07/27/24 22:21 36.8 C 77 14 149/95 H 95 O2 Del Method 07/28/24 08:40 07/28/24 07:59 07/28/24 07:30 07/28/24 07:14 Room Air 07/28/24 03:37 Room Air 07/27/24 23:21 07/27/24 22:21 Room Air Laboratory Results Cardiac Enzymes 07/27/24 07/27/24 07/27/24 Range/Units 09:20 15:49 19:55 AST 12 L (13-39) U/L Troponin I High Sens 13.2 15.0 H 15.6 H (0-14) pg/ml 07/27/24 Range/Units 22:29 AST (13-39) U/L Troponin I High Sens 14.2 H (0-14) pg/ml Coagulation 07/27/24 Range/Units 21:15 PT 10.3 (9.0-12.0) Seconds APTT 26 (21-31) Seconds CBC 07/27/24 07/28/24 Range/Units 21:15 07:41 WBC 9.56 8.07 (4.8-10.8) K/ul RBC 4.56 4.76 (4.20-5.40) M/uL Hgb 13.1 13.8 (12.0-16.0) g/dl Hct 38.9 41.2 (37.0-47.0) % Plt Count 295 279 (130-400) K/uL Neut # (Auto) 5.94 5.13 (1.40-6.50) K/uL Lymph # (Auto) 2.57 1.98 (1.20-3.40) K/uL [place] # (Auto) 0.63 H 0.48 (0.11-0.59) K/uL Eos # (Auto) 0.33 0.39 (0.00-0.50) K/uL Baso # (Auto) 0.05 0.04 (0.00-0.20) K/uL Comprehensive Metabolic Panel 07/27/24 Range/Units 09:20 Potassium 3.6 (3.5-5.1) mmol/L Direct Bilirubin 0.1 (0-0.2) mg/dl AST 12 L (13-39) U/L Intake and Output 07/27/24 07/28/24 07/28/24 22:59 06:59 14:59 Intake Total 100 / 940 640 / 940 Output Total 0 / 0 Balance 100 / 940 640 / 940 Intake: IV 100 / 490 190 / 490 Heparin Sodium/Dextrose 25,000 190 / 190 units In 500 ml @ 1,250 UNITS/ HR 25 mls/hr IV .Q20H LIBBY Rx#: [id number] Magnesium Sulfate / D5w 1 gm In 100 / 200 100 ml @ 100 mls/hr IV Q1H LIBBY Rx#:[id number] Oral 450 / 450 Output: Urine 0 / 0 Other: Other Intake Source NPO # Unmeasured Voids 1 Weight 101.7 kg 103.6 kg Weight Measurement [facility] (2) Chest pain Chest pain type: unspecified Qualified Code(s): R07.9 - Chest pain, unspecified (4) Hypertension Hypertension type: unspecified Qualified Code(s): I10 - Essential (primary) hypertension
[2024-07-28 10:10] LABS: Albumin Level 4.1 gm/dl (3.4-5.0); Bilirubin,Total 1.3 mg/dl (0.2-1.0); Calcium 9.1 mg/dl (8.6-10.3); Magnesium 1.6 mg/dl (1.7-2.4); Potassium 3.9 mmol/L (3.5-5.1)
[2024-07-28 10:16] LABS: Albumin Globulin Ratio 1.5 (0.9-2); Chol HDL Ratio 3.9 (0-5); Creatinine Clr Calc Pharmacy 128.6 ml/min; Est GFR (African American) 123.4 ml/min; Est GFR (Non-African American) 106.5 ml/min; Globulin 2.8 gm/dl (2.5-4.0); Total Protein 6.9 gm/dl (6.0-8.3)
[2024-07-28 10:45] LABS: Troponin I High Sensitivity 11.6 pg/ml (0-14)
--- NOTE | 2024-07-28 13:39 | Pre Anesthesia Assessment ---
Date of Service July 28, 2024 Pre Sedation Assessment Vital Signs Temp Pulse Pulse Pulse Resp BP BP 07/28/24 13:50 76 18 07/28/24 11:43 36.5 C 73 16 118/79 07/28/24 09:43 07/28/24 08:40 101/69 07/28/24 07:59 102/71 07/28/24 07:30 92 H 07/28/24 07:14 36.6 C 77 15 140/74 07/28/24 03:37 36.4 C L 81 14 139/89 07/27/24 23:21 82 07/27/24 22:21 36.8 C 77 14 149/95 H 07/27/24 21:05 88 151/91 H 07/27/24 21:01 90 152/92 H 07/27/24 20:43 93 H 160/97 H 07/27/24 20:38 91 H 154/94 H 07/27/24 20:28 87 136/83 07/27/24 19:32 37.0 C 91 H 14 160/96 H 07/27/24 18:40 85 135/86 07/27/24 16:29 92 H 07/27/24 16:25 37.1 C 18 160/95 H 07/27/24 15:25 36.4 C L 16 164/96 H Pulse Ox O2 Del Method O2 Flow Rate 07/28/24 13:50 95 Room Air 07/28/24 11:43 96 Nasal Cannula 2 07/28/24 09:43 Room Air 07/28/24 08:40 07/28/24 07:59 07/28/24 07:30 07/28/24 07:14 96 Room Air 07/28/24 03:37 91 Room Air 07/27/24 23:21 07/27/24 22:21 95 Room Air 07/27/24 21:05 07/27/24 21:01 07/27/24 20:43 07/27/24 20:38 07/27/24 20:28 07/27/24 19:32 97 Room Air 07/27/24 18:40 07/27/24 16:29 07/27/24 16:25 94 Room Air 07/27/24 15:25 97 Room Air Cardiovascular + regular rate and + regular rhythm + S1 normal and + S2 normal; no murmur + femoral pulses present and + radial pulses present; no JVD and no carotid bruit no edema Respiratory no respiratory distress and no labored breathing no crackles, no rales, no rhonchi and no wheezes Pre-Sedation Airway Assessment Smoking Status: Never smoker Mallampati Class: III ASA: ASA3 NPO Status Date of Last Intake of Fluids: 07/28/24 Date of Last Intake of Solid Food: 07/27/24 Procedure Planning Contraindications for Sedation: none Current Medications Reviewed: Yes Notes The planned sedation has been discussed with the patient. Informed Consent was obtained. I have identified the patient, determined the appropriateness of sedation and have assessed the patient immediately prior to the procedure. All medicine(s) and interventions are by my order.
--- NOTE | 2024-07-28 14:29 | Hospitalist Progress Note ---
Date of Service July 28, 2024 Assessment & Plan (1) Atypical chest pain: (2) Hypertension: (3) CAD (coronary artery disease): (4) HLD (hyperlipidemia): (5) Diabetes: (6) Morbid obesity: Plan This is a 53-year-old female who has a significant past medical history of CAD, HTN, HLD, T2DM, vitamin D deficiency, vitamin B12 deficiency morbid obesity who presents to ED in setting of chest pain. She reports 3 independent episodes of chest pain all occurring at rest, lasting several hours, associated with chest pain, sob and dizziness. Sx are similar to previous NSTEMI requiring stent placement. Chest Pain CAD with hx of 1 aundrea and single vessel disease to circumflex obtuse marginal in 2016, repeat cath in 2020 revealed patent stent Patient presents with repeated episode of chest pain High sensitive troponin 10.5 on admission; with flat trend Chest x-ray personally reviewedno acute finding CTA chestno PE, aortic aneurysm or dissection or pulmonary parenchymal abnormality. EKG showed normal sinus rhythm; no ST or T wave changes Echocardiogram showed EF of 50 to 55% with mild concentric LVH. Moderate sized inferior, posterior and lateral wall abnormality. Currently on heparin drip for possible unstable angina Patient to undergo left heart cath today Will start her on Protonix for possible GERD contributing to the symptoms Continue aspirin and Lipitor T2DM a1c 8.1 in May hold metformin, lantus/novlog per protocol Hypomagnesemia: replace HLD: chronic, stable on atorvastatin, continue HTN: chronic on metoprolol - BP elevated in ED, will monitor, Morbid obesity: encourage weight loss, diet/lifestyle measures DVT ppx: heparin FULL CODE PCP: Vanessa Hobson Dispo: admit to PCU Time spent evaluating patient, direct bedside care, chart review, placing orders, interpretation of diagnostic studies, discussion with consultants, patient, and family members, as well as other required patient management activities is 50 minutes Please note the above document was generated using voice recognition software. It may contain grammatical, syntax or spelling errors. Any formal questions or concerns about the content, text or information contained within the body of this dictation should be directly addressed to the provider for clarification Admission and Anticipated Discharge Date Admission Date: July 27, 2024 Subjective Patient seen and examined at bedside. She reports chest pain in the substernal area. Reports some improvement with nitro glycerin. High sensitive troponin negative Review of Systems Review of Systems: All systems reviewed & are unremarkable except as noted in Subjective Physical Exam Physical Exam: Constitutional: Alert oriented x 3; not in distress. Respiratory: normal respiratory effort, lungs clear to auscultation, no wheeze, rales, rhonchi. Normal insp/exp effort, no accessory muscle use Cardiovascular: RRR, no murmur, no edema Vessels: no JVD or carotid bruit Chest: normal inspection of chest Abdomen: normal bowel sounds, soft, nontender, no hepatosplenomegaly Musculoskeletal: no cyanosis or clubbing, extremities motor strength 5/5 Skin: no rashes, warm and dry normal turgor Neurologic: PERRL, EOMI, accommodation nl, no face palsy, no dysarthria CN's II- XI intact bilaterally and moves all extremities Psychiatric: A+Ox3, euthymic affect Results & Data Results & Data Vital Signs (Past 12 Hours) Vital Signs Temp Pulse Pulse Resp BP BP Pulse Ox 07/28/24 13:50 76 18 95 07/28/24 11:43 36.5 C 73 16 118/79 96 07/28/24 09:43 07/28/24 08:40 101/69 07/28/24 07:59 102/71 07/28/24 07:30 92 H 07/28/24 07:14 36.6 C 77 15 140/74 96 07/28/24 03:37 36.4 C L 81 14 139/89 91 O2 Del Method O2 Flow Rate 07/28/24 13:50 Room Air 07/28/24 11:43 Nasal Cannula 2 07/28/24 09:43 Room Air 07/28/24 08:40 07/28/24 07:59 07/28/24 07:30 07/28/24 07:14 Room Air 07/28/24 03:37 Room Air (2) Hypertension Hypertension type: unspecified Qualified Code(s): I10 - Essential (primary) hypertension
[2024-07-28] MEDS: NITROGLYCERIN/D5W 100MCG/ML 20ML SYR ONE (14:39)
[2024-07-28] MEDS: niCARdipine HCL INJ 2.5 MG/ML 10 ML AMP ONE (14:39)
[2024-07-28] MEDS: HEPARIN (PORCINE) 1000 UNIT/ML 10 ML (CATH LAB USE ONLY) ONE (15:22)
[2024-07-28] MEDS: MIDAZOLAM HCL 1 MG/ML 2ML VIAL ONE (15:22)
[2024-07-28] MEDS: fentaNYL citrate PF 100 MCG/2 ML VIAL ONE (15:23)
[2024-07-28] MEDS: OPTIRAY 350 ONE (15:23)
--- NOTE | 2024-07-28 15:30 | Post Anesthesia Assessment ---
Date of Service July 28, 2024 Post Sedation Assessment Vital Signs Temp Pulse Pulse Pulse Resp BP BP 07/28/24 13:50 76 18 07/28/24 11:43 36.5 C 73 16 118/79 07/28/24 09:43 07/28/24 08:40 101/69 07/28/24 07:59 102/71 07/28/24 07:30 92 H 07/28/24 07:14 36.6 C 77 15 140/74 07/28/24 03:37 36.4 C L 81 14 139/89 07/27/24 23:21 82 07/27/24 22:21 36.8 C 77 14 149/95 H 07/27/24 21:05 88 151/91 H 07/27/24 21:01 90 152/92 H 07/27/24 20:43 93 H 160/97 H 07/27/24 20:38 91 H 154/94 H 07/27/24 20:28 87 136/83 07/27/24 19:32 37.0 C 91 H 14 160/96 H 07/27/24 18:40 85 135/86 07/27/24 16:29 92 H 07/27/24 16:25 37.1 C 18 160/95 H Pulse Ox O2 Del Method O2 Flow Rate 07/28/24 13:50 95 Room Air 07/28/24 11:43 96 Nasal Cannula 2 07/28/24 09:43 Room Air 07/28/24 08:40 07/28/24 07:59 07/28/24 07:30 07/28/24 07:14 96 Room Air 07/28/24 03:37 91 Room Air 07/27/24 23:21 07/27/24 22:21 95 Room Air 07/27/24 21:05 07/27/24 21:01 07/27/24 20:43 07/27/24 20:38 07/27/24 20:28 07/27/24 19:32 97 Room Air 07/27/24 18:40 07/27/24 16:29 07/27/24 16:25 94 Room Air Recovery Score Activity: Moves 4 extremities Respiration: Deep Breath/Cough Circulation: +/-20% PreAnes Value Consciousness: Arouseable (by name) Oxygen Saturation: > 92% On Room Air Discharge Sedation Level of Care: Phase I Post Sedation Plan On clinical assessment, the patient appears to have tolerated the sedation without complications. Patient is recovering as anticipated. Patient will continue to be monitored by nursing and may be discharged when sedation discharge criteria are met per below protocol. Upon Completions of procedure up to 15 minutes continue every 5 minute vital signs and the P.A.R. score; then discharge to a Phase I or Fast Track to Phase II per the following guidelines: * Discharge Patient to appropriate Phase II area if PAR is 8 or greater or return to pre- procedure baseline. The post - procedure orders will be as directed. * If PAR score is less than 8 or not return to pre-procedure baseline then patient will follow Phase I monitoring till PAR is reached for Phase II. The Phase I may be done in procedure room or may call to secure a Phase I area. * If naloxone or flumazenil are used for reversal, hold in Phase I for continued monitoring from when last reversal dose was given for a minimum of 60 minutes or longer pending the nurse and/or physician discretion of patient condition before discharge to Phase II. Please call the Sedation Physician to re-evaluate and complete post-note for discharge to Phase II area. Do NOT discharge from procedure sedation or Phase 1 until post- sedation evaluation note is complete by procedure /sedation MD Sedation Discharge Instructions to be given to the patient at discharge to home.
--- NOTE | 2024-07-28 15:42 | Cardiac Catheterization ---
Cardiac Cath Procedure Full Procedure Date July 28, 2024 Pre-Procedure Diagnosis Pre-Procedure Diagnosis: Non STEMI, Angina, CAD and Cardiomyopathy AUC Score AUC Score: 7 Post-Procedure Diagnosis Post-Procedure Diagnosis: Moderate CAD and Elevated Intracardiac Pressures Procedure(s) Performed Procedure(s) Performed: Coronary Angiography and Left Heart Cath Fireproof Door Assembler Stalin Guevara DO Popcorn Candy Maker(s) Brannon RTR Estimated Blood Loss Estimated Blood Loss: 5cc Medication(s) Medication(s): Fentanyl, Heparin, Lidocaine 1%, Nicardipine, Nitroglycerin and Versed Summary of Findings Patent OM stent 60% ostial D1 (small vessel) 30% mid Lcx Hemodynamics Rest Ao:: 132/93 Final Ao: 162/94/122 LV: 155/25/33 Recommendations Recommendations: Medical Therapy and/or Counseling (Add diuretic therapy due to elevated filling pressure.) Radiation Exposure (mGy) 2069 Contrast (mls) 120 Fluids (cc crystalloids) Fluids (cc crystalloids): 100 Nss Drains Drains: N/A Anesthesia Moderate sedation. Start 1437. End 1523. Sedation monitor: Osmin ALLAN Procedural Complication(s) None Disposition Global Sourcing Manager Holding/Recovery I attest to the content of the Intraoperative Record and any orders documented therein. Any exceptions are noted below. ACC Data: Global Sourcing Manager Cardiac Status Clinical evaluation leading to the procedure 53-year-old female with history of obtuse marginal branch vessel stenting, prior myocardial infarction, and ischemic cardiomyopathy with preserved LV systolic function. Presented to the emergency department with chest discomfort. Echocardiogram revealing inferior, posterior, and basal lateral wall motion abnormality with low normal LV systolic function. High-sensitivity troponin mildly elevated. Due to ongoing symptoms patient brought to the cardiac catheterization lab for further evaluation. CAD Presenation: Non STEMI Anginal Classification: CCS IV Heart Failure: No Cardiogenic Shock within 24 Hours: No STEMI OR Non-STEMI Symptom Onset Date: 07/26/24 Thrombolytics: No Coronary Anatomy Dominant: Left Left Main (% Stenosis): Normal LAD (% Stenosis): Mid (Luminal irregularities, 10%) D1 (% Stenosis): Ostial (60%, small vessel) D2 (% Stenosis): Normal D3 (% Stenosis): Normal Circumflex (% Stenosis): Mid (30% at take off of OM1) OM1 (% Stenosis): Proximal (patent stent) and Mid (40% stenosis of ostial sub- branch) RCA (% Stenosis): Normal (Small, nondominant vessel. Small, secondary subbranch, with separate ostia, visualized without significant disease.) Diagnostic Physicians Name: Stalin Guevara DO Closure Device Percutaneous Entry Location: Radial Closure Device: Radial Band Recommendations: Medical Therapy and/or Counseling (Add diuretic therapy due to elevated filling pressure.) Intraprocedure Events Significant Disection: No Perforation: No
[2024-07-28] MEDS: PANTOprazole 40 MG TAB PO SCH (15:57)
[2024-07-28] MEDS: MAGNESIUM SULFATE / D5W 1 GM/100 ML BAG IV SCH (17:04)
[2024-07-28] MEDS: GABAPENTIN 800 MG TAB PO PRN (19:48)
[2024-07-28] MEDS ORDERED: LORazepam 0.5 MG TAB PO PRN (20:08)
[2024-07-28] MEDS: KETOROLAC TROMETHAMINE 15 MG/ML VIAL IV ONE (20:17)
--- NOTE | 2024-07-28 22:38 | Electrocardiogram Report ---
Test Reason : Blood Pressure : */* mmHG Vent. Rate : 85 BPM Atrial Rate : 85 BPM P-R Int : 136 ms QRS Dur : 98 ms QT Int : 398 ms P-R-T Axes : 77 -5 84 degrees QTcB Int : 473 ms Normal sinus rhythm Inferior infarct (cited on or before 29-Jun-2022) Abnormal ECG When compared with ECG of 27-Jul-2024 20:35, No significant change was found Confirmed by Yazan No ([id number]) on 07/28/2024 10:38:32 PM Referred By: REFERRED SELF Confirmed By: Yazan No
--- NOTE | 2024-07-28 22:39 | Electrocardiogram Report ---
Test Reason : Blood Pressure : */* mmHG Vent. Rate : 88 BPM Atrial Rate : 88 BPM P-R Int : 132 ms QRS Dur : 96 ms QT Int : 382 ms P-R-T Axes : 77 -5 89 degrees QTcB Int : 462 ms Normal sinus rhythm Inferior infarct (cited on or before 29-Jun-2022) Nonspecific T wave abnormality Abnormal ECG When compared with ECG of 28-Jul-2024 06:32, No significant change Confirmed by Yazan No ([id number]) on 07/28/2024 10:39:23 PM Referred By: REFERRED SELF Confirmed By: Yazan No
--- NOTE | 2024-07-29 00:16 | CT Scan Report ---
Exam(s): CT HEAD Without Contrast EXAM: CT Head Without Intravenous Contrast CLINICAL HISTORY: Headache. TECHNIQUE: Axial computed tomography images of the head/brain without intravenous contrast. CTDI is 35 mGy and DLP is 624 mGy-cm. Automated exposure control was utilized for the study. A dose lowering technique was utilized adhering to the principles of ALARA. COMPARISON: MRI brain 08/22/2022 FINDINGS: Brain: No intracranial hemorrhage, mass-effect or midline shift. No abnormal extra axial fluid. No evidence of acute infarct. Mild periventricular white matter hypodensities are most consistent with chronic microangiopathy. Ventricles: Unremarkable. No ventriculomegaly. Bones/joints: Unremarkable. No acute fracture. Soft tissues: Unremarkable. Sinuses: Unremarkable as visualized. No acute sinusitis. Mastoid air cells: Unremarkable as visualized. No mastoid effusion. IMPRESSION: No acute intracranial finding. Electronically signed by: Liane Jensen MD 07/29/24 00:15 AM
--- OUTSIDE RECORDS SUMMARY | 2024-07-29 02:52 | External Medical Summary | Summary of Care ---
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 Name Role Phone Vanessa Hobson MD Primary Care Provider Encounter Details Date Type Department Care Team (Late st Contact Info) Description 07/28/2024 Orders Only [facility] Practice [facility] [address] [facility] [id number] [facility] [address] [facility] [address] Allergies Active Allergy Reactions Criticality Noted Date Comments Codeine 07/31/2016 Other reaction(s): Itching documented as of this encounter (statuses as of 07/28/2024) Medications Medication Sig Dispensed Refills Start Date End Date Status Aspirin 81 MG Oral Tablet Delayed Release Take by mouth daily . Active Nitroglycerin 0.4 MG Sublingual Tablet Sublingual (Nitrostat)Indications :Coronary artery disease involving little shell tribe coronary artery of little shell tribe heart without angina pectoris Place under the [...] Tablet (Lipitor)Indications:A therosclerosis of coronary artery of little shell tribe heart without angina pectoris, unspecified vessel or lesion type Take 1 Tablet by mouth daily. 90 Tablet 3 06/05/2024 Active Metoprolol Succinate ER 25 MG Oral Tablet Extended Release 24 Hour (toPROL XL)Indications:Atheros clerosis of coronary artery of little shell tribe heart without angina pectoris, unspecified vessel or lesion type Take 1 Tablet by mouth daily. 90 Tablet 3 06/05/2024 Active Etodolac 500 MG Oral TabletIndications:Prim tyson osteoarthritis of both knees Take 1 Tablet by mouth in the morning and 1 Tablet before bedtime. 60 Tablet 06/07/2024 Active Meloxicam 15 MG Oral Tablet (Mobic)Indications:Angie bandar osteoarthritis of left knee TAKE 1 TABLET BY MOUTH EVERY MORNING 30 Tablet 07/05/2024 Active documented as of this encounter (statuses as of 07/28/2024) Active Problems Problem Noted Date Diagnosed Date [...] as of this encounter (statuses as of 07/28/2024) Resolved Problems Problem Noted Date Diagnosed Date Resolved Date Body mass index (BMI) of 40. 0 to 44.9 in adult 01/12/2023 12/17/2023 Overview: Per Obesity protocol documented as of this encounter (statuses as of 07/28/2024) Immunizations Name Administration Dates Next Due HEPATITIS [...] Department Care Team (Latest Contact Info) Description 09/09/2024 11:45 AM EST Hospital Encounter ENDO [facility], Endoscopy Room [facility] [address] [id number] Amena Cruz MD [address] [place] [address] 09/09/2024 11:45 AM EST - 09/09/2024 12:15 PM EST Surgery ENDO [facility], Endoscopy Room [facility] [address] [id number] Amena Cruz MD [address] [place] [address] COLONOSCOPY FLEXIBLE PROXIMAL DIAGNOSTIC 09/23/2024 11:00 AM EST Office Visit Cardiology, [facility] [address] [address] Emil Castro MD [address] [place] [id number] 12/05/2024 3:20 PM EST Office Visit Family Practice [facility] [address] [address] Vanessa Hobson MD [address] [place] [address] Scheduled Procedures Name Priority Associated Diagnoses Date/Ti [...] Procedure Name Priority Date/Time Associated Diagnosis Comments CTA CHEST NON-CORONARY W CONTRAST Routine 07/27/2024 documented in this encounter Results * CTA CHEST NON-CORONARY W CONTRAST (07/27/2024) Anatomical Region Laterality Modality Chest, Cardio, Body Other 07/27/2024 Arturo Tripp PA-C RAD CT documented in this encounter Care Teams [employer] Mechan[employer] Helper Relationship Specialty Start Date End Date Vanessa Hobson MD [address] [facility] [place] [address] PCP - General Internal Medicine 04/17/22 documented as of this encounter
[2024-07-29 06:07] LABS: Basophils # (auto) 0.04 K/uL (0.00-0.20); Basophils % (auto) 0.5 %; Eosinophils # (auto) 0.34 K/uL (0.00-0.50); Eosinophils % (auto) 4.1 %; Hematocrit (blood only) 43.3 % (37.0-47.0); Hemoglobin 13.9 g/dl (12.0-16.0); Immature Granulocytes # (auto) 0.04 K/uL (0.01-0.20); Immature Granulocytes % (auto) 0.5 %; Lymphocytes # (auto) 1.96 K/uL (1.20-3.40); Lymphocytes % (auto) 23.4 %; Mean Corpuscular Hemoglobin 28.6 pg (25.0-34.0); Mean Corpuscular Hgb Conc 32.1 g/dL (32.0-36.0); Mean Corpuscular Volume 89.1 fL (80.0-100.0); Mean Platelet Volume 10.7 fL (9.4-12.4); Neutrophils % (auto) 65.5 %; Platelet Count 243 K/uL (130-400); RDW Coefficient of Variation 13.2 % (11.5-14.5); Red Blood Count 4.86 M/uL (4.20-5.40); White Blood Count 8.38 K/ul (4.8-10.8)
[2024-07-29 06:08] LABS: ANTI-Xa, UFH(UnfractionatedHep < 0.10 IU/ml (0.3-0.7)
[2024-07-29 06:15] LABS: Calcium 9.3 mg/dl (8.6-10.3); Est GFR (African American) 119.3 ml/min; Est GFR (Non-African American) 102.9 ml/min
[2024-07-29 08:15] VITALS: O2SAT 93
[2024-07-29] MEDS: TORSEMIDE 10 MG TAB PO SCH (08:24)
[2024-07-29] MEDS: POTASSIUM CHLORIDE 10 MEQ TABCR PO SCH (08:31)
[2024-07-29 12:06] VITALS: RESP 16; TEMP 97.5
[2024-07-29 12:08] VITALS: BP 126/78; PULSE 85
--- NOTE | 2024-07-29 13:01 | Cardiology Progress Note ---
Date of Service July 29, 2024 Assessment & Plan (1) Elevated troponin I level: (2) Chest pain: (3) Ischemic cardiomyopathy: (4) Hypertension: (5) PVCs (premature ventricular contractions): (6) ASCVD (arteriosclerotic cardiovascular disease): (7) Dyslipidemia, goal LDL below 70: (8) History of repair of patent ductus arteriosus: (9) SOB (shortness of breath): Plan Cardiac catheterization performed 07/28/2024 without evidence of obstructive CAD. Patent obtuse marginal branch vessel stent visualized. Elevated left ventricular end-diastolic pressure. Continue torsemide 10 mg daily with potassium supplementation. Schedule repeat basic metabolic panel 1 week post discharge. Meloxicam discontinued during hospitalization. Continue beta-abel, aspirin, and statin therapy as ordered. Patient stable for discharge from a cardiovascular perspective. Post cardiac catheterization activity restrictions listed below: ACTIVITY RECOMMENDATIONS: Excess manipulation of the wrist should be avoided for the next 24-48 hours. * No lifting over 2 pounds (approximately a 1/2 gallon of milk) with the utilized arm for 24 hours. * No strenuous activity such as bowling or tennis for 3 days. * Keep the site of the procedure covered with a bandage for 24 hours. *You may shower the day after the procedure. Do not take a tub bath or submerge the puncture site in water for the next 3 days. *Do not operate any motorized equipment for 3 days. SPECIAL CARE INSTRUCTIONS: The site may be slightly bruised and sore following your procedure. Should any of the following occur, contact the Dr. who performed your procedure. 1. Redness/inflammation, swelling, chills, or fever, or colored drainage at procedure site within 3-7 days after your procedure. 2. Coldness, discoloration, ongoing numbness, severe pain, or swelling. Expect mild tingling of hand and tenderness at the puncture site for up to three days. If this persists beyond three days, or other symptoms develop, notify the Dr. who performed your procedure. BLEEDING: If the procedure site on your wrist begins to bleed, do not panic 1. Place 1 or 2 fingers firmly just slightly above the insertion site to stop the bleeding. You may be able to feel your pulse as you hold pressure. 2. Lift your finger after 5 minutes to see if the bleeding has stopped. 3. Once the bleeding has stopped, gently wipe the wrist area clean with a bandage. * If the bleeding from your wrist does not stop after 10 minutes, or if there is a large amount of bleeding or spurting, call 911 (do not drive yourself to the hospital). SKIN IRRITATION: * You may experience some redness and/or swelling in the area where radiation was administered. If any skin irritation occurs, please contact your family physician. FOLLOW UP VISIT: Keep any scheduled doctor appointments. Admission and Anticipated Discharge Date Admission Date: July 27, 2024 Subjective Patient seen and examined at the bedside. Feeling better today. Intermittent chest pressure unchanged. No palpitations. Denies orthopnea or PND. Requesting discharge. Review of Systems Review of Systems: All systems reviewed & are unremarkable except as noted in Subjective Physical Exam Constitutional: well nourished and + obese; no acute distress Respiratory: no respiratory distress and no labored breathing Auscultation: no crackles, no rales, no rhonchi and no wheezes Cardiovascular: Rate/Rhythm: regular rate and regular rhythm Heart Sounds: normal S1 and normal S2; no murmur Vessels: femoral pulses present and radial pulses present; no JVD and no carotid bruit Extremities: no edema Gastrointestinal (Abdomen): Inspection/Auscultation: normal bowel sounds; abdomen not distended Percussion/Palpation: abdomen nontender, no guarding and abdomen not rigid Neurologic: CN's II-XI intact bilaterally and moves all extremities; no focal motor deficits Results & Data Vital Signs (Past 12 Hours) Vital Signs Temp Pulse Pulse Pulse Resp BP BP 07/29/24 12:06 36.4 C L 79 85 16 126/78 109/67 07/29/24 12:04 36.4 C L 79 16 109/67 07/29/24 08:14 36.3 C L 77 18 119/81 07/29/24 07:24 82 07/29/24 02:57 36.5 C 81 14 126/78 Pulse Ox O2 Del Method 07/29/24 12:06 93 07/29/24 12:04 93 Room Air 07/29/24 08:14 93 Room Air 07/29/24 07:24 07/29/24 02:57 92 Room Air Laboratory Results Cardiac Enzymes 07/28/24 Range/Units 20:27 Troponin I High Sens 12.2 (0-14) pg/ml CBC 07/29/24 Range/Units 05:32 WBC 8.38 (4.8-10.8) K/ul RBC 4.86 (4.20-5.40) M/uL Hgb 13.9 (12.0-16.0) g/dl Hct 43.3 (37.0-47.0) % Plt Count 243 (130-400) K/uL Neut # (Auto) 5.50 (1.40-6.50) K/uL Lymph # (Auto) 1.96 (1.20-3.40) K/uL [place] # (Auto) 0.50 (0.11-0.59) K/uL Eos # (Auto) 0.34 (0.00-0.50) K/uL Baso # (Auto) 0.04 (0.00-0.20) K/uL Comprehensive Metabolic Panel 07/29/24 Range/Units 05:32 Sodium 137 (136-145) mmol/L Potassium 4.0 (3.5-5.1) mmol/L Chloride 103 (98-107) mmol/L Carbon Dioxide 28 (21-32) mmol/L BUN 18 (6-23) mg/dl Creatinine 0.62 (0.6-1.2) mg/dl Glucose 172 H (70-99(Fasting)) mg/dl Calcium 9.3 (8.6-10.3) mg/dl Intake and Output 07/28/24 07/29/24 07/29/24 22:59 06:59 14:59 Intake Total 476.667 / 925.417 250 / 925.417 Balance 476.667 / 925.417 250 / 925.417 Intake: IV 176.667 / 375.417 Heparin Sodium/Dextrose 25,000 0 / 198.75 units In 500 ml @ 0 UNITS/HR IV .Q0M LIBBY Rx#:[id number] Magnesium Sulfate / D5w 1 gm In 176.667 / 176.667 100 ml @ 50 mls/hr IV Q2H LIBBY Rx#:[id number] Oral 300 / 550 250 / 550 Other: # Unmeasured Voids 3 3 Weight 104.8 kg 104.8 kg Weight Measurement Method Built in [facility] Patient Weight 07/30/24 06:59 Weight 104.8 kg (2) Chest pain Chest pain type: unspecified Qualified Code(s): R07.9 - Chest pain, unspecified (4) Hypertension Hypertension type: unspecified Qualified Code(s): I10 - Essential (primary) hypertension
--- NOTE | 2024-07-29 13:13 | Discharge Summary ---
Date of Service July 29, 2024 Admission HPI Per Admitting Provider This is a 53-year-old female who has a significant past medical history of CAD, HTN, HLD, T2DM ED deficiency, vitamin B12 deficiency morbid obesity who presents to ED in setting of chest pain. She currently has a ZIO patch in place. It is to be removed today. She has had it in place for 1 week. She had 3 episodes of chest pain since having this placed. She is unsure why she has the patch on. She thinks its due to her upcoming knee surgery. On Thursday and Thursday night she experienced chest pain, dizziness and SOB. She described the chest pain as an, "elephant on her chest." She felt dizzy and she felt SOB going up her steps which never occurs. Thursday night her sx started when she laid in bed. She also had numbness/tingling in Left arm and leg. Sx lasted 10p-8a. She had sx that started last night before she went to bed and she was just sitting watching tv. She had associated numbness/tingling to L hand. She again had the substernal chest heaviness and SOB. Her sx were relieved when she took a nitro, but this resulted in a headache. She denies and f/c/s, lightheaded, cough, hemoptysis, n/v or abd pain. She does have IBS with intermittent constipation/diarrhea. She denies any recent change in meds. She reports last September she decided she wasn't taking anymore medications so she stopped them all. Since then she has returned to taking some. She denies hx of GERD/refux. Her sx reciprocate the sx when she required a stent. She denies prior hx of HTN and states she only had it when she was . "I'm not a doctor, but I know I have another blockage." During our evaluation her sx have improved but she still reports some chest heaviness and headache. The headache came after the nitroglycerin. She follows with [facility]. She has underlying hx of CAD with NSTEMI in 2017 s/p AUNDREA to circumflex obtuse marginal in 2017, single vessel disease. She had a repeat cardiac cath at [facility] in [place], [place] which revealed a patent stent w/o obstruction. Her last echo was 08/24/22 which revealed EF 55-60%, small sized posterior wall motion abnormality with hypokinesis of segments. She is former smoker and quite 20 years ago. She rarely uses alcohol and denies any drug use. Admission Exam Per Admitting Provider Vitals signs as noted above General Appearance:Obese, no apparent distress Head: normocephalic, Atraumatic Eyes: normal inspection, EOMI Neck: supple, Trachea midline Respiratory/Chest: Normal breath sounds, CTA, Zio monitor, No accessory muscle use Cardiovascular: S1, S2, No murmur Abdomen/GI:Soft, Non tender, Bowel sounds present Extremities/Musculoskeletal:normal inspection, no edema Neurologic/Psych:AAOX3, grossly no focal neurological deficits Skin: normal color, warm Principal Diagnosis Chest pain, ACS ruled out Possible GERD Possible MSK related Discharge Exam Constitutional: WD/WN, vitals as above, NAD, sitting up in bed, pleasant, conversing easily Respiratory: normal respiratory effort, lungs clear to auscultation, no wheeze, rales, rhonchi. Normal insp/exp effort, no accessory muscle use Cardiovascular: RRR, no murmur, no edema Vessels: no JVD or carotid bruit Chest: normal inspection of chest Abdomen: normal bowel sounds, soft, nontender, no hepatosplenomegaly Musculoskeletal: no cyanosis or clubbing, extremities motor strength 5/5 Skin: no rashes, warm and dry normal turgor Neurologic: PERRL, EOMI, accommodation nl, no face palsy, no dysarthria CN's II- XI intact bilaterally and moves all extremities Psychiatric: A+Ox3, euthymic affect Discharge Data Allergies Allergy/AdvReac Type Severity Reaction Status Date / Time No Known Allergies Allergy Unverified 07/11/15 12:32 Consultations 07/27/24 10:01 ED Decision to Admit Stat 07/27/24 10:26 Consult Cardiology Routine Procedures Performed Operation Date: 07/28/24 15:00 Actual Procedures p Cineradiography w/Routine Exam - DO elmira Wilburn Cath, Left with Cors and Vent(Right) - DO elmira Wilburn Aortogram, Thoracic - Stalin Guevara DO Ordered Studies 07/27/24 15:42 CT angio chest PE protocol Routine 07/28/24 11:15 CL Cath Imgs for PACS use only Routine 07/28/24 20:01 CT head/brain wo con Stat Hospital Course (1) Chest pain: Plan Chest Pain CAD with hx of 1 aundrea and single vessel disease to circumflex obtuse marginal in 2016, repeat cath in 2020 revealed patent stent Patient presents with repeated episode of chest pain High sensitive troponin 10.5 on admission; with flat trend Chest x-ray personally reviewedno acute finding CTA chestno PE, aortic aneurysm or dissection or pulmonary parenchymal abnormality. EKG showed normal sinus rhythm; no ST or T wave changes Echocardiogram showed EF of 50 to 55% with mild concentric LVH. Moderate sized inferior, posterior and lateral wall abnormality. Patient underwent left heart cath by cardiology; was found to have patent stent and no other significant findings. Patient chest pain was thought secondary due to MSK origin or GERD. She was started on Protonix. Patient reported improvement of pain at the time of the discharge. Her metoprolol frequency was increased and torsemide 10 mg was added to her medication regimen. Patient to follow-up with PCP and obtain BMP in 1 week. Please note the above document was generated using voice recognition software. It may contain grammatical, syntax or spelling errors. Any formal questions or concerns about the content, text or information contained within the body of this dictation should be directly addressed to the provider for clarification Total Time Total Time Spent Total Time Spent (In Minutes): 45 Total Time Includes: Examination of the Patient, Discharge Planning, Medication Reconciliation, Communication With Other Providers and Other Discharge Plan Discharge Items Patient Disposition: Home - Self-Care Reason For Visit: HX OF CAD, CHEST PAIN, ACS R/O Discharge Diagnosis: Chest pain, ACS rule out Likely GERD or MSK Activity: Resume your previous activity Non-emergency contact: Primary Care Provider Call non-emergency contact if: you have any medication questions and your symptoms worsen Follow-up/Referrals: Vanessa Hobson MD [Primary Care Provider] - 08/03/24 11:00 am (Date & Time 08/03/2024 11:00 AM Provider Vanessa Hobson MD Department Family Practice [facility] ) Emil Castro MD [Physician] - 09/23/24 11:00 am (Date & Time 09/23/2024 11:00 AM Provider Emil Castro MD Department Cardiology, [facility] ) Diet: Regular Addtl Attending Provider Instructions: You were admitted to the hospital due to chest pain. You underwent evaluation with CT of the chest which did not show any acute findings. You also underwent evaluation with left heart cath by cardiology; no significant findings were seen. The chest pain is likely related coming from musculoskeletal area or reflux. You are prescribed Protonix 40 mg once a day. Pending Studies at Discharge: No Stand-Alone Forms: My [facility], Work/School Release, Smoking Cessation Medications and DC Order Prescriptions: New pantoprazole 40 mg Tablet,Delayed Release (Dr/Ec) 40 mg PO QAM Qty: 30 0RF metoprolol succinate 25 mg Tablet Extended Release 24 Hr 25 mg PO BID Qty: 60 0RF torsemide 10 mg tablet 10 mg PO DAILY Qty: 30 0RF Continued atorvastatin 40 mg tablet 40 mg PO QAM gabapentin 800 mg tablet 800 mg PO TID PRN (Reason: Pain (Scale Score 7-10)) trazodone 150 mg tablet 150 mg PO DAILY metformin 500 mg tablet extended release 24 hr 1,000 mg PO DAILY cyclobenzaprine 5 mg tablet 10 mg PO QID PRN (Reason: Muscle Spasm) aspirin 81 mg Tablet,Chewable 81 mg PO DAILY ibuprofen 800 mg tablet 800 mg PO BID PRN (Reason: Pain (Scale Score 1-3)) Discontinued metoprolol succinate 25 mg tablet extended release 24 hr 25 mg PO DAILY meloxicam 15 mg tablet 15 mg PO DAILY Discharge Orders: Discharge Order (Routine); Ordered 07/29/24 Ordered By: Dave Maxwell/Other Patient Handouts: Managing Type 2 Diabetes Admission Data Admit Date/Time: 07/27/24 10:26 Attending Provider: Dave Vides Admit Provider: Zain Hardy Primary Care Provider: Vanessa Hobson Other Providers: Stalin Guevara; Zain Hardy Other Interventions: Discharge Summary Assessment (RN) Last Done: 07/29/24 12:58
--- NOTE | 2024-07-29 20:24 | Electrocardiogram Report ---
Test Reason : Blood Pressure : */* mmHG Vent. Rate : 79 BPM Atrial Rate : 79 BPM P-R Int : 144 ms QRS Dur : 98 ms QT Int : 412 ms P-R-T Axes : 72 -4 74 degrees QTcB Int : 472 ms Normal sinus rhythm Possible Left atrial enlargement Inferior infarct (cited on or before 29-Jun-2022) Abnormal ECG When compared with ECG of 28-Jul-2024 07:59, Nonspecific T wave abnormality is no longer Present Confirmed by Yazan No ([id number]) on 07/29/2024 8:24:26 PM Referred By: REFERRED SELF Confirmed By: Yazan No
--- NOTE | 2024-07-29 20:25 | Electrocardiogram Report ---
Test Reason : Blood Pressure : */* mmHG Vent. Rate : 75 BPM Atrial Rate : 75 BPM P-R Int : 146 ms QRS Dur : 98 ms QT Int : 420 ms P-R-T Axes : 84 -5 87 degrees QTcB Int : 469 ms Normal sinus rhythm Inferior infarct (cited on or before 29-Jun-2022) Nonspecific T wave abnormality Abnormal ECG When compared with ECG of 28-Jul-2024 20:20, Nonspecific T wave abnormality is now Present Confirmed by Yazan No ([id number]) on 07/29/2024 8:25:12 PM Referred By: REFERRED SELF Confirmed By: Yazan No
--- OUTSIDE RECORDS SUMMARY | 2024-07-29 22:50 | External Medical Summary | Summary of Care ---
Author Name Unknown Organization [facility] Address [address] [place] [address] Phone [phone] Care Team Providers Care Acute Coordinator Name Role Phone Jose Guadalupe Ramirez MD Primary Care Provider Reason for Visit * Reason Onset Date Comments Medication Refill 07/26/2024 Encounter Details Date Type Department Care Team (Late st Contact Info) Description 07/26/2024 Refill Family Practice [facility] [address] [place] [address] Jose Guadalupe Ramirez MD [address] [place] [address] Lumbar spondylolysis Allergies Active Allergy Reactions Criticality Noted Date Comments Codeine 07/31/2016 Other reaction(s): Itching documented as of this encounter (statuses as of 07/28/2024) Medications Medication Sig Dispensed Refills Start Date End Date Status Aspirin 81 MG Oral Tablet Delayed Release Take by mouth daily . Active Nitroglycerin 0.4 MG Sublingual Tablet Sublingual (Nitrostat)Indicatio ns:Coronary artery disease involving [place] coronary artery of [place] heart without angina pectoris Place under the tongue 1 Tablet every 5 minutes as needed for Pain, Chest. 25 Tablet 5 07/03/2022 Active metFORMIN HCl ER 500 MG Oral Tablet Extended Release 24 Hour (Glucophage XR)Indications:Type 2 diabetes mellitus with hemoglobin A1c goal of less than 7.0% (HCC) Take 2 Tablets by mouth in the morning. 180 Tablet 3 06/05/2024 Active Atorvastatin Calcium 40 MG Oral Tablet (Lipitor)Indications :Atherosclerosis of coronary artery of [place] heart without angina pectoris, unspecified vessel or lesion type Take 1 Tablet by mouth daily. 90 Tablet 3 06/05/2024 Active Metoprolol Succinate ER 25 MG Oral Tablet Extended Release 24 Hour (toPROL XL)Indications:Ather osclerosis of coronary artery of [place] heart without angina pectoris, unspecified vessel or lesion type Take 1 Tablet by mouth daily. 90 Tablet 3 06/05/2024 Active Etodolac 500 MG Oral TabletIndications:Pr imary osteoarthritis of both knees Take 1 Tablet by mouth in the morning and 1 Tablet before bedtime. 60 Tablet 06/07/2024 Active Meloxicam 15 MG Oral Tablet (Mobic)Indications:P rimary osteoarthritis of left knee TAKE 1 TABLET BY MOUTH EVERY MORNING 30 Tablet 07/05/2024 Active Cyclobenzaprine HCl 10 MG Oral Tablet (Flexeril)Indication s:Lumbar spondylolysis Take 1 Tablet by mouth in the morning and 1 Tablet at noon and 1 Tablet before bedtime. 90 Tablet 4 07/28/2024 Active Cyclobenzaprine HCl 10 MG Oral Tablet (Flexeril)Indication s:Lumbar spondylolysis Take 1 Tablet by mouth in the morning and 1 Tablet at noon and 1 Tablet before bedtime. 90 Tablet 4 04/05/2024 4 Discontinue d(Refill) Gabapentin 800 MG Oral Tablet (Neurontin)Indicatio ns:Chronic bilateral low back pain with sciatica, sciatica laterality unspecified TAKE ONE TABLET BY MOUTH EVERY MORNING, AT NOON, AND BEFORE BEDTIME 270 Tablet 1 04/05/2024 4 Discontinue d(Refill) documented as of this encounter [...] No 08/26/2023 Does the household have a [facility] source [facility] income? (Household - for [...] Notes * Telephone Encounter - Jose Guadalupe Ramirez MD - 07/28/2024 6:32 PM EDT Signed Prescriptions: Disp Refills Cyclobenzaprine HCl 10 MG Oral Tablet (Fle*90 Tab*4 Sig: Take 1 Tablet by mouth in the morning and 1 Tablet at noon and 1 Tablet before bedtime. Authorizing Provider: JOSE GUADALUPE RAMIREZ * Telephone Encounter - Paola Barrera LPN - 07/28/2024 7:54 AM EDTPending Prescriptions: Disp Refills Cyclobenzaprine HCl 10 MG Oral Tablet (Fle*90 Tab*4 Sig: Take 1 Tablet by mouth in the morning and 1 Tablet at noon and 1 Tablet before bedtime. * Telephone Encounter - Paola Barrera LPN - 07/28/2024 7:53 AM EDT Did you pend patient's preferred pharmacy and medication before forwarding?yes Pharmacy: [facility] [id number] Pending Prescriptions: Disp Refills Cyclobenzaprine HCl 10 MG Oral Tablet (Fl*90 Tab*4 Sig: Take 1 Tablet by mouth in the morning and 1 Tablet at noon and 1 Tablet before bedtime. Last Visit: 06/01/2024 (in office), Visit date not found (telemedicine) Next Visit: 12/05/2024 If no future appointments scheduled, and last appointment is greater than a year ago, please schedule patient for a follow-up appointment Last date the medication was ordered: 04/05/24 Is this request for a controlled substance?No Urine Drug Screen:No results found for this or any previous visit. Patient Phone Numbers Labs: Lab Results Component Value Date/Time CREAT 0.8 06/01/2024 04:18 PM CREAT 0.54 (A) 08/22/2022 12:00 AM CREAT 0.44 03/26/2022 05:22 PM POTASSIUM 4.2 06/01/2024 04:18 PM POTASSIUM 4.0 08/22/2022 12:00 AM POTASSIUM 3.4 (L) 03/26/2022 05:22 PM TSH 1.19 11/25/2023 03:15 PM LDL 152 (H) 06/01/2024 04:18 PM LDL 104 11/25/2023 03:15 PM ALT 11 06/01/2024 04:18 PM HGBA1C 8.1 (H) 06/01/2024 04:18 PM HGBA1C 6.4 (H) 03/10/2022 08:58 AM * Telephone Encounter - Kristel Lee - 07/27/2024 10:24 PM EDTPending Prescriptions: Disp Refills Cyclobenzaprine HCl 10 MG Oral Tablet (Fle*90 Tab*4 Sig: Take 1 Tablet by mouth in the morning and 1 Tablet at noon and 1 Tablet before bedtime. documented in this encounter Plan of Treatment Upcoming Encounters Date Type Department Care Team (Latest Contact Info) Description 09/09/2024 11:45 AM EST Hospital Encounter ENDO [facility], Endoscopy Room [facility] [address] [facility] [place] [phone] Amena Cruz MD [address] [place] [id number] 09/09/2024 11:45 AM EST - 09/09/2024 12:15 PM EST Surgery ENDO [facility], Endoscopy Room [facility] [address] [place] [phone] Amena Cruz MD [address] [place] [address] COLONOSCOPY FLEXIBLE PROXIMAL DIAGNOSTIC 09/23/2024 11:00 AM EST Office Visit Cardiology, [facility] [address] [place] [address] Emil Castro MD [address] [facility] [place] [id number] 12/05/2024 3:20 PM EST Office Visit Family Practice [facility] [address] [place] [address] Jose Guadalupe Ramirez MD [address] [facility] [place] [address] Scheduled Procedures Name Priority Associated Diagnoses Date/Ti [...] as of this encounter Visit Diagnoses Diagnosis Lumbar spondylolysis Acquired spondylolisthesis Screening for colon cancer Special screening for malignant neoplasms, colon documented in this encounter Care Teams Acute Coordinator Relationship Specialty Start Date End Date Jose Guadalupe Ramirez MD [address] [place] [address] PCP - General Internal Medicine 04/17/22 documented as of this encounter
--- OUTSIDE RECORDS SUMMARY | 2024-07-29 22:50 | External Medical Summary | Summary of Care ---
Author Name Unknown Organization [facility] Address [address] [place] [address] Phone [phone] Care Team Providers Care Skein Yarn Drier Name Role Phone Jose Guadalupe Ramirez MD Primary Care Provider Reason for Visit * Reason Onset Date Comments Medication Refill 07/26/2024 Encounter Details Date Type Department Care Team (Late st Contact Info) Description 07/26/2024 Refill Family Practice [facility] [address] [facility] [place] [address] Jose Guadalupe Ramirez MD [address] [facility] [place] [place] [address] Chronic bilateral low back pain with sciatica, [...] Tablet Sublingual (Nitrostat)Indicatio ns:Coronary artery disease involving [place] coronary artery of [place] heart without angina pectoris Place under the tongue 1 Tablet every 5 minutes as needed for Pain, Chest. 25 Tablet 5 07/03/2022 Active metFORMIN HCl ER 500 MG Oral Tablet Extended Release 24 Hour (Glucophage XR)Indications:Type 2 diabetes mellitus with hemoglobin A1c goal of less than 7.0% ([facility]) Take 2 Tablets by mouth in the morning. 180 Tablet 3 06/05/2024 Active Atorvastatin Calcium 40 MG Oral Tablet (Lipitor)Indications :Atherosclerosis of coronary artery of [place] heart without angina pectoris, unspecified vessel or lesion type Take 1 Tablet by mouth daily. 90 Tablet 3 06/05/2024 Active Metoprolol Succinate ER 25 MG Oral Tablet Extended Release 24 Hour (toPROL XL)Indications:Ather osclerosis of coronary artery of [place] heart without angina pectoris, unspecified vessel or [...] MOUTH EVERY MORNING 30 Tablet 07/05/2024 Active Gabapentin 800 MG Oral Tablet (Neurontin)Indicatio ns:Chronic bilateral low back pain with sciatica, sciatica laterality unspecified TAKE ONE TABLET BY MOUTH EVERY MORNING, AT NOON, AND BEFORE BEDTIME 270 Tablet 1 07/28/2024 Active Cyclobenzaprine HCl 10 MG Oral [...] 6:32 PM EDT Signed Prescriptions: Disp Refills Gabapentin 800 MG Oral Tablet (Neurontin) 270 Ta*1 Sig: TAKE ONE TABLET BY MOUTH EVERY MORNING, AT NOON, AND BEFORE BEDTIME Authorizing Provider: JOSE GUADALUPE RAMIREZ * Telephone Encounter - Roxie Bang LPN - 07/27/2024 8:53 AM EDTPending Prescriptions: Disp Refills Gabapentin 800 MG Oral Tablet (Neurontin) 270 Ta*1 Sig: TAKE ONE TABLET BY MOUTH EVERY MORNING, AT NOON, AND BEFORE BEDTIME * Telephone Encounter - Roxie Bang LPN - 07/27/2024 8:52 AM EDT Did you pend patient's preferred pharmacy and medication before forwarding?yes Pharmacy: [facility] [id number] Pending Prescriptions: Disp Refills Gabapentin 800 MG Oral Tablet (Neurontin) 270 Ta*1 Sig: TAKE ONE TABLET BY MOUTH EVERY MORNING, AT NOON, AND BEFORE BEDTIME Last Visit: 06/01/2024 (in office), Visit date not found (telemedicine) Next Visit: 12/05/2024 If no future appointments scheduled, and last appointment is greater than a year ago, please schedule patient for a follow-up appointment Last date the medication was ordered: 04/05/2024 Is this request for a controlled substance?No [...] Telephone Encounter - Kristel Lee - 07/27/2024 5:00 AM EDTPending Prescriptions: Disp Refills Gabapentin 800 MG Oral Tablet (Neurontin) 270 Ta*1 Sig: TAKE ONE TABLET BY MOUTH EVERY MORNING, AT NOON, AND BEFORE BEDTIME documented in this encounter Plan of Treatment Upcoming Encounters Date Type Department Care Team (Latest Contact Info) Description 09/09/2024 11:45 AM EST Hospital Encounter ENDO [facility], Endoscopy Room [facility] [address] [facility] [place] [phone] Amena Cruz MD [address] [place] [address] 09/09/2024 11:45 AM EST - 09/09/2024 12:15 PM EST Surgery ENDO [facility], Endoscopy Room [facility] [address] [facility] [place] [phone] Amena Cruz MD [address] [place] [address] COLONOSCOPY FLEXIBLE PROXIMAL DIAGNOSTIC 09/23/2024 11:00 AM EST Office Visit Cardiology, [facility] [address] [place] [address] Emil Castro MD [address] [place] [address] 12/05/2024 3:20 PM EST Office Visit Family Practice [facility] [address] [place] [address] Jose Guadalupe Ramirez MD [address] [place] [address] Scheduled Procedures Name Priority Associated Diagnoses Date/Ti [...] as of this encounter Visit Diagnoses Diagnosis Chronic bilateral low back pain with sciatica, sciatica laterality unspecified Screening for colon cancer Special screening for malignant neoplasms, colon documented in this encounter Care Teams Skein Yarn Drier Relationship Specialty Start Date End Date Jose Guadalupe Ramirez MD [address] [place] [address] PCP - General Internal Medicine 04/17/22 documented as of this encounter
== END 2024-07-29 13:04 | disposition home or self-care (01) ==
LOC: ED 08:07 → 2S 08:07 → SUATTDRO 10:26 → 2S 14:22
PROC: CLB.ATH (2024-07-28 15:00)

== ENCOUNTER 2025-05-06 14:34 | Observation (INO) ==
--- NOTE | 2025-05-06 15:24 | Emergency Department Note ---
Impression & Plan Body aches, Acute UTI (urinary tract infection), Headache, Leukocytosis, Intractable pain, Hypomagnesemia ED Provider Note HISTORY OF PRESENT ILLNESS: Is a 54-year-old female presenting with generalized bodyaches and poor oral intake. Patient reports that her entire body hurts and she has been unable to eat or drink anything for the last 3 days. Reports that 3 days ago she had nausea and multiple episodes of vomiting and diarrhea. She reports that since that time, she has been unable to tolerate any solid or liquid intake secondary to feeling nauseous and feeling generally unwell. She reports some slight shortness of breath but denies any chest pain. Denies any recent fevers. Denies any recent sick contact exposures. Denies any known tick bites or rashes. She reports she feels very weak and is unable to do her daily activities. Denies any abdominal pain. Denies any dysuria or hematuria. ROS: as above PHYSICAL EXAM: Constitutional: Patient appears in no acute distress. HENT: Head: Normocephalic and atraumatic. Eyes: EOMI, PERRL Mouth/Throat: Mucous membranes dry. Neck: Trachea midline. Neck supple. Cardiovascular: RRR, No murmurs, rubs or gallops. Intact distal pulses. Pulmonary/Chest: No respiratory distress. Breath sounds clear and equal bilaterally. No wheezes or rales. Abdominal: Abdomen soft, no tenderness, rebound or guarding. Musculoskeletal: No edema, tenderness or deformity noted. Skin: Warm and dry. No rash, erythema, pallor or cyanosis Psychiatric: Appropriate mood and affect for situation. Neurological: Alert and keenly responsive. CN II-XII grossly intact, moving all extremities equally and fully. MDM: - Vitals signs showed hypotension - History obtained via patient. History as above. - Chronic conditions affecting care: HLD; CAD; HTN; ischemic cardiomyopathy; depression; DM-2; obesity; TRINIDAD - Differential diagnoses include, but are not limited to: pneumonia; viral syndrome; UTI; tick borne illness; dehydration; electrolyte abnormality - Order placed for continuous cardiac monitoring. At this time, monitor showed rate of 75 bpm with normal sinus rhythm, per my interpretation. - External medical records reviewed. Discharge summary dated 04/20/2025 was reviewed. Patient was admitted for chest pain and neck pain at that time. - EKG image that was obtained at 1449 interpreted by myself showed normal sinus rhythm. Rate 92 bpm. QT 394. No acute ischemic changes. - Laboratory workup interpreted by myself showed leukocytosis (WBC 11.42); normal PT/INR' stable electrolytes other than hypomagnesemia (Mg 1.5); hyperglycemia (glucose 182); normal procalcitonin; normal troponin; normal lactate - Lyme, anaplasmosis and babesia negative - Patient began complaining of chest pain in the emergency department. Repeat EKG obtained at 1621 was obtained. EKG image interpreted by myself showed normal sinus rhythm. Rate 72 bpm. QT 416. No acute ischemic changes. She has noted to have some T wave inversions in her lateral leads. - Blood cultures obtained - Patient given 1g IV magnesium for electrolyte replacement. Given 1g IV tylenol and 4 mg IV zofran on arrival. Given 1 L normal saline. On reassessment, the patient is still complaining of diffuse significant pain. She given 50 mg IV Toradol. However, about an hour later she is still complaining of pain symptoms. - UA shows evidence of infection. Given 2g IV rocephin - CXR image reviewed by myself is negative for pneumonia, per my interpretation. - CT head wo contrast negative for acute intracranial pathology - Given a second 1L NS. - Patient's sepsis fluid volume calculation based on ideal body weight is 1431.60 mL. - Patient given 4 mg IV morphine for her continued complaints of diffuse pain. - Discussion was had with patient case coordinator about patient's case and need for admission - Hospitalist consulted for admission. - [facility] ASSESSMENT AND PLAN: Diagnosis: body aches; acute UTI; headache; leukocytosis; intractable pain; hypomagnesemia Plan: admit Past Med/Surg History Problem List Hypomagnesemia (Acute) Intractable pain (Acute) Leukocytosis (Acute) Headache (Acute) Acute UTI (urinary tract infection) (Acute) Body aches (Acute) Neck pain NSVT (nonsustained ventricular tachycardia) Hypokalemia (Acute) Hypomagnesemia (Acute) History of HI (myocardial infarction) (Acute) Body aches (Acute) Elevated troponin (Acute) Precordial chest pain (Acute) Elevated troponin I level Chest pain (Acute) SOB (shortness of breath) History of repair of patent ductus arteriosus Dyslipidemia, goal LDL below 70 ASCVD (arteriosclerotic cardiovascular disease) PVCs (premature ventricular contractions) (Acute) Morbid obesity Atypical chest pain S/P cervical spinal fusion Vertigo Encephalopathy Hypertension (Acute) CAD (coronary artery disease) HLD (hyperlipidemia) Diabetes Dizziness (Acute) Arm paresthesia, left (Acute) Nystagmus (Acute) Vomiting and diarrhea (Acute) Tendonitis (Chronic) Abdominal pain (Acute) Environmental allergies (Chronic) History of hysterectomy (Chronic) "with bilateral oophorectomy" Medical History Ischemic cardiomyopathy Depression Surgical History S/P repair of patent ductus arteriosus "age 7" S/P tubal ligation Family History Mother Cancer Diabetes Grandmother (Maternal) Stroke Aunt Cancer Aunt Cancer Stroke Social History Smoking Status: Never smoker Second Hand Exposure: No; Do You Dip or Chew Tobacco: No; Hx Alcohol Use: Yes Alcohol type: beer Hx Substance Use: No Preferred Language: Swedish Communication Ability: Effective 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5 mg PO DAILY 04/15/25 05/06/25 metformin 500 mg tablet,extended 1,000 mg PO BID 04/15/25 05/06/25 release 24 hr metoprolol succinate 50 mg 50 mg PO DAILY 04/15/25 05/06/25 tablet,extended release 24 hr pantoprazole 40 mg tablet,delayed 40 mg PO DAILY 04/15/25 05/06/25 release rosuvastatin 20 mg tablet 20 mg PO DAILY 04/15/25 05/06/25 venlafaxine 75 mg capsule,extended 75 mg PO DAILY 04/15/25 05/06/25 release 24 hr semaglutide 0.25 mg or 0.5 mg (2 0 mg subcut WK 05/06/25 05/06/25 mg/3 mL) subcutaneous pen injector (Ozempic) Previous Rx's Medication Instructions Recorded acetaminophen 325 mg tablet 650 mg (2 x 325 mg) PO Q4H PRN 04/20/25 pain #30 tabs amlodipine 5 mg tablet (Norvasc) 5 mg PO QAM #30 tabs 04/20/25 meloxicam 15 mg tablet 15 mg PO DAILY #10 tabs 04/20/25 oxycodone 5 mg tablet 5 mg PO Q8H PRN pain #10 tabs 04/20/25 Results & Data (ED) Vital Signs Vital Signs - 24 hr 05/06/25 14:38 05/06/25 15:44 05/06/25 16:17 Temperature 35.9 C L Temperature Source Temporal Artery Scan Pulse Rate 88 75 Pulse Rate [Apical] 75 Respiratory Rate 18 16 Respiratory Effort / Characteristics Non-Labored Spontaneous Respiratory Depth Normal Blood Pressure 91/64 L Blood Pressure [Right Arm] 106/67 Blood Pressure Mean 73 Blood Pressure Mean [Right Arm] 80 Blood Pressure Position Sitting Pulse Oximetry 98 96 Oxygen Delivery Method Room Air Room Air Sepsis Recent Fever Within 48 Hours No Sepsis New/Unexplained Change in Mental Status N/A Sepsis Action Taken by Nursing No Action Required 05/06/25 17:00 Temperature Temperature Source Pulse Rate Pulse Rate [Apical] 75 Respiratory Rate 16 Respiratory Effort / Characteristics Non-Labored Spontaneous Respiratory Depth Blood Pressure Blood Pressure [Right Arm] 107/66 Blood Pressure Mean Blood Pressure Mean [Right Arm] 79 Blood Pressure Position Pulse Oximetry 97 Oxygen Delivery Method Room Air Sepsis Recent Fever Within 48 Hours Sepsis New/Unexplained Change in Mental Status Sepsis Action Taken by Nursing Laboratory Data 05/06/25 14:53 05/06/25 16:42 Lab Results 07/05/25 07/05/25 07/05/25 Range/Units 14:53 15:00 15:41 WBC 11.42 H (4.8-10.8) K/ul RBC 5.31 (4.20-5.40) M/uL Hgb 15.2 (12.0-16.0) g/dl Hct 46.4 (37.0-47.0) % MCV 87.4 (80.0-100.0) fL MCH 28.6 (25.0-34.0) pg MCHC 32.8 (32.0-36.0) g/dL RDW Std Deviation 41.7 (36.4-46.3) fL RDW Coeff of [place] 13.2 (11.5-14.5) % Plt Count 369 (130-400) K/uL MPV 11.3 (9.4-12.4) fL Immature Gran % (Auto) 0.6 % Neut % (Auto) 70.7 % Lymph % (Auto) 21.5 % [place] % (Auto) 5.6 % Eos % (Auto) 1.2 % Baso % (Auto) 0.4 % Neut # (Auto) 8.07 H (1.40-6.50) K/uL Lymph # (Auto) 2.45 (1.20-3.40) K/uL [place] # (Auto) 0.64 H (0.11-0.59) K/uL Eos # (Auto) 0.14 (0.00-0.50) K/uL Baso # (Auto) 0.05 (0.00-0.20) K/uL Immature Gran # (Auto) 0.07 (0.01-0.20) K/uL PT 10.6 (9.0-12.0) Seconds INR 1.0 (0.9-1.1) APTT 24 (21-31) Seconds PTT Ratio 0.9 Sodium 136 (136-145) mmol/L Potassium TNP Chloride 102 (98-107) mmol/L Carbon Dioxide 24 (21-32) mmol/L Anion Gap 10 (3-11) BUN 25 H (6-23) mg/dl Creatinine 0.85 (0.6-1.2) mg/dl Est Cr Clr Drug Dosing 80.3 ml/min eGFR 81.36 BUN/Creatinine Ratio 29.4 H (10-20) Glucose 182 H (70-99(Fasting)) mg/dl Lactate 1.7 (0.4-2.0) mmol/L Calcium 9.7 (8.6-10.3) mg/dl Magnesium 1.5 L (1.7-2.4) mg/dl Total Bilirubin 1.8 H (0.2-1.0) mg/dl AST TNP ALT 12 (7-52) U/L Alkaline Phosphatase 109 H (34-104) U/L Troponin I High Sens 10.0 (0-14) pg/ml Total Protein 8.4 H (6.0-8.3) gm/dl Albumin 4.7 (3.4-5.0) gm/dl Globulin 3.7 (2.5-4.0) gm/dl Albumin/Globulin Ratio 1.3 (0.9-2) Procalcitonin 0.06 (0-0.5) ng/ml Urine Color Dark Yellow Urine Appearance Cloudy A (Clear) Urine pH 6.5 (4.5-7.5) Ur Specific [place] 1.030 (1.000-1.030) Urine Protein 3+ H (Negative) Urine Glucose (UA) Trace H (Negative) Urine Ketones 1+ H (Negative) Urine Blood Negative (Negative) Urine Nitrite Negative (Negative) Urine Bilirubin 2+ H (Negative) Urine Urobilinogen Negative (Negative) Ur Leukocyte Esterase Trace H (Negative) Urine WBC (Auto) 11-20 H (0-5) /hpf Urine RBC (Auto) 0-2 (0-2) /hpf U Hyaline Cast (Auto) >20 H (0-2) /lpf U Epithel Cells (Auto) 11-20 H (0-2) /hpf Urine Bacteria (Auto) 4+ H (None Seen) Hyaline Casts Present A (None Presnt) /lpf Urine Comment Anaplasma Smear See Comment Babesia Smear See Comment Lyme Disease Screen Negative (Negative) 05/06/25 Range/Units 16:42 WBC (4.8-10.8) K/ul RBC (4.20-5.40) M/uL Hgb (12.0-16.0) g/dl Hct (37.0-47.0) % MCV (80.0-100.0) fL MCH (25.0-34.0) pg MCHC (32.0-36.0) g/dL RDW Std Deviation (36.4-46.3) fL RDW Coeff of [place] (11.5-14.5) % Plt Count (130-400) K/uL MPV (9.4-12.4) fL Immature Gran % (Auto) % Neut % (Auto) % Lymph % (Auto) % [place] % (Auto) % Eos % (Auto) % Baso % (Auto) % Neut # (Auto) (1.40-6.50) K/uL Lymph # (Auto) (1.20-3.40) K/uL [place] # (Auto) (0.11-0.59) K/uL Eos # (Auto) (0.00-0.50) K/uL Baso # (Auto) (0.00-0.20) K/uL Immature Gran # (Auto) (0.01-0.20) K/uL PT (9.0-12.0) Seconds INR (0.9-1.1) APTT (21-31) Seconds PTT Ratio Sodium (136-145) mmol/L Potassium 3.6 Chloride (98-107) mmol/L Carbon Dioxide (21-32) mmol/L Anion Gap (3-11) BUN (6-23) mg/dl Creatinine (0.6-1.2) mg/dl Est Cr Clr Drug Dosing ml/min eGFR BUN/Creatinine Ratio (10-20) Glucose (70-99(Fasting)) mg/dl Lactate (0.4-2.0) mmol/L Calcium (8.6-10.3) mg/dl Magnesium (1.7-2.4) mg/dl Total Bilirubin (0.2-1.0) mg/dl AST 16 ALT (7-52) U/L Alkaline Phosphatase (34-104) U/L Troponin I High Sens (0-14) pg/ml Total Protein (6.0-8.3) gm/dl Albumin (3.4-5.0) gm/dl Globulin (2.5-4.0) gm/dl Albumin/Globulin Ratio (0.9-2) Procalcitonin (0-0.5) ng/ml Urine Color Urine Appearance (Clear) Urine pH (4.5-7.5) Ur Specific [place] (1.000-1.030) Urine Protein (Negative) Urine Glucose (UA) (Negative) Urine Ketones (Negative) Urine Blood (Negative) Urine Nitrite (Negative) Urine Bilirubin (Negative) Urine Urobilinogen (Negative) Ur Leukocyte Esterase (Negative) Urine WBC (Auto) (0-5) /hpf Urine RBC (Auto) (0-2) /hpf U Hyaline Cast (Auto) (0-2) /lpf U Epithel Cells (Auto) (0-2) /hpf Urine Bacteria (Auto) (None Seen) Hyaline Casts (None Presnt) /lpf Urine Comment Anaplasma Smear Babesia Smear Lyme Disease Screen (Negative) Administered Medications Discontinued Medications Sodium Chloride (Nss) 1,000 mls @ 999 mls/hr IV .Q1H1M ONE Stop: 05/06/25 16:20 Last Infusion: 05/06/25 16:48 Dose: Infused Documented By: Admin: 05/06/25 15:38 Dose: 999 mls/hr Documented By: DEBBIE Acetaminophen (Ofirmev) 1,000 mg in 100 mls @ 400 mls/hr IV NOW STA Stop: 05/06/25 15:58 Last Infusion: 05/06/25 16:13 Dose: Infused Documented By: Admin: 05/06/25 15:48 Dose: 400 mls/hr Documented By: DEBBIE Magnesium Sulfate/Dextrose (Magnesium Sulfate / D5w) 1 gm in 100 mls @ 100 mls/hr IV NOW STA Stop: 05/06/25 16:58 Last Infusion: 05/06/25 18:21 Dose: Infused Documented By: Admin: 05/06/25 16:10 Dose: 100 mls/hr Documented By: DEBBIE Ceftriaxone Sodium (Rocephin) 2,000 mg in 50 mls @ 100 mls/hr IV NOW STA Stop: 05/06/25 17:04 Last Infusion: 05/06/25 18:20 Dose: Infused Documented By: Admin: 05/06/25 17:23 Dose: 100 mls/hr Documented By: TIMBO Sodium Chloride (Nss) 1,000 mls @ 999 mls/hr IV .Q1H1M ONE Stop: 05/06/25 18:32 Last Admin: 05/06/25 17:45 Dose: 999 mls/hr Documented By: CELIO Ketorolac Tromethamine (Ketorolac Tromethamine 15 Mg/Ml Vial) 15 mg IV NOW STA Stop: 05/06/25 16:36 Last Admin: 05/06/25 16:42 Dose: 15 mg Documented By: DEBBIE Ondansetron HCl (Ondansetron Inj 2 Mg/Ml 2 Ml Vial) 4 mg IV NOW STA Stop: 05/06/25 16:00 Last Admin: 05/06/25 16:13 Dose: 4 mg Documented By: DEBBIE Imaging Data Radiologist's Impression: Head CT 05/06/25 17:32 CT head without contrast History: Headache Comparison: None Technique: Using multidetector thin collimation helical acquisition technique, axial, coronal and sagittal CT images from the skull base to the vertex were obtained without intravenous contrast. Dose reduction techniques were achieved by using automatic exposure control and/or adjustment of mA and/or kV according to patient size and/or use of iterative reconstruction technique. Findings: No intracranial hemorrhage, mass-effect, or midline shift. The ventricles are proportionate to the cerebral sulci. The mendez to white matter differentiation of the cerebral hemispheres is preserved. The basal cisterns are patent. The visualized paranasal sinuses are clear. Mastoid air cells are clear. Impression: No acute intracranial pathology. Electronically signed by Fitz Bautista 05-06-2025 7:34 PM Discharge Plan Visit Data Chief Complaint: Illness Stated Complaint: GEN PAIN, NAUSEA, DIARRHEA, DECREASED PO INTAKE ED Provider: Cami Wilkins Discharge Problem: Body aches, Acute UTI (urinary tract infection), Headache, Leukocytosis, Intractable pain, Hypomagnesemia Condition: Fair Forms Stand Alone Forms: My [facility] Prescriptions Prescriptions: No Action Ozempic 0.25 mg or 0.5 mg (2 mg/3 mL) pen injector 0 mg SUBCUT WK Patient Comments: 05/06-Filled 05/01 42 day supply. unknown dose venlafaxine 75 mg capsule,extended release 24hr 75 mg PO DAILY ibuprofen 800 mg tablet 800 mg PO TID PRN (Reason: Pain) Hold Instructions: Resume on 04/27/25. discuss with primary care doctor if/when to resume metoprolol succinate 50 mg tablet extended release 24 hr 50 mg PO DAILY gabapentin 800 mg tablet 800 mg PO TID PRN (Reason: Pain) baclofen 10 mg tablet 10 mg PO TID pantoprazole 40 mg tablet,delayed release (DR/EC) 40 mg PO DAILY metformin 500 mg tablet extended release 24 hr 1,000 mg PO BID lisinopril 2.5 mg tablet 2.5 mg PO DAILY rosuvastatin 20 mg tablet 20 mg PO DAILY aspirin 81 mg Tablet,Delayed Release (Dr/Ec) 81 mg PO DAILY amlodipine [Norvasc] 5 mg Tablet 5 mg PO QAM Qty: 30 0RF acetaminophen 325 mg Tablet 650 mg PO Q4H PRN (Reason: pain) Qty: 30 0RF meloxicam 15 mg tablet 15 mg PO DAILY Qty: 10 0RF oxycodone 5 mg tablet 5 mg PO Q8H PRN (Reason: pain) Qty: 10 0RF Referrals Referrals: Vanessa Hobson MD [Primary Care Provider] -
[2025-05-06 15:29] LABS: Hematocrit (blood only) 46.4 % (37.0-47.0); Hemoglobin 15.2 g/dl (12.0-16.0); Immature Granulocytes # (auto) 0.07 K/uL (0.01-0.20); Immature Granulocytes % (auto) 0.6 %; Mean Corpuscular Hemoglobin 28.6 pg (25.0-34.0); Mean Corpuscular Volume 87.4 fL (80.0-100.0); Platelet Count 369 K/uL (130-400); RDW Standard Deviation 41.7 fL (36.4-46.3); Red Blood Count 5.31 M/uL (4.20-5.40); White Blood Count 11.42 K/ul (4.8-10.8)
[2025-05-06] MEDS: SODIUM CHLORIDE 0.9% 1,000 ML IV ONE ×2 (15:38→17:45)
[2025-05-06] MEDS: ACETAMINOPHEN 1,000 MG/100 ML VIAL IV STA (15:48)
[2025-05-06 15:51] LABS: Alanine Aminotransferase 12 U/L (7-52); Albumin Globulin Ratio 1.3 (0.9-2); Alkaline Phosphatase 109 U/L (34-104); Anion Gap 10 (3-11); Bilirubin,Total 1.8 mg/dl (0.2-1.0); Blood Urea Nitrogen 25 mg/dl (6-23); Calcium 9.7 mg/dl (8.6-10.3); Carbon Dioxide 24 mmol/L (21-32); Chloride 102 mmol/L (98-107); Creatinine Clr Calc Pharmacy 80.3 ml/min; Globulin 3.7 gm/dl (2.5-4.0); Glucose 182 mg/dl (70-99(Fasting)); Magnesium 1.5 mg/dl (1.7-2.4); Procalcitonin 0.06 ng/ml (0-0.5); Sodium 136 mmol/L (136-145); Total Protein 8.4 gm/dl (6.0-8.3)
[2025-05-06 16:01] LABS: INR 1.0 (0.9-1.1); Partial Thromboplastin Time 24 Seconds (21-31); Prothrombin Time 10.6 Seconds (9.0-12.0)
[2025-05-06] MEDS: MAGNESIUM SULFATE / D5W 1 GM/100 ML BAG IV STA (16:10)
[2025-05-06] MEDS: ONDANSETRON INJ 2 MG/ML 2 ML VIAL IV STA ×2 (16:13→23:09)
[2025-05-06 16:17] LABS: Lyme Screen Rflx Confirmation Negative (Negative)
[2025-05-06 16:28] LABS: Appearance Urine Cloudy (Clear); Bacteria Urine Automated 4+ (None Seen); Cast Urine Automated >20 /lpf (0-2); Glucose Urine UA Trace (Negative); RBC Urine Automated 0-2 /hpf (0-2)
[2025-05-06] MEDS: KETOROLAC TROMETHAMINE 15 MG/ML VIAL IV STA (16:42)
[2025-05-06] MEDS: cefTRIAXone SODIUM 2,000 MG/50 ML BAG IV STA (16:42)
[2025-05-06 17:20] LABS: Potassium 3.6 mmol/L (3.5-5.1)
--- NOTE | 2025-05-06 19:18 | History & Physical Report ---
Date of Service May 06, 2025 Assessment & Plan (1) Intractable pain: Plan: Generalized body ache involving especially the neck shoulders and multiple joints No evidence of neck stiffness does not have any fever Received intravenous Tylenol and intravenous Toradol without any improvement Lying manage Anaplasma titer have been negative Has obtained lab evaluation during last admission Will give intravenous Dilaudid on top of her oxycodone/oral narcotic and observe (2) Acute UTI (urinary tract infection): Plan: Noted to have UTI Started on intravenous ceftriaxone Urine and blood cultures have been sent (3) Body aches: Plan: Symptoms started about 3 days back following drinking can of soup Associated nausea vomiting and diarrhea for 1 or 2 days Has been eating drinking for the last few days Likely gastritis or gastroenteritis which seems to be improving Will be given cautious amount of intravenous fluid (4) ASCVD (arteriosclerotic cardiovascular disease): Plan: Denies any chest pain and/or palpitation with history of premature ventricular contractions (5) PVCs (premature ventricular contractions): Plan: History of nonsustained V. tach (6) Morbid obesity: (7) S/P cervical spinal fusion: Plan: Complains neck pain without any fever and no photophobia No neck stiffness nothing to suggest meningismus or meningitis Plan DVT prophylaxis Subcu Lovenox CODE STATUS Full History of Present Illness Chief Complaint: Neck pain, multiple joint pain, nausea, vomiting and diarrhea for 3 days Primary Care Provider: Vanessa Hobson MD She is a 54-year-old obese female significant past medical history of type 2 diabetes, on Ozempic and metformin, hyperlipidemia, TRINIDAD does not use any CPAP, pulmonary nodules, CAD with history of nonsustained V. tach, lumbar spondylosis and chronic back pain and also major depression apparently has been complaining neck pain and pain all over the body for the last 3 days. She has had a can of soup 3 days back and started to have nausea abdominal discomfort and vomiting and also had diarrhea for 1 day, since then she has not been eating or drinking enough. She started to have neck pain and pain in the head and also pain all over the body and joints which is worse as of today. Denies any problem with urinary or bowel habit. She was noted to have UTI in the emergency room with mild elevation of the white count and blood pressure on the lower side. Her pain was not improved with intravenous Toradol and also IV Tylenol and she required intravenous Dilaudid to control the pain. She was given IV ceftriaxone and was admitted to medical floor for continuation of care. Allergies Allergy/AdvReac Type Severity Reaction Status Date / Time codeine Allergy Itching Unverified 04/15/25 21:31 Home Medications Medication Instructions Recorded Confirmed Type aspirin 81 mg tablet,delayed 81 mg PO DAILY 04/15/25 05/06/25 History release baclofen 10 mg tablet 10 mg PO TID 04/15/25 05/06/25 History gabapentin 800 mg tablet 800 mg PO TID PRN Pain 04/15/25 05/06/25 History ibuprofen 800 mg tablet 800 mg PO TID PRN Pain 04/15/25 05/06/25 History lisinopril 2.5 mg tablet 2.5 mg PO DAILY 04/15/25 05/06/25 History metformin 500 mg tablet,extended 1,000 mg PO BID 04/15/25 05/06/25 History release 24 hr metoprolol succinate 50 mg 50 mg PO DAILY 04/15/25 05/06/25 History tablet,extended release 24 hr pantoprazole 40 mg tablet,delayed 40 mg PO DAILY 04/15/25 05/06/25 History release rosuvastatin 20 mg tablet 20 mg PO DAILY 04/15/25 05/06/25 History venlafaxine 75 mg capsule,extended 75 mg PO DAILY 04/15/25 05/06/25 History release 24 hr acetaminophen 325 mg tablet 650 mg (2 x 325 mg) PO Q4H PRN 04/20/25 05/06/25 Rx pain #30 tabs amlodipine 5 mg tablet (Norvasc) 5 mg PO QAM #30 tabs 04/20/25 05/06/25 Rx meloxicam 15 mg tablet 15 mg PO DAILY #10 tabs 04/20/25 05/06/25 Rx oxycodone 5 mg tablet 5 mg PO Q8H PRN pain #10 tabs 04/20/25 05/06/25 Rx semaglutide 0.25 mg or 0.5 mg (2 0 mg subcut WK 05/06/25 05/06/25 History mg/3 mL) subcutaneous pen injector (Ozempic) Past Med/Surg History Problem List Hypomagnesemia (Acute) Intractable pain (Acute) Leukocytosis (Acute) Headache (Acute) Acute UTI (urinary tract infection) (Acute) Body aches (Acute) Neck pain NSVT (nonsustained ventricular tachycardia) Hypokalemia (Acute) Hypomagnesemia (Acute) History of IA (myocardial infarction) (Acute) Body aches (Acute) Elevated troponin (Acute) Precordial chest pain (Acute) Elevated troponin I level Chest pain (Acute) SOB (shortness of breath) History of repair of patent ductus arteriosus Dyslipidemia, goal LDL below 70 ASCVD (arteriosclerotic cardiovascular disease) PVCs (premature ventricular contractions) (Acute) Morbid obesity Atypical chest pain S/P cervical spinal fusion Vertigo Encephalopathy Hypertension (Acute) CAD (coronary artery disease) HLD (hyperlipidemia) Diabetes Dizziness (Acute) Arm paresthesia, left (Acute) Nystagmus (Acute) Vomiting and diarrhea (Acute) Tendonitis (Chronic) Abdominal pain (Acute) Environmental allergies (Chronic) History of hysterectomy (Chronic) "with bilateral oophorectomy" Medical History Ischemic cardiomyopathy Depression Surgical History S/P repair of patent ductus arteriosus "age 7" S/P tubal ligation Family History Mother Cancer Diabetes Grandmother (Maternal) Stroke Aunt Cancer Aunt Cancer Stroke Social History Smoking Status: Never smoker Second Hand Exposure: No; Do You Dip or Chew Tobacco: No; Hx Alcohol Use: Yes Alcohol type: beer Hx Substance Use: No Preferred Language: Thai Communication Ability: Effective [employer] Utility Worker Required: No Beliefs That Will Affect Care: None Current Living Situation: Alone Feels Safe at Home: Yes Assistive Devices: None Review of Systems Review of Systems: All systems reviewed and are unremarkable except as noted below Physical Exam Physical Exam: Lying in bed with acute distress due to neck and pain all over the body and back Constitutional: well developed, well nourished and + ill appearing Eyes: PERRL, conjunctivae normal, anicteric sclerae ENMT: external ear and nose normal, oropharynx normal Neck: No neck stiffness Respiratory: no respiratory distress Auscultation: + crackles ( minimal crackles right base) Cardiovascular: Rate/Rhythm: regular rate and regular rhythm; not tachycardic Heart Sounds: normal S1 and normal S2; no murmur Extremities: no edema Gastrointestinal (Abdomen): Inspection/Auscultation: normal bowel sounds; abdomen not distended Percussion/Palpation: abdomen soft; abdomen nontender Musculoskeletal: Has arthralgias but no arthritis involving any of the joint Neurologic: normal touch/pain/proprioception and moves all extremities; no focal motor deficits No neck rigidity or photophobia to suggest meningitis/meningism Lymphatic: no cervical or axillary lymphadenopathy Results & Data Results & Data Vital Signs (Past 12 Hours) Vital Signs Temp Pulse Pulse Resp BP BP Pulse Ox 05/06/25 17:00 75 16 107/66 97 05/06/25 16:17 75 05/06/25 15:44 75 16 106/67 96 05/06/25 14:38 35.9 C L 88 18 91/64 L 98 O2 Del Method 05/06/25 17:00 Room Air 05/06/25 16:17 05/06/25 15:44 Room Air 05/06/25 14:38 Room Air Laboratory Results Short CBC 05/06/25 Range/Units 14:53 WBC 11.42 H (4.8-10.8) K/ul Hgb 15.2 (12.0-16.0) g/dl Hct 46.4 (37.0-47.0) % Plt Count 369 (130-400) K/uL BMP 05/06/25 05/06/25 14:53 16:42 Sodium 136 Potassium TNP 3.6 Chloride 102 Carbon Dioxide 24 BUN 25 H Creatinine 0.85 Glucose 182 H Calcium 9.7 Liver Function 05/06/25 05/06/25 Range/Units 14:53 16:42 Total Bilirubin 1.8 H (0.2-1.0) mg/dl AST TNP 16 ALT 12 (7-52) U/L Alkaline Phosphatase 109 H (34-104) U/L Albumin 4.7 (3.4-5.0) gm/dl Urine 05/06/25 Range/Units 15:41 Urine Color Dark Yellow Urine Appearance Cloudy A (Clear) Urine pH 6.5 (4.5-7.5) Ur Specific [place] 1.030 (1.000-1.030) Urine Protein 3+ H (Negative) Urine Glucose (UA) Trace H (Negative) Medications Administered Current Inpatient Medications Hydromorphone HCl (Hydromorphone Inj 0.5 Mg/0.5 Ml Syr) 0.5 mg IV Q6H PRN PRN Reason: Pain Stop: 05/20/25 18:59 Potassium Chloride/Sodium Chloride (Normal Saline W/20 Meq Kcl) 20 meq in 1,000 mls @ 100 mls/hr IV .Q10H LIBBY Stop: 05/08/25 01:14 Ceftriaxone Sodium (Rocephin) 2,000 mg in 50 mls @ 100 mls/hr IV Q24H LIBBY Stop: 05/11/25 19:14
--- NOTE | 2025-05-06 19:34 | CT Scan Report ---
CT head without contrast History: Headache Comparison: None Technique: Using multidetector thin collimation helical acquisition technique, axial, coronal and sagittal CT images from the skull base to the vertex were obtained without intravenous contrast. Dose reduction techniques were achieved by using automatic exposure control and/or adjustment of mA and/or kV according to patient size and/or use of iterative reconstruction technique. Findings: No intracranial hemorrhage, mass-effect, or midline shift. The ventricles are proportionate to the cerebral sulci. The mendez to white matter differentiation of the cerebral hemispheres is preserved. The basal cisterns are patent. The visualized paranasal sinuses are clear. Mastoid air cells are clear. Impression: No acute intracranial pathology. Electronically signed by Fitz Bautista 05-06-2025 7:34 PM
[2025-05-06] MEDS: MoRPHine SULFATE 4 MG/ML 1 ML CARP\\VIAL IV STA (19:37)
--- NOTE | 2025-05-06 19:38 | XRay Report ---
Chest radiograph, one view History: Shortness of breath Comparison: 04/16/2025 Findings: Single AP view of the chest performed. No focal consolidation or pleural effusion. No pneumothorax. Scattered calcified nodules given seen. The cardiomediastinal silhouette is within normal limits. Normal pulmonary vascularity. No evidence for lymphadenopathy. No visualized bony or soft tissue abnormality. Impression: Normal chest radiograph Electronically signed by Fitz Bautista 05-06-2025 7:38 PM
[2025-05-06] MEDS ORDERED: POLYETHYLENE (MIRALAX) 17 GM PACK PO PRN (20:19)
[2025-05-06] MEDS: ENOXAPARIN INJ 40 MG/0.4 ML SYR SQ ONE (20:32)
[2025-05-06] MEDS: NSS + 20MEQ KCL 20 MEQ/1,000 ML BAG IV SCH ×2 (20:44→20:47)
[2025-05-06] MEDS: INSULIN ASPART PER UNIT CHARGE SC SCH (21:02)
[2025-05-06] MEDS: HYDROmorphone INJ 0.5 MG/0.5 ML SYR IV PRN (22:29)
[2025-05-06] MEDS: ACETAMINOPHEN 325 MG TAB PO PRN (23:09)
[2025-05-06] MEDS: BACLOFEN 10 MG TAB PO SCH (23:09)
[2025-05-07] MEDS: diphenhydrAMINE Capsule 25 MG CAP ONE (02:14)
[2025-05-07] MEDS: diphenhydrAMINE Capsule 25 MG CAP PO ONE ×2 (02:19→10:15)
[2025-05-07] MEDS: MoRPHine SULFATE 4 MG/ML 1 ML CARP\\VIAL IV PRN (03:06)
[2025-05-07] MEDS: GABAPENTIN 800 MG TAB PO PRN (08:14)
[2025-05-07] MEDS: VENLAFAXINE HCL XR 75 MG CAPXR PO SCH (09:29)
[2025-05-07] MEDS: ASPIRIN 81 MG ECTAB PO SCH (09:29)
[2025-05-07] MEDS: METOPROLOL SUCC 50MG EXT REL TAB PO SCH (09:29)
[2025-05-07] MEDS: ROSUVASTATIN CALCIUM 20 MG TAB PO SCH (09:29)
[2025-05-07] MEDS: ENOXAPARIN INJ 40 MG/0.4 ML SYR SQ SCH (09:29)
[2025-05-07] MEDS: IBUPROFEN 600 MG TAB PO SCH (10:15)
--- NOTE | 2025-05-07 10:20 | Hospitalist Progress Note ---
Date of Service May 07, 2025 Assessment & Plan (1) Intractable pain: Plan: Generalized body ache involving especially the neck shoulders and multiple joints Received intravenous Tylenol and intravenous Toradol without any improvement admitted in April 2025 for similar pain will try ibuprofen schedule to minimize narcotic use also steroids taper morphine for severe pain (2) Acute UTI (urinary tract infection): Plan: Noted to have UTI Started on intravenous ceftriaxone; pending Urine and blood cultures have been sent (3) Body aches: Plan: Symptoms started about 3 days back following drinking can of soup Associated nausea vomiting and diarrhea for 1 or 2 days Has been eating drinking for the last few days Likely gastritis or gastroenteritis which seems to be improving (4) ASCVD (arteriosclerotic cardiovascular disease): Plan: Denies any chest pain and/or palpitation with history of premature ventricular contractions (5) PVCs (premature ventricular contractions): Plan: History of nonsustained V. tach (6) Morbid obesity: (7) S/P cervical spinal fusion: Plan: Complains neck pain without any fever and no photophobia No neck stiffness nothing to suggest meningismus or meningitis Plan DVT prophylaxis Subcu Lovenox CODE STATUS Potato Picker spent evaluating patient, direct bedside care, chart review, placing orders, interpretation of diagnostic studies, discussion with consultants, patient, and family members, as well as other required patient management activities is 50 minutes Please note the above document was generated using voice recognition software. It may contain grammatical, syntax or spelling errors. Any formal questions or concerns about the content, text or information contained within the body of this dictation should be directly addressed to the provider for clarification Admission and Anticipated Discharge Date Admission Date: May 06, 2025 Subjective Patient seen and examined at bedside. She continues to report neck pain; reports that only morphine helps with the pain. Reports itching with oxycodone Review of Systems Review of Systems: All systems reviewed & are unremarkable except as noted in Subjective Physical Exam Physical Exam: Constitutional: WD/WN, vitals as above, NAD, sitting up in bed, pleasant, conversing easily Neck: Reports pain on movement of the neck; no deformity. Respiratory: normal respiratory effort, lungs clear; to auscultation, no wheeze, rales, rhonchi. Normal insp/exp effort, no accessory muscle use Cardiovascular: RRR, no murmur, no edema Vessels: no JVD or carotid bruit Chest: normal inspection of chest Abdomen: normal bowel sounds, soft, nontender, no hepatosplenomegaly Musculoskeletal: no cyanosis or clubbing, extremities motor strength 5/5 Skin: no rashes, warm and dry normal turgor Neurologic: PERRL, EOMI, accommodation nl, no face palsy, no dysarthria CN's II- XI intact bilaterally and moves all extremities Psychiatric: A+Ox3, euthymic affect Results & Data Results & Data Vital Signs (Past 12 Hours) Vital Signs Temp Pulse Resp BP Pulse Ox O2 Del Method 05/07/25 07:54 36.5 C 74 17 143/83 H 95 Room Air 05/06/25 22:30 36.8 C 86 18 133/73 93 Room Air
[2025-05-07] MEDS: predniSONE 20 MG TAB PO SCH (10:56)
--- NOTE | 2025-05-07 12:17 | Electrocardiogram Report ---
Test Reason : Blood Pressure : */* mmHG Vent. Rate : 74 BPM Atrial Rate : 74 BPM P-R Int : 144 ms QRS Dur : 96 ms QT Int : 432 ms P-R-T Axes : 76 -14 96 degrees QTcB Int : 479 ms Normal sinus rhythm Inferior infarct (cited on or before 29-Jun-2022) Abnormal ECG When compared with ECG of 06-May-2025 16:21, (unconfirmed) Nonspecific T wave abnormality no longer evident in Inferior leads Confirmed by Erich Thompson ([id number]) on 05/07/2025 12:17:23 PM Referred By: REFERRED SELF Confirmed By: Erich Thompson
[2025-05-07] MEDS: MoRPHine SULFATE 2 MG/ML CARP IV PRN (12:53)
[2025-05-07] MEDS: cefTRIAXone SODIUM 2,000 MG/50 ML BAG IV SCH (17:48)
[2025-05-07] MEDS: ONDANSETRON INJ 2 MG/ML 2 ML VIAL IV STA (18:35)
[2025-05-08] MEDS: ONDANSETRON INJ 2 MG/ML 2 ML VIAL IV STA (00:45)
[2025-05-08] MEDS: PROMETHAZINE 12.5 MG/50.5 ML BAG IV PRN (09:37)
--- NOTE | 2025-05-08 11:12 | Hospitalist Progress Note ---
Date of Service May 08, 2025 Assessment & Plan (1) Intractable pain: Plan: Generalized body ache involving especially the neck shoulders and multiple joints Received intravenous Tylenol and intravenous Toradol without any improvement admitted in April 2025 for similar pain Continue on ibuprofen schedule; also on morphine and oxycodone as needed as well. She continues to report neck pain; will see if pain management can offer any intervention for better pain control. (2) Acute UTI (urinary tract infection): Plan: Urine culture growing more than 3 types of organisms; all high count; plan to treat for total of 3 days given symptoms (3) Body aches: Plan: Symptoms started about 3 days back following drinking can of soup Associated nausea vomiting and diarrhea for 1 or 2 days Has been eating drinking for the last few days Likely gastritis or gastroenteritis which seems to be improving (4) ASCVD (arteriosclerotic cardiovascular disease): Plan: Denies any chest pain and/or palpitation with history of premature ventricular contractions (5) PVCs (premature ventricular contractions): Plan: History of nonsustained V. tach (6) Morbid obesity: (7) S/P cervical spinal fusion: Plan: Complains neck pain without any fever and no photophobia No neck stiffness nothing to suggest meningismus or meningitis Plan DVT prophylaxis Subcu Lovenox CODE STATUS Full Please note the above document was generated using voice recognition software. It may contain grammatical, syntax or spelling errors. Any formal questions or concerns about the content, text or information contained within the body of this dictation should be directly addressed to the provider for clarification Admission and Anticipated Discharge Date Admission Date: May 06, 2025 Subjective Patient seen and examined at bedside. Reports that she continues to have pain in her neck. Required morphine/oxycodone overnight. Review of Systems Review of Systems: All systems reviewed & are unremarkable except as noted in Subjective Physical Exam Physical Exam: Constitutional: WD/WN, vitals as above, NAD, sitting up in bed, pleasant, conversing easily Neck: Reports pain on movement of the neck; no deformity. Respiratory: normal respiratory effort, lungs clear; to auscultation, no wheeze, rales, rhonchi. Normal insp/exp effort, no accessory muscle use Cardiovascular: RRR, no murmur, no edema Vessels: no JVD or carotid bruit Chest: normal inspection of chest Abdomen: normal bowel sounds, soft, nontender, no hepatosplenomegaly Musculoskeletal: no cyanosis or clubbing, extremities motor strength 5/5 Skin: no rashes, warm and dry normal turgor Neurologic: PERRL, EOMI, accommodation nl, no face palsy, no dysarthria CN's II- XI intact bilaterally and moves all extremities Psychiatric: A+Ox3, euthymic affect Results & Data Results & Data Vital Signs (Past 12 Hours) Vital Signs Temp Pulse Resp BP Pulse Ox O2 Del Method 05/08/25 07:39 36.5 C 79 18 148/86 H 94 Room Air 05/08/25 01:20 120/76
[2025-05-08] MEDS: MoRPHine SULFATE 2 MG/ML CARP IV PRN (17:53)
--- NOTE | 2025-05-08 18:24 | Electrocardiogram Report ---
Test Reason : Blood Pressure : */* mmHG Vent. Rate : 92 BPM Atrial Rate : 92 BPM P-R Int : 134 ms QRS Dur : 90 ms QT Int : 394 ms P-R-T Axes : * -25 151 degrees QTcB Int : 487 ms Ectopic atrial rhythm possible Inferior infarct (cited on or before 29-Jun-2022) Abnormal ECG When compared with ECG of 17-Apr-2025 06:22, Questionable change in initial forces of Inferior leads Inverted T waves have replaced nonspecific T wave abnormality in Lateral leads Confirmed by Fitz Cohen ([id number]) on 05/08/2025 6:24:15 PM Referred By: REFERRED SELF Confirmed By: Fitz Cohen
--- NOTE | 2025-05-08 18:25 | Electrocardiogram Report ---
Test Reason : Blood Pressure : */* mmHG Vent. Rate : 72 BPM Atrial Rate : 72 BPM P-R Int : 138 ms QRS Dur : 90 ms QT Int : 416 ms P-R-T Axes : 79 -15 112 degrees QTcB Int : 455 ms Normal sinus rhythm Possible Left atrial enlargement Inferior infarct (cited on or before 29-Jun-2022) T wave abnormality, consider lateral ischemia Abnormal ECG When compared with ECG of 06-May-2025 14:49, (unconfirmed) Inverted T waves have replaced nonspecific T wave abnormality in Anterior leads Confirmed by Fitz Cohen ([id number]) on 05/08/2025 6:24:47 PM Referred By: REFERRED SELF Confirmed By: Fitz Cohen
[2025-05-08 19:21] LABS: Cdiff Toxin B Gene (2yr or >) Negative Cdiff Gene (Neg)
[2025-05-08 19:52] LABS: Adenovirus F 40/41 PCR Not Detected (NotDetected); Campylobacter PCR Not Detected (NotDetected); Enteroaggregative E.coli(EAEC) Not Detected (NotDetected); Shiga-like Toxin E.coli (STEC) Not Detected (NotDetected); Vibrio species PCR Not Detected (NotDetected)
--- NOTE | 2025-05-09 08:42 | Pain Management Consultation ---
Date of Consultation May 09, 2025 Assessment & Plan (1) S/P cervical spinal fusion: (2) Neck pain: (3) Cervical radiculopathy: Plan 1. As the patient does continue to experience significant neck pain, I have opted to order a cervical spine MRI with and without contrast for further evaluation. Previous cervical spine MRI in 2021 was unremarkable. 2. No cervical facet joint pain or myofascial pain on exam. Not a candidate for cervical medial branch radiofrequency ablation or cervical trigger point injections. 3. Recommend that the patient pursue outpatient physical therapy. 4. Continue medication regimen of ibuprofen, baclofen, as needed oxycodone/IV morphine. History of Present Illness Attending Physician: Dave Vides MD History of Present Illness This is a 54-year-old female that has been admitted for generalized bodyaches, acute urinary tract infection. She did have nausea, vomiting, diarrhea for 1 day. The GI complaints have resolved as well as the nonspecific body aches. Her primary pain complaint at this time is of the neck. She was admitted 3 weeks ago for chest pain/neck pain. She states that she is now experiencing num bness and tingling going down the left greater than right arms. She describes a deep aching along the cervicothoracic junction that will sometimes radiate upwards. Previous cervical spine x-ray did show minimal backing of C3 and C6 screws from fusion surgery she had 10+ years ago. She did find anti- inflammatories more effective towards diminishing her pain rather than the baclofen and gabapentin. Patient is scheduled to start physical therapy tomorrow. Inpatient she has used oxycodone 5 mg once and morphine 1 mg IV twice. Taking ibuprofen 600 mg 3 times daily, baclofen 10 mg 3 times daily. Gabapentin has been discontinued. Patient does feel like the left arm is weak compared to the right. No dropping of objects. Case discussed with Dr. Makenna Carreno Allergies Allergy/AdvReac Type Severity Reaction Status Date / Time codeine Allergy Itching Unverified 04/15/25 21:31 Home Medications Medication Instructions Recorded Confirmed Type aspirin 81 mg tablet,delayed 81 mg PO DAILY 04/15/25 05/06/25 History release baclofen 10 mg tablet 10 mg PO TID 04/15/25 05/06/25 History gabapentin 800 mg tablet 800 mg PO TID PRN Pain 04/15/25 05/06/25 History ibuprofen 800 mg tablet 800 mg PO TID PRN Pain 04/15/25 05/06/25 History lisinopril 2.5 mg tablet 2.5 mg PO DAILY 04/15/25 05/06/25 History metformin 500 mg tablet,extended 1,000 mg PO BID 04/15/25 05/06/25 History release 24 hr metoprolol succinate 50 mg 50 mg PO DAILY 04/15/25 05/06/25 History tablet,extended release 24 hr pantoprazole 40 mg tablet,delayed 40 mg PO DAILY 04/15/25 05/06/25 History release rosuvastatin 20 mg tablet 20 mg PO DAILY 04/15/25 05/06/25 History venlafaxine 75 mg capsule,extended 75 mg PO DAILY 04/15/25 05/06/25 History release 24 hr acetaminophen 325 mg tablet 650 mg (2 x 325 mg) PO Q4H PRN 04/20/25 05/06/25 Rx pain #30 tabs amlodipine 5 mg tablet (Norvasc) 5 mg PO QAM #30 tabs 04/20/25 05/06/25 Rx meloxicam 15 mg tablet 15 mg PO DAILY #10 tabs 04/20/25 05/06/25 Rx oxycodone 5 mg tablet 5 mg PO Q8H PRN pain #10 tabs 04/20/25 05/06/25 Rx semaglutide 0.25 mg or 0.5 mg (2 0 mg subcut WK 05/06/25 05/06/25 History mg/3 mL) subcutaneous pen injector (Ozempic) Patient History Medical History Ischemic cardiomyopathy Depression Surgical History S/P repair of patent ductus arteriosus "age 7" S/P tubal ligation Family History Mother Cancer Diabetes Grandmother (Maternal) Stroke Aunt Cancer Aunt Cancer Stroke Social History Smoking Status: Never smoker Second Hand Exposure: No; Do You Dip or Chew Tobacco: No; Tobacco Cessation Education Requested by Patient: No Hx Alcohol Use: No Hx Substance Use: No Preferred Language: Slovenian Communication Ability: Effective Pricing Lead Required: No Beliefs That Will Affect Care: None Current Living Situation: Family Other Information That Helps Us Care for You: No Feels Safe at Home: Yes Safety Concerns: Feels Safe At This Time Assistive Devices: Oxygen - at Night and Walker Physical Exam Physical Exam: GENERAL: This is a 54-year-old female who is obese and physically deconditioned. In no acute distress. HEAD/FACE: Normocephalic and atraumatic. EYES: No drainage or conjunctival injection. ENT: Nose without bleeding or discharge. Oral mucosa moist. NECK: Limited range of motion in all planes. Mild tenderness along the left cervical thoracic junction. No myofascial spasm or trigger points noted. RESPIRATORY: Patient with unlabored breathing. No signs of respiratory distress. CHEST/AXILLA: Chest movement symmetrical. No deformities noted. ABDOMEN/GI: No distension BACK: Moves without difficulty SKIN: [place], warm and dry. No rash noted. MS/EXTREMITY: No swelling, no deformities. Moving extremities appropriately. 4/5 hand grasp bilaterally. NEURO: Alert and appears oriented. Speech is fluent. Cranial Nerves are grossly intact. PSYCH: Alert, pleasant, affect is calm
[2025-05-09] MEDS: GADOBUTROL 65ML VIAL IV ONE (11:50)
--- NOTE | 2025-05-09 13:32 | Magnetic Resonance Report ---
MRI OF THE CERVICAL SPINE COMBO CLINICAL HISTORY: Left-sided neck pain. Radiculopathy. COMPARISON STUDY: Cervical spine radiographs dated 04/17/2025. MRI of the cervical spine dated 022. CT angiogram of the neck dated 08/22/2022. TECHNIQUE: MRI of the cervical spine was performed utilizing various T1 and T2-weighted sequences in the axial and sagittal planes. Pre and postcontrast imaging was performed. Contrast-enhanced sequence s were acquired following the IV administration of 10 mL of gadavist. The examination is significantl y degraded by motion artifact. There is also susceptibility artifact from multilevel metallic spinal hardware. FINDINGS: Cervical spine: Vertebral body height and alignment are maintained throughout the cervical spine. The re is straightening of the cervical lordosis. There is postsurgical change from anterior spinal fusio n seen at C3-C6. The atlantodental articulation is maintained noting productive degenerative change. The spinous processes appear intact. Hemangiomas are noted in the bodies of T2 and T3. No destructive bony process is identified. Chronic degenerative endplate change is seen at T3-T4. Intervertebral discs: Discectomy change is seen at all levels between C3-C4 and C5-C6. Disc desiccati on and mild loss of height is seen at C2-C3 and C6-C7. Spinal cord: The cervical cord is normal in morphology and signal intensity with no abnormal postcont rast enhancement identified. C2-C3: A posterior disc osteophyte complex minimally effaces the ventral subarachnoid space. Facet ar thropathy is of no consequence. The neural foramina are patent. C3-C4: A posterior disc osteophyte complex mildly effaces the ventral cord. Uncovertebral and facet a rthropathy contribute to moderate left and btim-ew-nptleoko right neural foraminal stenosis. C4-C5: Posterior disc osteophyte material effaces the ventral cord. The minimum AP canal diameter tatiana sures 5 mm. The neural foramina appear patent. C5-C6: Posterior disc osteophyte material abuts the ventral cord. The minimum AP canal diameter measu res 5.5 mm. Uncovertebral and facet arthropathy contribute to zhxqtdnw-de-scqqri left and moderate ri ght neural foraminal stenosis. C6-C7: A posterior disc osteophyte complex minimally effaces the ventral subarachnoid space. There is a left lateral disc bulge. There is only mild left-sided neural foraminal narrowing. The right neura l foramen appears patent. C7-T1: Unremarkable. Soft tissues: The prevertebral and paraspinous soft tissues are within normal limits. Brain parenchyma: The imaged brain parenchyma at the skull base is normal as visualized. IMPRESSION: 1. Significantly motion degraded examination. 2. Postsurgical and spondylotic change as above. See discussion for detailed vuweq-uq-gefpl analysis. 3. No destructive bony process is seen. 4. The cervical cord is normal in morphology and signal intensity with no abnormal postcontrast enhan cement identified. Dictated: 05/09/2025 1:01 PM Transcribed: 05/09/2025 1:21 PM Titus [id number] [email or web address] Electronically signed by: Theron Miguel M.D. 05/09/2025 1:30 PM
--- NOTE | 2025-05-09 14:07 | Hospitalist Progress Note ---
Date of Service May 09, 2025 Assessment & Plan (1) Intractable pain: Plan: Generalized body ache involving especially the neck shoulders and multiple joints Received intravenous Tylenol and intravenous Toradol without any improvement admitted in April 2025 for similar pain Continue on ibuprofen schedule; Also added tramadol for breakthrough pain. Pain management was consulted and patient underwent cervical MRI which showed moderate to severe left and moderate right neural foraminal stenosis at C5-C6; also other findings present. No abnormal signal intensity and enhancement in the cervical cord. Will continue on prednisone; will taper down to 20 mg for 3 more days and stop. Will consult orthospine to see if they can offer any intervention. (2) Acute UTI (urinary tract infection): Plan: Urine culture growing more than 3 types of organisms; all high count; plan to treat for total of 3 days given symptoms (3) Body aches: Plan: Symptoms started about 3 days back following drinking can of soup Associated nausea vomiting and diarrhea for 1 or 2 days Has been eating drinking for the last few days resolved (4) ASCVD (arteriosclerotic cardiovascular disease): Plan: Denies any chest pain and/or palpitation with history of premature ventricular contractions (5) PVCs (premature ventricular contractions): Plan: History of nonsustained V. tach (6) Morbid obesity: (7) S/P cervical spinal fusion: Plan: Complains neck pain without any fever and no photophobia No neck stiffness nothing to suggest meningismus or meningitis Plan DVT prophylaxis Subcu Lovenox CODE STATUS Full Please note the above document was generated using voice recognition software. It may contain grammatical, syntax or spelling errors. Any formal questions or concerns about the content, text or information contained within the body of this dictation should be directly addressed to the provider for clarification Admission and Anticipated Discharge Date Admission Date: May 06, 2025 Subjective Patient seen and examined at bedside. She continues to report neck pain; reports some improvement with tramadol. Review of Systems Review of Systems: All systems reviewed & are unremarkable except as noted in Subjective Physical Exam Physical Exam: Constitutional: WD/WN, vitals as above, NAD, sitting up in bed, pleasant, conversing easily Neck: Reports pain on movement of the neck; no deformity. Respiratory: normal respiratory effort, lungs clear; to auscultation, no wheeze, rales, rhonchi. Normal insp/exp effort, no accessory muscle use Cardiovascular: RRR, no murmur, no edema Vessels: no JVD or carotid bruit Chest: normal inspection of chest Abdomen: normal bowel sounds, soft, nontender, no hepatosplenomegaly Musculoskeletal: no cyanosis or clubbing, extremities motor strength 5/5 Skin: no rashes, warm and dry normal turgor Neurologic: PERRL, EOMI, accommodation nl, no face palsy, no dysarthria CN's II- XI intact bilaterally and moves all extremities Psychiatric: A+Ox3, euthymic affect Results & Data Results & Data Vital Signs (Past 12 Hours) Vital Signs Temp Pulse Resp BP Pulse Ox O2 Del Method 05/09/25 07:24 36.4 C L 72 16 144/87 H 97 Room Air
[2025-05-10] MEDS: ALUMINUM/MAGNESIUM/SIMETH (MAALOX MAX) 30 ML UDC PO STA (06:43)
[2025-05-10 07:02] LABS: Hematocrit (blood only) 37.5 % (37.0-47.0); Hemoglobin 11.9 g/dl (12.0-16.0); Immature Granulocytes # (auto) 0.07 K/uL (0.01-0.20); Immature Granulocytes % (auto) 0.8 %; Mean Corpuscular Hemoglobin 28.7 pg (25.0-34.0); Mean Corpuscular Volume 90.4 fL (80.0-100.0); Platelet Count 241 K/uL (130-400); RDW Standard Deviation 43.5 fL (36.4-46.3); Red Blood Count 4.15 M/uL (4.20-5.40); White Blood Count 9.28 K/ul (4.8-10.8)
[2025-05-10 07:05] VITALS: RESP 16
[2025-05-10 07:19] LABS: Anion Gap 7.0 (3-11); Blood Urea Nitrogen 20.0 mg/dl (6-23); Calcium 9.0 mg/dl (8.6-10.3); Carbon Dioxide 26.0 mmol/L (21-32); Chloride 107.0 mmol/L (98-107); Creatinine Clr Calc Pharmacy 101.8 ml/min; Glucose 126.0 mg/dl (70-99(Fasting)); Potassium 3.8 mmol/L (3.5-5.1); Sodium 140.0 mmol/L (136-145)
[2025-05-10] MEDS: predniSONE 20 MG TAB PO SCH (08:11)
--- NOTE | 2025-05-10 13:47 | Hospitalist Progress Note ---
Date of Service May 10, 2025 Assessment & Plan (1) Intractable pain: Plan: Generalized body ache involving especially the neck shoulders and multiple joints Received intravenous Tylenol and intravenous Toradol without any improvement admitted in April 2025 for similar pain Continue on ibuprofen schedule; Also added tramadol for breakthrough pain. Pain management was consulted and patient underwent cervical MRI which showed moderate to severe left and moderate right neural foraminal stenosis at C5-C6; also other findings present. No abnormal signal intensity and enhancement in the cervical cord. Will continue on prednisone; will taper down to 20 mg for 3 more days and stop. Will consult orthospine to see if they can offer any intervention. awaiting recommendation (2) Acute UTI (urinary tract infection): Plan: Urine culture growing more than 3 types of organisms; all high count;treated with 3 days of antiboitics (3) Body aches: Plan: Symptoms started about 3 days back following drinking can of soup Associated nausea vomiting and diarrhea for 1 or 2 days Has been eating drinking for the last few days resolved (4) ASCVD (arteriosclerotic cardiovascular disease): Plan: Denies any chest pain and/or palpitation with history of premature ventricular contractions (5) PVCs (premature ventricular contractions): Plan: History of nonsustained V. tach (6) Morbid obesity: (7) S/P cervical spinal fusion: Plan: Complains neck pain without any fever and no photophobia No neck stiffness nothing to suggest meningismus or meningitis Plan DVT prophylaxis Subcu Lovenox CODE STATUS Full Please note the above document was generated using voice recognition software. It may contain grammatical, syntax or spelling errors. Any formal questions or concerns about the content, text or information contained within the body of this dictation should be directly addressed to the provider for clarification Admission and Anticipated Discharge Date Admission Date: May 06, 2025 Subjective Patient seen and examined at bedside. She is lying in the bed comfortably; not in distress. She reports that pain is well-controlled on current regimen. No significant events overnight Review of Systems Review of Systems: All systems reviewed & are unremarkable except as noted in Subjective Physical Exam Physical Exam: Constitutional: WD/WN, vitals as above, NAD, sitting up in bed, pleasant, conversing easily Neck: Reports pain on movement of the neck; no deformity. Respiratory: normal respiratory effort, lungs clear; to auscultation, no wheeze, rales, rhonchi. Normal insp/exp effort, no accessory muscle use Cardiovascular: RRR, no murmur, no edema Vessels: no JVD or carotid bruit Chest: normal inspection of chest Abdomen: normal bowel sounds, soft, nontender, no hepatosplenomegaly Musculoskeletal: no cyanosis or clubbing, extremities motor strength 5/5 Skin: no rashes, warm and dry normal turgor Neurologic: PERRL, EOMI, accommodation nl, no face palsy, no dysarthria CN's II- XI intact bilaterally and moves all extremities Psychiatric: A+Ox3, euthymic affect Results & Data Results & Data Vital Signs (Past 12 Hours) Vital Signs Temp Pulse Resp BP Pulse Ox O2 Del Method 05/10/25 07:02 36.6 C 66 16 144/91 H 95 Room Air
[2025-05-10] MEDS: PROMETHAZINE 12.5 MG/50.5 ML BAG IV STA (13:56)
--- NOTE | 2025-05-10 16:46 | Orthopedic Consultation ---
Date of Service May 10, 2025 History of Present Illness Reason for Consultation: Neck pain, bilateral upper extremity numbness tingling, status post anterior cervical fusion. Requesting Physician: . Attending Physician: Dave Vides MD 54-year-old female that has been admitted 05/09 for generalized bodyaches, acute urinary tract infection. The GI complaints have resolved as well as the nonspecific body aches. Her primary pain complaint neck pain. She was admitted 3 weeks ago for chest pain/neck pain. She states that she is now experiencing numbness and tingling going down the left greater than right arms. The patient knows though that since the surgery which was an anterior cervical decompression and fusion at C3-4 C4-5 and C5-6 and [facility], she describes a deep aching along the cervicothoracic junction that will sometimes radiate upwards. Her symptoms have been worse over the last 2 years including both the neck pain and the arm symptoms. previous cervical spine x-ray did show minimal backing of C3 and C6 screws from fusion surgery she had 10+ years ago. She did find anti- inflammatories more effective towards diminishing her pain rather than the baclofen and gabapentin. Patient is scheduled to start physical therapy tomorrow. Inpatient she has used oxycodone 5 mg once and morphine 1 mg IV twice. Taking ibuprofen 600 mg 3 times daily, baclofen 10 mg 3 times daily. Gabapentin has been discontinued. Exam reveals the patient to indicate pain primarily more in the left side of the neck and the trapezial and paraspinal musculature, this is aggravated with gentle range of motion, Spurling's maneuver is really positive more for neck pain than any other specific symptoms. Motor exam revealed what I thought was relatively symmetric strength for elbow flexion extension wrist extension and pump erector, she had a negative Tinel's at both wrists and both elbows. MRI OF THE CERVICAL SPINE COMBO 05/09/25 CLINICAL HISTORY: Left-sided neck pain. Radiculopathy. COMPARISON STUDY: Cervical spine radiographs dated 04/17/2025. MRI of the cervical spine dated 08/24/2022. CT angiogram of the neck dated 08/22/2022. TECHNIQUE: MRI of the cervical spine was performed utilizing various T1 and T2- weighted sequences in the axial and sagittal planes. Pre and postcontrast imaging was performed. Contrast-enhanced sequences were acquired following the IV administration of 10 mL of gadavist. The examination is significantly degraded by motion artifact. There is also susceptibility artifact from multilevel metallic spinal hardware. FINDINGS: Cervical spine: Vertebral body height and alignment are maintained throughout the cervical spine. There is straightening of the cervical lordosis. There is postsurgical change from anterior spinal fusion seen at C3-C6. The atlantodental articulation is maintained noting productive degenerative change. The spinous processes appear intact. Hemangiomas are noted in the bodies of T2 and T3. No destructive bony process is identified. Chronic degenerative endplate change is seen at T3-T4. Intervertebral discs: Discectomy change is seen at all levels between C3-C4 and C5-C6. Disc desiccation and mild loss of height is seen at C2-C3 and C6-C7. Spinal cord: The cervical cord is normal in morphology and signal intensity with no abnormal postcontrast enhancement identified. C2-C3: A posterior disc osteophyte complex minimally effaces the ventral subarachnoid space. Facet arthropathy is of no consequence. The neural foramina are patent. C3-C4: A posterior disc osteophyte complex mildly effaces the ventral cord. Uncovertebral and facet arthropathy contribute to moderate left and dgpr-mj-rfkhwugh right neural foraminal stenosis. C4-C5: Posterior disc osteophyte material effaces the ventral cord. The minimum AP canal diameter measures 5 mm. The neural foramina appear patent. C5-C6: Posterior disc osteophyte material abuts the ventral cord. The minimum AP canal diameter measures 5.5 mm. Uncovertebral and facet arthropathy contribute to [id number]-ks-ntdyhn left and moderate right neural foraminal stenosis. C6-C7: A posterior disc osteophyte complex minimally effaces the ventral subarachnoid space. There is a left lateral disc bulge. There is only mild left- sided neural foraminal narrowing. The right neural foramen appears patent. C7-T1: Unremarkable. Soft tissues: The prevertebral and paraspinous soft tissues are within normal limits. Brain parenchyma: The imaged brain parenchyma at the skull base is normal as visualized. IMPRESSION: 1. Significantly motion degraded examination. 2. Postsurgical and spondylotic change as above. See discussion for detailed evbfs-mo-nccoi analysis. 3. No destructive bony process is seen. 4. The cervical cord is normal in morphology and signal intensity with no abnormal postcontrast enhancement identified. XR cervical [id number] routine 04/15/25 CLINICAL HISTORY: neck pain; prior fusion COMPARISON STUDY: 08/25/2022 FINDINGS: There is minimal backing at one of the C3 screws and one of the C6 screws. Otherwise stable anterior plate screw fusion from C3 through C6. There is grade 1 anterolisthesis C6 on C7, stable. Otherwise normal alignment. Grossly stable degenerative changes at C6-7. IMPRESSION: Minimal backing at one of the C3 screws and one of the C6 screw. Above listed radiographs and MRI images were reviewed, this my separate interpretation, this reveals the patient to have had the prior surgery, the anterior fixation C3-C6 is is eccentric to the left. MRI images revealed the patient to have the surgery as stated, there is still appears to be some disc osteophyte complex present at the fused levels, this results in some at least mild canal narrowing, there does not appear to be any cord changes. There is fo raminal stenosis at C5-6 moderate to severe, to a lesser degree at the more cephalad levels and also on the left at C6-7. Impression: Combination of neck pain bilateral upper extremity symptomatology including numbness and tingling, what appears to be stable fixation C3-C6 status post ACDF from approximately 10 years ago and [facility]. Plan: Today I talked with the patient, and I did tell her the findings as noted on the studies. I related to her that I would be in agreement with the prior consultation she had with neurosurgery at [facility], specifically the patient has findings which could be cervical radicular versus peripheral entrapment. I would recommend the patient undergo the EMG nerve conduction study of the upper extremities for further evaluation, also to continue working with pain management, I do not see anything operative at the C2-3 or C6-7 levels currently though certainly she may be having symptoms from these adjacent levels due to stress transfer. Allergies Allergy/AdvReac Type Severity Reaction Status Date / Time codeine Allergy Itching Unverified 04/15/25 21:31 Home Medications Medication Instructions Recorded Confirmed Type aspirin 81 mg tablet,delayed 81 mg PO DAILY 04/15/25 05/06/25 History release baclofen 10 mg tablet 10 mg PO TID 04/15/25 05/06/25 History gabapentin 800 mg tablet 800 mg PO TID PRN Pain 04/15/25 05/06/25 History ibuprofen 800 mg tablet 800 mg PO TID PRN Pain 04/15/25 05/06/25 History lisinopril 2.5 mg tablet 2.5 mg PO DAILY 04/15/25 05/06/25 History metformin 500 mg tablet,extended 1,000 mg PO BID 04/15/25 05/06/25 History release 24 hr metoprolol succinate 50 mg 50 mg PO DAILY 04/15/25 05/06/25 History tablet,extended release 24 hr pantoprazole 40 mg tablet,delayed 40 mg PO DAILY 04/15/25 05/06/25 History release rosuvastatin 20 mg tablet 20 mg PO DAILY 04/15/25 05/06/25 History venlafaxine 75 mg capsule,extended 75 mg PO DAILY 04/15/25 05/06/25 History release 24 hr acetaminophen 325 mg tablet 650 mg (2 x 325 mg) PO Q4H PRN 04/20/25 05/06/25 Rx pain #30 tabs amlodipine 5 mg tablet (Norvasc) 5 mg PO QAM #30 tabs 04/20/25 05/06/25 Rx meloxicam 15 mg tablet 15 mg PO DAILY #10 tabs 04/20/25 05/06/25 Rx oxycodone 5 mg tablet 5 mg PO Q8H PRN pain #10 tabs 04/20/25 05/06/25 Rx semaglutide 0.25 mg or 0.5 mg (2 0 mg subcut WK 05/06/25 05/06/25 History mg/3 mL) subcutaneous pen injector (Ozempic) Past Med/Surg History Problem List Cervical radiculopathy Hypomagnesemia (Acute) Intractable pain (Acute) Leukocytosis (Acute) Headache (Acute) Acute UTI (urinary tract infection) (Acute) Body aches (Acute) Neck pain NSVT (nonsustained ventricular tachycardia) Hypokalemia (Acute) Hypomagnesemia (Acute) History of NV (myocardial infarction) (Acute) Body aches (Acute) Elevated troponin (Acute) Precordial chest pain (Acute) Elevated troponin I level Chest pain (Acute) SOB (shortness of breath) History of repair of patent ductus arteriosus Dyslipidemia, goal LDL below 70 ASCVD (arteriosclerotic cardiovascular disease) PVCs (premature ventricular contractions) (Acute) Morbid obesity Atypical chest pain S/P cervical spinal fusion Vertigo Encephalopathy Hypertension (Acute) CAD (coronary artery disease) HLD (hyperlipidemia) Diabetes Dizziness (Acute) Arm paresthesia, left (Acute) Nystagmus (Acute) Vomiting and diarrhea (Acute) Tendonitis (Chronic) Abdominal pain (Acute) Environmental allergies (Chronic) History of hysterectomy (Chronic) "with bilateral oophorectomy" Medical History Ischemic cardiomyopathy Depression Surgical History S/P repair of patent ductus arteriosus "age 7" S/P tubal ligation Family History Mother Cancer Diabetes Grandmother (Maternal) Stroke Aunt Cancer Aunt Cancer Stroke Social History Smoking Status: Never smoker Second Hand Exposure: No; Do You Dip or Chew Tobacco: No; Tobacco Cessation Education Requested by Patient: No Hx Alcohol Use: No Hx Substance Use: No Preferred Language: Pashto Communication Ability: Effective Transportation Aid Required: No Beliefs That Will Affect Care: None Current Living Situation: Family Other Information That Helps Us Care for You: No Feels Safe at Home: Yes Safety Concerns: Feels Safe At This Time Assistive Devices: Oxygen - at Night and Walker Review of Systems All systems reviewed & are unremarkable except as noted in HPI & below. Physical Exam . Results & Data Results & Data Laboratory Results . Diagnostic Findings . PG Care Time/CCT Total # of Minutes Spent Total Time Spent with Patient: Total time spent is greater than 50% in coordination of care (as documented) at patient's floor/unit and/or counseling patient: Coding Level of Care Code 90090 IN/OBS CONSULT LVL 3,45M
[2025-05-10] MEDS: ONDANSETRON INJ 2 MG/ML 2 ML VIAL IV PRN (17:29)
--- NOTE | 2025-05-10 17:40 | Electrocardiogram Report ---
Test Reason : Blood Pressure : */* mmHG Vent. Rate : 68 BPM Atrial Rate : 68 BPM P-R Int : 158 ms QRS Dur : 96 ms QT Int : 400 ms P-R-T Axes : 61 -2 90 degrees QTcB Int : 425 ms Normal sinus rhythm possible Inferior infarct (cited on or before 29-Jun-2022) Abnormal ECG When compared with ECG of 06-May-2025 19:47, QT has shortened Confirmed by Fitz Cohen ([id number]) on 05/10/2025 5:39:28 PM Referred By: REFERRED SELF Confirmed By: Fitz Cohen
[2025-05-11 08:31] VITALS: BP 131/78; PULSE 57; TEMP 97.5; O2SAT 95
--- NOTE | 2025-05-11 10:26 | Pain Management Progress Note ---
Date of Service May 11, 2025 Assessment & Plan (1) Cervical radiculopathy: (2) History of cervical spinal surgery: Plan I did review the cervical spine MRI with the patient and answered her questions. She is to continue outpatient physical therapy. Could consider cervical epidural steroid injection on an outpatient basis. She has been made aware that the AP diameter in her cervical spine is at 5mm and the pain clinic will not inject into the epidural space when it is less than 5mm so when the stenosis progresses any further, she will no longer be a candidate and should consider surgical options. Patient is understanding of this. She does plan for discharge to home after lunch today. Will sign off on the patient. Please contact with any questions or concerns. Admission and Anticipated Discharge Date Admission Date: May 06, 2025 Subjective Patient states that her pain has improved since yesterday. There is mild numbness tingling and intermittent aching down the left arm. She has been seen and evaluated by Dr. Burt and they have discussed pursuing conservative measures prior to any consideration of surgical intervention. She is using tramadol, ibuprofen, prednisone, and Tylenol. Physical Exam Physical Exam: GENERAL: This is a 54-year-old female who is obese and physically deconditioned. In no acute distress. HEAD/FACE: Normocephalic and atraumatic. EYES: No drainage or conjunctival injection. ENT: Nose without bleeding or discharge. Oral mucosa moist. NECK: Limited range of motion in all planes. Mild tenderness along the left cervical thoracic junction. No myofascial spasm or trigger points noted. RESPIRATORY: Patient with unlabored breathing. No signs of respiratory distress. CHEST/AXILLA: Chest movement symmetrical. No deformities noted. ABDOMEN/GI: No distension BACK: Moves without difficulty SKIN: [place], warm and dry. No rash noted. MS/EXTREMITY: No swelling, no deformities. Moving extremities appropriately. 4/5 hand grasp bilaterally. NEURO: Alert and appears oriented. Speech is fluent. Cranial Nerves are grossly intact. PSYCH: Alert, pleasant, affect is calm
--- NOTE | 2025-05-11 14:56 | Discharge Summary ---
Date of Service May 11, 2025 Admission HPI Per Admitting Provider She is a 54-year-old obese female significant past medical history of type 2 diabetes, on Ozempic and metformin, hyperlipidemia, TRINIDAD does not use any CPAP, pulmonary nodules, CAD with history of nonsustained V. tach, lumbar spondylosis and chronic back pain and also major depression apparently has been complaining neck pain and pain all over the body for the last 3 days. She has had a can of soup 3 days back and started to have nausea abdominal discomfort and vomiting and also had diarrhea for 1 day, since then she has not been eating or drinking enough. She started to have neck pain and pain in the head and also pain all over the body and joints which is worse as of today. Denies any problem with urinary or bowel habit. She was noted to have UTI in the emergency room with mild elevation of the white count and blood pressure on the lower side. Her pain was not improved with intravenous Toradol and also IV Tylenol and she required intravenous Dilaudid to control the pain. She was given IV ceftriaxone and was admitted to medical floor for continuation of care. Admission Exam Per Admitting Provider Physical Exam: Lying in bed with acute distress due to neck and pain all over the body and back Constitutional: well developed, well nourished and + ill appearing Eyes: PERRL, conjunctivae normal, anicteric sclerae ENMT: external ear and nose normal, oropharynx normal Neck: No neck stiffness Respiratory: no respiratory distress Auscultation: + crackles ( minimal crackles right base) Cardiovascular: Rate/Rhythm: regular rate and regular rhythm; not tachycardic Heart Sounds: normal S1 and normal S2; no murmur Extremities: no edema Gastrointestinal (Abdomen): Inspection/Auscultation: normal bowel sounds; abdomen not distended Percussion/Palpation: abdomen soft; abdomen nontender Musculoskeletal: Has arthralgias but no arthritis involving any of the joint Neurologic: normal touch/pain/proprioception and moves all extremities; no focal motor deficits No neck rigidity or photophobia to suggest meningitis/meningism Lymphatic: no cervical or axillary lymphadenopathy Principal Diagnosis Cervical radiculopathy Discharge Exam Constitutional: WD/WN, vitals as above, NAD, sitting up in bed, pleasant, conversing easily Neck: Reports pain on movement of the neck; no deformity. Respiratory: normal respiratory effort, lungs clear; to auscultation, no wheeze, rales, rhonchi. Normal insp/exp effort, no accessory muscle use Cardiovascular: RRR, no murmur, no edema Vessels: no JVD or carotid bruit Chest: normal inspection of chest Abdomen: normal bowel sounds, soft, nontender, no hepatosplenomegaly Musculoskeletal: no cyanosis or clubbing, extremities motor strength 5/5 Skin: no rashes, warm and dry normal turgor Neurologic: PERRL, EOMI, accommodation nl, no face palsy, no dysarthria CN's II- XI intact bilaterally and moves all extremities Psychiatric: A+Ox3, euthymic affect Discharge Data Allergies Allergy/AdvReac Type Severity Reaction Status Date / Time codeine Allergy Itching Unverified 04/15/25 21:31 Consultations 05/06/25 18:56 ED Decision to Admit Stat 05/08/25 09:31 Consult Pain Management Routine 05/09/25 14:06 Consult Orthopedic Spine Surgery Routine Ordered Studies 05/06/25 17:32 CT head/brain wo con Stat 05/09/25 07:54 MRI Cervical [MR cervical spine wo/w con] Urgent Hospital Course (1) Cervical radiculopathy: (2) Intractable pain: Plan Cervical radiculopathy Patient presented to the hospital with neck pain which has been ongoing for several months. Patient has remote history of anterior cervical surgery. Patient was admitted to medical floor and was started on pain medication along with steroids. Patient underwent MRI of the cervical spine which was reviewed by pain management and orthospine; no surgical/pain management intervention was recommended. Patient reported improvement in her pain; she was discharged on tapering dose of steroid and analgesics. Patient was recommended to continue physical therapy after discharge. (2) Acute UTI (urinary tract infection): Plan: Urine culture growing more than 3 types of organisms; all high count;treated with 3 days of antibiotics Total Time Total Time Spent Total Time Spent (In Minutes): 45 Total Time Includes: Examination of the Patient, Discharge Planning, Medication Reconciliation, Communication With Other Providers and Other Discharge Plan Discharge Items Patient Disposition: Home - Home Health Services Reason For Visit: INTRACTABLE GENERALIZED PAIN Discharge Diagnosis: Cervical radiculopathy Condition on Discharge: Fair Activity: Resume your previous activity Non-emergency contact: Primary Care Provider Call non-emergency contact if: you have any medication questions and your symptoms worsen Follow-up/Referrals: Vanessa Hobson MD [Primary Care Provider] - (Date & Time 05/15/2025 2:00 PM Provider: Gary Galdamez MD [facility]) Diet: Regular Addtl Attending Provider Instructions: You were admitted to the hospital due to neck pain. You underwent evaluation in the hospital with orthopedic, pain management; also underwent MRI of the cervical spine. You are recommended to continue physical therapy. You are prescribed pain medication with ibuprofen 600 mg to be taken as needed every 8 hours. If your pain is very severe; you can take tramadol 50 mg; please limit the use of tramadol as it can cause dependence. You are prescribed prednisone to be taken for 2 more days. Follow-up with your primary care doctor. Pending Studies at Discharge: No Stand-Alone Forms: My [facility] [employer], Work/School Release, Smoking Cessation Medications and DC Order Prescriptions: New prednisone 20 mg Tablet 20 mg PO DAILY 2 Days Qty: 2 0RF tramadol 50 mg Tablet 50 mg PO Q8H PRN (Reason: pain) Qty: 15 0RF ibuprofen 600 mg Tablet 600 mg PO Q8H PRN (Reason: pain) Qty: 30 0RF Continued Ozempic 0.25 mg or 0.5 mg (2 mg/3 mL) pen injector 0 mg SUBCUT WK Patient Comments: 05/06-Filled 05/01 42 day supply. unknown dose venlafaxine 75 mg capsule,extended release 24hr 75 mg PO DAILY metoprolol succinate 50 mg tablet extended release 24 hr 50 mg PO DAILY gabapentin 800 mg tablet 800 mg PO TID PRN (Reason: Pain) baclofen 10 mg tablet 10 mg PO TID pantoprazole 40 mg tablet,delayed release (DR/EC) 40 mg PO DAILY metformin 500 mg tablet extended release 24 hr 1,000 mg PO BID lisinopril 2.5 mg tablet 2.5 mg PO DAILY rosuvastatin 20 mg tablet 20 mg PO DAILY aspirin 81 mg Tablet,Delayed Release (Dr/Ec) 81 mg PO DAILY amlodipine [Norvasc] 5 mg Tablet 5 mg PO QAM Qty: 30 0RF acetaminophen 325 mg Tablet 650 mg PO Q4H PRN (Reason: pain) Qty: 30 0RF meloxicam 15 mg tablet 15 mg PO DAILY Qty: 10 0RF Discontinued ibuprofen 800 mg tablet 800 mg PO TID PRN (Reason: Pain) Hold Instructions: Resume on 04/27/25. discuss with primary care doctor if/when to resume oxycodone 5 mg tablet 5 mg PO Q8H PRN (Reason: pain) Qty: 10 0RF Discharge Orders: Discharge Order (Routine); Ordered 05/11/25 Ordered By: Dave Maxwell/Other Patient Handouts: Relieving Back Pain Admission Data Admit Date/Time: 05/06/25 20:19 Attending Provider: Dave Vides Admit Provider: Sekou Tineo Primary Care Provider: Vanessa Hobson Other Providers: Aaron Win; Darrius Larsen; Jordan Burt; [facility] Other Interventions: Discharge Summary Assessment (RN) Last Done: 05/11/25 12:39
== END 2025-05-11 13:13 | disposition home health service (06) | DRG 74 ==
LOC: ED 14:34 → INTOOBSV 20:19 → SUATTDRO 20:19 → 3N 20:19

== ENCOUNTER 2025-07-08 11:27 | Inpatient (IN) ==
[2025-07-08] MEDS: ONDANSETRON INJ 2 MG/ML 2 ML VIAL IV STA (11:44)
[2025-07-08] MEDS: MoRPHine SULFATE 4 MG/ML 1 ML CARP\\VIAL IV STA (11:44)
--- NOTE | 2025-07-08 11:51 | Emergency Department Note ---
Impression & Plan Chest pain, Abnormal EKG ED Provider Note NAME: ANSELMO HIGGINS AGE: 54 SEX: F : 1970 ARRIVES VIA: Ambulance INFORMANT: Patient, ED PROVIDER(S): Ian Robles DO CHIEF COMPLAINT: Chest pain HPI: The patient is a 54-year-old female who presented to the emergency department by ambulance for an evaluation of chest pain. The patient states she has a history of chest pain in the past. She was in our facility and this summer for similar complaints. The patient denies having any difficulty breathing but does complain of anterior chest pain that goes into her back. She states that this is similar to the pain that she has had in the past. She does have a history of coronary artery disease with stenting. The patient denies having any abdominal pain or vomiting. She was treated with aspirin and pain medication prior to arrival. She was also given nitroglycerin. ROS: See above HPI for pertinent positives & negatives. A total of 10 systems reviewed and were otherwise negative. PAST MEDICAL HISTORY: See Below PAST SURGICAL HISTORY: See Below FAMILY HISTORY: See Below SOCIAL HISTORY: See Below HOME MEDICATIONS: See Below ALLERGIES: See Below VITALS: See Below PHYSICAL EXAMINATION: GENERAL: The patient is awake and alert. The patient is anxious appearing. To be uncomfortable. EYES: The conjunctivae are clear. The pupils are round and reactive. EARS, NOSE, MOUTH AND THROAT: The nose is without any evidence of any deformity. NECK: The neck is nontender and supple. RESPIRATORY: Normal respiratory effort is noted there is no evidence of wheezing rhonchi or rales CARDIOVASCULAR: Regular rate and rhythm noted there no murmurs rubs or gallops normal S1 normal S2. GASTROINTESTINAL: The abdomen is soft. Abdomen is nontender. MUSCULOSKELETAL/EXTREMITIES: There is no evidence of gross deformity full range of motion is noted in the hips and shoulders. SKIN: There is no obvious evidence of any rash. There are no petechiae, pallor or cyanosis noted. NEUROLOGIC: Patient is awake alert and oriented x3 MEDICAL DECISION MAKING: The patient is a 54-year-old female who presented to the emergency department for an evaluation of chest pain. The patient was having severe symptoms upon arrival. She was treated with pain medication. She was treated with aspirin nitroglycerin and pain medication prior to arrival. She was reevaluated multiple times. I discussed the patient's laboratory and radiographic studies with her. I discussed the limitations of the emergency room workup her chest pain with her. Ultimately the patient's EKG did somewhat normalize. Her pain was resolved. I discussed her condition with the on-call [facility] hospitalist. They have agreed to evaluate the patient in the emergency department for further management and disposition. Triage Nursing notes reviewed. Prior medical records reviewed Vital Signs: reviewed and remarkable for no significant abnormalities Differential diagnosis: Cardiac ischemia, aortic dissection, pulmonary embolism, pneumothorax, pneumonia, pericarditis, myocarditis, esophageal rupture, GERD, cholecystitis, pancreatitis, musculoskeletal, as well as other pathologies. ER treatment provided: See below Diagnostics interpreted by me: ECG: EKG was obtained in the emergency department. My interpretation is normal sinus rhythm at 82 bpm. There is no PVCs noted. Nonspecific ST abnormality are noted in the low lateral leads. This was compared to a tracing from May 09, 2025. A similar ST abnormality was noted. A second EKG was obtained in the emergency department after the patient was improved. My interpretation is normal sinus rhythm at 74 bpm. There is no ectopy. The ST segment elevation that was previously questioned does appear improved. This compares favorable to the initial EKG obtained in the emergency department. Cardiac Monitoring: An order was placed for continuous cardiac monitoring. The monitor shows a rate of 78 bpm with sinus rhythm. Laboratory studies: As stated above and show below. Imaging studies: See below. Radiographic imaging was reviewed by myself Consultation(s): I discussed this case with Dr. Hardy [facility] Past Med/Surg History Problem List Abnormal EKG (Acute) Chest pain (Acute) Cervical radiculopathy Hypomagnesemia (Acute) Intractable pain (Acute) Leukocytosis (Acute) Headache (Acute) Body aches (Acute) Neck pain NSVT (nonsustained ventricular tachycardia) Hypokalemia (Acute) Hypomagnesemia (Acute) History of TN (myocardial infarction) (Acute) Body aches (Acute) Elevated troponin (Acute) Precordial chest pain (Acute) Elevated troponin I level Chest pain (Acute) SOB (shortness of breath) History of repair of patent ductus arteriosus Dyslipidemia, goal LDL below 70 ASCVD (arteriosclerotic cardiovascular disease) PVCs (premature ventricular contractions) (Acute) Morbid obesity Atypical chest pain S/P cervical spinal fusion Vertigo Encephalopathy Hypertension (Acute) CAD (coronary artery disease) HLD (hyperlipidemia) Diabetes Dizziness (Acute) Arm paresthesia, left (Acute) Nystagmus (Acute) Vomiting and diarrhea (Acute) Tendonitis (Chronic) Abdominal pain (Acute) Environmental allergies (Chronic) History of hysterectomy (Chronic) "with bilateral oophorectomy" Medical History Ischemic cardiomyopathy Depression Surgical History History of cervical spinal surgery C3-C6 fusion S/P repair of patent ductus arteriosus "age 7" S/P tubal ligation Family History Mother Cancer Diabetes Grandmother (Maternal) Stroke Aunt Cancer Aunt Cancer Stroke Social History Smoking Status: Former smoker Tobacco Type: Cigarettes Second Hand Exposure: No; Do You Dip or Chew Tobacco: No; Hx Alcohol Use: No Hx Substance Use: No Preferred Language: Taiwanese Communication Ability: Effective Utility Porter Required: No Beliefs That Will Affect Care: None Current Living Situation: Family Feels Safe at Home: Yes Assistive Devices: Oxygen - at Night and Walker Allergies Allergies Allergy/AdvReac Type Severity Reaction Status Date / Time codeine Allergy Severe Itching Unverified 07/08/25 13:48 Home Meds Home Medications Medication Instructions Recorded Confirmed aspirin 81 mg tablet,delayed 81 mg PO DAILY 04/15/25 07/08/25 release baclofen 10 mg tablet 10 mg PO TID PRN Pain 04/15/25 07/08/25 gabapentin 800 mg tablet 800 mg PO TID PRN Pain 04/15/25 07/08/25 lisinopril 2.5 mg tablet 2.5 mg PO DAILY 04/15/25 07/08/25 metformin 500 mg tablet,extended 1,000 mg PO BID 04/15/25 07/08/25 release 24 hr metoprolol succinate 50 mg 50 mg PO DAILY 04/15/25 07/08/25 tablet,extended release 24 hr pantoprazole 40 mg tablet,delayed 40 mg PO DAILY 04/15/25 07/08/25 release rosuvastatin 20 mg tablet 20 mg PO DAILY 04/15/25 07/08/25 semaglutide 0.25 mg or 0.5 mg (2 1 mg subcut WK 05/06/25 07/08/25 mg/3 mL) subcutaneous pen injector (Ozempic) loratadine 10 mg tablet 10 mg PO DAILY 07/08/25 07/08/25 trazodone 50 mg tablet 50 mg PO HS 07/08/25 07/08/25 Previous Rx's Medication Instructions Recorded acetaminophen 325 mg tablet 650 mg (2 x 325 mg) PO Q4H PRN 04/20/25 pain #30 tabs amlodipine 5 mg tablet (Norvasc) 5 mg PO QAM #30 tabs 04/20/25 meloxicam 15 mg tablet 15 mg PO DAILY #10 tabs 04/20/25 ibuprofen 600 mg tablet 600 mg PO Q8H PRN pain #30 tabs 05/11/25 Results & Data (ED) Vital Signs Vital Signs - 24 hr 07/08/25 11:17 07/08/25 11:17 07/08/25 11:17 Temperature 36.7 C 36.7 C Temperature Source Oral Oral Pulse Rate 91 H Pulse Rate [Right Brachial] 91 H Pulse Rate from SpO2 Sensor Pulse Rhythm Regular Pulse Rhythm [Right Brachial] Regular Pulse Strength Normal Pulse Strength [Right Brachial] Normal Respiratory Rate 16 16 Respiratory Effort / Characteristics Non-Labored Non-Labored Respiratory Depth Normal Normal Respiratory Pattern Regular Regular Blood Pressure 152/95 H Blood Pressure [Right Arm] 152/95 H Blood Pressure Mean 114 Blood Pressure Mean [Right Arm] 114 Blood Pressure Position Lying Blood Pressure Position [Right Arm] Lying Pulse Oximetry 94 94 Oxygen Delivery Method Room Air Room Air Room Air Sepsis Recent Fever Within 48 Hours No Sepsis New/Unexplained Change in Mental Status N/A Sepsis Action Taken by Nursing No Action Required 07/08/25 11:37 07/08/25 11:51 07/08/25 13:03 Temperature Temperature Source Pulse Rate 82 79 Pulse Rate [Right Brachial] Pulse Rate from SpO2 Sensor 79 Pulse Rhythm Pulse Rhythm [Right Brachial] Pulse Strength Pulse Strength [Right Brachial] Respiratory Rate 21 Respiratory Effort / Characteristics Respiratory Depth Respiratory Pattern Blood Pressure 112/83 Blood Pressure [Right Arm] Blood Pressure Mean 92 Blood Pressure Mean [Right Arm] Blood Pressure Position Blood Pressure Position [Right Arm] Pulse Oximetry 94 98 Oxygen Delivery Method Room Air Sepsis Recent Fever Within 48 Hours Sepsis New/Unexplained Change in Mental Status Sepsis Action Taken by Nursing 07/08/25 13:15 07/08/25 13:30 Temperature Temperature Source Pulse Rate 77 78 Pulse Rate [Right Brachial] Pulse Rate from SpO2 Sensor 77 79 Pulse Rhythm Pulse Rhythm [Right Brachial] Pulse Strength Pulse Strength [Right Brachial] Respiratory Rate 13 19 Respiratory Effort / Characteristics Respiratory Depth Respiratory Pattern Blood Pressure 105/64 115/81 Blood Pressure [Right Arm] Blood Pressure Mean 77 92 Blood Pressure Mean [Right Arm] Blood Pressure Position Blood Pressure Position [Right Arm] Pulse Oximetry 94 94 Oxygen Delivery Method Sepsis Recent Fever Within 48 Hours Sepsis New/Unexplained Change in Mental Status Sepsis Action Taken by Jail Medications Current Medication List: was personally reviewed by me Laboratory Data Attestation: I reviewed the patient's lab results. 07/08/25 11:33 07/08/25 11:33 Lab Results 07/08/25 Range/Units 11:33 WBC 12.37 H (4.8-10.8) K/ul RBC 4.89 (4.20-5.40) M/uL Hgb 13.7 (12.0-16.0) g/dl Hct 41.8 (37.0-47.0) % MCV 85.5 (80.0-100.0) fL MCH 28.0 (25.0-34.0) pg MCHC 32.8 (32.0-36.0) g/dL RDW Std Deviation 42.8 (36.4-46.3) fL RDW Coeff of [place] 13.8 (11.5-14.5) % Plt Count 341 (130-400) K/uL MPV 11.4 (9.4-12.4) fL Immature Gran % (Auto) 0.5 % Neut % (Auto) 69.1 % Lymph % (Auto) 21.9 % [place] % (Auto) 6.5 % Eos % (Auto) 1.5 % Baso % (Auto) 0.5 % Neut # (Auto) 8.55 H (1.40-6.50) K/uL Lymph # (Auto) 2.71 (1.20-3.40) K/uL [place] # (Auto) 0.80 H (0.11-0.59) K/uL Eos # (Auto) 0.19 (0.00-0.50) K/uL Baso # (Auto) 0.06 (0.00-0.20) K/uL Immature Gran # (Auto) 0.06 (0.01-0.20) K/uL PT 10.9 (9.0-12.0) Seconds INR 1.0 (0.9-1.1) APTT 26 (21-31) Seconds PTT Ratio 1.0 Sodium 140 (136-145) mmol/L Potassium 2.9 L (3.5-5.1) mmol/L Chloride 104 (98-107) mmol/L Carbon Dioxide 23 (21-32) mmol/L Anion Gap 13 H (3-11) BUN 17 (6-23) mg/dl Creatinine 1.05 (0.6-1.2) mg/dl Est Cr Clr Drug Dosing 65.5 ml/min eGFR 63.14 BUN/Creatinine Ratio 16.2 (10-20) Glucose 162 H (70-99(Fasting)) mg/dl Calcium 9.3 (8.6-10.3) mg/dl Total Bilirubin 1.3 H (0.2-1.0) mg/dl AST 14 (13-39) U/L ALT 8 (7-52) U/L Alkaline Phosphatase 102 (34-104) U/L Troponin I High Sens 11.5 (0-14) pg/ml Total Protein 7.5 (6.0-8.3) gm/dl Albumin 4.2 (3.4-5.0) gm/dl Globulin 3.3 (2.5-4.0) gm/dl Albumin/Globulin Ratio 1.3 (0.9-2) Lipase 16 (11-82) U/L Administered Medications Discontinued Medications Potassium Chloride (K Hank / Wtr) 10 meq in 100 mls @ 100 mls/hr IV ONE ONE Stop: 07/08/25 13:48 Last Infusion: 07/08/25 14:37 Dose: Infused Documented By: Admin: 07/08/25 13:18 Dose: 100 mls/hr Documented By: JENNIFER Morphine Sulfate (Morphine Sulfate 4 Mg/Ml 1 Ml Carp\\Vial) 4 mg IV NOW STA Stop: 07/08/25 11:38 Last Admin: 07/08/25 11:44 Dose: 4 mg Documented By: QGV Ondansetron HCl (Ondansetron Inj 2 Mg/Ml 2 Ml Vial) 4 mg IV NOW STA Stop: 07/08/25 11:38 Last Admin: 07/08/25 11:44 Dose: 4 mg Documented By: QGV Potassium Chloride (Potassium Chloride 10 Meq Tabcr) 20 meq PO NOW STA Stop: 07/08/25 12:50 Last Admin: 07/08/25 13:14 Dose: 20 meq Documented By: JENNIFER Imaging Data Attestation: I personally reviewed and interpreted this imaging study as follows: My Impression: 1 view chest x-ray was obtained in the emergency department. My interpretation is no free air or definite infiltrate, final report below. Radiologist's Impression: Chest X-Ray 07/08/25 11:37 XR chest 1V portable CLINICAL HISTORY: Chest pain, nonspecific COMPARISON STUDY: Chest CT April 16, 2025. Chest radiograph May 06, 2025. FINDINGS: Postoperative findings within the cervical spine are incidentally noted. Multiple calcified pulmonary nodules are unchanged. These are benign. Mild cardiomegaly is again noted. There is no evidence for pulmonary edema. No consolidation to suggest pneumonia. No pneumothorax or pleural effusion. IMPRESSION: No acute cardiopulmonary findings. No significant change in appearance of the chest. ACT 112: Negative or not required by law. Electronically signed by: Dhruv Hand M.D. 07/08/2025 12:22 PM Discharge Plan Visit Data Chief Complaint: Chest Pain ED Provider: Ian Robles Discharge Problem: Chest pain, Abnormal EKG Patient Disposition: Being Evaluated by Hospitalist Condition: Fair Forms Stand Alone Forms: My [facility] [employer] Prescriptions Prescriptions: No Action Ozempic 0.25 mg or 0.5 mg (2 mg/3 mL) pen injector 1 mg SUBCUT WK Rx Instructions: Tuesdays ibuprofen 600 mg Tablet 600 mg PO Q8H PRN (Reason: pain) Qty: 30 0RF Patient Comments: Unable to verify OTC meds at this date/time. 07/08/25 metoprolol succinate 50 mg tablet extended release 24 hr 50 mg PO DAILY gabapentin 800 mg tablet 800 mg PO TID PRN (Reason: Pain) baclofen 10 mg tablet 10 mg PO TID PRN (Reason: Pain) pantoprazole 40 mg tablet,delayed release (DR/EC) 40 mg PO DAILY metformin 500 mg tablet extended release 24 hr 1,000 mg PO BID lisinopril 2.5 mg tablet 2.5 mg PO DAILY rosuvastatin 20 mg tablet 20 mg PO DAILY aspirin 81 mg Tablet,Delayed Release (Dr/Ec) 81 mg PO DAILY Patient Comments: Unable to verify OTC meds at this date/time. 07/08/25 amlodipine [Norvasc] 5 mg Tablet 5 mg PO QAM Qty: 30 0RF acetaminophen 325 mg Tablet 650 mg PO Q4H PRN (Reason: pain) Qty: 30 0RF meloxicam 15 mg tablet 15 mg PO DAILY Qty: 10 0RF trazodone 50 mg tablet 50 mg PO HS loratadine 10 mg Tablet 10 mg PO DAILY Referrals Referrals: Vanessa Hobson MD [Primary Care Provider] -
[2025-07-08 12:05] LABS: Hematocrit (blood only) 41.8 % (37.0-47.0); Hemoglobin 13.7 g/dl (12.0-16.0); Immature Granulocytes # (auto) 0.06 K/uL (0.01-0.20); Immature Granulocytes % (auto) 0.5 %; Mean Corpuscular Hemoglobin 28.0 pg (25.0-34.0); Mean Corpuscular Volume 85.5 fL (80.0-100.0); Platelet Count 341 K/uL (130-400); RDW Standard Deviation 42.8 fL (36.4-46.3); Red Blood Count 4.89 M/uL (4.20-5.40); White Blood Count 12.37 K/ul (4.8-10.8)
[2025-07-08 12:22] LABS: Alanine Aminotransferase 8.0 U/L (7-52); Albumin Globulin Ratio 1.3 (0.9-2); Alkaline Phosphatase 102.0 U/L (34-104); Anion Gap 13.0 (3-11); Bilirubin,Total 1.3 mg/dl (0.2-1.0); Blood Urea Nitrogen 17.0 mg/dl (6-23); Calcium 9.3 mg/dl (8.6-10.3); Carbon Dioxide 23.0 mmol/L (21-32); Chloride 104.0 mmol/L (98-107); Creatinine Clr Calc Pharmacy 65.5 ml/min; Globulin 3.3 gm/dl (2.5-4.0); Glucose 162.0 mg/dl (70-99(Fasting)); Lipase 16.0 U/L (11-82); Potassium 2.9 mmol/L (3.5-5.1); Sodium 140.0 mmol/L (136-145); Total Protein 7.5 gm/dl (6.0-8.3)
--- NOTE | 2025-07-08 12:23 | XRay Report ---
XR chest 1V portable CLINICAL HISTORY: Chest pain, nonspecific COMPARISON STUDY: Chest CT April 16, 2025. Chest radiograph May 06, 2025. FINDINGS: Postoperative findings within the cervical spine are incidentally noted. Multiple calcified pulmonary nodules are unchanged. These are benign. Mild cardiomegaly is again noted. There is no mendez dence for pulmonary edema. No consolidation to suggest pneumonia. No pneumothorax or pleural effusion . IMPRESSION: No acute cardiopulmonary findings. No significant change in appearance of the chest. ACT 112: Negative or not required by law. Electronically signed by: Dhruv Hand M.D. 07/08/2025 12:22 PM
[2025-07-08 12:33] LABS: INR 1.0 (0.9-1.1); Partial Thromboplastin Time 26 Seconds (21-31); Prothrombin Time 10.9 Seconds (9.0-12.0)
--- NOTE | 2025-07-08 13:06 | Electrocardiogram Report ---
Test Reason : Blood Pressure : */* mmHG Vent. Rate : 74 BPM Atrial Rate : 74 BPM P-R Int : 156 ms QRS Dur : 102 ms QT Int : 408 ms P-R-T Axes : * -12 5 degrees QTcB Int : 452 ms Normal sinus rhythm Moderate voltage criteria for LVH, may be normal variant ( R in aVL ) Nonspecific T wave abnormality Abnormal ECG When compared with ECG of 08-Jul-2025 11:33, (unconfirmed) No significant change was found Confirmed by Ian Gallegos ([id number]) on 07/08/2025 1:06:08 PM Referred By: REFERRED SELF Confirmed By: Ian Gallegos
--- NOTE | 2025-07-08 13:06 | Electrocardiogram Report ---
Test Reason : Blood Pressure : */* mmHG Vent. Rate : 82 BPM Atrial Rate : 82 BPM P-R Int : 152 ms QRS Dur : 102 ms QT Int : 400 ms P-R-T Axes : -20 -10 43 degrees QTcB Int : 467 ms Normal sinus rhythm Minimal voltage criteria for LVH, may be normal variant Inferior infarct (cited on or before 29-Jun-2022) Possible Anterolateral infarct , age undetermined Abnormal ECG When compared with ECG of 09-May-2025 22:00, Borderline criteria for Anterior infarct are now Present Borderline criteria for Anterolateral infarct are now Present Confirmed by Ian Gallegos ([id number]) on 07/08/2025 1:06:21 PM Referred By: Confirmed By: Ian Gallegos
[2025-07-08] MEDS: POTASSIUM CHLORIDE 10 MEQ TABCR PO STA (13:14)
[2025-07-08] MEDS: POTASSIUM CHLORIDE / WTR 10 MEQ/100 ML PLCT IV ONE (13:18)
--- NOTE | 2025-07-08 13:30 | History & Physical Report ---
Date of Service July 08, 2025 Assessment & Plan (1) Chest pain: (2) Abnormal EKG: Plan: Chest Pain: R/O ACS H/O CAD --Last Cath on 07/28/24:Dominant: Left. Left Main (% Stenosis): Normal. LAD (% Stenosis): Mid (Luminal irregularities, 10%). D1 (% Stenosis): Ostial (60%, small vessel). D2 (% Stenosis): Normal. D3 (% Stenosis): Normal. Circumflex (% Stenosis): Mid (30% at take off of OM1). OM1 (% Stenosis): Proximal (patent stent) and Mid (40% stenosis of ostial sub-branch). RCA (% Stenosis): Normal (Small, nondominant vessel. Small, secondary subbranch, with separate ostia, visualized without significant disease.). --Initial troponin:Negative --CXR: No acute cardiopulmonary findings. No significant change in appearance of the chest. --HbA1c 8.3 on 06/03/2025 --Will obtain resting echo Trend serial cardiac enzymes, repeat EKG, fasting lipid panel in AM Continue aspirin, statin, metoprolol succinate, lisinopril Cardiology consulted Hypokalemia Replace and monitor Check magnesium level Leukocytosis No clear source of infection currently Monitor Left knee osteoarthritis S/P injection recently Plan to be initiated on Medrol Dosepak Will plan for TKA eventually Morbid obesity BMI 40 DM Type II: Last HbA1c 8.3 Hold home regimen ISS, basal Insulin, Accu checks, Diabetic diet Hyperlipidemia Continue statin TRINIDAD Continue supplemental oxygen at bedtime Currently not using CPAP Hypertension Continue amlodipine, lisinopril, metoprolol Monitor blood pressure Other medical problems Pulmonary nodules NSVT Mood disorder Continue home medications as able DVT Px: Heparin SQ CODE STATUS Full code History of Present Illness Chief Complaint: Chest Pain Primary Care Provider: Vanessa Hobson MD Patient is a 54-year-old female with history of diabetes mellitus type 2, obesity, hyperlipidemia, TRINIDAD on supplemental oxygen at bedtime, pulmonary nodules, coronary artery disease, NSVT, mood disorder, hypertension, osteoarthritis of left knee and other medical problems presents with history of sudden onset of nonexertional chest pain. Patient states that while she was working at [employer] today she developed sudden onset of retrosternal chest pain radiating to the back, left arm lasting for about 40 minutes which resolved after administering aspirin, nitroglycerin and pain medications en route to the hospital. Currently she is chest pain-free. She describes chest pain to be pressure-like sensation associated with palpitations, dyspnea, dizziness. She states that she is taking her medications regularly at home. Denies any exertional chest pain. Reports chronic diarrhea which she attributes to her diabetic medications. Initial EKG showed findings suggestive of possible anterolateral infarct. Repeat EKG showed nonspecific T wave abnormality. Denies any history of syncope, diaphoresis, cough, wheezing, fever, chills, fall, chest trauma, headache, focal weakness, change in vision, nausea, vomiting, abdominal pain, dysuria, hematuria. Allergies Allergy/AdvReac Type Severity Reaction Status Date / Time codeine Allergy Severe Itching Unverified 07/08/25 13:48 Home Medications Medication Instructions Recorded Confirmed Type aspirin 81 mg tablet,delayed 81 mg PO DAILY 04/15/25 07/08/25 History release baclofen 10 mg tablet 10 mg PO TID PRN Pain 04/15/25 07/08/25 History gabapentin 800 mg tablet 800 mg PO BID PRN Pain 04/15/25 07/08/25 History lisinopril 2.5 mg tablet 2.5 mg PO DAILY 04/15/25 07/08/25 History metformin 500 mg tablet,extended 1,000 mg PO BID 04/15/25 07/08/25 History release 24 hr metoprolol succinate 50 mg 50 mg PO DAILY 04/15/25 07/08/25 History tablet,extended release 24 hr pantoprazole 40 mg tablet,delayed 40 mg PO DAILY 04/15/25 07/08/25 History release rosuvastatin 20 mg tablet 20 mg PO DAILY 04/15/25 07/08/25 History acetaminophen 325 mg tablet 650 mg (2 x 325 mg) PO Q4H PRN 04/20/25 07/08/25 Rx pain #30 tabs amlodipine 5 mg tablet (Norvasc) 5 mg PO QAM #30 tabs 04/20/25 07/08/25 Rx meloxicam 15 mg tablet 15 mg PO DAILY #10 tabs 04/20/25 07/08/25 Rx semaglutide 0.25 mg or 0.5 mg (2 1 mg subcut WK 05/06/25 07/08/25 History mg/3 mL) subcutaneous pen injector (Ozempic) ibuprofen 600 mg tablet 600 mg PO Q8H PRN pain #30 tabs 05/11/25 07/08/25 Rx trazodone 50 mg tablet 50 mg PO HS 07/08/25 07/08/25 History Past Med/Surg History Problem List Abnormal EKG (Acute) Chest pain (Acute) Cervical radiculopathy Hypomagnesemia (Acute) Intractable pain (Acute) Leukocytosis (Acute) Headache (Acute) Body aches (Acute) Neck pain NSVT (nonsustained ventricular tachycardia) Hypokalemia (Acute) Hypomagnesemia (Acute) History of NE (myocardial infarction) (Acute) Body aches (Acute) Elevated troponin (Acute) Precordial chest pain (Acute) Elevated troponin I level Chest pain (Acute) SOB (shortness of breath) History of repair of patent ductus arteriosus Dyslipidemia, goal LDL below 70 ASCVD (arteriosclerotic cardiovascular disease) PVCs (premature ventricular contractions) (Acute) Morbid obesity Atypical chest pain S/P cervical spinal fusion Vertigo Encephalopathy Hypertension (Acute) CAD (coronary artery disease) HLD (hyperlipidemia) Diabetes Dizziness (Acute) Arm paresthesia, left (Acute) Nystagmus (Acute) Vomiting and diarrhea (Acute) Tendonitis (Chronic) Abdominal pain (Acute) Environmental allergies (Chronic) History of hysterectomy (Chronic) "with bilateral oophorectomy" Medical History Ischemic cardiomyopathy Depression Surgical History History of cervical spinal surgery C3-C6 fusion S/P repair of patent ductus arteriosus "age 7" S/P tubal ligation Family History Mother Cancer Diabetes Grandmother (Maternal) Stroke Aunt Cancer Aunt Cancer Stroke Social History Smoking Status: Former smoker Tobacco Type: Cigarettes Second Hand Exposure: No; Do You Dip or Chew Tobacco: No; Hx Alcohol Use: No Hx Substance Use: No Preferred Language: Turkish Communication Ability: Effective Frame Aligner Required: No Beliefs That Will Affect Care: None Current Living Situation: Family Feels Safe at Home: Yes Assistive Devices: Oxygen - at Night and Walker Review of Systems Review of Systems: All systems reviewed & are unremarkable except as noted in Subjective Physical Exam Physical Exam: Physical Exam: Vitals signs as noted above General Appearance:Morbidly Obese, no apparent distress Head: normocephalic, Atraumatic Eyes: normal inspection, EOMI Neck: supple, Trachea midline Respiratory/Chest: Normal breath sounds, CTA, No accessory muscle use,+ reproducible chest tenderness Cardiovascular: S1, S2, No murmur Abdomen/GI:Soft, Non tender, Bowel sounds present Extremities/Musculoskeletal:normal inspection, no edema Neurologic/Psych:AAOX3, grossly no focal neurological deficits Skin: normal color, warm Results & Data Results & Data Vital Signs (Past 12 Hours) Vital Signs Temp Pulse Pulse Resp BP BP Pulse Ox 07/08/25 11:51 82 07/08/25 11:37 94 07/08/25 11:17 36.7 C 91 H 16 152/95 H 94 07/08/25 11:17 07/08/25 11:17 36.7 C 91 H 16 152/95 H 94 O2 Del Method 07/08/25 11:51 07/08/25 11:37 Room Air 07/08/25 11:17 Room Air 07/08/25 11:17 Room Air 07/08/25 11:17 Room Air Laboratory Results Short CBC 07/08/25 Range/Units 11:33 WBC 12.37 H (4.8-10.8) K/ul Hgb 13.7 (12.0-16.0) g/dl Hct 41.8 (37.0-47.0) % Plt Count 341 (130-400) K/uL BMP 07/08/25 11:33 Sodium 140 Potassium 2.9 L Chloride 104 Carbon Dioxide 23 BUN 17 Creatinine 1.05 Glucose 162 H Calcium 9.3 Liver Function 07/08/25 Range/Units 11:33 Total Bilirubin 1.3 H (0.2-1.0) mg/dl AST 14 (13-39) U/L ALT 8 (7-52) U/L Alkaline Phosphatase 102 (34-104) U/L Albumin 4.2 (3.4-5.0) gm/dl Diagnostic Findings --CXR:No acute cardiopulmonary findings. No significant change in appearance of the chest.
[2025-07-08] MEDS ORDERED: GLUCOSE 40% GEL 15 GM TUBE PO PRN (15:40)
[2025-07-08] MEDS ORDERED: GLUCAGON FOR INJ 1 MG VIAL SQ PRN (15:40)
[2025-07-08] MEDS ORDERED: ONDANSETRON INJ 2 MG/ML 2 ML VIAL IV PRN (15:40)
[2025-07-08] MEDS ORDERED: POLYETHYLENE (MIRALAX) 17 GM PACK PO PRN (15:40)
[2025-07-08] MEDS ORDERED: DEXTROSE 50% 50 ML SYRINGE IV PRN (15:40)
[2025-07-08] MEDS ORDERED: CARBOHYDRATES FOR HYPOGLYCEMIA PO PRN (15:40)
[2025-07-08] MEDS ORDERED: GLUCOSE 10 TAB/TUBE PO PRN (15:40)
[2025-07-08] MEDS: POTASSIUM CHLORIDE CRTAB 20 MEQ TABCR PO ONE (17:03)
[2025-07-08] MEDS: INSULIN ASPART PER UNIT CHARGE SC SCH (17:09)
--- NOTE | 2025-07-08 17:17 | Communication Note ---
Date of Service: July 08, 2025 Given rise in Troponin, Will start on IV heparin given concern for NSTEMI. Cards eval pending.
[2025-07-08] MEDS: HEPARIN 25000 UNIT/500 ML D5W 25,000 UNITS/500 ML BAG IV SCH (18:10)
[2025-07-08] MEDS: Heparin IV Adult Wt-Based Standard *NO* INITIAL Bolus Protocol IV STA (18:11)
[2025-07-08] MEDS: NITROGLYCERIN SL 0.4 MG/TAB TAB SL STA (20:31)
[2025-07-08] MEDS: POTASSIUM CHLORIDE CRTAB 20 MEQ TABCR PO SCH (20:36)
[2025-07-08] MEDS ORDERED: LORazepam 0.5 MG TAB PO PRN (20:45)
[2025-07-08] MEDS: LANTUS PER UNIT CHARGE SQ SCH (21:13)
--- NOTE | 2025-07-08 21:24 | Communication Note ---
Date of Service: July 08, 2025 Patient with chest heaviness relieved by oxycodone. EKG as per my interpretation Rate 80, NSR, LAD, LAFB, nonspecific T abnormalities Troponin 1156 from 543 on admission. AP NSTEMI Change to full admission Continue current aspirin, beta-abel, statin and IV heparin medications. Await cardio input in a.m. N.p.o. after midnight as ordered by a.m. provider.
[2025-07-08] MEDS: POTASSIUM CHLORIDE 20 MEQ in LACTATED RINGER'S 1,000 ML IV ONE (21:51)
[2025-07-08] MEDS ORDERED: HEPARIN SOD 5,000 UNIT/0.5 ML VIAL SQ SCH (22:00)
[2025-07-08] MEDS ORDERED: Nursing to Pharmacy Communication SCH (22:15)
[2025-07-09] MEDS: INSULIN ASPART PER UNIT CHARGE SC SCH ×2 (00:07→21:41)
[2025-07-09 01:18] LABS: ANTI-Xa, UFH(UnfractionatedHep 0.42 IU/ml (0.3-0.7)
[2025-07-09 06:49] LABS: Hematocrit (blood only) 38.8 % (37.0-47.0); Hemoglobin 12.3 g/dl (12.0-16.0); Mean Corpuscular Hemoglobin 28.0 pg (25.0-34.0); Mean Corpuscular Volume 88.2 fL (80.0-100.0); Platelet Count 250 K/uL (130-400); RDW Standard Deviation 44.9 fL (36.4-46.3); Red Blood Count 4.40 M/uL (4.20-5.40); White Blood Count 8.44 K/ul (4.8-10.8)
[2025-07-09 07:21] LABS: ANTI-Xa, UFH(UnfractionatedHep 0.50 IU/ml (0.3-0.7)
[2025-07-09 07:30] LABS: Anion Gap 5.0 (3-11); Blood Urea Nitrogen 17.0 mg/dl (6-23); Calcium 8.3 mg/dl (8.6-10.3); Carbon Dioxide 28.0 mmol/L (21-32); Chloride 107.0 mmol/L (98-107); Cholesterol 80.0 mg/dl (0-200); Creatinine Clr Calc Pharmacy 105.7 ml/min; Glucose 134.0 mg/dl (70-99(Fasting)); HDL Cholesterol 27.0 mg/dl; Magnesium 1.4 mg/dl (1.7-2.4); Potassium 3.8 mmol/L (3.5-5.1); Sodium 140.0 mmol/L (136-145); Triglycerides 121.0 mg/dl (0-150)
[2025-07-09] MEDS: METOPROLOL SUCC 50MG EXT REL TAB PO SCH (08:25)
[2025-07-09] MEDS: ROSUVASTATIN CALCIUM 20 MG TAB PO SCH (08:25)
[2025-07-09] MEDS: ASPIRIN 81 MG ECTAB PO SCH (08:25)
[2025-07-09] MEDS: GABAPENTIN 800 MG TAB PO PRN (08:26)
--- NOTE | 2025-07-09 08:56 | Cardiology Consultation ---
Date of Consultation July 09, 2025 Assessment & Plan (1) Chest pain: (2) Elevated troponin: (3) CAD (coronary artery disease): (4) Cervical radiculopathy: (5) Hypomagnesemia: Plan Assessment: 54 year old female with hx of CAD, prior FL and PCI that presented with acute onset CP, shortness of breath and palpitations. Troponin is elevated, cardiology consulted for further evaluation. Plan: 1. Chest pain 2. Elevated troponin 3. CAD -patient with prior history of CAD, last cardiac cath Sep 2024 with mild branch disease, no progression and patent prior stent. -EKG with non-specific T wave abnormalities in the [id number] leads. -VS stable. -Troponin with peak of 1156.2, trending down. Patient is on heparin gtt. -Echocardiogram pending to assess for any wall motion abnormalities -Continue Toprol xl, Lisinopril, Amlodipine, ASA 81mg, Crestor. -will continue to monitor closely on telemetry - NPO after midnight for possible cardiac catheterization 4. Cervical radiculopathy -Patient endorses chronic neck and bilateral upper arm pain. Patient reports that this is not new and was not occurring at time of chest pain episode. -Ongoing management per primary team. 5. Hypomagnesemia -Give 2 GM IV mag -Recheck serum mag at 1999. Case has been discussed with Dr. Nix. Further recommendations regarding plan of care as per her assessment. I spent a total of 50 minutes on the date of service in preparation, delivery, documentation of the care provided to the patient excluding any time spent in the performance of separately billed services. MARCOS Webber [facility] Cardiology [facility] Supervising Physician Co-Signing Physician Notes I have reviewed the advanced practitioner's documentation on the date of service referenced in note, and I agree with, and take responsibility for the plan of care. I spent a total of [30] minutes coordinating, documenting, and providing care for this patient excluding time spent in the performance of separately billed services or time spent by another provider. 54 year old female with known history of CAD s/pPCI ENOC to cx , cath in 2023 patent stent , HTN, HLD, DM, TRINIDAD PDA repair at 7 yr age admitted with acute onset of chest pain associated with significantly elevated troponins echo with known inferior and posterior wall motion abnormalities NSTEMI continue heparin , aspirin and crestor Plan for Cath tomorrow NPO midnight History of Present Illness Reason for Consultation: chest pain; history of CAD Requesting Physician: Jenifer hospitalist Attending Physician: Zain Hardy MD History of Present Illness HPI: Patient is a 54 year old female with PMHx as outlined below that presented to the ER with complaints of chest pain. Patient describes the pain as sudden onset, non-exertional while at wore. Pain is retrosternal with CP radiating to the back. She endorsed the pain as pressure like with associated dizziness, shortness of breath and palpitations. patient received ASA, NTG and pain medication en route to the ER reporting that pain resolved within 40 minutes. Patient was last seen in our office by Dr. Castro on 09/23/2024 after being hospitalized for chest pain with mildly elevated troponin. She underwent cardiac catheterization which showed no progression in disease with mild branch vessel nonobstructive disease and patent stent left circumflex. Mild reduction in ejection fraction on echocardiogram with elevated left end-diastolic pressure. Recommended diuretic use which patient has chosen not to use. Patient had also undergone an EGD with dilation reporting improvement in her symptoms. Cardiac Problem List: 1. Coronary artery disease 1. Non ST elevation myocardial infarction status post drug-eluting stent circ umflex obtuse marginal in 2016, single-vessel disease 2. Repeat diagnostic cardiac catheterization May 2021, patent stent without obstruction, normal LV systolic function [facility] 3. Repeat cardiac catheterization July 28, 2024 with patent stent with mild nonobstructive coronary athero sclerosus 2. Hypertension 3. Hyperlipidemia 4. Repair patent ductus arteriosus age 7 5. Type 2 diabetes mellitus 6. Chronic myofascial pain status post anterior cervical diskectomy 7. Obstructive sleep apnea, untreated. 8. Diabetes mellitus EKG shows NSR with possible LVH. Non-specific T wave abnormality. Chest xray negative High sensitivity Troponin: 463.5/ 1156.2/ 981.8 Patient is feeling well today at time of examination. She endorses fatigue, but remains chest pain free. She states the event was like "nothing else and so incredibly painful". She is on a Heparin gtt. Echocardiogram pending Allergies Allergy/AdvReac Type Severity Reaction Status Date / Time codeine Allergy Severe Itching Unverified 07/08/25 13:48 Home Medications Medication Instructions Recorded Confirmed Type aspirin 81 mg tablet,delayed 81 mg PO DAILY 04/15/25 07/08/25 History release baclofen 10 mg tablet 10 mg PO TID PRN Pain 04/15/25 07/08/25 History gabapentin 800 mg tablet 800 mg PO BID PRN Pain 04/15/25 07/08/25 History lisinopril 2.5 mg tablet 2.5 mg PO DAILY 04/15/25 07/08/25 History metformin 500 mg tablet,extended 1,000 mg PO BID 04/15/25 07/08/25 History release 24 hr metoprolol succinate 50 mg 50 mg PO DAILY 04/15/25 07/08/25 History tablet,extended release 24 hr pantoprazole 40 mg tablet,delayed 40 mg PO DAILY 04/15/25 07/08/25 History release rosuvastatin 20 mg tablet 20 mg PO DAILY 04/15/25 07/08/25 History acetaminophen 325 mg tablet 650 mg (2 x 325 mg) PO Q4H PRN 04/20/25 07/08/25 Rx pain #30 tabs amlodipine 5 mg tablet (Norvasc) 5 mg PO QAM #30 tabs 04/20/25 07/08/25 Rx meloxicam 15 mg tablet 15 mg PO DAILY #10 tabs 04/20/25 07/08/25 Rx semaglutide 0.25 mg or 0.5 mg (2 1 mg subcut WK 05/06/25 07/08/25 History mg/3 mL) subcutaneous pen injector (Ozempic) ibuprofen 600 mg tablet 600 mg PO Q8H PRN pain #30 tabs 05/11/25 07/08/25 Rx trazodone 50 mg tablet 50 mg PO HS 07/08/25 07/08/25 History Patient History Medical History Ischemic cardiomyopathy Depression Surgical History History of cervical spinal surgery C3-C6 fusion S/P repair of patent ductus arteriosus "age 7" S/P tubal ligation Family History Mother Cancer Diabetes Grandmother (Maternal) Stroke Aunt Cancer Aunt Cancer Stroke Social History Smoking Status: Never smoker Tobacco Type: Cigarettes Second Hand Exposure: No; Do You Dip or Chew Tobacco: No; Tobacco Cessation Education Requested by Patient: No Hx Alcohol Use: No Hx Substance Use: No Preferred Language: [place] Communication Ability: Effective Legal Writing Professor Required: No Beliefs That Will Affect Care: None Current Living Situation: Alone Other Information That Helps Us Care for You: No Feels Safe at Home: Yes Safety Concerns: Feels Safe At This Time Assistive Devices: None Review of Systems Review of Systems: All systems reviewed & are unremarkable except as noted in HPI & below Physical Exam Constitutional: well developed and well nourished; no acute distress and not ill appearing Neck: normal visual inspection and trachea midline Respiratory: normal respiratory effort, lungs clear to auscultation Cardiovascular: RRR, no murmur, no edema Heart Sounds: normal S1 and normal S2 Vessels: dorsalis pedis pulses present; no JVD Extremities: no edema Skin: no rashes, warm and dry Psychiatric: A+Ox3, euthymic affect Results & Data Vital Signs (Past 12 Hours) Vital Signs Temp Pulse Pulse Resp BP Pulse Ox O2 Del Method 07/09/25 07:49 36.5 C 67 16 110/74 96 Room Air 07/09/25 03:56 36.4 C L 84 17 107/72 97 Room Air 07/09/25 00:05 36.6 C 75 17 111/71 92 Room Air 07/08/25 22:33 72 Laboratory Results Cardiac Enzymes 07/08/25 07/08/25 07/09/25 Range/Units 16:18 20:41 06:20 Troponin I High Sens 463.5 H* D 1156.2 H* D 981.8 H* (0-14) pg/ml Lipids 07/09/25 Range/Units 06:20 Triglycerides 121 (0-150) mg/dl Cholesterol 80 (0-200) mg/dl HDL Cholesterol 27 mg/dl Cholesterol/HDL Ratio 3.0 (0-5) CBC 07/09/25 Range/Units 06:20 WBC 8.44 (4.8-10.8) K/ul RBC 4.40 (4.20-5.40) M/uL Hgb 12.3 (12.0-16.0) g/dl Hct 38.8 (37.0-47.0) % Plt Count 250 (130-400) K/uL Comprehensive Metabolic Panel 07/09/25 Range/Units 06:20 Sodium 140 (136-145) mmol/L Potassium 3.8 D (3.5-5.1) mmol/L Chloride 107 (98-107) mmol/L Carbon Dioxide 28 (21-32) mmol/L BUN 17 (6-23) mg/dl Creatinine 0.65 D (0.6-1.2) mg/dl Glucose 134 H (70-99(Fasting)) mg/dl Calcium 8.3 L (8.6-10.3) mg/dl Intake and Output 07/08/25 07/09/25 07/09/25 22:59 06:59 14:59 Intake Total 516.8 / 906.4 289.6 / 906.4 1110 / 1110 Balance 516.8 / 906.4 289.6 / 906.4 1110 / 1110 Intake: IV 16.8 / 406.4 289.6 / 406.4 1110 / 1110 Heparin 56851 Unit/500 ml D5w 16.8 / 306.4 289.6 / 306.4 25,000 units In 500 ml @ 1,200 UNITS/HR 24 mls/hr IV .[id number] [facility] Rx#:[id number] Magnesium Sulfate / D5w 1 gm In 100 / 100 100 ml @ 50 mls/hr IV Q2H [facility] Rx#:[id number] Potassium Chloride 20 meq In 1010 / 1010 Lactated Ringer's 1,000 ml @ 75 mls/hr IV .[id number] Rx#: [id number] Oral 500 / 500 Other: # Unmeasured Voids 1 Weight 97.5 kg 97.5 kg Weight Measurement Method Built in [facility] PG Care Time/CCT Total # of Minutes Spent Total Time Spent with Patient: Total time spent is greater than 50% in coordination of care (as documented) at patient's floor/unit and/or counseling patient: [place] [address] IN/OBS CONSULT LVL 5,80M Patient Type New Diagnoses Chest pain R07.9 Elevated troponin R79.89 CAD (coronary artery disease) I25.10 Cervical radiculopathy M54.12 Hypomagnesemia E83.42 Time Spent (min) 80
[2025-07-09] MEDS: MAGNESIUM SULFATE / D5W 1 GM/100 ML BAG IV SCH (09:27)
--- NOTE | 2025-07-09 10:44 | Electrocardiogram Report ---
Test Reason : Blood Pressure : */* mmHG Vent. Rate : 80 BPM Atrial Rate : 80 BPM P-R Int : 156 ms QRS Dur : 96 ms QT Int : 390 ms P-R-T Axes : 68 -11 94 degrees QTcB Int : 449 ms Normal sinus rhythm Poor R wave progression, consider anterior WI vs. lead placement vs. LVH Inferior infarct , age undetermined Abnormal ECG When compared with ECG of 08-Jul-2025 12:04, Borderline criteria for Lateral infarct are now Present Inferior infarct is now Present Confirmed by Ian Gallegos ([id number]) on 07/09/2025 10:44:24 AM Referred By: REFERRED SELF Confirmed By: Ian Gallegos
[2025-07-09] MEDS: MoRPHine SULFATE 4 MG/ML 1 ML CARP\\VIAL IV PRN (11:46)
--- NOTE | 2025-07-09 14:47 | Hospitalist Progress Note ---
Date of Service July 09, 2025 Assessment & Plan (1) Chest pain: (2) Abnormal EKG: Plan: Chest Pain: R/O ACS Suspected NSTEMI H/O CAD --Last Cath on 07/28/24:Dominant: Left. Left Main (% Stenosis): Normal. LAD (% Stenosis): Mid (Luminal irregularities, 10%). D1 (% Stenosis): Ostial (60%, small vessel). D2 (% Stenosis): Normal. D3 (% Stenosis): Normal. Circumflex (% Stenosis): Mid (30% at take off of OM1). OM1 (% Stenosis): Proximal (patent stent) and Mid (40% stenosis of ostial sub-branch). RCA (% Stenosis): Normal (Small, nondominant vessel. Small, secondary subbranch, with separate ostia, visualized without significant disease.). -- Elevated troponin --CXR: No acute cardiopulmonary findings. No significant change in appearance of the chest. --HbA1c 8.3 on 06/03/2025 --ECHO pending -- Continue IV heparin Continue aspirin, statin, metoprolol succinate, lisinopril Appreciate cardiology input N.p.o. after midnight for possible cardiac cath tomorrow Hypokalemia Hypomagnesemia Replace and monitor Leukocytosis No clear source of infection currently Resolved Left knee osteoarthritis S/P injection recently Plan to be initiated on Medrol Dosepak Was planned for TKA eventually Morbid obesity BMI 40 DM Type II: Last HbA1c 8.3 Hold home regimen ISS, basal Insulin, Accu checks, Diabetic diet Hyperlipidemia Continue statin TRINIDAD Continue supplemental oxygen at bedtime Currently not using CPAP Hypertension Continue amlodipine, lisinopril, metoprolol Monitor blood pressure Other medical problems Pulmonary nodules NSVT Mood disorder Continue home medications as able DVT Px: IV Heparin CODE STATUS Full code Admission and Anticipated Discharge Date Admission Date: July 08, 2025 Subjective Patient is seen and examined at bedside Denies any chest pain today Offers no specific complaints No bleeding issues while on IV heparin Also denies any dyspnea, nausea, vomiting, abdominal pain Review of Systems Review of Systems: All systems reviewed & are unremarkable except as noted in Subjective Physical Exam Physical Exam: Physical Exam: Vitals signs as noted above General Appearance:Morbidly Obese, no apparent distress Head: normocephalic, Atraumatic Eyes: normal inspection, EOMI Neck: supple, Trachea midline Respiratory/Chest: Normal breath sounds, CTA, No accessory muscle use,+ reproducible chest tenderness Cardiovascular: S1, S2, No murmur Abdomen/GI:Soft, Non tender, Bowel sounds present Extremities/Musculoskeletal:normal inspection, no edema Neurologic/Psych:AAOX3, grossly no focal neurological deficits Skin: normal color, warm Results & Data Results & Data Vital Signs (Past 12 Hours) Vital Signs Temp Pulse Resp BP Pulse Ox O2 Del Method 07/09/25 11:17 36.5 C 78 16 121/76 93 Room Air 07/09/25 07:49 36.5 C 67 16 110/74 96 Room Air 07/09/25 03:56 36.4 C L 84 17 107/72 97 Room Air Laboratory Results Short CBC 07/09/25 Range/Units 06:20 WBC 8.44 (4.8-10.8) K/ul Hgb 12.3 (12.0-16.0) g/dl Hct 38.8 (37.0-47.0) % Plt Count 250 (130-400) K/uL BMP 07/09/25 06:20 Sodium 140 Potassium 3.8 D Chloride 107 Carbon Dioxide 28 BUN 17 Creatinine 0.65 D Glucose 134 H Calcium 8.3 L
[2025-07-09] MEDS: ACETAMINOPHEN 325 MG TAB PO PRN (15:42)
[2025-07-09] MEDS: BACLOFEN 10 MG TAB PO PRN (15:42)
[2025-07-09] MEDS: NITROGLYCERIN SL 0.4 MG/TAB TAB SL PRN (17:45)
--- NOTE | 2025-07-09 18:06 | Communication Note ---
Date of Service: July 09, 2025 Heart alert Patient complained of significant retrosternal chest pain associated with bilateral arm pain and shortness of breath. Blood pressure low 90s initially. Started on IV fluids. Chest x-ray showed no acute process. Patient already on IV heparin. Patient received aspirin and Crestor this morning. Patient received nitroglycerin sublingual x2 and IV morphine after blood pressure stable. Also given IV Pepcid. Reviewed echo which showed moderate size inferior and posterior wall motion abnormality with hypokinesis of the segments. Trace mitral regurgitation. Patient is placed on supplemental oxygen. EKG showed no ST elevations. Updated patient's cousin over the phone. Patient felt her symptoms better after the medications. Was scheduled to get heart catheterization later today. If blood pressure remains stable and patient continues to complain of chest pain, we will consider placing Nitropatch.
--- NOTE | 2025-07-09 18:09 | XRay Report ---
Chest radiograph, one view History: Chest pain Comparison: None Findings: Single AP view of the chest performed. No focal consolidation or pleural effusion. No pneumothorax. Bilateral calcified granulomas similar to prior. The cardiomediastinal silhouette is within normal limits. Normal pulmonary vascularity. No evidence for lymphadenopathy. No visualized bony or soft tissue abnormality. Impression: Normal chest radiograph Electronically signed by Fitz Bautista 07-09-2025 6:09 PM
--- NOTE | 2025-07-09 18:20 | Pre Anesthesia Assessment ---
Date of Service July 09, 2025 Pre Sedation Assessment Vital Signs Temp Pulse Pulse Resp BP Pulse Ox O2 Del Method 07/09/25 15:31 97.7 F 74 16 99/66 L 95 Room Air 07/09/25 14:00 78 07/09/25 11:17 97.7 F 78 16 121/76 93 Room Air 07/09/25 07:49 97.7 F 67 16 110/74 96 Room Air 07/09/25 05:00 70 07/09/25 03:56 97.5 F L 84 17 107/72 97 Room Air 07/09/25 00:05 97.9 F 75 17 111/71 92 Room Air 07/08/25 22:33 72 07/08/25 20:25 84 115/73 92 Room Air 07/08/25 20:10 98.2 F 17 103/68 96 Room Air 07/08/25 19:00 Room Air Cardiovascular + regular rate Respiratory + respiratory effort normal Pre-Sedation Airway Assessment Smoking Status: Never smoker Hx Sleep Apnea: No Oral Cavity: + Dental Abnormalities Mallampati Class: III ASA: ASA3 Procedure Planning Contraindications for Sedation: none Current Medications Reviewed: Yes Notes The planned sedation has been discussed with the patient. Informed Consent was obtained. I have identified the patient, determined the appropriateness of sedation and have assessed the patient immediately prior to the procedure. All medicine(s) and interventions are by my order.
[2025-07-09] MEDS: FAMOTIDINE 20MG IV PUSH 20 MG/5 ML SYR IV STA (18:24)
[2025-07-09] MEDS: NITROGLYCERIN/D5W 100MCG/ML 20ML SYR ONE (18:41)
[2025-07-09] MEDS: niCARdipine 2,000 MCG/20 ML SYR ONE (18:41)
[2025-07-09] MEDS: IODIXANOL (VISIPAQUE) 320 MG/ML 100ML IV ONE (18:41)
[2025-07-09] MEDS: MIDAZOLAM HCL 1 MG/ML 2ML VIAL ONE (18:59)
[2025-07-09] MEDS: HEPARIN (PORCINE) 1000 UNIT/ML 10 ML (CATH LAB USE ONLY) ONE (18:59)
[2025-07-09] MEDS: OPTIRAY 350 ONE (19:00)
--- NOTE | 2025-07-09 19:09 | Post Anesthesia Assessment ---
Date of Service July 09, 2025 Post Sedation Assessment Vital Signs Temp Pulse Pulse Resp BP Pulse Ox O2 Del Method 07/09/25 15:31 97.7 F 74 16 99/66 L 95 Room Air 07/09/25 14:00 78 07/09/25 11:17 97.7 F 78 16 121/76 93 Room Air 07/09/25 07:49 97.7 F 67 16 110/74 96 Room Air 07/09/25 05:00 70 07/09/25 03:56 97.5 F L 84 17 107/72 97 Room Air 07/09/25 00:05 97.9 F 75 17 111/71 92 Room Air 07/08/25 22:33 72 07/08/25 20:25 84 115/73 92 Room Air 07/08/25 20:10 98.2 F 17 103/68 96 Room Air Recovery Score Activity: Moves 4 extremities Respiration: Deep Breath/Cough Circulation: +/-20% PreAnes Value Consciousness: Fully Awake Oxygen Saturation: O2 needed for >90% Discharge Sedation Level of Care: Fast Track Phase II
--- NOTE | 2025-07-09 19:20 | Cardiac Catheterization ---
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 Cardiac Status Clinical evaluation leading to the procedure CAD Presenation: Non STEMI Anginal Classification: CCS IV Diagnostic Physicians Name: Fitz Gregory MD Closure Device Recommendations: Medical Therapy and/or Counseling Cardiac Cath Procedure Full Procedure Date July 09, 2025 Pre-Procedure Diagnosis Pre-Procedure Diagnosis: Non STEMI AUC Score AUC Score: 7 Post-Procedure Diagnosis Post-Procedure Diagnosis: Moderate CAD and Elevated Intracardiac Pressures Procedure(s) Performed Procedure(s) Performed: Coronary Angiography and Left Heart Cath Manager Of Housekeeping Fitz Gregory MD Director Of Campus Recreation(s) Showers Estimated Blood Loss Estimated Blood Loss: 10 Medication(s) Medication(s): Fentanyl, Lidocaine 1%, Nicardipine, Nitroglycerin and Versed Summary of Findings Indication: NSTEMI Access: 6 Fr slender right radial artery Catheters: [place], diagnostic JR4, pigtail Findings: LM -normal caliber, no significant disease LAD -medium caliber, mildly calcified, 20-30% proximal disease, mid segment with luminal irregularities. Distal vessel small and extends around apex. Circumflex -medium caliber. OM1 stent widely patent. Remainder of OM1 tortuous but no significant disease. Jailed branch off OM1 with 30% proximal disease and wraps around posterior aspect of the heart. Small to medium jailed AV groove circumflex with 80-90% ostial stenosis. Remainder of vessel without significant disease RCA -2 very small, nondominant branches with no significant disease. LVEDP -23 Arterial Closure: TR band Summary: 1. Chronic stable coronary artery disease - Widely patent OM1 stent 80-90% jailed ostial small AV groove circumflex (unchanged from 07/2024). 20-30% proximal LAD 2. Elevated intracardiac filling pressure Recommendations: No acute or high risk CAD to explain patient's chest pain/elevated troponin. Suspect symptoms were likely secondary to vasospasm, elevated filling pressures and recommend continued medical management. Consider additional vasodilators and/or trial of diuretics. Jailed AV groove circumflex disease is stable. Vessel is relatively small and attempted intervention has potential to impact flow in larger OM1 vessel. Would defer intervention unless refractory symptoms. Hemodynamics Rest Ao:: 103/61/82 Final Ao: 120/78/97 LV: 113/23 Recommendations Recommendations: Medical Therapy and/or Counseling Specimens Specimens: None Radiation Exposure (mGy) 961 Contrast (mls) 45 Anesthesia Moderate [id number] Procedural Complication(s) None Disposition PCU I attest to the content of the Intraoperative Record and any orders documented therein. Any exceptions are noted below. [facility] Card Cath Procedure Codes Cardiac Catheterization Procedure 1: Cardiovascular Cath Procedures: 80359 Coronaries and LHC (+/-LV) Moderate Sedation Procedure 1: Sedation/Anesthesia: 73247 Mod Sedation by the same physician;Init15 Min Child Age 5 & Up PG Care Time/CCT Total # of Minutes Spent Total Time Spent with Patient: Total time spent is greater than 50% in coordination of care (as documented) at patient's floor/unit and/or counseling patient:
[2025-07-09] MEDS: SODIUM CHLORIDE 0.9% 500 ML IV ONE (19:21)
[2025-07-09] MEDS: MAGNESIUM CHLORIDE W/CALCIUM 64MG DELAYED REL TAB PO SCH (20:55)
[2025-07-09] MEDS ORDERED: Nursing to Pharmacy Communication SCH (21:15)
[2025-07-09 21:50] LABS: Anion Gap 7.0 (3-11); Blood Urea Nitrogen 17.0 mg/dl (6-23); Calcium 8.4 mg/dl (8.6-10.3); Carbon Dioxide 28.0 mmol/L (21-32); Chloride 106.0 mmol/L (98-107); Creatinine Clr Calc Pharmacy 61.4 ml/min; Glucose 98.0 mg/dl (70-99(Fasting)); Magnesium 1.9 mg/dl (1.7-2.4); Potassium 4.3 mmol/L (3.5-5.1); Sodium 141.0 mmol/L (136-145)
[2025-07-10] MEDS: POTASSIUM CHLORIDE CRTAB 20 MEQ TABCR PO SCH (08:20)
[2025-07-10 08:51] LABS: Hematocrit (blood only) 39.3 % (37.0-47.0); Hemoglobin 12.7 g/dl (12.0-16.0); Mean Corpuscular Hemoglobin 28.9 pg (25.0-34.0); Mean Corpuscular Volume 89.5 fL (80.0-100.0); Platelet Count 251 K/uL (130-400); RDW Standard Deviation 45.0 fL (36.4-46.3); Red Blood Count 4.39 M/uL (4.20-5.40); White Blood Count 7.73 K/ul (4.8-10.8)
--- NOTE | 2025-07-10 08:51 | Orthopedic Consultation ---
Date of Service July 10, 2025 Assessment & Plan (1) Cervical radiculopathy: * Case/imaging reviewed and discussed with Dr Burt * No surgical intervention indicated at this time * Continue to recommend EMG, pain management evaluation for ILYA * Weight bearing status: As tolerated b/l UE * Daily treatment: Physical Therapy/ Occupational Therapy per protocol * Pain control, has had improvement with anti-inflammatories in the past * Disposition: TBD * Remainder care per primary team * Will follow peripherally, formal eval by Dr Burt to follow * * Patient seen and examined, she does no significant symptoms beyond numbness and tingling in her extremities, has pain in arm right side. This is aggravated with elevation, shoulder bursitis versus degenerative change. Recommend conservative management for now, need to pursue extremity EMG/NCS as well for evaluation of right shoulder. History of Present Illness Reason for Consultation: Neck pain, b/l arm pain Requesting Physician: . Attending Physician: Zain Hardy MD Patient is a 54 y/o female with neck pain and b/l upper arm pain. Currently admi tted to hospital medicine team with chest pain now s/p cardiac catheterization 07/09. PMH including diabetes mellitus type 2, obesity, hyperlipidemia, [place] on supplemental oxygen at bedtime, pulmonary nodules, coronary artery disease, NSVT, mood disorder, hypertension. Known to spine team, s/p C3-6 ACDF in [place] and recently seen in hospital by Dr Burt 05/10 with similar symptoms, cervical radiculopathy vs peripheral entrapment. Reports lower neck pain, upper arm pain and weakness R>L, occasional numbness into her hands. Has not obtained EMG since last evaluation. Pain management was consulted last hospitalization as well and discussed ILYA in outpatient setting however patient has not followed up on this. Allergies Allergy/AdvReac Type Severity Reaction Status Date / Time codeine Allergy Severe Itching Unverified 07/08/25 13:48 Home Medications Medication Instructions Recorded Confirmed Type aspirin 81 mg tablet,delayed 81 mg PO DAILY 04/15/25 07/08/25 History release baclofen 10 mg tablet 10 mg PO TID PRN Pain 04/15/25 07/08/25 History gabapentin 800 mg tablet 800 mg PO BID PRN Pain 04/15/25 07/08/25 History lisinopril 2.5 mg tablet 2.5 mg PO DAILY 04/15/25 07/08/25 History metformin 500 mg tablet,extended 1,000 mg PO BID 04/15/25 07/08/25 History release 24 hr metoprolol succinate 50 mg 50 mg PO DAILY 04/15/25 07/08/25 History tablet,extended release 24 hr pantoprazole 40 mg tablet,delayed 40 mg PO DAILY 04/15/25 07/08/25 History release rosuvastatin 20 mg tablet 20 mg PO DAILY 04/15/25 07/08/25 History acetaminophen 325 mg tablet 650 mg (2 x 325 mg) PO Q4H PRN 04/20/25 07/08/25 Rx pain #30 tabs amlodipine 5 mg tablet (Norvasc) 5 mg PO QAM #30 tabs 04/20/25 07/08/25 Rx meloxicam 15 mg tablet 15 mg PO DAILY #10 tabs 04/20/25 07/08/25 Rx semaglutide 0.25 mg or 0.5 mg (2 1 mg subcut WK 05/06/25 07/08/25 History mg/3 mL) subcutaneous pen injector (Ozempic) ibuprofen 600 mg tablet 600 mg PO Q8H PRN pain #30 tabs 05/11/25 07/08/25 Rx trazodone 50 mg tablet 50 mg PO HS 07/08/25 07/08/25 History Past Med/Surg History Problem List Acute heart failure with mildly reduced ejection fraction (HFmrEF) NSTEMI (non-ST elevated myocardial infarction) Abnormal EKG (Acute) Chest pain (Acute) Cervical radiculopathy Hypomagnesemia (Acute) Intractable pain (Acute) Leukocytosis (Acute) Headache (Acute) Body aches (Acute) Neck pain NSVT (nonsustained ventricular tachycardia) Hypokalemia (Acute) Hypomagnesemia (Acute) History of GA (myocardial infarction) (Acute) Body aches (Acute) Elevated troponin (Acute) Precordial chest pain (Acute) Elevated troponin I level Chest pain (Acute) SOB (shortness of breath) History of repair of patent ductus arteriosus Dyslipidemia, goal LDL below 70 ASCVD (arteriosclerotic cardiovascular disease) PVCs (premature ventricular contractions) (Acute) Morbid obesity Atypical chest pain S/P cervical spinal fusion Vertigo Encephalopathy Hypertension (Acute) CAD (coronary artery disease) HLD (hyperlipidemia) Diabetes Dizziness (Acute) Arm paresthesia, left (Acute) Nystagmus (Acute) Vomiting and diarrhea (Acute) Tendonitis (Chronic) Abdominal pain (Acute) Environmental allergies (Chronic) History of hysterectomy (Chronic) "with bilateral oophorectomy" Medical History Ischemic cardiomyopathy Depression Surgical History History of cervical spinal surgery C3-C6 fusion S/P repair of patent ductus arteriosus "age 7" S/P tubal ligation Family History Mother Cancer Diabetes Grandmother (Maternal) Stroke Aunt Cancer Aunt Cancer Stroke Social History Smoking Status: Never smoker Tobacco Type: Cigarettes Second Hand Exposure: No; Do You Dip or Chew Tobacco: No; Tobacco Cessation Education Requested by Patient: No Hx Alcohol Use: No Hx Substance Use: No Preferred Language: Citizen Of [place] Communication Ability: Effective Legal Research Analyst Required: No Beliefs That Will Affect Care: None Current Living Situation: Alone Other Information That Helps Us Care for You: No Feels Safe at Home: Yes Safety Concerns: Feels Safe At This Time Assistive Devices: Walker Review of Systems All systems reviewed & are unremarkable except as noted in HPI & below. Physical Exam . * General: Alert and oriented, no acute distress * Constitutional: well-developed, well-nourished. * Respiratory: Normal respiratory effort, no distress * Gastrointestinal: No tenderness to palpation, no rigidity or guarding. * Skin: No rash or lesion. * Neurologic: Grossly normal * Musculoskeletal: No deformity or overlying skin changes to cervical spine. TTP midline c-spine at C6-7 level with trapezius and paraspinal spasm. Otherwise no specific tenderness bilateral upper extremity. Cervical AROM limited by pain. AROM intact shoulder shrug and flexion, elbow flexion/extension, wrist flexion/extension, and health navigator. Motion and strength limited secondary to pain in the upper arms. Negative Tinnel's at wrist and elbow. Sensation intact throughout upper extremities. Brisk capillary refill bilaterally. Results & Data Results & Data Laboratory Results . Diagnostic Findings 05/09/25 MRI C-spine FINDINGS: Cervical spine: Vertebral body height and alignment are maintained throughout the cervical spine. There is straightening of the cervical lordosis. There is postsurgical change from anterior spinal fusion seen at C3-C6. The atlantodental articulation is maintained noting productive degenerative change. The spinous processes appear intact. Hemangiomas are noted in the bodies of T2 and T3. No destructive bony process is identified. Chronic degenerative endplate change is seen at T3-T4. Intervertebral discs: Discectomy change is seen at all levels between C3-C4 and C5-C6. Disc desiccation and mild loss of height is seen at C2-C3 and C6-C7. Spinal cord: The cervical cord is normal in morphology and signal intensity with no abnormal postcontrast enhancement identified. C2-C3: A posterior disc osteophyte complex minimally effaces the ventral subarachnoid space. Facet arthropathy is of no consequence. The neural foramina are patent. C3-C4: A posterior disc osteophyte complex mildly effaces the ventral cord. Uncovertebral and facet arthropathy contribute to moderate left and [id number]-jl-[id number] right neural foraminal stenosis. C4-C5: Posterior disc osteophyte material effaces the ventral cord. The minimum AP canal diameter measures 5 mm. The neural foramina appear patent. C5-C6: Posterior disc osteophyte material abuts the ventral cord. The minimum AP canal diameter measures 5.5 mm. Uncovertebral and facet arthropathy contribute to kgdhwllz-[id number]-yjlwyt left and moderate right neural foraminal stenosis. C6-C7: A posterior disc osteophyte complex minimally effaces the ventral subarachnoid space. There is a left lateral disc bulge. There is only mild left- sided neural foraminal narrowing. The right neural foramen appears patent. C7-T1: Unremarkable. Soft tissues: The prevertebral and paraspinous soft tissues are within normal limits. Brain parenchyma: The imaged brain parenchyma at the skull base is normal as visualized. IMPRESSION: 1. Significantly motion degraded examination. 2. Postsurgical and spondylotic change as above. See discussion for detailed [id number]-km-[id number] analysis. 3. No destructive bony process is seen. 4. The cervical cord is normal in morphology and signal intensity with no abnormal postcontrast enhancement identified. PG Care Time/CCT Total # of Minutes Spent Total Time Spent with Patient: Total time spent is greater than 50% in coordination of care (as documented) at patient's floor/unit and/or counseling patient: Coding [place] [address] IN/OBS CONSULT LVL 3,45M Patient Type Established Medical Decision Making Moderate Complexity Diagnoses Cervical radiculopathy M54.12
[2025-07-10 09:14] LABS: Anion Gap 5.0 (3-11); Blood Urea Nitrogen 15.0 mg/dl (6-23); Calcium 8.8 mg/dl (8.6-10.3); Carbon Dioxide 31.0 mmol/L (21-32); Chloride 106.0 mmol/L (98-107); Creatinine Clr Calc Pharmacy 102.1 ml/min; Glucose 120.0 mg/dl (70-99(Fasting)); Magnesium 1.8 mg/dl (1.7-2.4); Potassium 4.3 mmol/L (3.5-5.1); Sodium 142.0 mmol/L (136-145)
--- NOTE | 2025-07-10 09:31 | CT Scan Report ---
CT SCAN OF THE CERVICAL SPINE CLINICAL HISTORY: Disc disease. COMPARISON STUDY: CTA of the neck August 22, 2022. Cervical spine radiographs April 17, 2025. MRI of the cervical spine May 09, 2025. TECHNIQUE: CT scan of the cervical spine is performed from the skull base to the upper thoracic spine . Images are reviewed in the axial, sagittal, and coronal planes. IV contrast was not administered fo r this examination. A dose lowering technique was utilized adhering to the principles of ALARA. CT DOSE: 550.66 mGy.cm FINDINGS: Alignment of the cervical spine is anatomic. No acute fractures are identified. There are s table findings following C3-C6 anterior discectomy and fusion. Hardware is intact. There is slight ba cking out of the left C3 and C6 screws. No osseous lesions are present. Craniocervical junction is in tact. Evaluation of the central canal and neural foramen is significantly compress given CT technique and artifact from the surgical hardware. The postoperative appearance appears similar to CTA of Octo 2021. There is mild disc space narrowing at C2-C3 and moderate disc space narrowing at C6-C7. Anterior osteophytosis within the cervical spine is present. There is moderate facet arthrosis. IMPRESSION: 1. No acute cervical spine fracture or subluxation. 2. Status post C3-C6 anterior discectomy and fusion. Slight backing out of the left C3 and C6 screws. 3. Suboptimal evaluation of the central canal and neural foramen given CT technique and artifact from the surgical hardware. 4. Moderate disc space narrowing and osteophytosis at C6-C7. Moderate multilevel facet arthrosis. ACT 112: Negative or not required by law. Electronically signed by: Dhruv Hand M.D. 07/10/2025 9:28 AM
[2025-07-10 11:07] LABS: Alanine Aminotransferase 8.0 U/L (7-52); Albumin Globulin Ratio 1.3 (0.9-2); Alkaline Phosphatase 86.0 U/L (34-104); Bilirubin,Total 1.0 mg/dl (0.2-1.0); Globulin 2.9 gm/dl (2.5-4.0); Total Protein 6.7 gm/dl (6.0-8.3)
--- NOTE | 2025-07-10 12:33 | Electrocardiogram Report ---
Test Reason : Blood Pressure : */* mmHG Vent. Rate : 72 BPM Atrial Rate : 72 BPM P-R Int : 158 ms QRS Dur : 94 ms QT Int : 404 ms P-R-T Axes : 62 -19 -80 degrees QTcB Int : 442 ms Normal sinus rhythm Inferior infarct (cited on or before 08-Jul-2025) Abnormal ECG When compared with ECG of 08-Jul-2025 20:21, No significant change was found Confirmed by Ian Gallegos ([id number]) on 07/10/2025 12:32:44 PM Referred By: REFERRED SELF Confirmed By: Ian Gallegos
--- NOTE | 2025-07-10 14:24 | Cardiology Progress Note ---
Date of Service July 10, 2025 Assessment & Plan (1) NSTEMI (non-ST elevated myocardial infarction): (2) Acute heart failure with mildly reduced ejection fraction (HFmrEF): Plan: Emergent cardiac catheterization performed on evening of 07/09/2025 revealed no coronary culprit with patent prior obtuse marginal stent. Coronaries are small in diameter. Differential diagnosis includes coronary artery vasospasm and microvascular disease. Symptoms also likely due to volume overload with left ventricular end-diastolic pressure elevated, 23 mmHg, at time of cardiac catheterization. In 2023, daily oral diuretic had been recommended, but the patient has never taken this. 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 Plan: * Continue aspirin 81 mg daily, lisinopril 2.5 mg daily, metoprolol succinate 50 mg daily, rosuvastatin 20 mg daily. * Furosemide 20 mg IV x 1 prescribed. * Amlodipine 5 mg daily as part of her home regimen. This is on hold and I think it is reasonable to hold this given her mild left ventricular systolic function, LVEF of 45% on echocardiogram this admission with chronic inferolateral wall motion abnormality. * Start with furosemide, will consider resuming amlodipine or replacing it with Imdur tomorrow. * Lovenox for DVT prophylaxis. * I spent a total of 50 minutes on the date of service in preparation, delivery, and documentation of the care provided to this patient, excluding any time spent in the performance of separately billed services. Jama Barksdale DO Admission and Anticipated Discharge Date Admission Date: July 08, 2025 Subjective Patient seen in cardiology follow up. Chest pain improved compared to that which she had last evening which prompted emergency cardiac catheterization. Patient describes shortness of breath being a part of her symptoms. Physical Exam Physical Exam: General: no acute distress and stated age Eyes: conjunctiva are pink and non-injected, sclera clear Neck: normal jugular venous pulse, no hepatojugular reflux Chest: normal shape and normal respiratory effort Lungs: Mildly decreased breath sounds in the bases Cardiac Exam: - regular heart sounds, no murmurs, rubs, or gallops, no jugular venous distention Abdomen: abdomen soft, non-tender, no abnormal masses and no hepatosplenomegaly Musculoskeletal: no gait disturbance, no weakness Extremities: no edema and no cyanosis Neuro:awake, conversant, follows commands, no focal motor deficits Results & Data Vital Signs (Past 12 Hours) Vital Signs Temp Pulse Resp BP Pulse Ox O2 Del Method O2 Flow Rate 07/10/25 11:10 36.5 C 78 16 111/77 98 Room Air 07/10/25 08:32 36.5 C 83 17 127/73 94 Room Air 07/10/25 03:20 36.4 C L 87 16 123/81 99 Oxymask 2.0 Laboratory Results Cardiac Enzymes 07/10/25 Range/Units 07:16 AST 14 (13-39) U/L CBC 07/10/25 Range/Units 07:16 WBC 7.73 (4.8-10.8) K/ul RBC 4.39 (4.20-5.40) M/uL Hgb 12.7 (12.0-16.0) g/dl Hct 39.3 (37.0-47.0) % Plt Count 251 (130-400) K/uL Comprehensive Metabolic Panel 07/09/25 07/10/25 Range/Units 20:54 07:16 Sodium 141 142 (136-145) mmol/L Potassium 4.3 4.3 (3.5-5.1) mmol/L Chloride 106 106 (98-107) mmol/L Carbon Dioxide 28 31 (21-32) mmol/L BUN 17 15 (6-23) mg/dl Creatinine 1.12 D 0.67 D (0.6-1.2) mg/dl Glucose 98 120 H (70-99(Fasting)) mg/dl Calcium 8.4 L 8.8 (8.6-10.3) mg/dl AST 14 (13-39) U/L ALT 8 (7-52) U/L Alkaline Phosphatase 86 (34-104) U/L Total Protein 6.7 (6.0-8.3) gm/dl Albumin 3.8 (3.4-5.0) gm/dl Intake and Output 07/09/25 07/10/25 07/10/25 22:59 06:59 14:59 Intake Total 106.8 / 2634.6 650 / 2634.6 Balance 106.8 / 2634.6 650 / 2634.6 Intake: IV 106.8 / 1997.6 500 / 1997.6 Heparin 85929 Unit/500 ml D5w 106.8 / 287.6 25,000 units In 500 ml @ 0 UNITS/HR IV .Q0M LIBBY Rx#: [id number] Sodium Chloride 0.9% 500 ml @ 500 / 500 80 mls/hr IV .Q6H15M ONE Rx#: [id number] Oral 150 / 637 Other: Other Intake Source SIPS # Unmeasured Voids 1 1 Weight 96.7 kg Weight Measurement Method Standing Scale PG Care Time/CCT Total # of Minutes Spent Total Time Spent with Patient: Total time spent is greater than 50% in coordination of care (as documented) at patient's floor/unit and/or counseling patient: Coding Level of Care Code 55141 SUB INP/OBS CARE 3/50MIN Diagnoses NSTEMI (non-ST elevated myocardial infarction) I21.4 Acute heart failure with mildly reduced ejection fraction (HFmrEF) I50.21
[2025-07-10] MEDS: FUROSEMIDE INJ 20 MG/2 ML VIAL IV ONE (14:48)
--- NOTE | 2025-07-10 15:45 | Hospitalist Progress Note ---
Date of Service July 10, 2025 Assessment & Plan (1) Chest pain: (2) Abnormal EKG: Plan: NSTEMI--POA H/O CAD Acute heart failure with mildly reduced EF--POA --Last Cath on 07/28/24:Dominant: Left. Left Main (% Stenosis): Normal. LAD (% Stenosis): Mid (Luminal irregularities, 10%). D1 (% Stenosis): Ostial (60%, small vessel). D2 (% Stenosis): Normal. D3 (% Stenosis): Normal. Circumflex (% Stenosis): Mid (30% at take off of OM1). OM1 (% Stenosis): Proximal (patent stent) and Mid (40% stenosis of ostial sub-branch). RCA (% Stenosis): Normal (Small, nondominant vessel. Small, secondary subbranch, with separate ostia, visualized without significant disease.). -- Elevated troponin --CXR: No acute cardiopulmonary findings. No significant change in appearance of the chest. --HbA1c 8.3 on 06/03/2025 --S/P Cardiac Cath:Chronic stable coronary artery disease. Widely patent OM1 stent. 80-90% jailed ostial small AV groove circumflex (unchanged from 07/2024). 20-30% proximal LAD. Elevated intracardiac filling pressure --ECHO: LVEF 45 to 50%. Moderate size inferior and posterior wall motion abnormality with hypokinesis of the segments. Trace mitral regurgitation. -- IV heparin discontinued Continue aspirin, statin, metoprolol succinate, lisinopril Appreciate cardiology input 1 dose IV Lasix today Plan to resume amlodipine not replaced with Imdur tomorrow along with oral diuretic per cardiology Cervical radiculopathy Likely due to cervical disc disease --CT Neck: No acute cervical spine fracture or subluxation. Status post C3-C6 anterior discectomy and fusion. Slight backing out of the left C3 and C6 screws.Suboptimal evaluation of the central canal and neural foramen given CT technique and artifact from the surgical hardware. Moderate disc space narrowing and osteophytosis at C6-C7. Moderate multilevel facet arthrosis. -- Ortho spine, pain management consulted Hypokalemia Hypomagnesemia Replace and monitor Leukocytosis No clear source of infection currently Resolved Left knee osteoarthritis S/P injection recently Plan to be initiated on Medrol Dosepak Was planned for TKA eventually Morbid obesity BMI 40 DM Type II: Last HbA1c 8.3 Hold home regimen ISS, basal Insulin, Accu checks, Diabetic diet Hyperlipidemia Continue statin TRINIDAD Continue supplemental oxygen at bedtime Currently not using CPAP Hypertension Continue amlodipine, lisinopril, metoprolol Monitor blood pressure Other medical problems Pulmonary nodules NSVT Mood disorder Continue home medications as able Morbid obesity: BMI 40 DVT Px: Lovenox SQ CODE STATUS Full code Admission and Anticipated Discharge Date Admission Date: July 08, 2025 Subjective Patient is seen and examined at bedside States having bilateral arm heaviness and pain Also reports chronic neck pain Denies any chest pain, dyspnea, nausea, vomiting, abdominal pain today Review of Systems Review of Systems: All systems reviewed & are unremarkable except as noted in Subjective Physical Exam Physical Exam: Physical Exam: Vitals signs as noted above General Appearance:Morbidly Obese, no apparent distress Head: normocephalic, Atraumatic Eyes: normal inspection, EOMI Neck: supple, Trachea midline Respiratory/Chest: Normal breath sounds, CTA, No accessory muscle use Cardiovascular: S1, S2, No murmur Abdomen/GI:Soft, Non tender, Bowel sounds present Extremities/Musculoskeletal:normal inspection, no edema Neurologic/Psych:AAOX3, grossly no focal neurological deficits Skin: normal color, warm Results & Data Results & Data Vital Signs (Past 12 Hours) Vital Signs Temp Pulse Pulse Resp BP Pulse Ox Pulse Ox 07/10/25 15:27 74 07/10/25 15:25 36.7 C 74 16 107/74 95 07/10/25 15:10 99/61 L 07/10/25 15:00 97 07/10/25 11:10 36.5 C 78 16 111/77 98 07/10/25 08:32 36.5 C 83 17 127/73 94 O2 Del Method O2 Del Method 07/10/25 15:27 07/10/25 15:25 Room Air 07/10/25 15:10 07/10/25 15:00 Room Air 07/10/25 11:10 Room Air 07/10/25 08:32 Room Air Laboratory Results Short CBC 07/10/25 Range/Units 07:16 WBC 7.73 (4.8-10.8) K/ul Hgb 12.7 (12.0-16.0) g/dl Hct 39.3 (37.0-47.0) % Plt Count 251 (130-400) K/uL BMP 07/09/25 07/10/25 20:54 07:16 Sodium 141 142 Potassium 4.3 4.3 Chloride 106 106 Carbon Dioxide 28 31 BUN 17 15 Creatinine 1.12 D 0.67 D Glucose 98 120 H Calcium 8.4 L 8.8 Liver Function 07/10/25 Range/Units 07:16 Total Bilirubin 1.0 (0.2-1.0) mg/dl AST 14 (13-39) U/L ALT 8 (7-52) U/L Alkaline Phosphatase 86 (34-104) U/L Albumin 3.8 (3.4-5.0) gm/dl
[2025-07-11] MEDS: DICLOFENAC SOD 1% GEL 100 GM TUBE EXT PRN (05:32)
[2025-07-11 06:48] LABS: Hematocrit (blood only) 39.2 % (37.0-47.0); Hemoglobin 13.2 g/dl (12.0-16.0); Mean Corpuscular Hemoglobin 29.5 pg (25.0-34.0); Mean Corpuscular Volume 87.5 fL (80.0-100.0); Platelet Count 276 K/uL (130-400); RDW Standard Deviation 44.2 fL (36.4-46.3); Red Blood Count 4.48 M/uL (4.20-5.40); White Blood Count 7.89 K/ul (4.8-10.8)
[2025-07-11 07:11] LABS: Anion Gap 7.0 (3-11); Blood Urea Nitrogen 18.0 mg/dl (6-23); Calcium 9.1 mg/dl (8.6-10.3); Carbon Dioxide 29.0 mmol/L (21-32); Chloride 103.0 mmol/L (98-107); Creatinine Clr Calc Pharmacy 124.7 ml/min; Glucose 169.0 mg/dl (70-99(Fasting)); Potassium 4.1 mmol/L (3.5-5.1); Sodium 139.0 mmol/L (136-145)
[2025-07-11] MEDS: POTASSIUM CHLORIDE CRTAB 20 MEQ TABCR PO STA (08:08)
[2025-07-11] MEDS: ENOXAPARIN INJ 40 MG/0.4 ML SYR SQ SCH (08:10)
--- NOTE | 2025-07-11 09:06 | Pain Management Consultation ---
Date of Consultation July 11, 2025 Assessment & Plan (1) S/P cervical spinal fusion: (2) Neck pain: (3) Cervical radiculopathy: Plan 1. Patient will be contacted with a new patient appointment with [facility] pain management so that she can be established with us on an outpatient basis. 2. No cervical facet joint pain or myofascial pain on exam. Not a candidate for cervical medial branch radiofrequency ablation or cervical trigger point injections. 3. Recommend that the patient continue with physical therapy. 4. Continue medication regimen of gabapentin, baclofen, as needed oxycodone/IV morphine. 5. Consider cervical epidural steroid injection on an outpatient basis. History of Present Illness Attending Physician: Zain Hardy MD History of Present Illness This is a 54-year-old female that has been admitted for chest pain requiring cardiac catheterization on 06/08/2025. She is well-known to the pain service with cervical radiculopathy. At her last hospital admission it was recommended that she pursue physical therapy. She states that she did a few physical therapy visits but was having difficulty with transportation so she no-showed several appointments. She states that she is still experiencing numbness and tingling going down the left greater than right arms. She describes a deep aching along the cervicothoracic junction that will sometimes radiate upwards. Previous cervical spine x-ray did show minimal backing of C3 and C6 screws from fusion surgery she had 10+ years ago in [place]. She is instructed to become established at the office but did not follow through with this. She has not also not followed up outpatient with spine surgery. Inpatient she baclofen 10 mg 3 times daily, gabapentin 800 mg twice daily, oxycodone 5 to 10 mg 4 times daily, and as needed morphine IV. Patient does feel like the left arm is weak compared to the right. No dropping of objects. Case discussed with Dr. Makenna Carreno Allergies Allergy/AdvReac Type Severity Reaction Status Date / Time codeine Allergy Severe Itching Unverified 07/08/25 13:48 Home Medications Medication Instructions Recorded Confirmed Type aspirin 81 mg tablet,delayed 81 mg PO DAILY 04/15/25 07/08/25 History release baclofen 10 mg tablet 10 mg PO TID PRN Pain 04/15/25 07/08/25 History gabapentin 800 mg tablet 800 mg PO BID PRN Pain 04/15/25 07/08/25 History lisinopril 2.5 mg tablet 2.5 mg PO DAILY 04/15/25 07/08/25 History metformin 500 mg tablet,extended 1,000 mg PO BID 04/15/25 07/08/25 History release 24 hr metoprolol succinate 50 mg 50 mg PO DAILY 04/15/25 07/08/25 History tablet,extended release 24 hr pantoprazole 40 mg tablet,delayed 40 mg PO DAILY 04/15/25 07/08/25 History release rosuvastatin 20 mg tablet 20 mg PO DAILY 04/15/25 07/08/25 History acetaminophen 325 mg tablet 650 mg (2 x 325 mg) PO Q4H PRN 04/20/25 07/08/25 Rx pain #30 tabs amlodipine 5 mg tablet (Norvasc) 5 mg PO QAM #30 tabs 04/20/25 07/08/25 Rx meloxicam 15 mg tablet 15 mg PO DAILY #10 tabs 04/20/25 07/08/25 Rx semaglutide 0.25 mg or 0.5 mg (2 1 mg subcut WK 05/06/25 07/08/25 History mg/3 mL) subcutaneous pen injector (Ozempic) ibuprofen 600 mg tablet 600 mg PO Q8H PRN pain #30 tabs 05/11/25 07/08/25 Rx trazodone 50 mg tablet 50 mg PO HS 07/08/25 07/08/25 History Patient History Medical History Ischemic cardiomyopathy Depression Surgical History History of cervical spinal surgery C3-C6 fusion S/P repair of patent ductus arteriosus "age 7" S/P tubal ligation Family History Mother Cancer Diabetes Grandmother (Maternal) Stroke Aunt Cancer Aunt Cancer Stroke Social History Smoking Status: Never smoker Tobacco Type: Cigarettes Second Hand Exposure: No; Do You Dip or Chew Tobacco: No; Tobacco Cessation Education Requested by Patient: No Hx Alcohol Use: No Hx Substance Use: No Preferred Language: Hebrew Communication Ability: Effective Associate Professor Of Anthropology Required: No Beliefs That Will Affect Care: None Current Living Situation: Alone Other Information That Helps Us Care for You: No Feels Safe at Home: Yes Safety Concerns: Feels Safe At This Time Assistive Devices: Walker Physical Exam Physical Exam: GENERAL: This is a 54-year-old female who is obese and physically deconditioned. In no acute distress. HEAD/FACE: Normocephalic and atraumatic. EYES: No drainage or conjunctival injection. ENT: Nose without bleeding or discharge. Oral mucosa moist. NECK: Limited range of motion in all planes. Mild tenderness along the left cervical thoracic junction. No myofascial spasm or trigger points noted. RESPIRATORY: Patient with unlabored breathing. No signs of respiratory distress. CHEST/AXILLA: Chest movement symmetrical. No deformities noted. ABDOMEN/GI: No distension BACK: Moves without difficulty SKIN: [place], warm and dry. No rash noted. MS/EXTREMITY: No swelling, no deformities. 4/5 strength of the upper extremities. NEURO: Alert and appears oriented. Speech is fluent. Cranial Nerves are grossly intact. PSYCH: Alert, pleasant, affect is calm
[2025-07-11] MEDS: FUROSEMIDE INJ 20 MG/2 ML VIAL IV ONE (09:27)
--- NOTE | 2025-07-11 11:32 | Cardiology Progress Note ---
Date of Service July 11, 2025 Assessment & Plan (1) NSTEMI (non-ST elevated myocardial infarction): (2) Acute heart failure with mildly reduced ejection fraction (HFmrEF): Plan: Emergent cardiac catheterization performed on evening of 07/09/2025 revealed no coronary culprit with patent prior obtuse marginal stent. Coronaries are small in diameter. Differential diagnosis includes coronary artery vasospasm and microvascular disease. Symptoms also likely due to volume overload with left ventricular end-diastolic pressure elevated, 23 mmHg, at time of cardiac catheterization. In 2023, daily oral diuretic had been recommended, but the patient has never taken this. 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 Plan: * Continue aspirin 81 mg daily, lisinopril 2.5 mg daily, metoprolol succinate 50 mg daily, rosuvastatin 20 mg daily. * Proceed with another dose of furosemide 20 mg x 1 today, 07/11/2025 along with potassium supplement * Amlodipine 5 mg daily as part of her home regimen. This is on hold and I think it is reasonable to hold this given her mild left ventricular systolic function, LVEF of 45% on echocardiogram this admission with chronic inferolateral wall motion abnormality, And relative hypotension with systolic blood pressure in the 90s. * Will consider resuming amlodipine or replacing it with Imdur , however given hypotension, will hold off at present * Lovenox for DVT prophylaxis. * Reassess candidacy for discharge on 07/12/2025. * I spent a total of 50 minutes on the date of service in preparation, delivery, and documentation of the care provided to this patient, excluding any time spent in the performance of separately billed services. Jama Barksdale DO Admission and Anticipated Discharge Date Admission Date: July 08, 2025 Alexandria Esteban is a 54-year-old female seen in cardiology follow-up of chief complaint of chest discomfort and shortness of breath. Patient notes feeling overall improved. Denies chest pain or shortness of breath. Urinating vigorously with administration of furosemide 20 mg x 1 yesterday. Only subjective complaint is pain in her right upper arm and shoulder when she lifts her arm which is a chronic issue for her. Telemetry reveals sinus rhythm in the 80s. Physical Exam Physical Exam: General: no acute distress and stated age Eyes: conjunctiva are pink and non-injected, sclera clear Neck: normal jugular venous pulse, no hepatojugular reflux Chest: normal shape and normal respiratory effort Lungs: Mildly decreased breath sounds in the bases Cardiac Exam: - regular heart sounds, no murmurs, rubs, or gallops, no jugular venous distention -Right radial artery catheterization sit e, clean dry and intact, and without any erythema. Abdomen: abdomen soft, non-tender, no abnormal masses and no hepatosplenomegaly Musculoskeletal: no gait disturbance, no weakness Extremities: no edema and no cyanosis Neuro:awake, conversant, follows commands, no focal motor deficits Results & Data Vital Signs (Past 12 Hours) Vital Signs Temp Pulse Pulse Resp BP BP Pulse Ox 07/11/25 10:45 36.4 C L 83 19 95/64 L 95 07/11/25 07:30 07/11/25 07:25 36.8 C 79 19 118/79 99 07/11/25 06:35 78 07/11/25 03:23 36.5 C 78 16 125/83 99 O2 Del Method O2 Flow Rate 07/11/25 10:45 Room Air 07/11/25 07:30 Room Air 07/11/25 07:25 Room Air 07/11/25 06:35 07/11/25 03:23 Oxymask 3.0 Laboratory Results CBC 07/11/25 Range/Units 06:15 WBC 7.89 (4.8-10.8) K/ul RBC 4.48 (4.20-5.40) M/uL Hgb 13.2 (12.0-16.0) g/dl Hct 39.2 (37.0-47.0) % Plt Count 276 (130-400) K/uL Comprehensive Metabolic Panel 07/11/25 Range/Units 06:15 Sodium 139 (136-145) mmol/L Potassium 4.1 (3.5-5.1) mmol/L Chloride 103 (98-107) mmol/L Carbon Dioxide 29 (21-32) mmol/L BUN 18 (6-23) mg/dl Creatinine 0.54 L (0.6-1.2) mg/dl Glucose 169 H (70-99(Fasting)) mg/dl Calcium 9.1 (8.6-10.3) mg/dl Intake and Output 07/10/25 07/11/25 07/11/25 22:59 06:59 14:59 Intake Total 440 / 590 150 / 590 Output Total 1400 / 2300 900 / 2300 Balance -960 / -1710 -750 / -1710 Intake: Oral 440 / 590 150 / 590 Output: Urine 1400 / 2300 900 / 2300 Other: Weight 94.1 kg Weight Measurement Method Built in [facility] Care Time/CCT Total # of Minutes Spent Total Time Spent with Patient: Total time spent is greater than 50% in coordination of care (as documented) at patient's floor/unit and/or counseling patient: Coding Level of Care Code 27972 SUB INP/OBS CARE 3/50MIN Diagnoses NSTEMI (non-ST elevated myocardial infarction) I21.4 Acute heart failure with mildly reduced ejection fraction (HFmrEF) I50.21
--- NOTE | 2025-07-11 14:38 | Electrocardiogram Report ---
Test Reason : Blood Pressure : */* mmHG Vent. Rate : 79 BPM Atrial Rate : 79 BPM P-R Int : 160 ms QRS Dur : 102 ms QT Int : 372 ms P-R-T Axes : 69 -13 248 degrees QTcB Int : 426 ms Normal sinus rhythm Inferior infarct (cited on or before 08-Jul-2025) Abnormal ECG When compared with ECG of 09-Jul-2025 17:42, No significant change was found Confirmed by Ian Gallegos ([id number]) on 07/11/2025 2:38:16 PM Referred By: REFERRED SELF Confirmed By: Ian Gallegos
--- NOTE | 2025-07-11 14:39 | Electrocardiogram Report ---
Test Reason : Blood Pressure : */* mmHG Vent. Rate : 74 BPM Atrial Rate : 74 BPM P-R Int : 160 ms QRS Dur : 100 ms QT Int : 394 ms P-R-T Axes : 43 35 133 degrees QTcB Int : 437 ms Normal sinus rhythm Poor R wave progression, consider anterior IA vs. lead placement vs. LVH Abnormal ECG When compared with ECG of 08-Jul-2025 20:21, Criteria for Inferior infarct are no longer Present Confirmed by Ian Gallegos ([id number]) on 07/11/2025 2:38:51 PM Referred By: REFERRED SELF Confirmed By: Ian Gallegos
--- NOTE | 2025-07-11 15:01 | Hospitalist Progress Note ---
Date of Service July 11, 2025 Assessment & Plan (1) Chest pain: (2) Abnormal EKG: Plan: NSTEMI--POA H/O CAD Acute heart failure with mildly reduced EF--POA --Last Cath on 07/28/24:Dominant: Left. Left Main (% Stenosis): Normal. LAD (% Stenosis): Mid (Luminal irregularities, 10%). D1 (% Stenosis): Ostial (60%, small vessel). D2 (% Stenosis): Normal. D3 (% Stenosis): Normal. Circumflex (% Stenosis): Mid (30% at take off of OM1). OM1 (% Stenosis): Proximal (patent stent) and Mid (40% stenosis of ostial sub-branch). RCA (% Stenosis): Normal (Small, nondominant vessel. Small, secondary subbranch, with separate ostia, visualized without significant disease.). -- Elevated troponin --CXR: No acute cardiopulmonary findings. No significant change in appearance of the chest. --HbA1c 8.3 on 06/03/2025 --S/P Cardiac Cath:Chronic stable coronary artery disease. Widely patent OM1 stent. 80-90% jailed ostial small AV groove circumflex (unchanged from 07/2024). 20-30% proximal LAD. Elevated intracardiac filling pressure --ECHO: LVEF 45 to 50%. Moderate size inferior and posterior wall motion abnormality with hypokinesis of the segments. Trace mitral regurgitation. -- IV heparin discontinued Continue aspirin, statin, metoprolol succinate, lisinopril Appreciate cardiology input Received additional Lasix today Resume amlodipine or replace with Imdur if blood pressure tolerates Cardiology following Cervical radiculopathy Likely due to cervical disc disease --CT Neck: No acute cervical spine fracture or subluxation. Status post C3-C6 anterior discectomy and fusion. Slight backing out of the left C3 and C6 screws.Suboptimal evaluation of the central canal and neural foramen given CT technique and artifact from the surgical hardware. Moderate disc space narrowing and osteophytosis at C6-C7. Moderate multilevel facet arthrosis. -- Ortho spine, pain management consulted No plan for surgical intervention per Ortho Needs EMG as outpatient Continue PT OT Needs follow-up with pain management for cervical epidural injection Continue gabapentin, baclofen as needed Hypokalemia Hypomagnesemia Replace and monitor Leukocytosis No clear source of infection currently Resolved Left knee osteoarthritis S/P injection recently Plan to be initiated on Medrol Dosepak Was planned for TKA eventually Morbid obesity BMI 40 DM Type II: Last HbA1c 8.3 Hold home regimen ISS, basal Insulin, Accu checks, Diabetic diet Hyperlipidemia Continue statin TRINIDAD Continue supplemental oxygen at bedtime Currently not using CPAP Hypertension Continue lisinopril, metoprolol Hold amlodipine due to low blood pressure Monitor blood pressure Other medical problems Pulmonary nodules NSVT Mood disorder Continue home medications as able Morbid obesity: BMI 40 DVT Px: Lovenox SQ CODE STATUS Full code Admission and Anticipated Discharge Date Admission Date: July 08, 2025 Subjective Patient is seen and examined at bedside States left arm pain improved when compared to right Discussed with cardiology today Patient denies any chest pain, dyspnea, abdominal pain No new complaints today Review of Systems Review of Systems: All systems reviewed & are unremarkable except as noted in Subjective Physical Exam Physical Exam: Physical Exam: Vitals signs as noted above General Appearance:Morbidly Obese, no apparent distress Head: normocephalic, Atraumatic Eyes: normal inspection, EOMI Neck: supple, Trachea midline Respiratory/Chest: Normal breath sounds, CTA, No accessory muscle use Cardiovascular: S1, S2, No murmur Abdomen/GI:Soft, Non tender, Bowel sounds present Extremities/Musculoskeletal:normal inspection, no edema Neurologic/Psych:AAOX3, grossly no focal neurological deficits Skin: normal color, warm Results & Data Results & Data Vital Signs (Past 12 Hours) Vital Signs Temp Pulse Pulse Resp BP BP Pulse Ox 07/11/25 10:45 36.4 C L 83 19 95/64 L 95 07/11/25 07:30 07/11/25 07:25 36.8 C 79 19 118/79 99 07/11/25 06:35 78 07/11/25 03:23 36.5 C 78 16 125/83 99 O2 Del Method O2 Flow Rate 07/11/25 10:45 Room Air 07/11/25 07:30 Room Air 07/11/25 07:25 Room Air 07/11/25 06:35 07/11/25 03:23 Oxymask 3.0 Laboratory Results Short CBC 07/11/25 Range/Units 06:15 WBC 7.89 (4.8-10.8) K/ul Hgb 13.2 (12.0-16.0) g/dl Hct 39.2 (37.0-47.0) % Plt Count 276 (130-400) K/uL BMP 07/11/25 06:15 Sodium 139 Potassium 4.1 Chloride 103 Carbon Dioxide 29 BUN 18 Creatinine 0.54 L Glucose 169 H Calcium 9.1
[2025-07-11] MEDS ORDERED: methylPREDNISolone 4 MG TAB, 6 DAY TAPER PO SCH (16:00)
[2025-07-11] MEDS: methylPREDNISolone 4 MG TAB PO SCH (16:57)
--- NOTE | 2025-07-11 19:36 | Communication Note ---
Date of Service: July 11, 2025 Patient SBP 70 to 80s as per RN. Patient feels fatigued and lightheaded. Serum creatinine 1.25 from 0.54 in a.m. AP Hypotension ARF possibly from overdiuresis Monitor creatinine response to IV albumin Hold lisinopril for now
[2025-07-11] MEDS: ALBUMIN 25% 25 GM/100 ML VIAL IV ONE ×2 (19:40→21:39)
[2025-07-11 21:09] LABS: Anion Gap 9.0 (3-11); Blood Urea Nitrogen 28.0 mg/dl (6-23); Calcium 8.9 mg/dl (8.6-10.3); Carbon Dioxide 30.0 mmol/L (21-32); Chloride 100.0 mmol/L (98-107); Creatinine Clr Calc Pharmacy 53.9 ml/min; Glucose 124.0 mg/dl (70-99(Fasting)); Potassium 5.0 mmol/L (3.5-5.1); Sodium 139.0 mmol/L (136-145)
[2025-07-12] MEDS: methylPREDNISolone 4 MG TAB PO SCH (06:06)
[2025-07-12 07:32] LABS: Hematocrit (blood only) 41.1 % (37.0-47.0); Hemoglobin 13.9 g/dl (12.0-16.0); Mean Corpuscular Hemoglobin 29.3 pg (25.0-34.0); Mean Corpuscular Volume 86.7 fL (80.0-100.0); Platelet Count 210 K/uL (130-400); RDW Standard Deviation 43.6 fL (36.4-46.3); Red Blood Count 4.74 M/uL (4.20-5.40); White Blood Count 7.65 K/ul (4.8-10.8)
[2025-07-12 07:33] LABS: Anion Gap 7.0 (3-11); Calcium 9.8 mg/dl (8.6-10.3); Carbon Dioxide 26.0 mmol/L (21-32); Chloride 103.0 mmol/L (98-107); Potassium 5.0 mmol/L (3.5-5.1); Sodium 136.0 mmol/L (136-145)
[2025-07-12 07:39] LABS: Blood Urea Nitrogen 24.0 mg/dl (6-23); Creatinine Clr Calc Pharmacy 103.5 ml/min
[2025-07-12 07:40] LABS: Glucose 203.0 mg/dl (70-99(Fasting))
[2025-07-12 08:12] VITALS: O2SAT 96
--- NOTE | 2025-07-12 08:58 | Cardiology Progress Note ---
Date of Service July 12, 2025 Assessment & Plan (1) NSTEMI (non-ST elevated myocardial infarction): (2) Acute heart failure with mildly reduced ejection fraction (HFmrEF): Plan: Assessment: 54 year old female with hx of CAD, prior DC and PCI that presented with acute onset CP, shortness of breath and palpitations. Troponin is elevated, cardiology consulted for further evaluation. Emergent cardiac catheterization performed on the evening of 07/09/2025 with no coronary culprit and patent prior obtuse marginal stent. possible vasospasm vs microvascular disease. Elevated LVEDP 23mmHg. Plan: -patient received IV Lasix with good output -1135ml fluid balance. 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 discussed in detail the importance of improving fluid status which will also help alleviate her symptoms. Patient is agreeable to starting Furosemide 20mg PO 3 days per week. She is aware that she can adjust her doing time to best work with her scheduled shift. -She remains chest pain free at this time, has been ambulating around her room. -Patient is experiencing some intermittent dizziness, consistent with hypotension. At this time, discontinue Amlodipine, -Ideally, we would like to start Imdur; however, unable to be tolerated until BP improve. We will follow closely OP to adjust/maximize medication therapies. -Continue aspirin 81 mg daily, lisinopril 2.5 mg daily, metoprolol succinate 50 mg daily, rosuvastatin 20 mg daily. -When patient is appropriate for discharge from a primary care perspective, would recommend that patient have a home BP monitor to trend. will have office reach out to set up close follow up. Specialty Impression: NSTEMI s/p cardiac cath with no culprit lesion, patent prior OM stent Acute HFmrEF Recommended medication(s) at discharge: 1. Aspirin 81mg PO Daily 2. Lisinopril 2.5mg PO Daily 3. Metoprolol succinate 50mg PO Daily 4. Rosuvastatin 20mg PO Daily 5. Furosemide 20mg PO 3x per week (on her days off from procurement forester work) Prior to hospital treatment with amlodipine discontinued. Future considerations include adding isosorbide mononitrate for treatment of small vessel disease however blood pressure is on the lower side pending initiation at present. Recommended discharge testing: -Labs, non-fasting OP in 1 week. (BMP) Other recommended care at discharge: -Recommend for home blood pressure cuff with routine monitoring Follow- up in Specialty Clinic: -Follow up with cardiology in 2-3 weeks (Primary military pay clerk Dr. Castro/ Carol Elizabeth PA-C) Case has been discussed with Dr. Barksadle. Further recommendations regarding p nataliia of care as per his assessment. I spent a total of 30 minutes on the date of service in preparation, delivery, documentation of the care provided to the patient excluding any time spent in the performance of separately billed services. MARCOS Webber [facility] Cardiology [facility] Admission and Anticipated Discharge Date Admission Date: July 08, 2025 Supervising Physician Co-Signing Physician Notes Attending attestation: Case reviewed with the advanced practitioner. I have personally performed a history and physical examination on the patient. I have reviewed the advanced practitioner's documentation on the date of service referenced in note, and I agree with, and take responsibility for the plan of care. Stable for discharge with plan as noted above. I spent a total of 20 minutes coordinating, documenting, and providing care for this patient excluding time spent in the performance of separately billed services or time spent by another provider. Christiano Barksdale, DO Subjective 07/12/2025: Patient seen and examined in follow up today. Feeling fair. She denies any chest pain, pressure or palpitations, but does endorse dizziness. Blood pressures overnight were 70-90's systolic over 50's diastolic. Currently improved 114/68. Labs, vitals, diagnostics, telemetry and documentation reviewed. Telemetry reviewed showing SR rates 70-80's No acute events overnight. Review of Systems Review of Systems: All systems reviewed & are unremarkable except as noted in HPI & below Physical Exam Constitutional: well developed and well nourished; no acute distress and not ill appearing Neck: normal visual inspection and trachea midline Respiratory: normal respiratory effort, lungs clear to auscultation Cardiovascular: RRR, no murmur, no edema Heart Sounds: normal S1 and normal S2 Vessels: dorsalis pedis pulses present; no JVD Extremities: no edema Skin: no rashes, warm and dry Psychiatric: A+Ox3, euthymic affect Results & Data Vital Signs (Past 12 Hours) Vital Signs Temp Pulse Pulse Resp BP BP Pulse Ox 07/12/25 08:00 36.5 C 78 18 114/68 96 07/12/25 03:32 36.4 C L 86 16 98/64 L 95 07/11/25 23:22 36.4 C L 87 18 96/64 L 94 07/11/25 21:57 77 07/11/25 21:00 O2 Del Method 07/12/25 08:00 Room Air 07/12/25 03:32 Room Air 07/11/25 23:22 Room Air 07/11/25 21:57 07/11/25 21:00 Room Air Laboratory Results CBC 07/12/25 Range/Units 07:03 WBC 7.65 (4.8-10.8) K/ul RBC 4.74 (4.20-5.40) M/uL Hgb 13.9 (12.0-16.0) g/dl Hct 41.1 (37.0-47.0) % Plt Count 210 (130-400) K/uL Comprehensive Metabolic Panel 07/11/25 07/12/25 Range/Units 20:29 07:03 Sodium 139 136 (136-145) mmol/L Potassium 5.0 D 5.0 (3.5-5.1) mmol/L Chloride 100 103 (98-107) mmol/L Carbon Dioxide 30 26 (21-32) mmol/L BUN 28 H 24 H (6-23) mg/dl Creatinine 1.25 H D 0.65 D (0.6-1.2) mg/dl Glucose 124 H 203 H (70-99(Fasting)) mg/dl Calcium 8.9 9.8 (8.6-10.3) mg/dl Intake and Output 07/11/25 07/12/25 07/12/25 22:59 06:59 14:59 Intake Total 590 / 890 300 / 890 Output Total 200 / 2325 1125 / 2325 700 / 700 Balance 390 / -1435 -825 / -1435 -700 / -700 Intake: IV 100 / 200 100 / 200 Albumin 25% 25 gm In 100 ml @ 100 / 200 100 / 200 50 mls/hr IV ONE ONE Rx#: [id number] Oral 490 / 690 200 / 690 Output: Urine 200 / 2325 1125 / 2325 700 / 700 Other: # Unmeasured Voids 1 Weight 94 kg Weight Measurement Method Built in Bedscale Coding [place] [address] SUB INP/OBS CARE 350MIN Patient Type Established Diagnoses NSTEMI (non-ST elevated myocardial infarction) I21.4 Acute heart failure with mildly reduced ejection fraction (HFmrEF) I50.21 Time Spent (min) 35
[2025-07-12 12:24] VITALS: BP 109/69; PULSE 69; RESP 16; TEMP 97.9
--- NOTE | 2025-07-12 13:00 | Discharge Summary ---
Date of Service July 12, 2025 Admission HPI Per Admitting Provider Patient is a 54-year-old female with history of diabetes mellitus type 2, obesity, hyperlipidemia, TRINIDAD on supplemental oxygen at bedtime, pulmonary nodules, coronary artery disease, NSVT, mood disorder, hypertension, osteoarthritis of left knee and other medical problems presents with history of sudden onset of nonexertional chest pain. Patient states that while she was working at [employer] today she developed sudden onset of retrosternal chest pain radiating to the back, left arm lasting for about 40 minutes which resolved after administering aspirin, nitroglycerin and pain medications en route to the hospital. Currently she is chest pain-free. She describes chest pain to be pressure-like sensation associated with palpitations, dyspnea, dizziness. She states that she is taking her medications regularly at home. Denies any exertional chest pain. Reports chronic diarrhea which she attributes to her diabetic medications. Initial EKG showed findings suggestive of possible anterolateral infarct. Repeat EKG showed nonspecific T wave abnormality. Denies any history of syncope, diaphoresis, cough, wheezing, fever, chills, fall, chest trauma, headache, focal weakness, change in vision, nausea, vomit ing, abdominal pain, dysuria, hematuria. Admission Exam Per Admitting Provider General Appearance:Morbidly Obese, no apparent distress Head: normocephalic, Atraumatic Eyes: normal inspection, EOMI Neck: supple, Trachea midline Respiratory/Chest: Normal breath sounds, CTA, No accessory muscle use,+ reproducible chest tenderness Cardiovascular: S1, S2, No murmur Abdomen/GI:Soft, Non tender, Bowel sounds present Extremities/Musculoskeletal:normal inspection, no edema Neurologic/Psych:AAOX3, grossly no focal neurological deficits Skin: normal color, warm Principal Diagnosis NSTEMI s/p cardiac cath with no culprit lesion, patent prior OM stent Acute HFmrEF Discharge Exam General Appearance:Morbidly Obese, no apparent distress Head: normocephalic, Atraumatic Eyes: normal inspection, EOMI Neck: supple Respiratory/Chest: Normal breath sounds, CTA, No accessory muscle use Cardiovascular: S1, S2, No murmur Abdomen/GI:Soft, Non tender, Bowel sounds present Extremities/Musculoskeletal:normal inspection, no edema Neurologic/Psych:awake, alert, answers appropriately, no facial asymmetry, moves extremities Skin: normal color, warm Discharge Data Allergies Allergy/AdvReac Type Severity Reaction Status Date / Time codeine Allergy Severe Itching Unverified 07/08/25 13:48 Consultations 07/08/25 13:30 ED Decision to Admit Stat 07/08/25 15:40 Consult Cardiology Routine 07/10/25 08:10 Consult Orthopedic Spine Surgery Routine 07/10/25 13:10 Consult Pain Management Routine Procedures Performed Operation Date: 07/09/25 18:00 Actual Procedures p Cineradiography w/Routine Exam - Fitz Gregory MD p Cath, Left with Cors and Vent - Fitz Gregory MD Ordered Studies 07/09/25 17:55 CL Cath Imgs for PACS use only Stat 07/10/25 08:08 CT cervical spine wo con Urgent FINDINGS: Alignment of the cervical spine is anatomic. No acute fractures are identified. There are stable findings following C3-C6 anterior discectomy and fusion. Hardware is intact. There is slight backing out of the left C3 and C6 screws. No osseous lesions are present. Craniocervical junction is intact. Evaluation of the central canal and neural foramen is significantly compress given CT technique and artifact from the surgical hardware. The postoperative appearance appears similar to CTA of August 22, 2022. There is mild disc space narrowing at C2-C3 and moderate disc space narrowing at C6-C7. Anterior osteophytosis within the cervical spine is present. There is moderate facet arthrosis. IMPRESSION: 1. No acute cervical spine fracture or subluxation. 2. Status post C3-C6 anterior discectomy and fusion. Slight backing out of the left C3 and C6 screws. 3. Suboptimal evaluation of the central canal and neural foramen given CT technique and artifact from the surgical hardware. 4. Moderate disc space narrowing and osteophytosis at C6-C7. Moderate multilevel facet arthrosis. Hospital Course (1) Chest pain: (2) Abnormal EKG: NSTEMI--POA H/O CAD Acute heart failure with mildly reduced EF--POA --Last Cath on 07/28/24:Dominant: Left. Left Main (% Stenosis): Normal. LAD (% Stenosis): Mid (Luminal irregularities, 10%). D1 (% Stenosis): Ostial (60%, small vessel). D2 (% Stenosis): Normal. D3 (% Stenosis): Normal. Circumflex (% Stenosis): Mid (30% at take off of OM1). OM1 (% Stenosis): Proximal (patent stent) and Mid (40% stenosis of ostial sub-branch). RCA (% Stenosis): Normal (Small, nondominant vessel. Small, secondary subbranch, with separate ostia, visualized without significant disease.). -- Elevated troponin --CXR: No acute cardiopulmonary findings. No significant change in appearance of the chest. --HbA1c 8.3 on 06/03/2025 --S/P Cardiac Cath:Chronic stable coronary artery disease. Widely patent OM1 stent. 80-90% jailed ostial small AV groove circumflex (unchanged from 07/2024). 20-30% proximal LAD. Elevated intracardiac filling pressure --ECHO: LVEF 45 to 50%. Moderate size inferior and posterior wall motion abno rmality with hypokinesis of the segments. Trace mitral regurgitation. -- IV heparin discontinued Continue aspirin, statin, metoprolol succinate, lisinopril Appreciate cardiology input Received additional Lasix today Stopped amlodipine. Plan was to start Imdur but blood pressure has been on lower side Cardiology outpt follow up Cervical radiculopathy Likely due to cervical disc disease --CT Neck: No acute cervical spine fracture or subluxation. Status post C3-C6 anterior discectomy and fusion. Slight backing out of the left C3 and C6 screws.Suboptimal evaluation of the central canal and neural foramen given CT technique and artifact from the surgical hardware. Moderate disc space narrowing and osteophytosis at C6-C7. Moderate multilevel facet arthrosis. -- Ortho spine, pain management consulted No plan for surgical intervention per Ortho Needs EMG as outpatient Continue PT OT Needs follow-up with pain management for cervical epidural injection Continue gabapentin, baclofen as needed Hypokalemia Hypomagnesemia Replace and monitor Leukocytosis No clear source of infection currently Resolved Left knee osteoarthritis S/P injection recently Plan to be initiated on Medrol Dosepak Was planned for TKA eventually Morbid obesity BMI 40 DM Type II: Last HbA1c 8.3 Hold home regimen - resume on DC and follow up w/ pcpc Hyperlipidemia Continue statin TRINIDAD Continue supplemental oxygen at bedtime Currently not using CPAP Hypertension Continue lisinopril, metoprolol Hold amlodipine due to low blood pressure Monitor blood pressure Other medical problems Pulmonary nodules NSVT Mood disorder Continue home medications as able Morbid obesity: BMI 40 Total Time Total Time Spent Total Time Spent (In Minutes): 40 Discharge Plan Discharge Items Patient Disposition: Home - Self-Care Reason For Visit: ACS Discharge Diagnosis: NSTEMI s/p cardiac cath with no culprit lesion, patent prior OM stent Acute HFmrEF Condition on Discharge: Fair Activity: Per Instructions section Non-emergency contact: Primary Care Provider and Demographer Call non-emergency contact if: you have any medication questions and your symptoms worsen Follow-up/Referrals: Arin Damian PA-C [Physician Physician Relations Representative] - 08/17/25 2:00 pm Vanessa Hobson MD [Primary Care Provider] - 07/17/25 9:00 am (With Dr. Galdamez) Diet: Carb Consistent or DM2 and Heart Healthy Addtl Attending Provider Instructions: Follow up with your primary care physician and edge glue machine tender. Also, follow up with pain management clinic. Stop taking amlodipine as your blood pressure has been on lower side. If you can, monitor your blood pressure at home and keep a record of your numbers. Discuss your number with your health care providers. Take lasix (furosemide) 20 mg three times a week (Thursday, , Thursday). Continue/ finish already prescribed medrol pack. Addtl Senior Clerk Provider Instructions: Call your Primary Care doctor if any of the following symptoms or problems start or get worse: * Shortness of breath or difficulty breathing * Wake up at night short of breath * Chest pain * Cough * Swelling of your hands, feet, or legs * More fatigued or tired with your normal activity * Palpitations - sudden fast heart beats WEIGHT * Weigh yourself every morning after using the bathroom. * Use the same scale. * Wear the same amount of clothing. * Write your weight down on a chart. * Call your Primary Care doctor if you gain more than 2-3 pounds in 1-2 days. MEDICATIONS * Use this discharge instruction sheet for medication instructions. * Take your medications at the time your doctor ordered. * Do not skip a dose of your medicines. * If you miss a dose of medicine, take it as soon as possible, but DO NOT DOUBLE A DOSE. * Read your medicine information when you get home. * Know all of the side effects of your medicine. If in doubt, ask your pharmacist * Call your Primary Care doctor's office if you have any side effects. * Be sure all of your doctors know what medicine and herbs you take (including cold, flu, and herbal medicine). Take the following with you to your follow-up doctor appointments: * Weight Chart * Medication List * List of questions Do not drink excessive alcohol, beer or wine. Pending Studies at Discharge: No Stand-Alone Forms: My [facility] WhoWantsMe, Smoking Cessation Medications and DC Order Prescriptions: New oxycodone 5 mg Tablet 5 mg PO QID PRN (Reason: pain) Qty: 10 0RF furosemide 20 mg Tablet 20 mg PO TuThSa@0900 Qty: 30 0RF Continued Ozempic 0.25 mg or 0.5 mg (2 mg/3 mL) pen injector 1 mg SUBCUT WK Rx Instructions: Tuesdays ibuprofen 600 mg Tablet 600 mg PO Q8H PRN (Reason: pain) Qty: 30 0RF Patient Comments: Unable to verify OTC meds at this date/time. 07/08/25 metoprolol succinate 50 mg tablet extended release 24 hr 50 mg PO DAILY gabapentin 800 mg tablet 800 mg PO BID PRN (Reason: Pain) baclofen 10 mg tablet 10 mg PO TID PRN (Reason: Pain) pantoprazole 40 mg tablet,delayed release (DR/EC) 40 mg PO DAILY metformin 500 mg tablet extended release 24 hr 1,000 mg PO BID lisinopril 2.5 mg tablet 2.5 mg PO DAILY rosuvastatin 20 mg tablet 20 mg PO DAILY aspirin 81 mg Tablet,Delayed Release (Dr/Ec) 81 mg PO DAILY Patient Comments: Unable to verify OTC meds at this date/time. 07/08/25 acetaminophen 325 mg Tablet 650 mg PO Q4H PRN (Reason: pain) Qty: 30 0RF meloxicam 15 mg tablet 15 mg PO DAILY Qty: 10 0RF trazodone 50 mg tablet 50 mg PO HS Discontinued amlodipine [Norvasc] 5 mg Tablet 5 mg PO QAM Qty: 30 0RF Discharge Orders: Discharge Order- CHF (Routine); Ordered 07/12/25 Ordered By: Sergio Strong Admission Data Admit Date/Time: 07/08/25 21:24 Attending Provider: Sergio Strong Admit Provider: Zain Hardy Primary Care Provider: Vanessa Hobson Other Providers: Zain Hardy; Melisa Aggarwal; Christiano Barksdale; Emil Castro; Stalin Guevara; Horacio To; Arturo Tripp; Dorina Farrar; Carol Elizabeth; Vaishali Salvador; Sandrita Nix; Melisa Lubin; Levon Marie; Rakesh Zhao; Mei Leger; Jessica Bee; Valerie Sanchez; Della Phillips; Jorden Linda; Rita Cole; Viki Celis; Fitz Barbour; Grey Valerio; Jordan Burt; Makenna Carreno L
[2025-07-12] MEDS ORDERED: methylPREDNISolone 4 MG TAB PO SCH (21:00)
[2025-07-13] MEDS ORDERED: methylPREDNISolone 4 MG TAB PO SCH (07:00)
[2025-07-13] MEDS ORDERED: FUROSEMIDE 20 MG TAB PO SCH (09:00)
[2025-07-14] MEDS ORDERED: methylPREDNISolone 4 MG TAB PO SCH (07:00)
[2025-07-15] MEDS ORDERED: methylPREDNISolone 4 MG TAB PO SCH (07:00)
[2025-07-16] MEDS ORDERED: methylPREDNISolone 4 MG TAB PO SCH (07:00)
== END 2025-07-12 15:19 | disposition home or self-care (01) | DRG 280 ==
LOC: 2S 11:27 → ED 11:27 → 2S 16:35 → SUATTDRO 21:24

== ENCOUNTER 2025-07-16 21:52 | Inpatient (IN) ==
[2025-07-16 22:20] LABS: Hematocrit (blood only) 41.1 % (37.0-47.0); Hemoglobin 13.7 g/dl (12.0-16.0); Immature Granulocytes # (auto) 0.13 K/uL (0.01-0.20); Immature Granulocytes % (auto) 1.1 %; Mean Corpuscular Hemoglobin 28.7 pg (25.0-34.0); Mean Corpuscular Volume 86.2 fL (80.0-100.0); Platelet Count 343 K/uL (130-400); RDW Standard Deviation 42.9 fL (36.4-46.3); Red Blood Count 4.77 M/uL (4.20-5.40); White Blood Count 12.24 K/ul (4.8-10.8)
[2025-07-16] MEDS: SODIUM CHLORIDE 0.9% 500 ML IV ONE (22:22)
--- NOTE | 2025-07-16 22:26 | Emergency Department Note ---
History of Present Illness General Chief complaint: Chest Pain Stated complaint: CHEST PAIN X20 MIN Time Seen by Provider: 07/16/25 22:08 History of Present Illness Maximum Pain Intensity: 8 This is a 54-year-old female presenting to the emergency department via EMS for evaluation of chest pain that began just prior to arrival. The patient states that after [facility] at 8 PM she began having pain and contacted 911. The patient has an unfortunate recent history of NSTEMI 1 week ago. Patient was found in heart failure and ultimately had cardiac catheterization performed. She does have a previous stent, and coronary vessels appear to be patent without clear cause of her chest pain. She did improve with medical management and was ultimately discharged home. Lasix was added to her treatment, and she states that she has been taking her medications as prescribed. Her pain tonight is central and rated an 8/10. She will occasionally have radiation up into her neck bilaterally. This is similar to symptoms a week ago. No recent travel history. Patient did receive 2 doses of nitroglycerin prehospital, and she does not believe this improved her symptoms. Home Medications Medication Instructions Recorded Confirmed Type aspirin 81 mg tablet,delayed 81 mg PO DAILY 04/15/25 07/16/25 History release baclofen 10 mg tablet 10 mg PO TID PRN Pain 04/15/25 07/16/25 History gabapentin 800 mg tablet 800 mg PO BID PRN Pain 04/15/25 07/16/25 History lisinopril 2.5 mg tablet 2.5 mg PO DAILY 04/15/25 07/16/25 History metformin 500 mg tablet,extended 1,000 mg PO BID 04/15/25 07/16/25 History release 24 hr metoprolol succinate 50 mg 50 mg PO DAILY 04/15/25 07/16/25 History tablet,extended release 24 hr pantoprazole 40 mg tablet,delayed 40 mg PO DAILY 04/15/25 07/16/25 History release rosuvastatin 20 mg tablet 20 mg PO DAILY 04/15/25 07/16/25 History acetaminophen 325 mg tablet 650 mg (2 x 325 mg) PO Q4H PRN 04/20/25 07/16/25 Rx pain #30 tabs meloxicam 15 mg tablet 15 mg PO DAILY #10 tabs 04/20/25 07/16/25 Rx ibuprofen 600 mg tablet 600 mg PO Q8H PRN pain #30 tabs 05/11/25 07/16/25 Rx trazodone 50 mg tablet 50 mg PO HS PRN Insomnia 07/08/25 07/16/25 History furosemide 20 mg tablet 20 mg PO 3XWK 07/16/25 07/16/25 History glipizide 5 mg tablet 5 mg PO DAILYBB 07/16/25 07/16/25 History nitroglycerin 0.4 mg sublingual 0.4 mg sublingual DIRECTED PRN 07/16/25 07/16/25 History tablet Chest Pain semaglutide 1 mg/dose (4 mg/3 mL) 1 mg subcut WK 07/16/25 07/16/25 History subcutaneous pen injector (Ozempic) tramadol 50 mg tablet 50 mg PO Q8H PRN PAIN,SEVERE 07/16/25 07/16/25 History venlafaxine 75 mg capsule,extended 75 mg PO QAM 07/16/25 07/16/25 History release 24 hr Allergies Allergy/AdvReac Type Severity Reaction Status Date / Time codeine Allergy Severe Itching Verified 07/16/25 23:35 Past Med/Surg History Problem List Hypotension (Acute) Elevated troponin (Acute) Atypical chest pain (Acute) Acute heart failure with mildly reduced ejection fraction (HFmrEF) NSTEMI (non-ST elevated myocardial infarction) Abnormal EKG (Acute) Chest pain (Acute) Cervical radiculopathy Hypomagnesemia (Acute) Intractable pain (Acute) Leukocytosis (Acute) Headache (Acute) Body aches (Acute) Neck pain NSVT (nonsustained ventricular tachycardia) Hypokalemia (Acute) Hypomagnesemia (Acute) History of [place] (myocardial infarction) (Acute) Body aches (Acute) Elevated troponin (Acute) Precordial chest pain (Acute) Elevated troponin I level Chest pain (Acute) SOB (shortness of breath) History of repair of patent ductus arteriosus Dyslipidemia, goal LDL below 70 ASCVD (arteriosclerotic cardiovascular disease) PVCs (premature ventricular contractions) (Acute) Morbid obesity Atypical chest pain S/P cervical spinal fusion Vertigo Encephalopathy Hypertension (Acute) CAD (coronary artery disease) HLD (hyperlipidemia) Diabetes Dizziness (Acute) Arm paresthesia, left (Acute) Nystagmus (Acute) Vomiting and diarrhea (Acute) Tendonitis (Chronic) Abdominal pain (Acute) Environmental allergies (Chronic) History of hysterectomy (Chronic) "with bilateral oophorectomy" Medical History Ischemic cardiomyopathy Depression Surgical History History of cervical spinal surgery C3-C6 fusion S/P repair of patent ductus arteriosus "age 7" S/P tubal ligation Family History Mother Cancer Diabetes Grandmother (Maternal) Stroke Aunt Cancer Aunt Cancer Stroke Social History Smoking Status: Never smoker Tobacco Type: Cigarettes Second Hand Exposure: No; Do You Dip or Chew Tobacco: No; Hx Alcohol Use: No Hx Substance Use: No Preferred Language: Azeri Communication Ability: Effective Jira Administrator Required: No Beliefs That Will Affect Care: None Current Living Situation: Alone Feels Safe at Home: Yes Assistive Devices: Walker Review of Systems A total of 10 systems reviewed and were otherwise negative Physical Exam Vital Signs Vital Signs - 24 hr 07/16/25 21:57 07/16/25 21:57 07/16/25 22:07 Temperature 36.9 C Temperature Source Oral Pulse Rate 83 85 Pulse Rate [Apical] 83 Pulse Rate from SpO2 Sensor Pulse Rhythm Respiratory Rate 14 17 Respiratory Depth Normal Normal Blood Pressure 83/56 L Blood Pressure [Right Arm] 83/56 L Blood Pressure Mean 65 Blood Pressure Mean [Right Arm] 65 Pulse Oximetry 95 96 Oxygen Delivery Method Room Air Room Air Sepsis Recent Fever Within 48 Hours No Sepsis New/Unexplained Change in Mental Status No Sepsis Action Taken by Nursing No Action Required 07/16/25 22:23 07/16/25 23:00 07/16/25 23:24 Temperature Temperature Source Pulse Rate 79 79 75 Pulse Rate [Apical] Pulse Rate from SpO2 Sensor 76 Pulse Rhythm Regular Respiratory Rate 18 13 19 Respiratory Depth Blood Pressure 103/60 93/61 L Blood Pressure [Right Arm] Blood Pressure Mean 74 71 Blood Pressure Mean [Right Arm] Pulse Oximetry 98 94 95 Oxygen Delivery Method Room Air Sepsis Recent Fever Within 48 Hours Sepsis New/Unexplained Change in Mental Status Sepsis Action Taken by Nursing 07/16/25 23:39 07/16/25 23:40 07/16/25 23:40 Temperature Temperature Source Pulse Rate 75 Pulse Rate [Apical] Pulse Rate from SpO2 Sensor 78 Pulse Rhythm Respiratory Rate 16 Respiratory Depth Blood Pressure 98/52 L 92/62 L 92/62 L Blood Pressure [Right Arm] Blood Pressure Mean 67 68 68 Blood Pressure Mean [Right Arm] Pulse Oximetry 94 Oxygen Delivery Method Sepsis Recent Fever Within 48 Hours Sepsis New/Unexplained Change in Mental Status Sepsis Action Taken by Nursing 07/17/25 00:00 07/17/25 00:30 07/17/25 01:09 Temperature Temperature Source Pulse Rate 78 78 Pulse Rate [Apical] Pulse Rate from SpO2 Sensor 78 79 Pulse Rhythm Respiratory Rate 29 H 19 Respiratory Depth Blood Pressure 86/60 L 119/70 Blood Pressure [Right Arm] Blood Pressure Mean 68 98 Blood Pressure Mean [Right Arm] Pulse Oximetry 92 95 Oxygen Delivery Method Sepsis Recent Fever Within 48 Hours Sepsis New/Unexplained Change in Mental Status Sepsis Action Taken by Nursing 07/17/25 01:30 07/17/25 01:30 07/17/25 01:30 Temperature Temperature Source Pulse Rate 75 Pulse Rate [Apical] Pulse Rate from SpO2 Sensor 73 Pulse Rhythm Respiratory Rate 14 Respiratory Depth Blood Pressure 92/61 L 92/61 L Blood Pressure [Right Arm] Blood Pressure Mean 65 65 Blood Pressure Mean [Right Arm] Pulse Oximetry 95 Oxygen Delivery Method Sepsis Recent Fever Within 48 Hours Sepsis New/Unexplained Change in Mental Status Sepsis Action Taken by Nursing 07/17/25 01:58 Temperature Temperature Source Pulse Rate 71 Pulse Rate [Apical] Pulse Rate from SpO2 Sensor Pulse Rhythm Respiratory Rate Respiratory Depth Blood Pressure Blood Pressure [Right Arm] Blood Pressure Mean Blood Pressure Mean [Right Arm] Pulse Oximetry Oxygen Delivery Method Sepsis Recent Fever Within 48 Hours Sepsis New/Unexplained Change in Mental Status Sepsis Action Taken by Nursing VITALS: Vitals are noted on the nurse's note and reviewed by myself. Vital signs with marked hypotension GENERAL: Morbidly obese female who does not appear well on presentation. She is hypotensive and complaining of central chest pain. She is answering questions appropriately. HEAD: Normocephalic atraumatic. MOUTH: Mucous membranes moist. Pharynx without erythema, blood, or exudate. Uvula midline. Airway patent. NECK: Supple without nuchal rigidity. No lymphadenopathy. No thyromegaly. Cervical spine is nontender. HEART: Regular rate and rhythm without murmurs gallops or rubs. LUNGS: Clear to auscultation bilaterally without wheezes, rales or rhonchi. No retractions or accessory muscle use. ABDOMEN: Positive normal bowel sounds x 4. Soft, nontender, without masses or organomegaly. MUSCULOSKELETAL: No muscle atrophy, erythema, or edema noted. NEURO: Patient was alert and oriented to person place and time. CN II through XII grossly intact. No focal neurological deficits. GCS 15. Course Administered Medications Discontinued Medications Fentanyl Citrate (Fentanyl Citrate Pf 100 Mcg/2 Ml Vial) 50 mcg IV NOW STA Stop: 07/16/25 22:15 Last Admin: 07/16/25 22:28 Dose: 50 mcg Documented By: CAMERON Fentanyl Citrate (Fentanyl Citrate Pf 100 Mcg/2 Ml Vial) 50 mcg IV NOW STA Stop: 07/16/25 23:52 Last Admin: 07/16/25 23:56 Dose: 50 mcg Documented By: ADAM Sodium Chloride (Nss) 500 mls @ 999 mls/hr IV .Q31M ONE Stop: 07/16/25 22:45 Last Admin: 07/16/25 22:22 Dose: Not Given Documented By: CAMERON Sodium Chloride (Nss) 999 mls @ 999 mls/hr IV .Q1H ONE Stop: 07/16/25 23:14 Last Infusion: 07/16/25 23:39 Dose: Infused Documented By: Admin: 07/16/25 22:28 Dose: 999 mls/hr Documented By: CAMERON Ioversol (Optiray 320 125ml) 115 ml IV ONCE ONE Stop: 07/16/25 22:42 Last Admin: 07/16/25 22:41 Dose: 115 ml Documented By: JENA Medical Decision Making Differential Diagnosis Differential diagnosis includes, but is not limited to: Myocardial infarction, dysrhythmia, pericarditis, pneumothorax, aortic aneurysm/dissection, DVT/PE, anxiety, GERD, PUD, electrolyte imbalance, thyroid disorder, pneumonia, bronchitis, pancreatitis, and others Laboratory Data 07/16/25 22:00 07/16/25 22:00 Lab Results 07/16/25 07/16/25 07/17/25 Range/Units 22:00 22:21 01:10 WBC 12.24 H (4.8-10.8) K/ul RBC 4.77 (4.20-5.40) M/uL Hgb 13.7 (12.0-16.0) g/dl POC Hgb 15.0 (12.0-16.0) g/dl Hct 41.1 (37.0-47.0) % POC Hct 44 (37-47) % MCV 86.2 (80.0-100.0) fL MCH 28.7 (25.0-34.0) pg MCHC 33.3 (32.0-36.0) g/dL RDW Std Deviation 42.9 (36.4-46.3) fL RDW Coeff of Mariana 13.7 (11.5-14.5) % Plt Count 343 (130-400) K/uL MPV 11.5 (9.4-12.4) fL Immature Gran % (Auto) 1.1 % Neut % (Auto) 51.3 % Lymph % (Auto) 34.8 % [place] % (Auto) 8.1 % Eos % (Auto) 4.2 % Baso % (Auto) 0.5 % Neut # (Auto) 6.28 (1.40-6.50) K/uL Lymph # (Auto) 4.26 H (1.20-3.40) K/uL [place] # (Auto) 0.99 H (0.11-0.59) K/uL Eos # (Auto) 0.52 H (0.00-0.50) K/uL Baso # (Auto) 0.06 (0.00-0.20) K/uL Immature Gran # (Auto) 0.13 (0.01-0.20) K/uL PT 10.3 (9.0-12.0) Seconds INR 0.9 (0.9-1.1) APTT 25 (21-31) Seconds PTT Ratio 0.9 POC Sodium 134 L (135-144) mmol/L Sodium 133 L (136-145) mmol/L POC Potassium 3.5 (3.3-5.0) mmol/L Potassium 3.5 (3.5-5.1) mmol/L POC Chloride 97 L (101-112) mmol/L Chloride 96 L (98-107) mmol/L Carbon Dioxide 24 (21-32) mmol/L POC Total CO2 23 L (24-31) mmol/L Anion Gap 13 H (3-11) POC Anion Gap 19.0 (16-25) mmol/L POC BUN 30 H (7-18) mg/dl BUN 29 H (6-23) mg/dl Creatinine 1.19 (0.6-1.2) mg/dl POC Creatinine 1.2 (0.6-1.3) mg/dl Est Cr Clr Drug Dosing 57.4 ml/min eGFR 54.34 BUN/Creatinine Ratio 24.4 H (10-20) Glucose 258 H (70-99(Fasting)) mg/dl POC Glucose (other) 238 H (70-99) mg/dl Calcium 10.6 H (8.6-10.3) mg/dl POC Ioniz Calcium Elkin 1.28 (1.12-1.32) mmol/l Total Bilirubin 0.9 (0.2-1.0) mg/dl AST 15 (13-39) U/L ALT 23 (7-52) U/L Alkaline Phosphatase 94 (34-104) U/L Troponin I High Sens 16.3 H (0-14) pg/ml B-Natriuretic Peptide 49 (0-100) pg/ml Total Protein 7.3 (6.0-8.3) gm/dl Albumin 4.3 (3.4-5.0) gm/dl Globulin 3.0 (2.5-4.0) gm/dl Albumin/Globulin Ratio 1.4 (0.9-2) Lipase 55 (11-82) U/L Urine Color Yellow Urine Appearance Clear (Clear) Urine pH 6.0 (4.5-7.5) Ur Specific Swisher > 1.045 H (1.000-1.030) Urine Protein Trace H (Negative) Urine Glucose (UA) Negative (Negative) Urine Ketones Negative (Negative) Urine Blood Negative (Negative) Urine Nitrite Negative (Negative) Urine Bilirubin Negative (Negative) Urine Urobilinogen Negative (Negative) Ur Leukocyte Esterase Negative (Negative) Urine WBC (Auto) 0-5 (0-5) /hpf Urine RBC (Auto) 0-2 (0-2) /hpf U Hyaline Cast (Auto) 6-10 H (0-2) /lpf U Epithel Cells (Auto) 0-2 (0-2) /hpf Urine Bacteria (Auto) None Seen (None Seen) Hyaline Casts Present A (None Presnt) /lpf Urine Comment Imaging Data Radiologist's Impression: Chest X-Ray 07/16/25 22:09 Exam(s): XR CXR 1 VIEW EXAM: XR Chest, 1 View CLINICAL HISTORY: Chest Pain, nonspecific. TECHNIQUE: Frontal view of the chest. COMPARISON: Chest radiograph 07/09/2025 FINDINGS: Lungs: Redemonstrated bilateral pulmonary nodules. No consolidation. Pleural space: Unremarkable. No pneumothorax. Heart: Unremarkable. No cardiomegaly. Mediastinum: Unremarkable. Normal mediastinal contour. Bones/joints: There are degenerative changes of the spine. No acute fracture. IMPRESSION: Redemonstrated bilateral pulmonary nodules. Electronically signed by: Liane Jensen MD 07/17/25 00:33 AM Chest CTA 07/16/25 22:22 Exam(s): CTA CHEST W/WO Contrast IV Amt: 115ml EXAM: CT Angiography Chest Without and With Intravenous Contrast CLINICAL HISTORY: Atypical Chest Pain. TECHNIQUE: Axial computed tomographic angiography images of the chest without and with intravenous contrast. MIPS images were created and reviewed. CTDI is 24 mGy and DLP is 1000 mGy-cm. Automated exposure control was utilized for the study. A dose lowering technique was utilized adhering to the principles of ALARA. MIP reconstructed images were created and reviewed. CONTRAST: Patient received 115ml of IV contrast COMPARISON: CTA chest 04/16/2025 FINDINGS: Pulmonary arteries: Dilated main pulmonary artery measuring 3.0 cm. No pulmonary embolus. Aorta: Minimal atherosclerosis. No aortic aneurysm or dissection. Lungs: Redemonstrated calcified granulomas. No consolidation. Pleural space: Unremarkable. No significant effusion. No pneumothorax. Heart: Coronary artery calcifications are present. No cardiomegaly. No significant pericardial effusion. No evidence of RV dysfunction. Bones/joints: There are degenerative changes of the spine. No acute fracture. Soft tissues: Unremarkable. Lymph nodes: Calcified lymph nodes are consistent with chronic granulomatous disease. No pathologically enlarged lymph nodes. IMPRESSION: 1. No pulmonary embolus. 2. There is dilation of the pulmonary arteries. This is concerning for pulmonary artery hypertension. Electronically signed by: Liane Jensen MD 07/17/25 00:51 AM Neck CTA 07/16/25 22:22 Exam(s): CTA NECK With Contrast IV Amt: 115ml EXAM: CT Angiography Neck With Intravenous Contrast CLINICAL HISTORY: Atypical Chest Pain. TECHNIQUE: Routine carotid CT angiography protocol was performed with intravenous contrast. NASCET criteria using the distal ICAs for comparison were used for evaluation of stenoses. MIPS images were created and reviewed. CTDI is 24 mGy and DLP is 1953 mGy-cm. Automated exposure control was utilized for the study. A dose lowering technique was utilized adhering to the principles of ALARA. MIP reconstructed images were created and reviewed. CONTRAST: Patient received 115ml of IV contrast COMPARISON: None. FINDINGS: VASCULATURE: Right common carotid artery: Unremarkable. No occlusion or significant stenosis. No dissection. Right internal carotid artery: Mild atherosclerosis of the proximal right ICA without significant stenosis by NASCET criteria. No dissection. Right external carotid artery: Unremarkable. No occlusion. Right vertebral artery: Unremarkable. No occlusion or significant stenosis. No dissection. Left common carotid artery: Unremarkable. No occlusion or significant stenosis. No dissection. Left internal carotid artery: Mild atherosclerosis of the proximal left ICA without significant stenosis by NASCET criteria. No dissection. Left external carotid artery: Unremarkable. No occlusion. Left vertebral artery: Unremarkable. No occlusion or significant stenosis. No dissection. NECK: Bones/joints: There are degenerative changes of the spine. No acute fracture. There is anterior fixation of C3 through C6. Soft tissues: Unremarkable. Lung apices: Clear. CAROTID STENOSIS REFERENCE USING NASCET CRITERIA: % ICA stenosis = (1 - narrowest ICA diameter/diameter of distal cervical ICA) x 100. Mild - <50% stenosis. Moderate - 50-69% stenosis. Severe - 70-94% stenosis. Near occlusion - 95-99% stenosis. Occluded - 100% stenosis. IMPRESSION: No acute findings of the arteries of the neck. Electronically signed by: Liane Jensen MD 07/17/25 00:50 AM [facility] Narrative Physical exam and history were performed. Nursing notes, EMR, and Medication List were personally reviewed. No social concerns were identified as barriers to patients care. History was provided by the Patient and EMS. Patient appears to have chest pain symptoms bringing her to the ER. Patient appears unwell on arrival and is quite hypertensive. IV access x 2 was established and labs were obtained. Patient was hydrated with normal saline and given IV fentanyl for pain control. She was sent to CT scan for further imaging in her chest and neck. Case was discussed with my attending who remained involved in care decision making. An order was placed for continuous cardiac monitoring. The monitor shows a rate of 62 with normal sinus rhythm. Patient's blood work is as above and was reviewed. She does have a slightly elevated white count of 12.24. She does not have significant anemia or gross electrolyte imbalance. Transaminases are not diagnostic. Glucose is 258. High-sensitivity troponin is slightly elevated at 16. BNP is normal. Urine without distinct evidence of infection. CT scans were independently reviewed by myself and radiology and did not show obvious acute process to account for her symptoms. There is concern for pulmonary artery hypertension from the radiology read. Escalation of care was considered, and is felt to be necessary. Her heart score is at least 6 placing her at a moderate risk for event. Because of her symptoms are not distinct from an emergent standpoint. Case was discussed with the on- call hospitalist team who agreed to evaluate the patient here in the ER. Please see their dictation for further patient course, plan, disposition. The chart was completed utilizing [employer] Speech Voice Recognition Software. Grammatical errors, random word insertions, pronoun errors, and incomplete sentences are an occasional consequence of this system due to software limitations, ambient noise, and hardware issues. Any formal questions or concerns about the content, text, or information contained within the body of this dictation should be directly addressed to the provider for clarification. Impression & Plan Atypical chest pain, Elevated troponin, Hypotension Discharge Plan Visit Data Chief Complaint: Chest Pain Stated Complaint: CHEST PAIN X20 MIN ED Provider: Arturo Pizarro ED Midlevel Provider: Christiano Fermin Discharge Problem: Atypical chest pain, Elevated troponin, Hypotension Patient Disposition: Admitted As Inpatient Condition: Good Discharge Instructions Interventions: ED Discharge Assessment Last Done: 07/17/25 04:10
[2025-07-16] MEDS: SODIUM CHLORIDE 0.9% 999 ML IV ONE (22:28)
[2025-07-16 22:41] LABS: Alanine Aminotransferase 23.0 U/L (7-52); Albumin Globulin Ratio 1.4 (0.9-2); Alkaline Phosphatase 94.0 U/L (34-104); Anion Gap 13.0 (3-11); Bilirubin,Total 0.9 mg/dl (0.2-1.0); Blood Urea Nitrogen 29.0 mg/dl (6-23); Calcium 10.6 mg/dl (8.6-10.3); Carbon Dioxide 24.0 mmol/L (21-32); Chloride 96.0 mmol/L (98-107); Creatinine Clr Calc Pharmacy 57.4 ml/min; Globulin 3.0 gm/dl (2.5-4.0); Glucose 258.0 mg/dl (70-99(Fasting)); Lipase 55.0 U/L (11-82); Potassium 3.5 mmol/L (3.5-5.1); Sodium 133.0 mmol/L (136-145); Total Protein 7.3 gm/dl (6.0-8.3)
[2025-07-16] MEDS: OPTIRAY 320 125ml IV ONE (22:41)
[2025-07-16 22:56] LABS: INR 0.9 (0.9-1.1); Partial Thromboplastin Time 25 Seconds (21-31); Prothrombin Time 10.3 Seconds (9.0-12.0)
--- NOTE | 2025-07-17 00:34 | XRay Report ---
Exam(s): XR CXR 1 VIEW EXAM: XR Chest, 1 View CLINICAL HISTORY: Chest Pain, nonspecific. TECHNIQUE: Frontal view of the chest. COMPARISON: Chest radiograph 07/09/2025 FINDINGS: Lungs: Redemonstrated bilateral pulmonary nodules. No consolidation. Pleural space: Unremarkable. No pneumothorax. Heart: Unremarkable. No cardiomegaly. Mediastinum: Unremarkable. Normal mediastinal contour. Bones/joints: There are degenerative changes of the spine. No acute fracture. IMPRESSION: Redemonstrated bilateral pulmonary nodules. Electronically signed by: Liane Jensen MD 07/17/25 00:33 AM
--- NOTE | 2025-07-17 00:51 | CT Scan Report ---
Exam(s): CTA NECK With Contrast IV Amt: 115ml EXAM: CT Angiography Neck With Intravenous Contrast CLINICAL HISTORY: Atypical Chest Pain. TECHNIQUE: Routine carotid CT angiography protocol was performed with intravenous contrast. NASCET criteria using the distal ICAs for comparison were used for evaluation of stenoses. MIPS images were created and reviewed. CTDI is 24 mGy and DLP is 1953 mGy-cm. Automated exposure control was utilized for the study. A dose lowering technique was utilized adhering to the principles of ALARA. MIP reconstructed images were created and reviewed. CONTRAST: Patient received 115ml of IV contrast COMPARISON: None. FINDINGS: VASCULATURE: Right common carotid artery: Unremarkable. No occlusion or significant stenosis. No dissection. Right internal carotid artery: Mild atherosclerosis of the proximal right ICA without significant stenosis by NASCET criteria. No dissection. Right external carotid artery: Unremarkable. No occlusion. Right vertebral artery: Unremarkable. No occlusion or significant stenosis. No dissection. Left common carotid artery: Unremarkable. No occlusion or significant stenosis. No dissection. Left internal carotid artery: Mild atherosclerosis of the proximal left ICA without significant stenosis by NASCET criteria. No dissection. Left external carotid artery: Unremarkable. No occlusion. Left vertebral artery: Unremarkable. No occlusion or significant stenosis. No dissection. NECK: Bones/joints: There are degenerative changes of the spine. No acute fracture. There is anterior fixation of C3 through C6. Soft tissues: Unremarkable. Lung apices: Clear. CAROTID STENOSIS REFERENCE USING NASCET CRITERIA: % ICA stenosis = (1 - narrowest ICA diameter/diameter of distal cervical ICA) x 100. Mild - <50% stenosis. Moderate - 50-69% stenosis. Severe - 70-94% stenosis. Near occlusion - 95-99% stenosis. Occluded - 100% stenosis. IMPRESSION: No acute findings of the arteries of the neck. Electronically signed by: Liane Jensen MD 07/17/25 00:50 AM
--- NOTE | 2025-07-17 00:53 | CT Scan Report ---
Exam(s): CTA CHEST W/WO Contrast IV Amt: 115ml EXAM: CT Angiography Chest Without and With Intravenous Contrast CLINICAL HISTORY: Atypical Chest Pain. TECHNIQUE: Axial computed tomographic angiography images of the chest without and with intravenous contrast. MIPS images were created and reviewed. CTDI is 24 mGy and DLP is 1000 mGy-cm. Automated exposure control was utilized for the study. A dose lowering technique was utilized adhering to the principles of ALARA. MIP reconstructed images were created and reviewed. CONTRAST: Patient received 115ml of IV contrast COMPARISON: CTA chest 04/16/2025 FINDINGS: Pulmonary arteries: Dilated main pulmonary artery measuring 3.0 cm. No pulmonary embolus. Aorta: Minimal atherosclerosis. No aortic aneurysm or dissection. Lungs: Redemonstrated calcified granulomas. No consolidation. Pleural space: Unremarkable. No significant effusion. No pneumothorax. Heart: Coronary artery calcifications are present. No cardiomegaly. No significant pericardial effusion. No evidence of RV dysfunction. Bones/joints: There are degenerative changes of the spine. No acute fracture. Soft tissues: Unremarkable. Lymph nodes: Calcified lymph nodes are consistent with chronic granulomatous disease. No pathologically enlarged lymph nodes. IMPRESSION: 1. No pulmonary embolus. 2. There is dilation of the pulmonary arteries. This is concerning for pulmonary artery hypertension. Electronically signed by: Liane Jensen MD 07/17/25 00:51 AM
[2025-07-17 01:36] LABS: Appearance Urine Clear (Clear); Bacteria Urine Automated None Seen (None Seen); Epithelial Cell Urine Auto 0-2 /hpf (0-2); Glucose Urine UA Negative (Negative); RBC Urine Automated 0-2 /hpf (0-2); WBC Urine Automated 0-5 /hpf (0-5)
--- NOTE | 2025-07-17 02:56 | History & Physical Report ---
Date of Service July 17, 2025 Assessment & Plan (1) Chest pain: Plan: 54-year-old female with past medical history significant for type 2 diabetes, mixed hyperlipidemia, diabetic polyneuropathy, sleep apnea, pulmonary nodules, hypertension, B12 deficiency, obesity, osteoarthritis, cervicalgia, KASI inhibitor intolerance, history of CAD, nonsustained V. tach, recurrent depression was recently in the hospital for chest pain and elevated troponins treated for non-ST elevated [place] and was status post cardiac cath which showed chronic stable CAD with widely patent OM1 stent, 80 to 90% jailed ostial small AV groove circumflex unchanged from previous cath, 20 to 30% proximal LAD, and echo showed EF of 45 to 50% moderate size inferior and posterior wall motion abnormality with hypokinesis of segments and was discharged on 07/12/2025 comes again today with chest pain. Around 8 PM patient had severe chest pain in middle of the chest radiating to both arms pressure-like feeling. During pain she felt short of breath. Was sweaty. En route to hospital 2 nitro's were given by EMS but did not resolve the pain. In the ER received fentanyl and that helped improve the chest pain. Currently has mild pain. No headache. No runny nose or sore throat. No cough. No nausea. No abdominal pain. Normal bowel and bladder movements. Current resting comfortably hemodynamically stable. Blood pressure was in 80s when she came to the ER and received fluid bolus. Chest pain Improved with fentanyl EKG okay Troponin 16 BNP 49 CTA chest no PE but shows dilatation of pulm arteries CTA neck no acute findings Will follow serial enzymes Telemetry Consult cardiology in a.m. Hypotension Holding Lasix and lisinopril Beta-abel with holding parameters Gentle fluids Cardio consult to help with cardiac medications Chronic systolic chf Ef 45-50% holding lasix and getting gentle fluids monitor for volume overload. History of CAD Continue aspirin and statin Metoprolol with holding parameters Diabetes Hold metformin, semaglutide and glipizide Sliding scale Will monitor Neck pain Cervical radiculopathy Status post cervical spinal fusion Will hold ibuprofen Avoid NSAIDs Continue tramadol and Tylenol as needed On Baclofen and gabapentin as needed Left knee osteoarthritis Follow-up with orthopedics Obesity Plan for sleep study as per patient Currently using oxygen while sleeping Hyperlipidemia On statin Depression On venlafaxine Mid elevation of calcium will follow repeat labs DVT prophylaxis SCDs Disposition Telemetry Full code. History of Present Illness Chief Complaint: Chest pain Primary Care Provider: Gary Galdamez 54-year-old female with past medical history significant for type 2 diabetes, mixed hyperlipidemia, diabetic polyneuropathy, sleep apnea, pulmonary nodules, hypertension, B12 deficiency, obesity, osteoarthritis, cervicalgia, KASI inhibitor intolerance, history of CAD, nonsustained V. tach, recurrent depression was recently in the hospital for chest pain and elevated troponins treated for non-ST elevated W[place] and was status post cardiac cath which showed chronic stable CAD with widely patent OM1 stent, 80 to 90% jailed ostial small AV groove circumflex unchanged from previous cath, 20 to 30% proximal LAD, and echo showed EF of 45 to 50% moderate size inferior and posterior wall motion abnormality with hypokinesis of segments and was discharged on 07/12/2025 comes again today with chest pain. Around 8 PM patient had severe chest pain in middle of the chest radiating to both arms pressure-like feeling. During pain she felt short of breath. Was sweaty. En route to hospital 2 nitro's were given by EMS but did not resolve the pain. In the ER received fentanyl and that helped improve the chest pain. Currently has mild pain. No headache. No runny nose or sore throat. No cough. No nausea. No abdominal pain. Normal bowel and bladder movements. Current resting comfortably hemodynamically stable. Blood pressure was in 80s when she came to the ER and received fluid bolus. Past medical history. As mentioned above. Past surgical history. Cardiac cath. Colonoscopy. Cervical laminoplasty. EGD. Tubal ligation. Repair of patent ductus arteriosus at age 7. Total abdominal hysterectomy with removal of tubes. Social history. Former smoker. Quit in 2013. No alcohol use. No drug use. Family history. Father had alcoholism. Mother had liver/uterine cancer. Diabetes. Maternal aunt had brain cancer. Maternal aunt had renal cancer. Sister had heart attack at age 48. Maternal aunt had stroke. Maternal grandmother had stroke. Allergies Allergy/AdvReac Type Severity Reaction Status Date / Time codeine Allergy Severe Itching Verified 07/16/25 23:35 Home Medications Medication Instructions Recorded Confirmed Type aspirin 81 mg tablet,delayed 81 mg PO DAILY 04/15/25 07/16/25 History release baclofen 10 mg tablet 10 mg PO TID PRN Pain 04/15/25 07/16/25 History gabapentin 800 mg tablet 800 mg PO BID PRN Pain 04/15/25 07/16/25 History lisinopril 2.5 mg tablet 2.5 mg PO DAILY 04/15/25 07/16/25 History metformin 500 mg tablet,extended 1,000 mg PO BID 04/15/25 07/16/25 History release 24 hr metoprolol succinate 50 mg 50 mg PO DAILY 04/15/25 07/16/25 History tablet,extended release 24 hr pantoprazole 40 mg tablet,delayed 40 mg PO DAILY 04/15/25 07/16/25 History release rosuvastatin 20 mg tablet 20 mg PO DAILY 04/15/25 07/16/25 History acetaminophen 325 mg tablet 650 mg (2 x 325 mg) PO Q4H PRN 04/20/25 07/16/25 Rx pain #30 tabs meloxicam 15 mg tablet 15 mg PO DAILY #10 tabs 04/20/25 07/16/25 Rx ibuprofen 600 mg tablet 600 mg PO Q8H PRN pain #30 tabs 05/11/25 07/16/25 Rx trazodone 50 mg tablet 50 mg PO HS PRN Insomnia 07/08/25 07/16/25 History furosemide 20 mg tablet 20 mg PO 3XWK 07/16/25 07/16/25 History glipizide 5 mg tablet 5 mg PO DAILYBB 07/16/25 07/16/25 History nitroglycerin 0.4 mg sublingual 0.4 mg sublingual DIRECTED PRN 07/16/25 07/16/25 History tablet Chest Pain semaglutide 1 mg/dose (4 mg/3 mL) 1 mg subcut WK 07/16/25 07/16/25 History subcutaneous pen injector (Ozempic) tramadol 50 mg tablet 50 mg PO Q8H PRN PAIN,SEVERE 07/16/25 07/16/25 History venlafaxine 75 mg capsule,extended 75 mg PO QAM 07/16/25 07/16/25 History release 24 hr Past Med/Surg History Problem List Hypotension (Acute) Elevated troponin (Acute) Atypical chest pain (Acute) Acute heart failure with mildly reduced ejection fraction (HFmrEF) NSTEMI (non-ST elevated myocardial infarction) Abnormal EKG (Acute) Chest pain (Acute) Cervical radiculopathy Hypomagnesemia (Acute) Intractable pain (Acute) Leukocytosis (Acute) Headache (Acute) Body aches (Acute) Neck pain NSVT (nonsustained ventricular tachycardia) Hypokalemia (Acute) Hypomagnesemia (Acute) History of W[place] (myocardial infarction) (Acute) Body aches (Acute) Elevated troponin (Acute) Precordial chest pain (Acute) Elevated troponin I level Chest pain (Acute) SOB (shortness of breath) History of repair of patent ductus arteriosus Dyslipidemia, goal LDL below 70 ASCVD (arteriosclerotic cardiovascular disease) PVCs (premature ventricular contractions) (Acute) Morbid obesity Atypical chest pain S/P cervical spinal fusion Vertigo Encephalopathy Hypertension (Acute) CAD (coronary artery disease) HLD (hyperlipidemia) Diabetes Dizziness (Acute) Arm paresthesia, left (Acute) Nystagmus (Acute) Vomiting and diarrhea (Acute) Tendonitis (Chronic) Abdominal pain (Acute) Environmental allergies (Chronic) History of hysterectomy (Chronic) "with bilateral oophorectomy" Medical History Ischemic cardiomyopathy Depression Surgical History History of cervical spinal surgery C3-C6 fusion S/P repair of patent ductus arteriosus "age 7" S/P tubal ligation Family History Mother Cancer Diabetes Grandmother (Maternal) Stroke Aunt Cancer Aunt Cancer Stroke Social History Smoking Status: Never smoker Tobacco Type: Cigarettes Second Hand Exposure: No; Do You Dip or Chew Tobacco: No; Hx Alcohol Use: No Hx Substance Use: No Preferred Language: Telugu Communication Ability: Effective Management Retail Intern Required: No Beliefs That Will Affect Care: None Current Living Situation: Alone Feels Safe at Home: Yes Assistive Devices: None Review of Systems 2 Review of Systems: All systems reviewed & are unremarkable except as noted in HPI & below Physical Exam Physical Exam: General- Not in distress Head- atraumatic Eyes- PERRL. ENT- oropharynx clear Neck- supple, no JVD. Lungs- clear to auscultation no wheezing or crackles Heart- regular rhythm; no murmur, no gallop. Abdomen- normal bowel sounds, soft, nontender, no distension Extremities- no pretibial edema, no erythema seen Neuro- alert, oriented PERRL, no facial palsy; no dysarthria; moves extremities Results & Data Results & Data Vital Signs (Past 12 Hours) Vital Signs Temp Pulse Pulse Resp BP BP Pulse Ox 07/17/25 01:58 71 07/17/25 01:30 75 14 95 07/17/25 01:30 92/61 L 07/17/25 01:30 92/61 L 07/17/25 01:09 78 19 95 07/17/25 00:30 119/70 07/17/25 00:00 78 29 H 86/60 L 92 07/16/25 23:40 92/62 L 07/16/25 23:40 92/62 L 07/16/25 23:39 75 16 98/52 L 94 07/16/25 23:24 75 19 93/61 L 95 07/16/25 23:00 79 13 103/60 94 07/16/25 22:23 79 18 98 07/16/25 22:07 85 07/16/25 21:57 83 17 83/56 L 96 07/16/25 21:57 36.9 C 83 14 83/56 L 95 O2 Del Method 07/17/25 01:58 07/17/25 01:30 07/17/25 01:30 07/17/25 01:30 07/17/25 01:09 07/17/25 00:30 07/17/25 00:00 07/16/25 23:40 07/16/25 23:40 07/16/25 23:39 07/16/25 23:24 07/16/25 23:00 07/16/25 22:23 Room Air 07/16/25 22:07 07/16/25 21:57 Room Air 07/16/25 21:57 Room Air Diagnostic Findings Laboratory Results WBC 12.24 K/ul (4.8-10.8) H 07/16/25 22:00 RBC 4.77 M/uL (4.20-5.40) 07/16/25 22:00 Hgb 13.7 g/dl (12.0-16.0) 07/16/25 22:00 POC Hgb 15.0 g/dl (12.0-16.0) 07/16/25 22:21 Hct 41.1 % (37.0-47.0) 07/16/25 22:00 POC Hct 44 % (37-47) 07/16/25 22:21 MCV 86.2 fL (80.0-100.0) 07/16/25 22:00 MCH 28.7 pg (25.0-34.0) 07/16/25 22:00 MCHC 33.3 g/dL (32.0-36.0) 07/16/25 22:00 RDW Std Deviation 42.9 fL (36.4-46.3) 07/16/25 22:00 RDW Coeff of [place] 13.7 % (11.5-14.5) 07/16/25 22:00 Plt Count 343 K/uL (130-400) 07/16/25 22:00 MPV 11.5 fL (9.4-12.4) 07/16/25 22:00 Immature Gran % (Auto) 1.1 % 07/16/25 22:00 Neut % (Auto) 51.3 % 07/16/25 22:00 Lymph % (Auto) 34.8 % 07/16/25 22:00 [place] % (Auto) 8.1 % 07/16/25 22:00 Eos % (Auto) 4.2 % 07/16/25 22:00 Baso % (Auto) 0.5 % 07/16/25 22:00 Neut # (Auto) 6.28 K/uL (1.40-6.50) 07/16/25 22:00 Lymph # (Auto) 4.26 K/uL (1.20-3.40) H 07/16/25 22:00 [place] # (Auto) 0.99 K/uL (0.11-0.59) H 07/16/25 22:00 Eos # (Auto) 0.52 K/uL (0.00-0.50) H 07/16/25 22:00 Baso # (Auto) 0.06 K/uL (0.00-0.20) 07/16/25 22:00 Immature Gran # (Auto) 0.13 K/uL (0.01-0.20) 07/16/25 22:00 PT 10.3 Seconds (9.0-12.0) 07/16/25 22:00 INR 0.9 (0.9-1.1) 07/16/25 22:00 APTT 25 Seconds (21-31) 07/16/25 22:00 PTT Ratio 0.9 07/16/25 22:00 POC Sodium 134 mmol/L (135-144) L 07/16/25 22:21 Sodium 133 mmol/L (136-145) L 07/16/25 22:00 POC Potassium 3.5 mmol/L (3.3-5.0) 07/16/25 22:21 Potassium 3.5 mmol/L (3.5-5.1) 07/16/25 22:00 POC Chloride 97 mmol/L (101-112) L 07/16/25 22:21 Chloride 96 mmol/L (98-107) L 07/16/25 22:00 Carbon Dioxide 24 mmol/L (21-32) 07/16/25 22:00 POC Total CO2 23 mmol/L (24-31) L 07/16/25 22:21 Anion Gap 13 (3-11) H 07/16/25 22:00 POC Anion Gap 19.0 mmol/L (16-25) 07/16/25 22:21 POC BUN 30 mg/dl (7-18) H 07/16/25 22:21 BUN 29 mg/dl (6-23) H 07/16/25 22:00 Creatinine 1.19 mg/dl (0.6-1.2) 07/16/25 22:00 POC Creatinine 1.2 mg/dl (0.6-1.3) 07/16/25 22:21 Est Cr Clr Drug Dosing 57.4 ml/min 07/16/25 22:00 eGFR 54.34 07/16/25 22:00 BUN/Creatinine Ratio 24.4 (10-20) H 07/16/25 22:00 Glucose 258 mg/dl (70-99(Fasting)) H 07/16/25 22:00 POC Glucose (other) 238 mg/dl (70-99) H 07/16/25 22:21 Calcium 10.6 mg/dl (8.6-10.3) H 07/16/25 22:00 POC Ioniz Calcium [place] 1.28 mmol/l (1.12-1.32) 07/16/25 22:21 Total Bilirubin 0.9 mg/dl (0.2-1.0) 07/16/25 22:00 AST 15 U/L (13-39) 07/16/25 22:00 ALT 23 U/L (7-52) 07/16/25 22:00 Alkaline Phosphatase 94 U/L (34-104) 07/16/25 22:00 Troponin I High Sens 16.3 pg/ml (0-14) H 07/16/25 22:00 B-Natriuretic Peptide 49 pg/ml (0-100) 07/16/25 22:00 Total Protein 7.3 gm/dl (6.0-8.3) 07/16/25 22:00 Albumin 4.3 gm/dl (3.4-5.0) 07/16/25 22:00 Globulin 3.0 gm/dl (2.5-4.0) 07/16/25 22:00 Albumin/Globulin Ratio 1.4 (0.9-2) 07/16/25 22:00 Lipase 55 U/L (11-82) 07/16/25 22:00 Urine Color Yellow 07/17/25 01:10 Urine Appearance Clear (Clear) 07/17/25 01:10 Urine pH 6.0 (4.5-7.5) 07/17/25 01:10 Ur Specific [place] > 1.045 (1.000-1.030) H 07/17/25 01:10 Urine Protein Trace (Negative) H 07/17/25 01:10 Urine Glucose (UA) Negative (Negative) 07/17/25 01:10 Urine Ketones Negative (Negative) 07/17/25 01:10 Urine Blood Negative (Negative) 07/17/25 01:10 Urine Nitrite Negative (Negative) 07/17/25 01:10 Urine Bilirubin Negative (Negative) 07/17/25 01:10 Urine Urobilinogen Negative (Negative) 07/17/25 01:10 Ur Leukocyte Esterase Negative (Negative) 07/17/25 01:10 Urine WBC (Auto) 0-5 /hpf (0-5) 07/17/25 01:10 Urine RBC (Auto) 0-2 /hpf (0-2) 07/17/25 01:10 U Hyaline Cast (Auto) 6-10 /lpf (0-2) H 07/17/25 01:10 U Epithel Cells (Auto) 0-2 /hpf (0-2) 07/17/25 01:10 Urine Bacteria (Auto) None Seen (None Seen) 07/17/25 01:10 Hyaline Casts Present /lpf (None Presnt) A 07/17/25 01:10 Urine Comment 07/17/25 01:10 Impressions Chest X-Ray 07/16/25 22:09 Exam(s): XR CXR 1 VIEW EXAM: XR Chest, 1 View CLINICAL HISTORY: Chest Pain, nonspecific. TECHNIQUE: Frontal view of the chest. COMPARISON: Chest radiograph 07/09/2025 FINDINGS: Lungs: Redemonstrated bilateral pulmonary nodules. No consolidation. Pleural space: Unremarkable. No pneumothorax. Heart: Unremarkable. No cardiomegaly. Mediastinum: Unremarkable. Normal mediastinal contour. Bones/joints: There are degenerative changes of the spine. No acute fracture. IMPRESSION: Redemonstrated bilateral pulmonary nodules. Electronically signed by: Liane Jensen MD 07/17/25 00:33 AM Chest CTA 07/16/25 22:22 Exam(s): CTA CHEST W/WO Contrast IV Amt: 115ml EXAM: CT Angiography Chest Without and With Intravenous Contrast CLINICAL HISTORY: Atypical Chest Pain. TECHNIQUE: Axial computed tomographic angiography images of the chest without and with intravenous contrast. MIPS images were created and reviewed. CTDI is 24 mGy and DLP is 1000 mGy-cm. Automated exposure control was utilized for the study. A dose lowering technique was utilized adhering to the principles of ALARA. MIP reconstructed images were created and reviewed. CONTRAST: Patient received 115ml of IV contrast COMPARISON: CTA chest 04/16/2025 FINDINGS: Pulmonary arteries: Dilated main pulmonary artery measuring 3.0 cm. No pulmonary embolus. Aorta: Minimal atherosclerosis. No aortic aneurysm or dissection. Lungs: Redemonstrated calcified granulomas. No consolidation. Pleural space: Unremarkable. No significant effusion. No pneumothorax. Heart: Coronary artery calcifications are present. No cardiomegaly. No significant pericardial effusion. No evidence of RV dysfunction. Bones/joints: There are degenerative changes of the spine. No acute fracture. Soft tissues: Unremarkable. Lymph nodes: Calcified lymph nodes are consistent with chronic granulomatous disease. No pathologically enlarged lymph nodes. IMPRESSION: 1. No pulmonary embolus. 2. There is dilation of the pulmonary arteries. This is concerning for pulmonary artery hypertension. Electronically signed by: Liane Jensen MD 07/17/25 00:51 AM Neck CTA 07/16/25 22:22 Exam(s): CTA NECK With Contrast IV Amt: 115ml EXAM: CT Angiography Neck With Intravenous Contrast CLINICAL HISTORY: Atypical Chest Pain. TECHNIQUE: Routine carotid CT angiography protocol was performed with intravenous contrast. NASCET criteria using the distal ICAs for comparison were used for evaluation of stenoses. MIPS images were created and reviewed. CTDI is 24 mGy and DLP is 1953 mGy-cm. Automated exposure control was utilized for the study. A dose lowering technique was utilized adhering to the principles of ALARA. MIP reconstructed images were created and reviewed. CONTRAST: Patient received 115ml of IV contrast COMPARISON: None. FINDINGS: VASCULATURE: Right common carotid artery: Unremarkable. No occlusion or significant stenosis. No dissection. Right internal carotid artery: Mild atherosclerosis of the proximal right ICA without significant stenosis by NASCET criteria. No dissection. Right external carotid artery: Unremarkable. No occlusion. Right vertebral artery: Unremarkable. No occlusion or significant stenosis. No dissection. Left common carotid artery: Unremarkable. No occlusion or significant stenosis. No dissection. Left internal carotid artery: Mild atherosclerosis of the proximal left ICA without significant stenosis by NASCET criteria. No dissection. Left external carotid artery: Unremarkable. No occlusion. Left vertebral artery: Unremarkable. No occlusion or significant stenosis. No dissection. NECK: Bones/joints: There are degenerative changes of the spine. No acute fracture. There is anterior fixation of C3 through C6. Soft tissues: Unremarkable. Lung apices: Clear. CAROTID STENOSIS REFERENCE USING NASCET CRITERIA: % ICA stenosis = (1 - narrowest ICA diameter/diameter of distal cervical ICA) x 100. Mild - <50% stenosis. Moderate - 50-69% stenosis. Severe - 70-94% stenosis. Near occlusion - 95-99% stenosis. Occluded - 100% stenosis. IMPRESSION: No acute findings of the arteries of the neck. Electronically signed by: Liane Jensen MD 07/17/25 00:50 AM ECG Additional Comments: ECG. Normal sinus rhythm rate of 82. Minimal voltage criteria for LVH. No significant changes found. QTc 450 Code Status & VTE Plan VTE Prophylaxis Plan VTE Prophylaxis will be ordered: Yes
[2025-07-17] MEDS ORDERED: GLUCOSE 10 TAB/TUBE PO PRN (04:29)
[2025-07-17] MEDS ORDERED: DEXTROSE 50% 50 ML SYRINGE IV PRN (04:29)
[2025-07-17] MEDS ORDERED: POLYETHYLENE (MIRALAX) 17 GM PACK PO PRN (04:29)
[2025-07-17] MEDS ORDERED: GLUCOSE 40% GEL 15 GM TUBE PO PRN (04:29)
[2025-07-17] MEDS ORDERED: CARBOHYDRATES FOR HYPOGLYCEMIA PO PRN (04:29)
[2025-07-17] MEDS ORDERED: GLUCAGON FOR INJ 1 MG VIAL SQ PRN (04:29)
[2025-07-17 05:46] LABS: Hematocrit (blood only) 41.4 % (37.0-47.0); Hemoglobin 13.3 g/dl (12.0-16.0); Immature Granulocytes # (auto) 0.07 K/uL (0.01-0.20); Immature Granulocytes % (auto) 0.8 %; Mean Corpuscular Hemoglobin 27.9 pg (25.0-34.0); Mean Corpuscular Volume 87.0 fL (80.0-100.0); Platelet Count 269 K/uL (130-400); RDW Standard Deviation 43.8 fL (36.4-46.3); Red Blood Count 4.76 M/uL (4.20-5.40); White Blood Count 9.08 K/ul (4.8-10.8)
[2025-07-17] MEDS: INSULIN ASPART PER UNIT CHARGE SC SCH ×2 (05:46→17:43)
[2025-07-17] MEDS: SODIUM CHLORIDE 0.9% 1,000 ML IV SCH (05:48)
[2025-07-17 06:06] LABS: Anion Gap 8.0 (3-11); Blood Urea Nitrogen 23.0 mg/dl (6-23); Calcium 10.4 mg/dl (8.6-10.3); Carbon Dioxide 28.0 mmol/L (21-32); Chloride 100.0 mmol/L (98-107); Creatinine Clr Calc Pharmacy 103.6 ml/min; Glucose 149.0 mg/dl (70-99(Fasting)); Magnesium 1.3 mg/dl (1.7-2.4); Potassium 3.8 mmol/L (3.5-5.1); Sodium 136.0 mmol/L (136-145)
[2025-07-17] MEDS: MoRPHine SULFATE 2 MG/ML CARP IV PRN (07:38)
[2025-07-17] MEDS: MAGNESIUM SULFATE / D5W 1 GM/100 ML BAG IV SCH (07:41)
[2025-07-17] MEDS: NITROGLYCERIN SL 0.4 MG/TAB TAB SL PRN (07:53)
--- NOTE | 2025-07-17 08:28 | Cardiology Consultation ---
Date of Consultation July 17, 2025 Assessment & Plan (1) Chest pain: (2) CAD (coronary artery disease): (3) Chronic heart failure with preserved ejection fraction: (4) Hypomagnesemia: Plan Patient is a 54 year old admitted with recurrent substernal chest pain/pressure. She was recently admitted last week with similar symptoms, substernal chest pain, elevated troponin peaking at 1100 and underwent cardiac cath which revealed non obstructive small vessel disease with prior patent stent to the OM. Elevated end diastolic filling pressures noted. It was thought patient's symptoms were either related to underlying small vessel disease/angina vs vasospastic angina and acute HFpEF. She was treated with IV Lasix and symptoms did improve. She was discharged on low dose furosemide 20 mg M//. Amlodipine was discontinued due to hypotension. There was discussion about trial of nitrates but due to low BP, this was not prescribed. This admission, troponin only minimally elevated in low 40's. EKG without acute ischemic changes. Symptoms are similar in presentation. She was hypotensive on arrival. Treated wiht gentle IV hydration. Lisinopril and lasix held. She did not appear volume overloaded. Chest xray was clear. CP symptoms improved in ER with pain medication. Symptoms returned this morning. SL nitro provided and initially aided her symptoms but symptoms were returning upon evaluation/consult. Recommend starting nitro oint 2% to see if this aids her symptoms. Transition to oral nitrates as tolerated/needed. Cath report/films reviewed and discussed with Dr. Guevara from 07/09. No intervention needed at that time. No need for repeat cardiac cath. Med management recommended for small vessel disease. Continue ASA, statin, metoprolol. Lisinopril on hold due to hypotension. Likely transition to oral nitrates. Would also recommend resuming oral furosemide to maintain volume status. Case discussed with Dr. Guevara I spent a total of 65 minutes on the date of service in preparation, delivery, and documentation of the care provided to this patient, excluding any time spent in the performance of separately billed services. Carol Elizabeth PA-C Department of Cardiology, [facility] This chart was completed in part utilizing Speech Voice Recognition Software. Grammatical errors, random word insertions, pronoun errors, and incomplete sentences are an occasional consequence of this system due to software limitations, ambient noise, and hardware issues. Any formal questions or concerns about the content, text, or information contained within the body of this dictation should be directly addressed to the provider for clarification. Supervising Physician Co-Signing Physician Notes I have personally performed a history and physical examination on the patient. I have reviewed the advance practitioner's documentation, and I agree with, and take responsibility for the plan of care. 54-year-old female admitted with recurrent chest pain. Evaluated last week for similar concerns and elevated troponin. Cardiac catheterization at that time demonstrated jailed ostial OM branch vessel disease otherwise nonobstructive CAD. Currently her chest pain has resolved. Notes bilateral upper extremity heaviness and neck discomfort. Improved with fentanyl (likely musculoskeletal). Troponins minimally elevated (lower than previous admission) and currently trending downward despite ongoing symptoms. Plaque rupture event not likely. Calcium channel abel therapy was not restarted after most recent admission. Antianginal therapy limited by chronic borderline resting hypotension. Recommend addition of antianginal therapy. Topical nitrates applied. Transition to oral isosorbide monohydrate in a.m. pending tolerance. Restart diuretic therapy as BP allows due to elevated left ventricular end-diastolic pressure per recent cardiac catheterization. Continue aspirin, statin, and metoprolol. Hold lisinopril. Future considerations for antianginal therapy include low-dose calcium channel abel and/or addition of Ranexa. No interventional targets per recent cardiac catheterization. Treatment of musculoskeletal discomfort as per primary service. Stalin Guevara DO, [facility] I spent a total of 45 minutes on the date of service in preparation, delivery, and documentation of the care provided to this patient, excluding any time spent in the performance of separately billed services. History of Present Illness Reason for Consultation: chest pain; recent NSTEMI Requesting Physician: Jenifer Garsia Attending Physician: Dr. Guevara History of Present Illness Patient is a 54 year old female admitted to [facility] for evaluation of chest pain. She was hospitalized last week with chest pain/NSTEMI. Mildly elevated troponin peaking at 1156. She had underwent cardiac cath on 07/09/25 which demonstrated no obstructive disease and patent stent. Elevated filling pressures noted and she was treated with several doses of IV lasix with improvement in her symptoms. She was discharged on low dose furosemide 20 mg M/W/. Cardiology consulted placing her on nitrates, but was not ordered. Due to low BP, amlodipine was discontinued. She was discharged on low dose lisinopril, metoprolol, and furosemide M/W/. Patient was at evening druze service last night when she developed sudden onset substernal chest pressure. She reports she just ate asparagus for dinner and initially felt this was GI, but symptoms progressed and was persistent so she came to the ER. In ER, EKG demonstrated NSR, without acute ischemic changes. HS troponin initially 16, then increased to 43. BP was low on admission. Furosemide and lisinopril held. On arrival, her symptoms improved with fentanyl. At time of evaluation, patient was again having substernal chest pain. Not reproducible with palpation. No aggravating factors. Patient sitting in bed, resting. Earlier this morning her symptoms eased with SL nitro x1. Now returned. No radiation of the discomfort currently. No SOB. No palpitations. Repeat EKG, repeat troponin ordered at time of evaluation with chest pain. Nitro oint also ordered. IV magnesium ordered as levels were low on arrival at 1.3 History 1. Type 2 diabetes 2. mixed hyperlipidemia 3. [place] - untreated 4. Pulmonary nodules 5. hypertension 6. Obesity 7. history of CAD -Non ST elevation myocardial infarction status post drug-eluting stent circumflex obtuse marginal in 2017, single-vessel disease -Repeat diagnostic cardiac catheterization May 2021, patent stent without obstruction, normal LV systolic function [facility] -Repeat cardiac catheterization July 28, 2024 with patent stent with mild nonobstructive coronary atherosclerosis 8. Recent admission for chest pain/NSTEMI- Underwent cardiac cath on 07/09/25 status post cardiac cath which showed chronic stable CAD with widely patent OM1 stent, 80 to 90% jailed ostial small AV groove circumflex unchanged from previous cath, 20 to 30% proximal LAD, and echo showed EF of 45 to 50% moderate size inferior and posterior wall motion abnormality with hypokinesis of segments. Elevated intracardiac filling pressures noted. Possible small vessel disease vs vasospasm suspected. Nitrates and/or diuretics recommended. Treated with several doses of IV lasix with improvement in her symptoms 9. chronic hypotension - limiting meds Allergies Allergy/AdvReac Type Severity Reaction Status Date / Time codeine Allergy Severe Itching Verified 07/16/25 23:35 Home Medications Medication Instructions Recorded Confirmed Type aspirin 81 mg tablet,delayed 81 mg PO DAILY 04/15/25 07/16/25 History release baclofen 10 mg tablet 10 mg PO TID PRN Pain 04/15/25 07/16/25 History gabapentin 800 mg tablet 800 mg PO BID PRN Pain 04/15/25 07/16/25 History lisinopril 2.5 mg tablet 2.5 mg PO DAILY 04/15/25 07/16/25 History metformin 500 mg tablet,extended 1,000 mg PO BID 04/15/25 07/16/25 History release 24 hr metoprolol succinate 50 mg 50 mg PO DAILY 04/15/25 07/16/25 History tablet,extended release 24 hr pantoprazole 40 mg tablet,delayed 40 mg PO DAILY 04/15/25 07/16/25 History release rosuvastatin 20 mg tablet 20 mg PO DAILY 04/15/25 07/16/25 History acetaminophen 325 mg tablet 650 mg (2 x 325 mg) PO Q4H PRN 04/20/25 07/16/25 Rx pain #30 tabs meloxicam 15 mg tablet 15 mg PO DAILY #10 tabs 04/20/25 07/16/25 Rx ibuprofen 600 mg tablet 600 mg PO Q8H PRN pain #30 tabs 05/11/25 07/16/25 Rx trazodone 50 mg tablet 50 mg PO HS PRN Insomnia 07/08/25 07/16/25 History furosemide 20 mg tablet 20 mg PO 3XWK 07/16/25 07/16/25 History glipizide 5 mg tablet 5 mg PO DAILYBB 07/16/25 07/16/25 History nitroglycerin 0.4 mg sublingual 0.4 mg sublingual DIRECTED PRN 07/16/25 07/16/25 History tablet Chest Pain semaglutide 1 mg/dose (4 mg/3 mL) 1 mg subcut WK 07/16/25 07/16/25 History subcutaneous pen injector (Ozempic) tramadol 50 mg tablet 50 mg PO Q8H PRN PAIN,SEVERE 07/16/25 07/16/25 History venlafaxine 75 mg capsule,extended 75 mg PO QAM 07/16/25 07/16/25 History release 24 hr Patient History Medical History Ischemic cardiomyopathy Depression Surgical History History of cervical spinal surgery C3-C6 fusion S/P repair of patent ductus arteriosus "age 7" S/P tubal ligation Family History Mother Cancer Diabetes Grandmother (Maternal) Stroke Aunt Cancer Aunt Cancer Stroke Social History Smoking Status: Never smoker Tobacco Type: Cigarettes Second Hand Exposure: No; Do You Dip or Chew Tobacco: No; Hx Alcohol Use: No Hx Substance Use: No Preferred Language: Urdu Communication Ability: Effective Hydraulic 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 Operator Required: No Beliefs That Will Affect Care: None Current Living Situation: Alone Feels Safe at Home: Yes Assistive Devices: None Review of Systems Review of Systems: All systems reviewed & are unremarkable except as noted in HPI & below Physical Exam Constitutional: WD/WN, vitals as above well developed and + acute distress (substernal chest pain) Neck: trachea midline, no thyromegaly + thick neck Respiratory: normal respiratory effort, lungs clear to auscultation Cardiovascular: Rate/Rhythm: regular rate and regular rhythm Heart Sounds: normal S1 and normal S2; no murmur Vessels: no JVD Extremities: no edema Gastrointestinal (Abdomen): normal bowel sounds, soft, nontender, no hepatosplenomegaly Musculoskeletal: no cyanosis or clubbing, extremities motor strength 5/5 Neurologic: PERRL, EOMI, accommodation nl, no face palsy, no dysarthria Psychiatric: A+Ox3, euthymic affect Results & Data Vital Signs (Past 12 Hours) Vital Signs Temp Pulse Pulse Resp BP BP Pulse Ox 07/17/25 08:02 36.3 C L 82 18 108/73 96 07/17/25 05:02 07/17/25 04:29 07/17/25 04:29 36.3 C L 80 16 106/54 L 97 07/17/25 04:10 68 18 104/81 99 07/17/25 04:05 70 14 104/81 96 07/17/25 03:38 67 14 103/66 98 07/17/25 01:58 71 07/17/25 01:30 75 14 95 07/17/25 01:30 92/61 L 07/17/25 01:30 92/61 L 07/17/25 01:09 78 19 95 07/17/25 00:30 119/70 07/17/25 00:00 78 29 H 86/60 L 92 07/16/25 23:40 92/62 L 07/16/25 23:40 92/62 L 07/16/25 23:39 75 16 98/52 L 94 07/16/25 23:24 75 19 93/61 L 95 07/16/25 23:00 79 13 103/60 94 07/16/25 22:23 79 18 98 07/16/25 22:07 85 07/16/25 21:57 83 17 83/56 L 96 07/16/25 21:57 36.9 C 83 14 83/56 L 95 Pulse Ox O2 Del Method O2 Del Method O2 Flow Rate 07/17/25 08:02 Room Air 07/17/25 05:02 Room Air 07/17/25 04:29 97 Room Air 07/17/25 04:29 Room Air 07/17/25 04:10 Oxymask 2 07/17/25 04:05 Oxymask 2 07/17/25 03:38 Oxymask 2 07/17/25 01:58 07/17/25 01:30 07/17/25 01:30 07/17/25 01:30 07/17/25 01:09 07/17/25 00:30 07/17/25 00:00 07/16/25 23:40 07/16/25 23:40 07/16/25 23:39 07/16/25 23:24 07/16/25 23:00 07/16/25 22:23 Room Air 07/16/25 22:07 07/16/25 21:57 Room Air 07/16/25 21:57 Room Air Laboratory Results Cardiac Enzymes 07/16/25 07/17/25 Range/Units 22:00 05:25 AST 15 (13-39) U/L Troponin I High Sens 16.3 H 43.9 H D (0-14) pg/ml B-Natriuretic Peptide 49 (0-100) pg/ml Coagulation 07/16/25 Range/Units 22:00 PT 10.3 (9.0-12.0) Seconds APTT 25 (21-31) Seconds B-Natriuretic Peptide 49 (0-100) pg/ml CBC 07/16/25 07/17/25 Range/Units 22:00 05:25 WBC 12.24 H 9.08 (4.8-10.8) K/ul RBC 4.77 4.76 (4.20-5.40) M/uL Hgb 13.7 13.3 (12.0-16.0) g/dl Hct 41.1 41.4 (37.0-47.0) % Plt Count 343 269 (130-400) K/uL Neut # (Auto) 6.28 4.45 (1.40-6.50) K/uL Lymph # (Auto) 4.26 H 3.41 H (1.20-3.40) K/uL Hardy # (Auto) 0.99 H 0.70 H (0.11-0.59) K/uL Eos # (Auto) 0.52 H 0.39 (0.00-0.50) K/uL Baso # (Auto) 0.06 0.06 (0.00-0.20) K/uL Comprehensive Metabolic Panel 07/16/25 07/17/25 Range/Units 22:00 05:25 Sodium 133 L 136 (136-145) mmol/L Potassium 3.5 3.8 (3.5-5.1) mmol/L Chloride 96 L 100 (98-107) mmol/L Carbon Dioxide 24 28 (21-32) mmol/L BUN 29 H 23 (6-23) mg/dl Creatinine 1.19 0.66 D (0.6-1.2) mg/dl Glucose 258 H 149 H (70-99(Fasting)) mg/dl Calcium 10.6 H 10.4 H (8.6-10.3) mg/dl AST 15 (13-39) U/L ALT 23 (7-52) U/L Alkaline Phosphatase 94 (34-104) U/L Total Protein 7.3 (6.0-8.3) gm/dl Albumin 4.3 (3.4-5.0) gm/dl Intake and Output 07/16/25 07/17/25 07/17/25 22:59 06:59 14:59 Intake Total 999 / 999 Balance 999 / 999 Intake: IV 999 / 999 Sodium Chloride 0.9% 999 ml @ 999 / 999 999 mls/hr IV .Q1H ONE Rx#: [id number] Other: Other Intake Source NPO # Unmeasured Voids 2 Weight 96.6 kg 96.6 kg Weight Measurement Method [facility] Diagnostic Findings Telemetry reviewed: NSR in the 70-80's. EKG reviewed from admission: NSR, possible criteria for LVH, possible lateral infarct, possible old inferior infarct Repeat EKG this morning: NSR, possible old inferior infarct, No acute ischemic changes chest xray reviewed from admission: IMPRESSION: Remonstrated bilateral pulmonary nodules. Chest CTA report reviewed from admission: IMPRESSION: 1. No pulmonary embolus. 2. There is dilation of the pulmonary arteries. This is concerning for pulmonary artery hypertension. Neck CTA report reviewed: IMPRESSION: No acute findings of the arteries of the neck. Cath report reviewed dated Jul 09, 2025: Summary: 1. Chronic stable coronary artery disease - Widely patent OM1 stent 80-90% jailed ostial small AV groove circumflex (unchanged from 07/2024). 20-30% proximal LAD 2. Elevated intracardiac filling pressure Echo report reviewed dated 07/09/25: LVEF 45-50% Moderate inferior, posterior wall motion abnormality with hypokinesis of the segments Trace MR stable findings from prior echo stable findings from prior echoes, dating back to 2021 Medications Administered Current Inpatient Medications Acetaminophen (Acetaminophen 325 Mg Tab) 650 mg PO Q4H PRN PRN Reason: Pain or Fever Stop: 08/16/25 04:28 Aspirin (Aspirin 81 Mg Ectab) 81 mg PO DAILY LIBBY Stop: 08/16/25 08:59 Last Admin: 07/17/25 09:16 Dose: 81 mg Baclofen (Baclofen 10 Mg Tab) 10 mg PO TID PRN PRN Reason: Pain Stop: 08/16/25 04:28 Dextrose (Dextrose 50% 50 Ml Syringe) 25 - 50 ml IV UD PRN; Protocol PRN Reason: Hypoglycemia Protocol Stop: 08/16/25 04:28 Gabapentin (Gabapentin 800 Mg Tab) 800 mg PO BID PRN PRN Reason: Pain Stop: 08/16/25 04:28 Glucagon (Glucagon For Inj 1 Mg Vial) 1 mg SQ UD PRN; Protocol PRN Reason: Hypoglycemia Protocol Stop: 08/16/25 04:28 Glucose (Glucose 40% Gel 15 Gm Tube) 15 - 30 gm PO UD PRN; Protocol PRN Reason: Hypoglycemia Protocol Stop: 08/16/25 04:28 Glucose (Glucose 10 Tab/Tube) 4 - 8 tab PO UD PRN; Protocol PRN Reason: Hypoglycemia Protocol Stop: 08/16/25 04:28 Sodium Chloride (Nss) 1,000 mls @ 80 mls/hr IV .[id number] LIBBY Stop: 07/17/25 16:58 Last Admin: 07/17/25 05:48 Dose: 80 mls/hr Magnesium Sulfate/Dextrose (Magnesium Sulfate / D5w) 1 gm in 100 mls @ 50 mls/hr IV Q2H LIBBY Stop: 07/17/25 13:14 Last Admin: 07/17/25 09:43 Dose: 50 mls/hr Insulin Aspart (Insulin Aspart Per Unit Charge) 0 units SC Q6 LIBBY Stop: 08/16/25 05:59 Last Admin: 07/17/25 05:46 Dose: Not Given Metoprolol Succinate (Metoprolol Succ 50mg Ext Rel Tab) 50 mg PO DAILY LIBBY Stop: 08/16/25 08:59 Last Admin: 07/17/25 09:16 Dose: 50 mg Miscellaneous (Carbohydrates For Hypoglycemia ) 15 - 30 gm PO UD PRN PRN Reason: Hypoglycemia Protocol Stop: 08/16/25 04:28 Morphine Sulfate (Morphine Sulfate 2 Mg/Ml Carp) 2 mg IV Q30M PRN PRN Reason: Chest Pain Stop: 07/31/25 04:28 Last Admin: 07/17/25 07:38 Dose: 2 mg Nitroglycerin (Nitroglycerin Sl 0.4 Mg/Tab Tab) 0.4 mg SL Q5M PRN PRN Reason: Chest Pain Stop: 08/16/25 04:28 Last Admin: 07/17/25 07:53 Dose: 0.4 mg Nitroglycerin (Nitroglycerin 2% Ointment 30gm Tube) 0.5 inch EXT Q6H LIBBY Stop: 08/16/25 09:59 Last Admin: 07/17/25 10:12 Dose: 0.5 inch Pantoprazole Sodium (Pantoprazole 40 Mg Tab) 40 mg PO DAILY LIBBY Stop: 08/16/25 08:59 Last Admin: 07/17/25 09:16 Dose: 40 mg Polyethylene Glycol (Polyethylene (Miralax) 17 Gm Pack) 17 gm PO DAILY PRN PRN Reason: Constipation Stop: 08/16/25 04:28 Rosuvastatin Calcium (Rosuvastatin Calcium 20 Mg Tab) 20 mg PO DAILY LIBBY Stop: 08/16/25 08:59 Last Admin: 07/17/25 09:16 Dose: 20 mg Tramadol HCl (Tramadol Hcl 50 Mg Tablet) 50 mg PO Q8H PRN PRN Reason: PAIN,SEVERE Stop: 08/16/25 04:28 Trazodone HCl (Trazodone Hcl 50 Mg Tab) 50 mg PO HS PRN PRN Reason: Insomnia Stop: 08/16/25 04:28 Venlafaxine HCl (Venlafaxine Hcl Xr 75 Mg Capxr) 75 mg PO QAM LIBBY Stop: 08/16/25 08:59 Last Admin: 07/17/25 09:16 Dose: 75 mg PG Care Time/CCT Total # of Minutes Spent Total Time Spent with Patient: Total time spent is greater than 50% in coordination of care (as documented) at patient's floor/unit and/or counseling patient: 65 minutes Coding Level of Care Code 02577 OFFICE CONSULT LVL M Diagnoses Chest pain, unspecified type R07.9 Chest pain type: unspecified Coronary artery disease involving [place] coronary artery of [place] heart with other form of angina pectoris I25.118 Associated angina: with other forms of angina Coronary Disease-Associated Artery/Lesion type: [place] artery [place] vs. transplanted heart: [place] heart Chronic heart failure with preserved ejection fraction I50.32 Hypomagnesemia E83.42 (1) Chest pain Chest pain type: unspecified Qualified Code(s): R07.9 - Chest pain, unspecified (2) CAD (coronary artery disease) Associated angina: with other forms of angina Coronary Disease-Associated Artery/Lesion type: [place] artery [place] vs. transplanted heart: [place] heart Qualified Code(s): I25.118 - Atherosclerotic heart disease of [place] coronary artery with other forms of angina pectoris
[2025-07-17 08:46] LABS: Hemoglobin A1C 8.1 % (4.5-5.6)
[2025-07-17] MEDS: ASPIRIN 81 MG ECTAB PO SCH (09:16)
[2025-07-17] MEDS: VENLAFAXINE HCL XR 75 MG CAPXR PO SCH (09:16)
[2025-07-17] MEDS: METOPROLOL SUCC 50MG EXT REL TAB PO SCH (09:16)
[2025-07-17] MEDS: ROSUVASTATIN CALCIUM 20 MG TAB PO SCH (09:16)
[2025-07-17] MEDS: NITROGLYCERIN 2% OINTMENT 30GM TUBE EXT SCH (10:12)
[2025-07-17] MEDS: GABAPENTIN 800 MG TAB PO PRN (12:32)
[2025-07-17] MEDS: BACLOFEN 10 MG TAB PO PRN (13:08)
[2025-07-17 16:32] LABS: Chlamydia pneumoniae PCR Not Detected (NotDetected); Coronavirus 229E PCR Not Detected (NotDetected); Coronavirus CoV-2 (COVID19)PCR Not Detected (NotDetected); Coronavirus HKU1 PCR Not Detected (NotDetected); Coronavirus NL63 PCR Not Detected (NotDetected); Coronavirus OC43PCR Not Detected (NotDetected); Human Metapneumovirus PCR Not Detected (NotDetected); Parainfluenza Virus 1 PCR Not Detected (NotDetected); Parainfluenza Virus 2 PCR Not Detected (NotDetected); Parainfluenza Virus 3 PCR Not Detected (NotDetected); Parainfluenza Virus 4 PCR Not Detected (NotDetected); Respiratory Syncytial VirusPCR Not Detected (NotDetected); Rhinovirus/Enterovirus PCR Not Detected (NotDetected)
[2025-07-17] MEDS ORDERED: Nursing to Pharmacy Communication SCH (17:45)
[2025-07-17] MEDS: ACETAMINOPHEN 325 MG TAB PO PRN (18:11)
[2025-07-18 06:00] LABS: Hematocrit (blood only) 41.2 % (37.0-47.0); Hemoglobin 13.4 g/dl (12.0-16.0); Mean Corpuscular Hemoglobin 28.2 pg (25.0-34.0); Mean Corpuscular Volume 86.6 fL (80.0-100.0); Platelet Count 153 K/uL (130-400); RDW Standard Deviation 42.6 fL (36.4-46.3); Red Blood Count 4.76 M/uL (4.20-5.40); White Blood Count 11.44 K/ul (4.8-10.8)
[2025-07-18 06:20] LABS: Anion Gap 8.0 (3-11); Blood Urea Nitrogen 23.0 mg/dl (6-23); Calcium 9.9 mg/dl (8.6-10.3); Carbon Dioxide 27.0 mmol/L (21-32); Chloride 101.0 mmol/L (98-107); Creatinine Clr Calc Pharmacy 118.3 ml/min; Glucose 185.0 mg/dl (70-99(Fasting)); Magnesium 1.5 mg/dl (1.7-2.4); Potassium 4.2 mmol/L (3.5-5.1); Sodium 136.0 mmol/L (136-145)
[2025-07-18] MEDS: MAGNESIUM SULFATE / D5W 1 GM/100 ML BAG IV SCH (09:19)
--- NOTE | 2025-07-18 09:51 | Cardiology Progress Note ---
Date of Service July 18, 2025 Assessment & Plan (1) Chest pain: (2) CAD (coronary artery disease): (3) Chronic heart failure with preserved ejection fraction: (4) Hypomagnesemia: Plan Patient is a 54 year old admitted with recurrent substernal chest pain/pressure, similar to last admission last week. She underwent cath last week for elevated troponin, peaking at 1100 which revealed jailed ostial OM branch vessel disease, patent stent to the OM and other non obstructive disease with elevated end diastolic filling pressures. It was thought patient's symptoms were either related to underlying small vessel disease/angina vs vasospastic angina and acute HFpEF. She was treated with IV Lasix and symptoms did improve. She was discharged on low dose furosemide 20 mg M/W/F. Amlodipine was discontinued due to hypotension. There was discussion about trial of nitrates but due to low BP, this was not prescribed. This admission, troponin only minimally elevated in low 40's. EKG without acute ischemic changes. Patient was started on topical nitrates yesterday with improvement in her symptoms. Transition to oral nitrates today - start Isosorbide 30 mg daily If this fails to control her symptoms, could consider nitro patch as well BP controlled Lisinopril held on admission Recommend resuming low dose furosemide 20 mg M/W/F to maintain volume status Resume low dose lisinopril 2.5 mg if BP allows Low magnesium at 1.3 yesterday - received 3 grams Remains low today at 1.5 - Additional 3 grams ordered Recommend oral supplement on discharge. Cath report/films reviewed and discussed with Dr. Guevara from 07/09. No intervention needed at that time. No need for repeat cardiac cath. Med management recommended for small vessel disease. Continue ASA, statin, metoprolol. Resume furosemide on discharge Patients ongoing neck/shoulder pain is MSK in nature. Agree with steroids Recommend PPI as well fir GI protection. Some of her symptoms may also be GI in etiology. No further cardiac testing recommended at this time See above recommendations for medications on discharge. Will sign off. Please contact technical marketing consultant cardiology provider with additional questions or concerns. Anticipate discharge later today Case discussed with Dr. Guevara I spent a total of 35 minutes on the date of service in preparation, delivery, and documentation of the care provided to this patient, excluding any time spent in the performance of separately billed services. Carol Elizabeth PA-C Department of Cardiology, [facility] This chart was completed in part utilizing Speech Voice Recognition Software. Grammatical errors, random word insertions, pronoun errors, and incomplete sentences are an occasional consequence of this system due to software limitations, ambient noise, and hardware issues. Any formal questions or concerns about the content, text, or information contained within the body of this dictation should be directly addressed to the provider for clarification. Admission and Anticipated Discharge Date Admission Date: July 17, 2025 Supervising Physician Co-Signing Physician Notes I have personally performed a history and physical examination on the patient. I have reviewed the advance practitioner's documentation, and I agree with, and take responsibility for the plan of care. 54-year-old female admitted with recurrent chest pain. Evaluated last week for similar concerns and elevated troponin. Cardiac catheterization at that time demonstrated jailed ostial OM branch vessel disease otherwise nonobstructive CAD. Feeling better today. Chest pain is resolved with addition of topical nitrates. Recommend transition to isosorbide monohydrate 30 mg daily. Restart Lasix 20 mg on Thursday, Thursday, and Fridays. Restart lisinopril if blood pressure allows. Future treatment options include addition of calcium channel abel therapy and/or Ranexa. No further inpatient testing or intervention recommended at this time. Treatment of musculoskeletal discomfort as per pain management. Cardiology will sign off. Please call with any additional concerns/questions. Stalin Guevara DO, [facility] I spent a total of 30 minutes on the date of service in preparation, delivery, and documentation of the care provided to this patient, excluding any time spent in the performance of separately billed services. Subjective Patient reports feeling much improved this morning. No "severe" chest pain reported by patient. She notes significant "burping" and "gas" this morning. No abdominal pain. Mild epigastric pain. Tolerating nitro ointment. No need for SL nitro overnight. Intermittent neck and b/l arm pain/tingling reported which is chronic issue. Review of Systems Review of Systems: All systems reviewed & are unremarkable except as noted in HPI & below Physical Exam Constitutional: WD/WN, vitals as above well developed; no acute distress Neck: trachea midline, no thyromegaly + thick neck Respiratory: normal respiratory effort, lungs clear to auscultation Cardiovascular: Rate/Rhythm: regular rate and regular rhythm Heart Sounds: normal S1 and normal S2; no murmur Vessels: no JVD Extremities: no edema Gastrointestinal (Abdomen): normal bowel sounds, soft, nontender, no hepatosplenomegaly Musculoskeletal: no cyanosis or clubbing, extremities motor strength 5/5 Neurologic: PERRL, EOMI, accommodation nl, no face palsy, no dysarthria Psychiatric: A+Ox3, euthymic affect Results & Data Vital Signs (Past 12 Hours) Vital Signs Temp Pulse Pulse Resp BP Pulse Ox O2 Del Method 07/18/25 08:40 Room Air 07/18/25 07:52 76 16 128/80 95 Room Air 07/18/25 07:30 85 07/18/25 05:54 89 07/18/25 03:33 36.5 C 83 18 108/74 97 Room Air 07/17/25 23:38 36.5 C 91 H 18 99/67 L 93 Room Air Laboratory Results Cardiac Enzymes 07/17/25 07/17/25 Range/Units 10:18 16:44 Troponin I High Sens 41.7 H 34.2 H (0-14) pg/ml CBC 07/18/25 Range/Units 05:34 WBC 11.44 H (4.8-10.8) K/ul RBC 4.76 (4.20-5.40) M/uL Hgb 13.4 (12.0-16.0) g/dl Hct 41.2 (37.0-47.0) % Plt Count 153 (130-400) K/uL Comprehensive Metabolic Panel 07/18/25 Range/Units 05:34 Sodium 136 (136-145) mmol/L Potassium 4.2 (3.5-5.1) mmol/L Chloride 101 (98-107) mmol/L Carbon Dioxide 27 (21-32) mmol/L BUN 23 (6-23) mg/dl Creatinine 0.57 L (0.6-1.2) mg/dl Glucose 185 H (70-99(Fasting)) mg/dl Calcium 9.9 (8.6-10.3) mg/dl Intake and Output 07/17/25 07/18/25 07/18/25 22:59 06:59 14:59 Intake Total 1200 / 1400 0 / 0 Balance 1200 / 1400 0 / 0 Intake: IV 1100 / 1300 0 / 0 Magnesium Sulfate / D5w 1 gm In 100 / 300 0 / 0 100 ml @ 50 mls/hr IV Q2H [facility] Rx#:[id number] Sodium Chloride 0.9% 1,000 ml @ 1000 / 1000 80 mls/hr IV .[id number] [facility] Rx#: [id number] Oral 100 / 100 Other: Weight 94.4 kg Weight Measurement Method Built in [facility] Diagnostic Findings Telemetry reviewed: NSR in the 's Medications Administered Current Inpatient Medications Acetaminophen (Acetaminophen 325 Mg Tab) 650 mg PO Q4H PRN PRN Reason: Pain or Fever Stop: 08/16/25 04:28 Last Admin: 07/18/25 02:52 Dose: 650 mg Aspirin (Aspirin 81 Mg Ectab) 81 mg PO DAILY [facility] Stop: 08/16/25 08:59 Last Admin: 07/18/25 07:57 Dose: 81 mg Baclofen (Baclofen 10 Mg Tab) 10 mg PO TID PRN PRN Reason: Pain Stop: 08/16/25 04:28 Last Admin: 07/17/25 18:11 Dose: 10 mg Dextrose (Dextrose 50% 50 Ml Syringe) 25 - 50 ml IV UD PRN; Protocol PRN Reason: Hypoglycemia Protocol Stop: 08/16/25 04:28 Gabapentin (Gabapentin 800 Mg Tab) 800 mg PO BID PRN PRN Reason: Pain Stop: 08/16/25 04:28 Last Admin: 07/18/25 07:49 Dose: 800 mg Glucagon (Glucagon For Inj 1 Mg Vial) 1 mg SQ UD PRN; Protocol PRN Reason: Hypoglycemia Protocol Stop: 08/16/25 04:28 Glucose (Glucose 40% Gel 15 Gm Tube) 15 - 30 gm PO UD PRN; Protocol PRN Reason: Hypoglycemia Protocol Stop: 08/16/25 04:28 Glucose (Glucose 10 Tab/Tube) 4 - 8 tab PO UD PRN; Protocol PRN Reason: Hypoglycemia Protocol Stop: 08/16/25 04:28 Magnesium Sulfate/Dextrose (Magnesium Sulfate / D5w) 1 gm in 100 mls @ 50 mls/hr IV Q2H [facility] Stop: 07/18/25 14:14 Last Admin: 07/18/25 09:19 Dose: 50 mls/hr Insulin Aspart (Insulin Aspart Per Unit Charge) 0 units SC ACHS [facility] Stop: 08/16/25 17:44 Last Admin: 07/18/25 09:19 Dose: 5 units Isosorbide Mononitrate (Isosorbide [place] Extended Rel 30 Mg Tabcr) 30 mg PO QAM [facility] Stop: 08/17/25 09:59 Metoprolol Succinate (Metoprolol Succ 50mg Ext Rel Tab) 50 mg PO DAILY [facility] Stop: 08/16/25 08:59 Last Admin: 07/18/25 07:57 Dose: 50 mg Miscellaneous (Carbohydrates For Hypoglycemia ) 15 - 30 gm PO UD PRN PRN Reason: Hypoglycemia Protocol Stop: 08/16/25 04:28 Morphine Sulfate (Morphine Sulfate 2 Mg/Ml Carp) 2 mg IV Q30M PRN PRN Reason: Chest Pain Stop: 07/31/25 04:28 Last Admin: 07/17/25 07:38 Dose: 2 mg Nitroglycerin (Nitroglycerin Sl 0.4 Mg/Tab Tab) 0.4 mg SL Q5M PRN PRN Reason: Chest Pain Stop: 08/16/25 04:28 Last Admin: 07/17/25 07:53 Dose: 0.4 mg Pantoprazole Sodium (Pantoprazole 40 Mg Tab) 40 mg PO DAILY [facility] Stop: 08/16/25 08:59 Last Admin: 07/18/25 07:57 Dose: 40 mg Polyethylene Glycol (Polyethylene (Miralax) 17 Gm Pack) 17 gm PO DAILY PRN PRN Reason: Constipation Stop: 08/16/25 04:28 Rosuvastatin Calcium (Rosuvastatin Calcium 20 Mg Tab) 20 mg PO DAILY [facility] Stop: 08/16/25 08:59 Last Admin: 07/18/25 07:57 Dose: 20 mg Tramadol HCl (Tramadol Hcl 50 Mg Tablet) 50 mg PO Q8H PRN PRN Reason: PAIN,SEVERE Stop: 08/16/25 04:28 Last Admin: 07/18/25 05:59 Dose: 50 mg Trazodone HCl (Trazodone Hcl 50 Mg Tab) 50 mg PO HS PRN PRN Reason: Insomnia Stop: 08/16/25 04:28 Last Admin: 07/17/25 21:11 Dose: 50 mg Venlafaxine HCl (Venlafaxine Hcl Xr 75 Mg Capxr) 75 mg PO QAM [facility] Stop: 08/16/25 08:59 Last Admin: 07/18/25 07:58 Dose: 75 mg PG Care Time/CCT Total # of Minutes Spent Total Time Spent with Patient: Total time spent is greater than 50% in coordination of care (as documented) at patient's floor/unit and/or counseling patient: 35 minutes Coding Level of Care Code 03805 SUB INP/OBS CARE 3/50MIN Diagnoses Chest pain, unspecified type R07.9 Chest pain type: unspecified Coronary artery disease involving [place] coronary artery of [place] heart with other form of angina pectoris I25.118 Associated angina: with other forms of angina Coronary Disease-Associated Artery/Lesion type: [place] artery [place] vs. transplanted heart: [place] heart Chronic heart failure with preserved ejection fraction I50.32 Hypomagnesemia E83.42 (1) Chest pain Chest pain type: unspecified Qualified Code(s): R07.9 - Chest pain, unspecified (2) CAD (coronary artery disease) Associated angina: with other forms of angina Coronary Disease-Associated Artery/Lesion type: [place] artery [place] vs. transplanted heart: [place] heart Qualified Code(s): I25.118 - Atherosclerotic heart disease of [place] coronary artery with other forms of angina pectoris
[2025-07-18] MEDS: ISOSORBIDE MONO EXTENDED REL 30 MG TABCR PO SCH (10:51)
--- NOTE | 2025-07-18 11:16 | Hospitalist Progress Note ---
Date of Service July 18, 2025 Assessment & Plan (1) Chest pain: Plan: Per admitting provider w/ addendum: 54-year-old female with past medical history significant for type 2 diabetes, mixed hyperlipidemia, diabetic polyneuropathy, sleep apnea, pulmonary nodules, hypertension, B12 deficiency, obesity, osteoarthritis, cervicalgia, KASI inhibitor intolerance, history of CAD, nonsustained V. tach, recurrent depression was recently in the hospital for chest pain and elevated troponins treated for non-ST elevated KS and was status post cardiac cath which showed chronic stable CAD with widely patent OM1 stent, 80 to 90% jailed ostial small AV groove circumflex unchanged from previous cath, 20 to 30% proximal LAD, and echo showed EF of 45 to 50% moderate size inferior and posterior wall motion abnormality with hypokinesis of segments and was discharged on 07/12/2025 comes again today with chest pain. Around 8 PM patient had severe chest pain in middle of the chest radiating to both arms pressure-like feeling. During pain she felt short of breath. Was sweaty. En route to hospital 2 nitro's were given by EMS but did not resolve the pain. In the ER received fentanyl and that helped improve the chest pain. Currently has mild pain. No headache. No runny nose or sore throat. No cough. No nausea. No abdominal pain. Normal bowel and bladder movements. Current resting comfortably hemodynamically stable. Blood pressure was in 80s when she came to the ER and received fluid bolus. Chest pain Improved with fentanyl EKG okay Troponin 16 BNP 49 CTA chest no PE but shows dilatation of pulm arteries CTA neck no acute findings Will follow serial enzymes Telemetry Cardiology consulted - 54-year-old female admitted with recurrent chest pain. Evaluated last week for similar concerns and elevated troponin. Cardiac catheterization at that time demonstrated jailed ostial OM branch vessel disease otherwise nonobstructive CAD. Patient was started on topical nitrates yesterday with improvement in her symptoms. Transition to oral nitrates today - start Isosorbide 30 mg daily Restart low dose furosemide 20 mg // to maintain volume status Resume low dose lisinopril 2.5 mg if BP allows Continue ASA, statin, metoprolol. No further cardiac testing recommended at this time Future treatment options include addition of calcium channel abel therapy and/or Ranexa. No further inpatient testing or intervention recommended at this time. Treatment of musculoskeletal discomfort as per pain management. 07/18 Pt is feeling much better today. Received IV solumedrol, will repeat dose today. Will further discuss w/ pain management. Hypotension Held Lasix and lisinopril on admission - resume as per cardiology recs above Beta-abel with holding parameters Received gentle fluids, as above Cardio consult to help with cardiac medications - as above Chronic systolic chf Ef 45-50% monitor for volume overload Cardiology on board, as above History of CAD Continue aspirin and statin Metoprolol with holding parameters Diabetes Hold metformin, semaglutide and glipizide Sliding scale Will monitor Neck pain Cervical radiculopathy Status post cervical spinal fusion Will hold ibuprofen Avoid NSAIDs Continue tramadol and Tylenol as needed On Baclofen and gabapentin as needed Gave IV solumedrol - pt seems improved today, will repeat Pain management consulted Left knee osteoarthritis Follow-up with orthopedics Obesity Plan for sleep study as per patient Currently using oxygen while sleeping Hyperlipidemia On statin Depression On venlafaxine Mid elevation of calcium will follow repeat labs DVT prophylaxis SCDs Disposition Telemetry Full code. Admission and Anticipated Discharge Date Admission Date: July 17, 2025 Subjective Pt seen in follow up of chest pain Yesterday also reported heaviness in both of her arms, feeling some pain/numbness coming from her neck. Today she reports feeling much better. Yesterday received iv solumedrol, will repeat again today and will discuss further w/ pain management. Pt was recently hospitalized for the same Cardiology also consulted and following Pt denies any fever, chills, chest pain, shortness of breath Review of Systems Review of Systems: All systems reviewed & are unremarkable except as noted in Subjective Physical Exam Physical Exam: General- obese F in NAD Head- atraumatic Eyes- PERRL. Neck- supple, no JVD. Lungs- clear to auscultation no wheezing or crackles Heart- regular rhythm; no murmur Abdomen- normal bowel sounds, soft, nontender, no distension Extremities- no pretibial edema, no erythema seen Neuro- alert, oriented PERRL, no facial palsy; no dysarthria; moves extremities Results & Data Results & Data Vital Signs (Past 12 Hours) Vital Signs Temp Pulse Pulse Resp BP Pulse Ox O2 Del Method 07/18/25 11:12 36.8 C 80 14 149/88 H 96 Room Air 07/18/25 08:40 Room Air 07/18/25 07:52 76 16 128/80 95 Room Air 07/18/25 07:30 85 07/18/25 05:54 89 07/18/25 03:33 36.5 C 83 18 108/74 97 Room Air 07/17/25 23:38 36.5 C 91 H 18 99/67 L 93 Room Air Laboratory Results 07/18/25 07/18/25 07/18/25 Range/Units 11:10 08:13 05:34 WBC 11.44 H (4.8-10.8) K/ul RBC 4.76 (4.20-5.40) M/uL Hgb 13.4 (12.0-16.0) g/dl Hct 41.2 (37.0-47.0) % MCV 86.6 (80.0-100.0) fL MCH 28.2 (25.0-34.0) pg MCHC 32.5 (32.0-36.0) g/dL RDW Std Deviation 42.6 (36.4-46.3) fL RDW Coeff of [place] 13.5 (11.5-14.5) % Plt Count 153 (130-400) K/uL MPV 12.2 (9.4-12.4) fL Sodium 136 (136-145) mmol/L Potassium 4.2 (3.5-5.1) mmol/L Chloride 101 (98-107) mmol/L Carbon Dioxide 27 (21-32) mmol/L Anion Gap 8 (3-11) BUN 23 (6-23) mg/dl Creatinine 0.57 L (0.6-1.2) mg/dl Est Cr Clr Drug Dosing 118.3 ml/min eGFR 107.92 BUN/Creatinine Ratio 40.4 H (10-20) Glucose 185 H (70-99(Fasting)) mg/dl POC Glucose 195 H 151 H (70-99) mg/dl Calcium 9.9 (8.6-10.3) mg/dl Phosphorus 4.1 (2.5-4.9) mg/dl Magnesium 1.5 L (1.7-2.4) mg/dl Troponin I High Sens (0-14) pg/ml Adenovirus (PCR) (NotDetected) B. pertussis DNA (PCR) (NotDetected) B.parapertussis DNA PCR (NotDetected) C. pneumoniae DNA (PCR) (NotDetected) Coronavirus OC43 (PCR) (NotDetected) Coronavirus HKU1 (PCR) (NotDetected) Coronavirus 229E (PCR) (NotDetected) SARS-CoV-2 (PCR) (NotDetected) Coronavirus NL63 (PCR) (NotDetected) Human Metapneumovir PCR (NotDetected) Influenza Type A (PCR) (NotDetected) Influenza Type B (PCR) (NotDetected) M. pneumoniae (PCR) (NotDetected) Parainfluenza 1 (PCR) (NotDetected) Parainfluenza 2 (PCR) (NotDetected) Parainfluenza 3 (PCR) (NotDetected) Parainfluenza 4 (PCR) (NotDetected) RSV (PCR) (NotDetected) Entero/Rhino (PCR) (NotDetected) 07/17/25 07/17/25 07/17/25 Range/Units 20:23 17:08 16:44 WBC (4.8-10.8) K/ul RBC (4.20-5.40) M/uL Hgb (12.0-16.0) g/dl Hct (37.0-47.0) % MCV (80.0-100.0) fL MCH (25.0-34.0) pg MCHC (32.0-36.0) g/dL RDW Std Deviation (36.4-46.3) fL RDW Coeff of [place] (11.5-14.5) % Plt Count (130-400) K/uL MPV (9.4-12.4) fL Sodium (136-145) mmol/L Potassium (3.5-5.1) mmol/L Chloride (98-107) mmol/L Carbon Dioxide (21-32) mmol/L Anion Gap (3-11) BUN (6-23) mg/dl Creatinine (0.6-1.2) mg/dl Est Cr Clr Drug Dosing ml/min eGFR BUN/Creatinine Ratio (10-20) Glucose (70-99(Fasting)) mg/dl POC Glucose 199 H 161 H (70-99) mg/dl Calcium (8.6-10.3) mg/dl Phosphorus (2.5-4.9) mg/dl Magnesium (1.7-2.4) mg/dl Troponin I High Sens 34.2 H (0-14) pg/ml Adenovirus (PCR) (NotDetected) B. pertussis DNA (PCR) (NotDetected) B.parapertussis DNA PCR (NotDetected) C. pneumoniae DNA (PCR) (NotDetected) Coronavirus OC43 (PCR) (NotDetected) Coronavirus HKU1 (PCR) (NotDetected) Coronavirus 229E (PCR) (NotDetected) SARS-CoV-2 (PCR) (NotDetected) Coronavirus NL63 (PCR) (NotDetected) Human Metapneumovir PCR (NotDetected) Influenza Type A (PCR) (NotDetected) Influenza Type B (PCR) (NotDetected) M. pneumoniae (PCR) (NotDetected) Parainfluenza 1 (PCR) (NotDetected) Parainfluenza 2 (PCR) (NotDetected) Parainfluenza 3 (PCR) (NotDetected) Parainfluenza 4 (PCR) (NotDetected) RSV (PCR) (NotDetected) Entero/Rhino (PCR) (NotDetected) 07/17/25 07/17/25 Range/Units 15:15 11:34 WBC (4.8-10.8) K/ul RBC (4.20-5.40) M/uL Hgb (12.0-16.0) g/dl Hct (37.0-47.0) % MCV (80.0-100.0) fL MCH (25.0-34.0) pg MCHC (32.0-36.0) g/dL RDW Std Deviation (36.4-46.3) fL RDW Coeff of [place] (11.5-14.5) % Plt Count (130-400) K/uL MPV (9.4-12.4) fL Sodium (136-145) mmol/L Potassium (3.5-5.1) mmol/L Chloride (98-107) mmol/L Carbon Dioxide (21-32) mmol/L Anion Gap (3-11) BUN (6-23) mg/dl Creatinine (0.6-1.2) mg/dl Est Cr Clr Drug Dosing ml/min eGFR BUN/Creatinine Ratio (10-20) Glucose (70-99(Fasting)) mg/dl POC Glucose 139 H (70-99) mg/dl Calcium (8.6-10.3) mg/dl Phosphorus (2.5-4.9) mg/dl Magnesium (1.7-2.4) mg/dl Troponin I High Sens (0-14) pg/ml Adenovirus (PCR) Not Detected (NotDetected) B. pertussis DNA (PCR) Not Detected (NotDetected) B.parapertussis DNA PCR Not Detected (NotDetected) C. pneumoniae DNA (PCR) Not Detected (NotDetected) Coronavirus OC43 (PCR) Not Detected (NotDetected) Coronavirus HKU1 (PCR) Not Detected (NotDetected) Coronavirus 229E (PCR) Not Detected (NotDetected) SARS-CoV-2 (PCR) Not Detected (NotDetected) Coronavirus NL63 (PCR) Not Detected (NotDetected) Human Metapneumovir PCR Not Detected (NotDetected) Influenza Type A (PCR) Not Detected (NotDetected) Influenza Type B (PCR) Not Detected (NotDetected) M. pneumoniae (PCR) Not Detected (NotDetected) Parainfluenza 1 (PCR) Not Detected (NotDetected) Parainfluenza 2 (PCR) Not Detected (NotDetected) Parainfluenza 3 (PCR) Not Detected (NotDetected) Parainfluenza 4 (PCR) Not Detected (NotDetected) RSV (PCR) Not Detected (NotDetected) Entero/Rhino (PCR) Not Detected (NotDetected) Medications Administered Current Inpatient Medications Acetaminophen (Acetaminophen 325 Mg Tab) 650 mg PO Q4H PRN PRN Reason: Pain or Fever Stop: 08/16/25 04:28 Last Admin: 07/18/25 02:52 Dose: 650 mg Aspirin (Aspirin 81 Mg Ectab) 81 mg PO DAILY [facility] Stop: 08/16/25 08:59 Last Admin: 07/18/25 07:57 Dose: 81 mg Baclofen (Baclofen 10 Mg Tab) 10 mg PO TID PRN PRN Reason: Pain Stop: 08/16/25 04:28 Last Admin: 07/17/25 18:11 Dose: 10 mg Dextrose (Dextrose 50% 50 Ml Syringe) 25 - 50 ml IV UD PRN; Protocol PRN Reason: Hypoglycemia Protocol Stop: 08/16/25 04:28 Gabapentin (Gabapentin 800 Mg Tab) 800 mg PO TID [facility] Stop: 08/17/25 13:59 Glucagon (Glucagon For Inj 1 Mg Vial) 1 mg SQ UD PRN; Protocol PRN Reason: Hypoglycemia Protocol Stop: 08/16/25 04:28 Glucose (Glucose 40% Gel 15 Gm Tube) 15 - 30 gm PO UD PRN; Protocol PRN Reason: Hypoglycemia Protocol Stop: 08/16/25 04:28 Glucose (Glucose 10 Tab/Tube) 4 - 8 tab PO UD PRN; Protocol PRN Reason: Hypoglycemia Protocol Stop: 08/16/25 04:28 Magnesium Sulfate/Dextrose (Magnesium Sulfate / D5w) 1 gm in 100 mls @ 50 mls/hr IV Q2H [facility] Stop: 07/18/25 14:14 Last Admin: 07/18/25 09:19 Dose: 50 mls/hr Insulin Aspart (Insulin Aspart Per Unit Charge) 0 units SC ACHS [facility] Stop: 08/16/25 17:44 Last Admin: 07/18/25 09:19 Dose: 5 units Isosorbide Mononitrate (Isosorbide [place] Extended Rel 30 Mg Tabcr) 30 mg PO QAM [facility] Stop: 08/17/25 09:59 Last Admin: 07/18/25 10:51 Dose: 30 mg Methylprednisolone (Methylprednisolone 125 Mg/2 Ml Vial) 30 mg IV NOW STA Stop: 07/18/25 11:14 Metoprolol Succinate (Metoprolol Succ 50mg Ext Rel Tab) 50 mg PO DAILY [facility] Stop: 08/16/25 08:59 Last Admin: 07/18/25 07:57 Dose: 50 mg Miscellaneous (Carbohydrates For Hypoglycemia ) 15 - 30 gm PO UD PRN PRN Reason: Hypoglycemia Protocol Stop: 08/16/25 04:28 Morphine Sulfate (Morphine Sulfate 2 Mg/Ml Carp) 2 mg IV Q30M PRN PRN Reason: Chest Pain Stop: 07/31/25 04:28 Last Admin: 07/17/25 07:38 Dose: 2 mg Nitroglycerin (Nitroglycerin Sl 0.4 Mg/Tab Tab) 0.4 mg SL Q5M PRN PRN Reason: Chest Pain Stop: 08/16/25 04:28 Last Admin: 07/17/25 07:53 Dose: 0.4 mg Pantoprazole Sodium (Pantoprazole 40 Mg Tab) 40 mg PO DAILY [facility] Stop: 08/16/25 08:59 Last Admin: 07/18/25 07:57 Dose: 40 mg Polyethylene Glycol (Polyethylene (Miralax) 17 Gm Pack) 17 gm PO DAILY PRN PRN Reason: Constipation Stop: 08/16/25 04:28 Rosuvastatin Calcium (Rosuvastatin Calcium 20 Mg Tab) 20 mg PO DAILY [facility] Stop: 08/16/25 08:59 Last Admin: 07/18/25 07:57 Dose: 20 mg Tramadol HCl (Tramadol Hcl 50 Mg Tablet) 50 mg PO Q8H PRN PRN Reason: PAIN,SEVERE Stop: 08/16/25 04:28 Last Admin: 07/18/25 05:59 Dose: 50 mg Trazodone HCl (Trazodone Hcl 50 Mg Tab) 50 mg PO HS PRN PRN Reason: Insomnia Stop: 08/16/25 04:28 Last Admin: 07/17/25 21:11 Dose: 50 mg Venlafaxine HCl (Venlafaxine Hcl Xr 75 Mg Capxr) 75 mg PO QAM [facility] Stop: 08/16/25 08:59 Last Admin: 07/18/25 07:58 Dose: 75 mg (1) Chest pain Chest pain type: unspecified Qualified Code(s): R07.9 - Chest pain, unspecified
--- NOTE | 2025-07-18 12:16 | Pain Management Consultation ---
Date of Consultation July 18, 2025 Assessment & Plan (1) Cervical radiculopathy: (2) Neck pain: (3) S/P cervical spinal fusion: Plan 1. Patient with no acute complaints of neck pain. She reports that these are also chronic going back as far as 15 years. MRI from May 2025 reveals no hardware failure and cervical fusion. Patient with minimal radicular symptoms and no weakness in the upper extremities. Patient most likely will benefit from C7-T1 interlaminar epidural steroid injection. She was scheduled to establish outpatient with the pain clinic on 08/17/2025. Recommend that she follow through this appointment so she can be scheduled for epidural steroid injection. 2. Recommend patient take gabapentin 800 mg p.o. 3 times daily as a scheduled medication and not a PRN (as needed) medication. Discussed this at length with the patient. She is aware that she needs to reduce dose that should be done slowly as gabapentin can reduce seizure threshold. Please 3. Continue baclofen 10 mg p.o. 3 times daily as needed. Patient does report some daytime drowsiness. Will continue baclofen as this is generally tolerated and patient reports that she typically only uses it at night. 4. Continue with home exercise and stretching per physical therapy. No further physical therapy ordered at this time as patient reports minimal benefit. 5. Continue with ibuprofen and Tylenol for as needed pain for breakthrough. Patient should continue with pantoprazole while on ibuprofen 6. Follow-up with [facility] pain management clinic scheduled. No further intervention this admission. Thank you for including us in the care of this patient. The pain management team will sign off at this time. Patient can be discharged from our perspective and we will see her in the outpatient clinic. Case discussed with Dr. Carreno History of Present Illness Reason for Consultation: Cervicalgia Attending Physician: Sergio Strong MD History of Present Illness Attending: Dr. Carreno Ms. Esteban is a 54-year-old female who presents with neck pain that radiates into bilateral upper extremities. She reports that right arm is worse than left arm. She does occasionally have some radicular symptoms described as numbness and rkyy-bnm-xmnhark into her 3rd and 4th digits bilaterally. She reports that this is intermittent. She currently has no perceived weakness and is not dropping anything. Most of the time, patient states her pain is restricted to her shoulders upper arm and forearms. In the past she has reported pain primarily on the left. Today she reports pain primarily on her right. Patient reports that she has had the pain for greater than 15 years. She did get some benefit from previous cervical fusion from C3-C7 in [place]. She she currently gets relief with gabapentin and reports that she was told to take it 800 mg 3 times a day as needed. We discussed importance of a regular schedule and not to take it like other as needed medications such as acetaminophen or ibuprofen. She does also report that she gets some benefit from ibuprofen and has received prescription in the past for IV dispensing. Patient gets relief from baclofen 10 mg 3 times daily as needed. She typically only takes it at night secondary to daytime drowsiness. She has previously undergone physical therapy with limited improvement. She states that she has followed with [facility] pain management in the past. Last visit appears to be from 2021. She reports that she would like to continue to follow with [facility] pain management. Patient was seen by spine Ortho who recommended conservative treatment for now with consideration of epidural steroid injections. Cervical spine MRI 05/09/2025 Previous interventions: Physical therapy, repositioning, steroid tapers, ibuprofen, gabapentin, Tylenol, tramadol, baclofen Patient denies any bowel or bladder incontinence. No saddle anesthesia. No unusual bleeding or bruising. Patient was previously on dual antiplatelet therapy with clopidogrel and aspirin. She reports that she is only on aspirin 81 mg p.o. daily at this time. No other constitutional complaints at this time Allergies Allergy/AdvReac Type Severity Reaction Status Date / Time codeine Allergy Severe Itching Verified 07/16/25 23:35 Home Medications Medication Instructions Recorded Confirmed Type aspirin 81 mg tablet,delayed 81 mg PO DAILY 04/15/25 07/16/25 History release baclofen 10 mg tablet 10 mg PO TID PRN Pain 04/15/25 07/16/25 History gabapentin 800 mg tablet 800 mg PO BID PRN Pain 04/15/25 07/16/25 History lisinopril 2.5 mg tablet 2.5 mg PO DAILY 04/15/25 07/16/25 History metformin 500 mg tablet,extended 1,000 mg PO BID 04/15/25 07/16/25 History release 24 hr metoprolol succinate 50 mg 50 mg PO DAILY 04/15/25 07/16/25 History tablet,extended release 24 hr pantoprazole 40 mg tablet,delayed 40 mg PO DAILY 04/15/25 07/16/25 History release rosuvastatin 20 mg tablet 20 mg PO DAILY 04/15/25 07/16/25 History acetaminophen 325 mg tablet 650 mg (2 x 325 mg) PO Q4H PRN 04/20/25 07/16/25 Rx pain #30 tabs meloxicam 15 mg tablet 15 mg PO DAILY #10 tabs 04/20/25 07/16/25 Rx ibuprofen 600 mg tablet 600 mg PO Q8H PRN pain #30 tabs 05/11/25 07/16/25 Rx trazodone 50 mg tablet 50 mg PO HS PRN Insomnia 07/08/25 07/16/25 History furosemide 20 mg tablet 20 mg PO 3XWK 07/16/25 07/16/25 History glipizide 5 mg tablet 5 mg PO DAILYBB 07/16/25 07/16/25 History nitroglycerin 0.4 mg sublingual 0.4 mg sublingual DIRECTED PRN 07/16/25 07/16/25 History tablet Chest Pain semaglutide 1 mg/dose (4 mg/3 mL) 1 mg subcut WK 07/16/25 07/16/25 History subcutaneous pen injector (Ozempic) tramadol 50 mg tablet 50 mg PO Q8H PRN PAIN,SEVERE 07/16/25 07/16/25 History venlafaxine 75 mg capsule,extended 75 mg PO QAM 07/16/25 07/16/25 History release 24 hr Pain History Chief Complaint Chief Complaint: Cervicalgia Previous Imaging and Results Labs: 07/18/25 05:34 07/18/25 05:34 Imaging: Magnetic Resonance Report Patient: ANSELMO ESTEBAN Date: 05/06/25 MR#: [id number] Address1: [address] [place], [place] [address] Acct ID:[id number] Address2: Date: 1970 [facility] Zip: [place] [address] Age: 54 Location: 3N Sex: F Room/Bed: [facility] Att Phy: Dave Vides MD Diagnosis: INTRACTABLE GENERALIZED PAIN Angie Phy: Vanessa Hobson MD Service Date: 05/09/25 Fam Phy: Interpreting Phy: Theron Miguel MDAdmit Phy: Sekou Tineo MD Ordering Phy: Arin Damian PA-C cc: ~ MRI OF THE CERVICAL SPINE COMBO CLINICAL HISTORY: Left-sided neck pain. Radiculopathy. COMPARISON STUDY: Cervical spine radiographs dated 04/17/2025. MRI of the cervical spine dated 08/24/2022. CT angiogram of the neck dated 08/22/2022. TECHNIQUE: MRI of the cervical spine was performed utilizing various T1 and T2- weighted sequences in the axial and sagittal planes. Pre and postcontrast imaging was performed. Contrast-enhanced sequences were acquired following the IV administration of 10 mL of gadavist. The examination is significantly degraded by motion artifact. There is also susceptibility artifact from multilevel metallic spinal hardware. FINDINGS: Cervical spine: Vertebral body height and alignment are maintained throughout the cervical spine. There is straightening of the cervical lordosis. There is postsurgical change from anterior spinal fusion seen at C3-C6. The atlantodental articulation is maintained noting productive degenerative change. The spinous processes appear intact. Hemangiomas are noted in the bodies of T2 and T3. No destructive bony process is identified. Chronic degenerative endplate change is seen at T3-T4. Intervertebral discs: Discectomy change is seen at all levels between C3-C4 and C5-C6. Disc desiccation and mild loss of height is seen at C2-C3 and C6-C7. Spinal cord: The cervical cord is normal in morphology and signal intensity with no abnormal postcontrast enhancement identified. C2-C3: A posterior disc osteophyte complex minimally effaces the ventral subarachnoid space. Facet arthropathy is of no consequence. The neural foramina are patent. C3-C4: A posterior disc osteophyte complex mildly effaces the ventral cord. Uncovertebral and facet arthropathy contribute to moderate left and enwx-xq-bzywisuv right neural foraminal stenosis. C4-C5: Posterior disc osteophyte material effaces the ventral cord. The minimum AP canal diameter measures 5 mm. The neural foramina appear patent. C5-C6: Posterior disc osteophyte material abuts the ventral cord. The minimum AP canal diameter measures 5.5 mm. Uncovertebral and facet arthropathy contribute to zyuccxos-mv-vxuqym left and moderate right neural foraminal stenosis. C6-C7: A posterior disc osteophyte complex minimally effaces the ventral subarachnoid space. There is a left lateral disc bulge. There is only mild left- sided neural foraminal narrowing. The right neural foramen appears patent. C7-T1: Unremarkable. Soft tissues: The prevertebral and paraspinous soft tissues are within normal limits. Brain parenchyma: The imaged brain parenchyma at the skull base is normal as visualized. IMPRESSION: 1. Significantly motion degraded examination. 2. Postsurgical and spondylotic change as above. See discussion for detailed vwrgp-ss-iwjkm analysis. 3. No destructive bony process is seen. 4. The cervical cord is normal in morphology and signal intensity with no abnormal postcontrast enhancement identified. Dictated: 05/09/2025 1:01 PM Transcribed: 05/09/2025 1:21 PM Titus [id number] [email or web address] Patient History Medical History Ischemic cardiomyopathy Depression Surgical History History of cervical spinal surgery C3-C6 fusion S/P repair of patent ductus arteriosus "age 7" S/P tubal ligation Family History Mother Cancer Diabetes Grandmother (Maternal) Stroke Aunt Cancer Aunt Cancer Stroke Social History Smoking Status: Never smoker Tobacco Type: Cigarettes Second Hand Exposure: No; Do You Dip or Chew Tobacco: No; Hx Alcohol Use: No Hx Substance Use: No Preferred Language: Ukrainian Communication Ability: Effective Slip Laster Required: No Beliefs That Will Affect Care: None Current Living Situation: Alone Feels Safe at Home: Yes Assistive Devices: Oxygen - at Night Physical Exam 2 Physical Exam: GENERAL: Speech and cognition is intact. Mood and affect is appropriate. Does not appear in acute distress. NECK: Full flexion, extension, lateral rotation bilaterally, head-shoulder ROM is generally limited secondary to previous fusion. Patient does have better rotation to the right than the left. Spurling maneuver negative bilaterally. Positive muscle spasm in the left mid trapezius region and the suprascapular region on the left. No facet tenderness to provocative testing. UPPER EXTREMITIES: Upper extremity strength is 5/5 bilaterally. Bilateral sensation equal bilaterally without allodynia, dysesthesia, or hyperpathia. +2 bilateral radial pulse. NEURO: Cranial nerves are grossly intact; no focal deficits noted; AAO x 3. Biceps Reflex L +2 R +2 Brachioradialis L +2 R +2
[2025-07-18] MEDS: GABAPENTIN 800 MG TAB PO SCH (12:54)
[2025-07-18] MEDS: DICLOFENAC SOD 1% GEL 100 GM TUBE EXT SCH (20:59)
[2025-07-18] MEDS: MAGNESIUM OXIDE 400 MG TAB PO SCH (21:04)
[2025-07-19 06:23] LABS: Hematocrit (blood only) 36.5 % (37.0-47.0); Hemoglobin 11.9 g/dl (12.0-16.0); Mean Corpuscular Hemoglobin 28.1 pg (25.0-34.0); Mean Corpuscular Volume 86.1 fL (80.0-100.0); Platelet Count 238 K/uL (130-400); RDW Standard Deviation 42.3 fL (36.4-46.3); Red Blood Count 4.24 M/uL (4.20-5.40); White Blood Count 11.59 K/ul (4.8-10.8)
[2025-07-19 07:02] LABS: Anion Gap 8.0 (3-11); Blood Urea Nitrogen 24.0 mg/dl (6-23); Calcium 9.0 mg/dl (8.6-10.3); Carbon Dioxide 27.0 mmol/L (21-32); Chloride 100.0 mmol/L (98-107); Creatinine Clr Calc Pharmacy 88.5 ml/min; Glucose 239.0 mg/dl (70-99(Fasting)); Magnesium 1.7 mg/dl (1.7-2.4); Potassium 4.2 mmol/L (3.5-5.1); Sodium 135.0 mmol/L (136-145)
--- NOTE | 2025-07-19 10:21 | Pain Management Progress Note ---
Date of Service July 19, 2025 Assessment & Plan (1) Cervical radiculopathy: (2) Neck pain: (3) S/P cervical spinal fusion: Plan 1. Patient continues with complaints of chronic neck pain. MRI from May 2025 reveals no hardware failure and cervical fusion. Patient with minimal radicular symptoms and no weakness in the upper extremities. Patient most likely will benefit from C7-T1 interlaminar epidural steroid injection. Patient has missed multiple appointments in our outpatient clinic. She knowledges this and states that she had transportation or scheduling issues. She is scheduled to establish outpatient with the pain clinic on 08/17/2025. Recommend that she follow through this appointment so she can be scheduled for epidural steroid injection. 2. Recommend patient take gabapentin 800 mg p.o. 3 times daily as a scheduled medication and not a PRN (as needed) medication. Discussed this at length with the patient. She is aware that she needs to reduce dose that should be done slowly as gabapentin can reduce seizure threshold. Please 3. Patient continues with considerable myofascial pain in the neck as described in the HPI and physical examination. We discussed treatment options including trigger point injections. Risk versus benefit versus alternatives were discussed. Patient wishes to proceed. Please see procedure note below 4. Continue baclofen 10 mg p.o. 3 times daily as needed. Patient does report some daytime drowsiness. Will continue baclofen as this is generally tolerated and patient reports that she typically only uses it at night. 5. Continue with home exercise and stretching per physical therapy. Continue with heat and massage to neck and shoulder regions 5. Continue with ibuprofen and Tylenol for as needed pain for breakthrough. Patient should continue with pantoprazole while on ibuprofen 6. Follow-up with [facility] pain management clinic scheduled. No further intervention this admission. Thank you for including us in the care of this patient. The pain management team will sign off at this time. Patient can be discharged from our perspective and we will see her in the outpatient clinic. Case discussed with Dr. Carreno PROCEDURE NOTE: TRIGGER POINT INJECTION Provider: Theron Antonio PA-C Diagnosis: Myofascial pain with spasm Medications Used: Ropivacaine 0.5% 7 ml Kenalog 1 ml (40 mg/1ml) Ketorolac 2 ml (30 mg/1ml) Side/Level injected: Right mid trapezius x2, right proximal trapezius x1, right scalene group x1, left cervical paravertebral x1, left levator scapulae x1, left proximal trapezius x1, left mid trapezius x1, left distal trapezius, left superior rhomboid near upper medial scapular angle x1, Prior to starting, the Patients diagnosis and the procedure were reviewed with the patient in detail. Possible risks and complications including infection, bleeding, damage to surrounding structures and increased pain were discussed. Alternative therapies were also reviewed. Patients questions were answered and they agreed to proceed. Informed consent was obtained. Allergies and medication list was reviewed. The patient was brought to the procedure room and placed in prone position. Immediately prior to starting the procedure, a ``time out was conducted with the staff and the patient where the patient was identified, proposed procedure was verified, consent was reviewed and the proper site for the planned procedure was identified. Patient was not given any intravenous sedation and constant verbal contact was maintained throughout the procedure. On examination, no signs of skin breakdown or infection were noted at the injection site. The site was cleansed with ChloraPrep. After the application of either chloraprep, duraprep, and/or betadine (depending on patient's allergy status), three minutes time elapsed prior to the start of the procedure to reduce risk of fire. Palpation over the site produced patients typical pain. Using an 1.5 inch 25-gauge needle, the above muscles were injected in similar fashion after negative aspiration for blood with 1-2 mL of a combination of 7 mL of 0.5% ropivacaine-MPF containing 40 mg of Kenalog (1 ml) and 60 mg of ketorolac (2 ml) without complication. Needle was withdrawn and hemostasis noted. Band-Aid was applied where needed. Patient tolerated the procedure uneventfully without complications. Please see inpatient nurse's note for medication lot numbers and expiration dates Admission and Anticipated Discharge Date Admission Date: July 17, 2025 Subjective Attending: Dr. Carreno Patient seen and examined in room 461-2. She is sitting comfortably at bedside in bedside chair and is in no acute distress. She continues to complain of myofascial pain in the bilateral trapezius muscles and paraspinal muscles. She does report some difficulty with lifting right arm. She denies any paresthesias into either of her hands or fingers today. No change in range of motion. She reports that she is awaiting discharge today. Patient was seen by spine Ortho who recommended conservative treatment for now with consideration of epidural steroid injections. Cervical spine MRI 05/09/2025 Previous interventions: Physical therapy, repositioning, steroid tapers, ibuprofen, gabapentin, Tylenol, tramadol, baclofen Patient denies any bowel or bladder incontinence. No saddle anesthesia. No unusual bleeding or bruising. Patient was previously on dual antiplatelet therapy with clopidogrel and aspirin. She reports that she is only on aspirin 81 mg p.o. daily at this time. No other constitutional complaints at this time Physical Exam Physical Exam: GENERAL: Speech and cognition is intact. Mood and affect is appropriate. Does not appear in acute distress. NECK: Full flexion, extension, lateral rotation bilaterally, head-shoulder ROM is generally limited secondary to previous fusion. Patient does have better rotation to the right than the left. Spurling maneuver negative bilaterally. Positive muscle spasm in the left mid trapezius region and the suprascapular region on the left. Positive trapezius and scalene spasm on the right. No facet tenderness to provocative testing. UPPER EXTREMITIES: Upper extremity strength is 5/5 bilaterally. Bilateral sensation equal bilaterally without allodynia, dysesthesia, or hyperpathia. +2 bilateral radial pulse. NEURO: Cranial nerves are grossly intact; no focal deficits noted; AAO x 3. Biceps Reflex L +2 R +2 Brachioradialis L +2 R +2 Results (Pain Clinic) Diagnostic Review MRI Findings: [place], [place] [phone] Magnetic Resonance Report Patient: ANSELMO HIGGINS Admit Date: 05/06/25 MR#: [id number] Address1: [facility] [address] Acct ID:[id number] Address2: Date: 1970 [facility] Zip: [place] [address] Age: 54 Location: 3N Sex: F Room/Bed: N3-2 Att Phy: Dave Vides MD Diagnosis: INTRACTABLE GENERALIZED PAIN Angie Phy: Vanessa Hobson MD Service Date: 05/09/25 Fam Phy: Interpreting Phy: Theron Miguel MD Admit Phy: Sekou Tineo MD Ordering Phy: Arin Damian PA-C cc: ~ MRI OF THE CERVICAL SPINE COMBO CLINICAL HISTORY: Left-sided neck pain. Radiculopathy. COMPARISON STUDY: Cervical spine radiographs dated 04/17/2025. MRI of the cervical spine dated 08/24/2022. CT angiogram of the neck dated 08/22/2022. TECHNIQUE: MRI of the cervical spine was performed utilizing various T1 and T2- weighted sequences in the axial and sagittal planes. Pre and postcontrast imaging was performed. Contrast-enhanced sequences were acquired following the IV administration of 10 mL of gadavist. The examination is significantly degraded by motion artifact. There is also susceptibility artifact from multilevel metallic spinal hardware. FINDINGS: Cervical spine: Vertebral body height and alignment are maintained throughout the cervical spine. There is straightening of the cervical lordosis. There is postsurgical change from anterior spinal fusion seen at C3-C6. The atlantodental articulation is maintained noting productive degenerative change. The spinous processes appear intact. Hemangiomas are noted in the bodies of T2 and T3. No destructive bony process is identified. Chronic degenerative endplate change is seen at T3-T4. Intervertebral discs: Discectomy change is seen at all levels between C3-C4 and C5-C6. Disc desiccation and mild loss of height is seen at C2-C3 and C6-C7. Spinal cord: The cervical cord is normal in morphology and signal intensity with no abnormal postcontrast enhancement identified. C2-C3: A posterior disc osteophyte complex minimally effaces the ventral subarachnoid space. Facet arthropathy is of no consequence. The neural foramina are patent. C3-C4: A posterior disc osteophyte complex mildly effaces the ventral cord. Uncovertebral and facet arthropathy contribute to moderate left and aqqo-iy-oyocpsas right neural foraminal stenosis. C4-C5: Posterior disc osteophyte material effaces the ventral cord. The minimum AP canal diameter measures 5 mm. The neural foramina appear patent. C5-C6: Posterior disc osteophyte material abuts the ventral cord. The minimum AP canal diameter measures 5.5 mm. Uncovertebral and facet arthropathy contribute to moabbyas-gh-hjjzkr left and moderate right neural foraminal stenosis. C6-C7: A posterior disc osteophyte complex minimally effaces the ventral subarachnoid space. There is a left lateral disc bulge. There is only mild left- sided neural foraminal narrowing. The right neural foramen appears patent. C7-T1: Unremarkable. Soft tissues: The prevertebral and paraspinous soft tissues are within normal limits. Brain parenchyma: The imaged brain parenchyma at the skull base is normal as visualized. IMPRESSION: 1. Significantly motion degraded examination. 2. Postsurgical and spondylotic change as above. See discussion for detailed bmqhl-ef-ytuxf analysis. 3. No destructive bony process is seen. 4. The cervical cord is normal in morphology and signal intensity with no abnormal postcontrast enhancement identified. Dictated: 05/09/2025 1:01 PM Transcribed: 05/09/2025 1:21 PM Titus [id number] [email or web address] Electronically signed by: Theron Miguel M.D. 05/09/2025 1:30 PM Previous Records Review Previous Records: personally reviewed by me Procedure Note Date of Service July 19, 2025
[2025-07-19 10:45] VITALS: BP 105/68; RESP 20; TEMP 97.5; O2SAT 97
--- NOTE | 2025-07-19 12:39 | Hospitalist Progress Note ---
Date of Service July 19, 2025 Assessment & Plan (1) Chest pain: Plan: Per admitting provider w/ addendum: 54-year-old female with past medical history significant for type 2 diabetes, mixed hyperlipidemia, diabetic polyneuropathy, sleep apnea, pulmonary nodules, hypertension, B12 deficiency, obesity, osteoarthritis, cervicalgia, KASI inhibitor intolerance, history of CAD, nonsustained V. tach, recurrent depression was recently in the hospital for chest pain and elevated troponins treated for non-ST elevated ND and was status post cardiac cath which showed chronic stable CAD with widely patent OM1 stent, 80 to 90% jailed ostial small AV groove circumflex unchanged from previous cath, 20 to 30% proximal LAD, and echo showed EF of 45 to 50% moderate size inferior and posterior wall motion abnormality with hypokinesis of segments and was discharged on 07/12/2025 comes again today with chest pain. Around 8 PM patient had severe chest pain in middle of the chest radiating to both arms pressure-like feeling. During pain she felt short of breath. Was sweaty. En route to hospital 2 nitro's were given by EMS but did not resolve the pain. In the ER received fentanyl and that helped improve the chest pain. Currently has mild pain. No headache. No runny nose or sore throat. No cough. No nausea. No abdominal pain. Normal bowel and bladder movements. Current resting comfortably hemodynamically stable. Blood pressure was in 80s when she came to the ER and received fluid bolus. Chest pain Underwent cardiac catheterization last admission revealing jailed ostial OM branch vessel disease, patent stent to the OM and other non obstructive disease with elevated end diastolic filling pressures. Troponin not significantly elevated BNP 49 CTA chest no PE but shows dilatation of pulm arteries CTA neck no acute findings Patient was started on topical nitrates which improved her symptoms Topical hydrated transition into isosorbide 30 mg daily Appreciate cardiology input Resume home Lasix 20 mg // to help with volume status Also resume lisinopril 2.5 mg daily Continue ASA, statin, metoprolol. Hypomagnesemia Replace and monitor Hypotension Blood pressure stable on current regimen Monitor blood pressure Chronic systolic chf Ef 45-50% monitor for volume overload Cardiology on board Continue Lasix as above History of CAD Continue aspirin and statin Metoprolol with holding parameters Diabetes Hold metformin, semaglutide and glipizide Sliding scale monitor Neck pain Cervical radiculopathy Status post cervical spinal fusion S/P trigger point injections on 07/19/2025 Symptoms improved dramatically Continue gabapentin 800 mg 3 times a day Continue baclofen 10 mg 3 times a day as needed Advised to continue program exercises and stretching Appreciate pain management input--needs follow-up as outpatient Also advised to follow-up with orthopedic spine as outpatient for EMG as previously recommended Left knee osteoarthritis Follow-up with orthopedics Obesity Plan for sleep study as per patient Currently using oxygen while sleeping Hyperlipidemia On statin Depression On venlafaxine Mid elevation of calcium Resolved CODE STATUS Full code Disposition Home Admission and Anticipated Discharge Date Admission Date: July 17, 2025 Subjective Patient is seen and examined at bedside Patient's myofascial pain much improved after trigger point injections Offers no new complaints today Denies any chest pain, dyspnea, nausea, vomiting, abdominal pain Prefers to be discharged home today Review of Systems Review of Systems: All systems reviewed & are unremarkable except as noted in Subjective Physical Exam Physical Exam: Physical Exam: Vitals signs as noted above General Appearance:Morbidly Obese, no apparent distress Head: normocephalic, Atraumatic Eyes: normal inspection, EOMI Neck: supple, Trachea midline Respiratory/Chest: Normal breath sounds, CTA, No accessory muscle use Cardiovascular: S1, S2, No murmur Abdomen/GI:Soft, Non tender, Bowel sounds present Extremities/Musculoskeletal:normal inspection, no edema Neurologic/Psych:AAOX3, grossly no focal neurological deficits Skin: normal color, warm Results & Data Results & Data Vital Signs (Past 12 Hours) Vital Signs Temp Pulse Pulse Resp BP BP Pulse Ox 07/19/25 10:44 36.4 C L 76 20 105/68 97 07/19/25 10:00 07/19/25 07:26 36.3 C L 81 19 130/83 98 07/19/25 07:00 59 L 07/19/25 03:52 36.4 C L 72 16 116/74 98 O2 Del Method 07/19/25 10:44 Room Air 07/19/25 10:00 Room Air 07/19/25 07:26 Room Air 07/19/25 07:00 07/19/25 03:52 Room Air Laboratory Results Short CBC 07/19/25 Range/Units 05:55 WBC 11.59 H (4.8-10.8) K/ul Hgb 11.9 L (12.0-16.0) g/dl Hct 36.5 L (37.0-47.0) % Plt Count 238 D (130-400) K/uL BMP 07/19/25 05:55 Sodium 135 L Potassium 4.2 Chloride 100 Carbon Dioxide 27 BUN 24 H Creatinine 0.77 Glucose 239 H Calcium 9.0 (1) Chest pain Chest pain type: unspecified Qualified Code(s): R07.9 - Chest pain, unspecified
--- NOTE | 2025-07-19 12:58 | Discharge Summary ---
Date of Service July 19, 2025 Admission HPI Per Admitting Provider 54-year-old female with past medical history significant for type 2 diabetes, mixed hyperlipidemia, diabetic polyneuropathy, sleep apnea, pulmonary nodules, hypertension, B12 deficiency, obesity, osteoarthritis, cervicalgia, KASI inhibitor intolerance, history of CAD, nonsustained V. tach, recurrent depression was recently in the hospital for chest pain and elevated troponins treated for non-ST elevated AR and was status post cardiac cath which showed chronic stable CAD with widely patent OM1 stent, 80 to 90% jailed ostial small AV groove circumflex unchanged from previous cath, 20 to 30% proximal LAD, and echo showed EF of 45 to 50% moderate size inferior and posterior wall motion abnormality with hypokinesis of segments and was discharged on 07/12/2025 comes again today with chest pain. Around 8 PM patient had severe chest pain in middle of the chest radiating to both arms pressure-like feeling. During pain she felt short of breath. Was sweaty. En route to hospital 2 nitro's were given by EMS but did not resolve the pain. In the ER received fentanyl and that helped improve the chest pain. Currently has mild pain. No headache. No runny nose or sore throat. No cough. No nausea. No abdominal pain. Normal bowel and bladder movements. Current resting comfortably hemodynamically stable. Blood pressure was in 80s when she came to the ER and received fluid bolus. Past medical history. As mentioned above. Past surgical history. Cardiac cath. Colonoscopy. Cervical laminoplasty. EGD. Tubal ligation. Repair of patent ductus arteriosus at age 7. Total abdominal hysterectomy with removal of tubes. Social history. Former smoker. Quit in 2013. No alcohol use. No drug use. Family history. Father had alcoholism. Mother had liver/uterine cancer. Diabetes. Maternal aunt had brain cancer. Maternal aunt had renal cancer. Sister had heart attack at age 48. Maternal aunt had stroke. Maternal grandmother had stroke. Admission Exam Per Admitting Provider General- Not in distress Head- atraumatic Eyes- PERRL. ENT- oropharynx clear Neck- supple, no JVD. Lungs- clear to auscultation no wheezing or crackles Heart- regular rhythm; no murmur, no gallop. Abdomen- normal bowel sounds, soft, nontender, no distension Extremities- no pretibial edema, no erythema seen Neuro- alert, oriented PERRL, no facial palsy; no dysarthria; moves extremities Principal Diagnosis Chest Pain Cervical radiculopathy/myofascial pain Hypomagnesemia Discharge Data Allergies Allergy/AdvReac Type Severity Reaction Status Date / Time codeine Allergy Severe Itching Verified 07/16/25 23:35 Consultations 07/17/25 01:11 ED Decision to Admit Stat 07/17/25 08:00 Consult Cardiology Routine 07/17/25 13:44 Consult Pain Management Routine Procedures Performed Laboratory Results WBC 11.59 K/ul (4.8-10.8) H 07/19/25 05:55 RBC 4.24 M/uL (4.20-5.40) 07/19/25 05:55 Hgb 11.9 g/dl (12.0-16.0) L 07/19/25 05:55 POC Hgb 15.0 g/dl (12.0-16.0) 07/16/25 22:21 Hct 36.5 % (37.0-47.0) L 07/19/25 05:55 POC Hct 44 % (37-47) 07/16/25 22:21 MCV 86.1 fL (80.0-100.0) 07/19/25 05:55 MCH 28.1 pg (25.0-34.0) 07/19/25 05:55 MCHC 32.6 g/dL (32.0-36.0) 07/19/25 05:55 RDW Std Deviation 42.3 fL (36.4-46.3) 07/19/25 05:55 RDW Coeff of [place] 13.6 % (11.5-14.5) 07/19/25 05:55 Plt Count 238 K/uL (130-400) D 07/19/25 05:55 MPV 11.5 fL (9.4-12.4) 07/19/25 05:55 Immature Gran % (Auto) 0.8 % 07/17/25 05:25 Neut % (Auto) 48.9 % 07/17/25 05:25 Lymph % (Auto) 37.6 % 07/17/25 05:25 [place] % (Auto) 7.7 % 07/17/25 05:25 Eos % (Auto) 4.3 % 07/17/25 05:25 Baso % (Auto) 0.7 % 07/17/25 05:25 Neut # (Auto) 4.45 K/uL (1.40-6.50) 07/17/25 05:25 Lymph # (Auto) 3.41 K/uL (1.20-3.40) H 07/17/25 05:25 [place] # (Auto) 0.70 K/uL (0.11-0.59) H 07/17/25 05:25 Eos # (Auto) 0.39 K/uL (0.00-0.50) 07/17/25 05:25 Baso # (Auto) 0.06 K/uL (0.00-0.20) 07/17/25 05:25 Immature Gran # (Auto) 0.07 K/uL (0.01-0.20) 07/17/25 05:25 PT 10.3 Seconds (9.0-12.0) 07/16/25 22:00 INR 0.9 (0.9-1.1) 07/16/25 22:00 APTT 25 Seconds (21-31) 07/16/25 22:00 PTT Ratio 0.9 07/16/25 22:00 POC Sodium 134 mmol/L (135-144) L 07/16/25 22:21 Sodium 135 mmol/L (136-145) L 07/19/25 05:55 POC Potassium 3.5 mmol/L (3.3-5.0) 07/16/25 22:21 Potassium 4.2 mmol/L (3.5-5.1) 07/19/25 05:55 POC Chloride 97 mmol/L (101-112) L 07/16/25 22:21 Chloride 100 mmol/L (98-107) 07/19/25 05:55 Carbon Dioxide 27 mmol/L (21-32) 07/19/25 05:55 POC Total CO2 23 mmol/L (24-31) L 07/16/25 22:21 Anion Gap 8 (3-11) 07/19/25 05:55 POC Anion Gap 19.0 mmol/L (16-25) 07/16/25 22:21 POC BUN 30 mg/dl (7-18) H 07/16/25 22:21 BUN 24 mg/dl (6-23) H 07/19/25 05:55 Creatinine 0.77 mg/dl (0.6-1.2) 07/19/25 05:55 POC Creatinine 1.2 mg/dl (0.6-1.3) 07/16/25 22:21 Est Cr Clr Drug Dosing 88.5 ml/min 07/19/25 05:55 eGFR 91.61 07/19/25 05:55 BUN/Creatinine Ratio 31.2 (10-20) H 07/19/25 05:55 Glucose 239 mg/dl (70-99(Fasting)) H 07/19/25 05:55 POC Glucose 115 mg/dl (70-99) H 07/19/25 12:15 POC Glucose (other) 238 mg/dl (70-99) H 07/16/25 22:21 Estimat Average Glucose 186 mg/dl 07/17/25 05:25 Hemoglobin A1c 8.1 % (4.5-5.6) H 07/17/25 05:25 Calcium 9.0 mg/dl (8.6-10.3) 07/19/25 05:55 POC Ioniz Calcium [place] 1.28 mmol/l (1.12-1.32) 07/16/25 22:21 Phosphorus 3.0 mg/dl (2.5-4.9) D 07/19/25 05:55 Magnesium 1.7 mg/dl (1.7-2.4) 07/19/25 05:55 Total Bilirubin 0.9 mg/dl (0.2-1.0) 07/16/25 22:00 AST 15 U/L (13-39) 07/16/25 22:00 ALT 23 U/L (7-52) 07/16/25 22:00 Alkaline Phosphatase 94 U/L (34-104) 07/16/25 22:00 Troponin I High Sens 34.2 pg/ml (0-14) H 07/17/25 16:44 B-Natriuretic Peptide 49 pg/ml (0-100) 07/16/25 22:00 Total Protein 7.3 gm/dl (6.0-8.3) 07/16/25 22:00 Albumin 4.3 gm/dl (3.4-5.0) 07/16/25 22:00 Globulin 3.0 gm/dl (2.5-4.0) 07/16/25 22:00 Albumin/Globulin Ratio 1.4 (0.9-2) 07/16/25 22:00 Lipase 55 U/L (11-82) 07/16/25 22:00 Urine Color Yellow 07/17/25 01:10 Urine Appearance Clear (Clear) 07/17/25 01:10 Urine pH 6.0 (4.5-7.5) 07/17/25 01:10 Ur Specific [place] > 1.045 (1.000-1.030) H 07/17/25 01:10 Urine Protein Trace (Negative) H 07/17/25 01:10 Urine Glucose (UA) Negative (Negative) 07/17/25 01:10 Urine Ketones Negative (Negative) 07/17/25 01:10 Urine Blood Negative (Negative) 07/17/25 01:10 Urine Nitrite Negative (Negative) 07/17/25 01:10 Urine Bilirubin Negative (Negative) 07/17/25 01:10 Urine Urobilinogen Negative (Negative) 07/17/25 01:10 Ur Leukocyte Esterase Negative (Negative) 07/17/25 01:10 Urine WBC (Auto) 0-5 /hpf (0-5) 07/17/25 01:10 Urine RBC (Auto) 0-2 /hpf (0-2) 07/17/25 01:10 U Hyaline Cast (Auto) 6-10 /lpf (0-2) H 07/17/25 01:10 U Epithel Cells (Auto) 0-2 /hpf (0-2) 07/17/25 01:10 Urine Bacteria (Auto) None Seen (None Seen) 07/17/25 01:10 Hyaline Casts Present /lpf (None Presnt) A 07/17/25 01:10 Urine Comment 07/17/25 01:10 Adenovirus (PCR) Not Detected (NotDetected) 07/17/25 15:15 B. pertussis DNA (PCR) Not Detected (NotDetected) 07/17/25 15:15 B.parapertussis DNA PCR Not Detected (NotDetected) 07/17/25 15:15 C. pneumoniae DNA (PCR) Not Detected (NotDetected) 07/17/25 15:15 Coronavirus OC43 (PCR) Not Detected (NotDetected) 07/17/25 15:15 Coronavirus HKU1 (PCR) Not Detected (NotDetected) 07/17/25 15:15 Coronavirus 229E (PCR) Not Detected (NotDetected) 07/17/25 15:15 SARS-CoV-2 (PCR) Not Detected (NotDetected) 07/17/25 15:15 Coronavirus NL63 (PCR) Not Detected (NotDetected) 07/17/25 15:15 Human Metapneumovir PCR Not Detected (NotDetected) 07/17/25 15:15 Influenza Type A (PCR) Not Detected (NotDetected) 07/17/25 15:15 Influenza Type B (PCR) Not Detected (NotDetected) 07/17/25 15:15 M. pneumoniae (PCR) Not Detected (NotDetected) 07/17/25 15:15 Parainfluenza 1 (PCR) Not Detected (NotDetected) 07/17/25 15:15 Parainfluenza 2 (PCR) Not Detected (NotDetected) 07/17/25 15:15 Parainfluenza 3 (PCR) Not Detected (NotDetected) 07/17/25 15:15 Parainfluenza 4 (PCR) Not Detected (NotDetected) 07/17/25 15:15 RSV (PCR) Not Detected (NotDetected) 07/17/25 15:15 Entero/Rhino (PCR) Not Detected (NotDetected) 07/17/25 15:15 Impressions Chest X-Ray 07/16/25 22:09 Exam(s): XR CXR 1 VIEW EXAM: XR Chest, 1 View CLINICAL HISTORY: Chest Pain, nonspecific. TECHNIQUE: Frontal view of the chest. COMPARISON: Chest radiograph 07/09/2025 FINDINGS: Lungs: Redemonstrated bilateral pulmonary nodules. No consolidation. Pleural space: Unremarkable. No pneumothorax. Heart: Unremarkable. No cardiomegaly. Mediastinum: Unremarkable. Normal mediastinal contour. Bones/joints: There are degenerative changes of the spine. No acute fracture. IMPRESSION: Redemonstrated bilateral pulmonary nodules. Electronically signed by: Liane Jensen MD 07/17/25 00:33 AM Chest CTA 07/16/25 22:22 Exam(s): CTA CHEST W/WO Contrast IV Amt: 115ml EXAM: CT Angiography Chest Without and With Intravenous Contrast CLINICAL HISTORY: Atypical Chest Pain. TECHNIQUE: Axial computed tomographic angiography images of the chest without and with intravenous contrast. MIPS images were created and reviewed. CTDI is 24 mGy and DLP is 1000 mGy-cm. Automated exposure control was utilized for the study. A dose lowering technique was utilized adhering to the principles of ALARA. MIP reconstructed images were created and reviewed. CONTRAST: Patient received 115ml of IV contrast COMPARISON: CTA chest 04/16/2025 FINDINGS: Pulmonary arteries: Dilated main pulmonary artery measuring 3.0 cm. No pulmonary embolus. Aorta: Minimal atherosclerosis. No aortic aneurysm or dissection. Lungs: Redemonstrated calcified granulomas. No consolidation. Pleural space: Unremarkable. No significant effusion. No pneumothorax. Heart: Coronary artery calcifications are present. No cardiomegaly. No significant pericardial effusion. No evidence of RV dysfunction. Bones/joints: There are degenerative changes of the spine. No acute fracture. Soft tissues: Unremarkable. Lymph nodes: Calcified lymph nodes are consistent with chronic granulomatous disease. No pathologically enlarged lymph nodes. IMPRESSION: 1. No pulmonary embolus. 2. There is dilation of the pulmonary arteries. This is concerning for pulmonary artery hypertension. Electronically signed by: Liane Jensen MD 07/17/25 00:51 AM Neck CTA 07/16/25 22:22 Exam(s): CTA NECK With Contrast IV Amt: 115ml EXAM: CT Angiography Neck With Intravenous Contrast CLINICAL HISTORY: Atypical Chest Pain. TECHNIQUE: Routine carotid CT angiography protocol was performed with intravenous contrast. NASCET criteria using the distal ICAs for comparison were used for evaluation of stenoses. MIPS images were created and reviewed. CTDI is 24 mGy and DLP is 1953 mGy-cm. Automated exposure control was utilized for the study. A dose lowering technique was utilized adhering to the principles of ALARA. MIP reconstructed images were created and reviewed. CONTRAST: Patient received 115ml of IV contrast COMPARISON: None. FINDINGS: VASCULATURE: Right common carotid artery: Unremarkable. No occlusion or significant stenosis. No dissection. Right internal carotid artery: Mild atherosclerosis of the proximal right ICA without significant stenosis by NASCET criteria. No dissection. Right external carotid artery: Unremarkable. No occlusion. Right vertebral artery: Unremarkable. No occlusion or significant stenosis. No dissection. Left common carotid artery: Unremarkable. No occlusion or significant stenosis. No dissection. Left internal carotid artery: Mild atherosclerosis of the proximal left ICA without significant stenosis by NASCET criteria. No dissection. Left external carotid artery: Unremarkable. No occlusion. Left vertebral artery: Unremarkable. No occlusion or significant stenosis. No dissection. NECK: Bones/joints: There are degenerative changes of the spine. No acute fracture. There is anterior fixation of C3 through C6. Soft tissues: Unremarkable. Lung apices: Clear. CAROTID STENOSIS REFERENCE USING NASCET CRITERIA: % ICA stenosis = (1 - narrowest ICA diameter/diameter of distal cervical ICA) x 100. Mild - <50% stenosis. Moderate - 50-69% stenosis. Severe - 70-94% stenosis. Near occlusion - 95-99% stenosis. Occluded - 100% stenosis. IMPRESSION: No acute findings of the arteries of the neck. Electronically signed by: Liane Jensen MD 07/17/25 00:50 AM Ordered Studies 07/16/25 22:22 CTA chest dissec wo/w con [CT angio chest dissec wo/w con] Stat CTA neck with con [CT angio neck with con] Stat Hospital Course (1) Chest pain: Per admitting provider w/ addendum: 54-year-old female with past medical history significant for type 2 diabetes, mixed hyperlipidemia, diabetic polyneuropathy, sleep apnea, pulmonary nodules, hypertension, B12 deficiency, obesity, osteoarthritis, cervicalgia, KASI inhibit or intolerance, history of CAD, nonsustained V. tach, recurrent depression was recently in the hospital for chest pain and elevated troponins treated for non- ST elevated AR and was status post cardiac cath which showed chronic stable CAD with widely patent OM1 stent, 80 to 90% jailed ostial small AV groove circumflex unchanged from previous cath, 20 to 30% proximal LAD, and echo showed EF of 45 to 50% moderate size inferior and posterior wall motion abnormality with hypokinesis of segments and was discharged on 07/12/2025 comes again today with chest pain. Around 8 PM patient had severe chest pain in middle of the chest radiating to both arms pressure-like feeling. During pain she felt short of breath. Was sweaty. En route to hospital 2 nitro's were given by EMS but did not resolve the pain. In the ER received fentanyl and that helped improve the chest pain. Currently has mild pain. No headache. No runny nose or sore throat. No cough. No nausea. No abdominal pain. Normal bowel and bladder movements. Current resting comfortably hemodynamically stable. Blood pressure was in 80s when she came to the ER and received fluid bolus. Chest pain Underwent cardiac catheterization last admission revealing jailed ostial OM branch vessel disease, patent stent to the OM and other non obstructive disease with elevated end diastolic filling pressures. Troponin not significantly elevated BNP 49 CTA chest no PE but shows dilatation of pulm arteries CTA neck no acute findings Patient was started on topical nitrates which improved her symptoms Topical hydrated transition into isosorbide 30 mg daily Appreciate cardiology input Resume home Lasix 20 mg // to help with volume status Also resume lisinopril 2.5 mg daily Continue ASA, statin, metoprolol. Hypomagnesemia Replace and monitor Hypotension Blood pressure stable on current regimen Monitor blood pressure Chronic systolic chf Ef 45-50% monitor for volume overload Cardiology on board Continue Lasix as above History of CAD Continue aspirin and statin Metoprolol with holding parameters Diabetes Hold metformin, semaglutide and glipizide Sliding scale monitor Neck pain Cervical radiculopathy Status post cervical spinal fusion S/P trigger point injections on 07/19/2025 Symptoms improved dramatically Continue gabapentin 800 mg 3 times a day Continue baclofen 10 mg 3 times a day as needed Advised to continue program exercises and stretching Appreciate pain management input--needs follow-up as outpatient Also advised to follow-up with orthopedic spine as outpatient for EMG as previously recommended Left knee osteoarthritis Follow-up with orthopedics Obesity Plan for sleep study as per patient Currently using oxygen while sleeping Hyperlipidemia On statin Depression On venlafaxine Mid elevation of calcium Resolved CODE STATUS Full code Disposition Home Total Time Total Time Spent Total Time Spent (In Minutes): 52 minutes Discharge Plan Discharge Items Patient Disposition: Home - Self-Care Reason For Visit: CHEST PAIN, RECENT NSTEMI Discharge Diagnosis: Chest Pain Cervical radiculopathy/myofascial pain Hypomagnesemia Condition on Discharge: Good Activity: Per Instructions section Exercise/Sports: Wait until after follow-up appointment Non-emergency contact: Primary Care Provider, Surgeon and Specialist Call non-emergency contact if: you have any medication questions, your symptoms worsen, your pain is concerning for you and you have a fever Follow-up/Referrals: Jackson Hernandez PA-C [Physician Superintendent Measurement] - 08/17/25 2:15 pm (Patient previously scheduled) Gary Galdamez M.D. [Primary Care Provider] - (You will need to call your insurance company in order to schedule an appointment with [facility]. ) Diet: Carb Consistent or DM2 and Heart Healthy [facility] Attending Provider Instructions: -- Follow-up with your primary care physician in 1 week --Follow-up with pain management Jackson Hernandez PA-C on 08/17/2025 at 2:15 PM as scheduled --Follow-up with your orthopedic surgeon Dr. Burt for outpatient EMG as recommneded Seek immediate medical attention if your symptoms reoccur or worsen Please review medication list provided on discharge for any medication changes as instructed. Please call if you have any questions or problems. You can reach a [facility] hospitalist on duty at [facility] 24 hours a day by calling [phone] [facility] News Producer Provider Instructions: * Patient advised to keep previous appointment scheduled for 08/17/2025 at 2:15 PM at the pain clinic on [facility] in [place]. * Patient should continue gabapentin 800 mg p.o. 3 times daily. It was reiterated to the patient this is not an as it is medication and should be taken as scheduled. If patient does not tolerate current dose, she will need to wean it down and not stop abruptly. * Continue with baclofen as needed * No indication for further steroids at this time from a pain management perspective Pending Studies at Discharge: No Stand-Alone Forms: My [facility], Work/School Release, Smoking Cessation Medications and DC Order Prescriptions: New isosorbide mononitrate 30 mg Tablet Extended Release 24 Hr 30 mg PO QAM Qty: 30 0RF diclofenac sodium [Voltaren Arthritis Pain] 1 % Gel 2 g EXT BID PRN (Reason: Pain) Qty: 50 0RF Rx Instructions: shoulders magnesium oxide 400 mg (241.3 mg magnesium) Tablet 400 mg PO DAILY Qty: 30 0RF Continued venlafaxine 75 mg capsule,extended release 24hr 75 mg PO QAM tramadol 50 mg Tablet 50 mg PO Q8H PRN (Reason: PAIN,SEVERE) nitroglycerin 0.4 mg tablet, sublingual 0.4 mg sublingual DIRECTED PRN (Reason: Chest Pain) glipizide 5 mg tablet 5 mg PO DAILYBB Ozempic 1 mg/dose (4 mg/3 mL) pen injector 1 mg SUBCUT WK Rx Instructions: TUESDAYS furosemide 20 mg tablet 20 mg PO 3XWK Rx Instructions: TUES, & SAT. baclofen 10 mg tablet 10 mg PO TID PRN (Reason: Pain) Qty: 90 0RF metoprolol succinate 50 mg tablet extended release 24 hr 50 mg PO DAILY pantoprazole 40 mg tablet,delayed release (DR/EC) 40 mg PO DAILY metformin 500 mg tablet extended release 24 hr 1,000 mg PO BID lisinopril 2.5 mg tablet 2.5 mg PO DAILY rosuvastatin 20 mg tablet 20 mg PO DAILY aspirin 81 mg Tablet,Delayed Release (Dr/Ec) 81 mg PO DAILY Patient Comments: Unable to verify OTC meds at this date/time. 07/08/25 acetaminophen 325 mg Tablet 650 mg PO Q4H PRN (Reason: pain) Qty: 30 0RF trazodone 50 mg tablet 50 mg PO HS PRN (Reason: Insomnia) ibuprofen 600 mg Tablet 600 mg PO Q8H PRN (Reason: pain) Qty: 30 0RF Changed meloxicam 15 mg tablet 15 mg PO DAILY PRN (Reason: Pain) Qty: 10 0RF gabapentin 800 mg tablet 800 mg PO TID PRN (Reason: Pain) Qty: 90 0RF Discharge Orders: Discharge Order (Routine); Ordered 07/19/25 Ordered By: Zain Maxwell/Other Patient Handouts: Managing Type 2 Diabetes Admission Data Admit Date/Time: 07/17/25 02:43 Attending Provider: Zain Hardy Admit Provider: Sekou Tineo Primary Care Provider: Gary Galdamez Other Providers: Sekou Tineo; Melisa Aggarwal; Christiano Barksdale; Emil Castro; Stalin Guevara; Horacio To; Arturo Tripp; Dorina Farrar; Carol Elizabeth; Vaishali Salvador; Sandrita Nix; Melisa Lubin; Levon Marie; Rakesh Zhao; Mei Leger; Jessica Bee; Valerie Sanchez; Della Phillips; Jorden Linda; Rita Cole; Viki Celis; Fitz Barbour; Grey Valerio; Makenna Carreno
[2025-07-19 15:25] VITALS: PULSE 78
[2025-07-20] MEDS ORDERED: MAGNESIUM OXIDE 400 MG TAB PO SCH (09:00)
--- NOTE | 2025-07-20 16:09 | Electrocardiogram Report ---
Test Reason : Blood Pressure : */* mmHG Vent. Rate : 78 BPM Atrial Rate : 78 BPM P-R Int : 142 ms QRS Dur : 98 ms QT Int : 388 ms P-R-T Axes : 75 -25 84 degrees QTcB Int : 442 ms Normal sinus rhythm Possible Left atrial enlargement Inferior infarct (cited on or before 08-Jul-2025) Abnormal ECG When compared with ECG of 16-Jul-2025 23:35, (unconfirmed) Non-specific change in ST segment in Lateral leads No significant change Confirmed by Erich Thompson ([id number]) on 07/20/2025 4:09:22 PM Referred By: REFERRED SELF Confirmed By: Erich Thompson
--- NOTE | 2025-07-20 16:22 | Electrocardiogram Report ---
Test Reason : Blood Pressure : */* mmHG Vent. Rate : 84 BPM Atrial Rate : 84 BPM P-R Int : 146 ms QRS Dur : 98 ms QT Int : 374 ms P-R-T Axes : 81 -26 93 degrees QTcB Int : 441 ms Poor data quality, interpretation may be adversely affected Normal sinus rhythm Inferior infarct (cited on or before 08-Jul-2025) Abnormal ECG When compared with ECG of 17-Jul-2025 07:49, (unconfirmed) No significant change was found Confirmed by Erich Thompson ([id number]) on 07/20/2025 4:22:21 PM Referred By: REFERRED SELF Confirmed By: Erich Thompson
--- NOTE | 2025-07-20 16:24 | Electrocardiogram Report ---
Test Reason : Blood Pressure : */* mmHG Vent. Rate : 66 BPM Atrial Rate : 66 BPM P-R Int : 154 ms QRS Dur : 110 ms QT Int : 408 ms P-R-T Axes : 72 -9 82 degrees QTcB Int : 427 ms Normal sinus rhythm with sinus arrhythmia Inferior infarct (cited on or before 08-Jul-2025) Abnormal ECG When compared with ECG of 18-Jul-2025 09:14, (unconfirmed) No significant change Confirmed by Erich Thompson ([id number]) on 07/20/2025 4:24:04 PM Referred By: REFERRED SELF Confirmed By: Erich Thompson
--- NOTE | 2025-07-21 15:06 | Electrocardiogram Report ---
Test Reason : Blood Pressure : */* mmHG Vent. Rate : 71 BPM Atrial Rate : 71 BPM P-R Int : 158 ms QRS Dur : 104 ms QT Int : 414 ms P-R-T Axes : -29 -13 -87 degrees QTcB Int : 449 ms Normal sinus rhythm Minimal voltage criteria for LVH, may be normal variant ( Prabhu product ) Lateral infarct , age undetermined Inferior infarct (cited on or before 08-Jul-2025) Abnormal ECG When compared with ECG of 10-Jul-2025 05:10, Lateral infarct is now Present Confirmed by Erich Thompson ([id number]) on 07/21/2025 3:05:42 PM Referred By: REFERRED SELF Confirmed By: Erich Thompson
== END 2025-07-19 17:13 | disposition home or self-care (01) | DRG 313 ==
LOC: ED 21:52 → SUATTDRO 07-17 02:43 → 4W 07-17 02:43